=== PATIENT | male | born 1940 | race Caucasian/White ===

== ENCOUNTER 2017-07-25 14:25 | Outpatient (RCR) | payer MEDICARE, SELFPAY ==
[2017-07-25 16:39] VITALS: BP 130/71; PULSE 54; RESP 18; TEMP 37.1
--- NOTE | 2017-07-25 21:54 | PCM.WC.HP ---
(1) Anemia Status: Chronic Current Visit: Yes Qualifiers: Anemia type: unspecified type Qualified Code(s): D64.9 - Anemia, unspecified Code(s): D64.9 - Anemia, unspecified (2) COPD (chronic obstructive pulmonary disease) Status: Chronic Current Visit: No Qualifiers: COPD type: unspecified COPD Qualified Code(s): J44.9 - Chronic obstructive pulmonary disease, unspecified Code(s): J44.9 - Chronic obstructive pulmonary disease, unspecified (3) Sleep apnea Status: Chronic Current Visit: No Qualifiers: Sleep apnea type: unspecified type Qualified Code(s): G47.30 - Sleep apnea, unspecified Code(s): G47.30 - Sleep apnea, unspecified (4) A-fib Status: Chronic Current Visit: Yes Qualifiers: Atrial fibrillation type: chronic Qualified Code(s): I48.2 - Chronic atrial fibrillation Code(s): I48.91 - Unspecified atrial fibrillation Comment: on warfarin for anticoagulation (5) CHF (congestive heart failure) Status: Chronic Current Visit: No Qualifiers: Heart failure type: unspecified Heart failure chronicity: unspecified Qualified Code(s): I50.9 - Heart failure, unspecified Code(s): I50.9 - Heart failure, unspecified (6) CAD (coronary artery disease) Status: Chronic Current Visit: Yes Qualifiers: Coronary Disease-Associated Artery/Lesion type: unspecified vessel or lesion type [place] vs. transplanted heart: [place] heart Associated angina: without angina Qualified Code(s): I25.10 - Atherosclerotic heart disease of [place] coronary artery without angina pectoris Code(s): I25.10 - Atherosclerotic heart disease of [place] coronary artery without angina pectoris (7) S/P CABG x 4 Status: Chronic Current Visit: No Code(s): Z95.1 - Presence of aortocoronary bypass graft (8) PAD (peripheral artery disease) Status: Chronic Current Visit: Yes Code(s): I73.9 - Peripheral vascular disease, unspecified (9) Type 2 diabetes mellitus treated with insulin Status: Chronic Current Visit: Yes Code(s): E11.9 - Type 2 diabetes mellitus without complications; Z79.4 - cytology manager (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 of insulin (10) Neuropathy Status: Chronic Current Visit: Yes Code(s): G62.9 - Polyneuropathy, unspecified (11) 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 He has seen his PCP and has seen another physician in their practice for the wound/ulcer and has been treated once with an UNNA boot and otherwise has been given antibiotics off and on without improvement, most recent antibiotic was Augmentin. No cultures have ever been taken of the wound. No imaging has been done. He has been using Aquaphor to the wound as instructed by his PCP. He has significant pain and edema in this leg and has been started on Lyrica which has helped with the pain. He has been unable to sleep in bed due to the pain and has been sleeping in a recliner. He denies any significant drainage but does note some on his socks from time to time. He denies any odor. Occasionally there is some bleeding. he was referred to the wound center for further evaluation and treatment. 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) Chronic anticoagulation (Chronic) Surgical History: cataract, coronary bypass surgery Allergies/Adverse Reactions: Allergies morphine Allergy (Verified 07/25/17 22:02) Hives Home Medications: Ambulatory Orders Medication Instructions Recorded Aspirin 81 mg PO DAILY 07/25/17 Atorvastatin Calcium 80 mg PO QHS 07/25/17 Exenatide [Byetta (BKC)] 5 mcg SC BIDAC 07/25/17 Furosemide [Lasix] 40 mg PO BID 07/25/17 Insulin Glargine,Hum.rec.anlog 15 units SQ QHS 07/25/17 [Lantus Solostar] Lisinopril 20 mg PO DAILY 07/25/17 Metformin HCl 500 mg PO BID 07/25/17 Metoprolol Tartrate 25 mg PO BID 07/25/17 Potassium Chloride [Klor-Con 10] 1 tab PO DAILY 07/25/17 Pregabalin [Lyrica] 150 mg PO 07/25/17 Tamsulosin HCl [Flomax] 0.4 mg PO DAILY 07/25/17 Warfarin Sodium 5 mg PO 07/25/17 - Family History Maternal Diabetes, Heart Disease, Stroke Paternal Heart Disease Sibling Diabetes, Stroke Lives: Spouse/ Significant Other Smoking Status: Never smoker Tobacco Use: Non-smoker Alcohol: Rare Drugs: None Review of Systems Constitutional: Denies: Chills, Fever, Weight Change Eyes: Denies: Pain, Vision Change HEENT: Reports: Sinus Congestion. Denies: Difficulty Hearing, Difficulty Swallowing Cardiovascular: Denies: Chest Pain, Palpitations Respiratory: Denies: Cough, Shortness of Breath Gastrointestinal: Denies: Diarrhea, Nausea, Vomiting Genitourinary: Denies: Dysuria, Hematuria Musculoskeletal: Reports: Leg Pain Skin: Reports: Wounds Neurological: Reports: Numbness Endocrine: Denies: Heat/ Cold Intolerance, Polydipsia, Polyuria Hematologic/ Lymphatic: Reports: Easy Bruising, Easy Bleeding - Physical Exam Vital Signs Temp Pulse Resp BP 98.8 F 54 L 18 130/71 H 07/25/17 16:39 07/25/17 16:39 07/25/17 16:39 07/25/17 16:39 General: Alert, Oriented x3, Cooperative, No apparent distress HEENT: Atraumatic, Normocephalic Oral: Moist Mucosa Lungs: Clear to auscultation Cardiovascular: Regular rate, Regular Rhythm Abdomen: Soft, Non Tender Extremities: Edema Skin: Ulcer/ Wound Wound Measurements and Assessment WC - Nurse 1 - General Ulcer Measurement Start: 07/25/17 16:38 Freq: Status: Active Protocol: Activity Type Activity Date Activity User E-Sign Co-Sign Detail Recorded Client Recorded Date Recorded By Document 07/25/17 16:39 DV [id number] 07/25/17 17:05 DV 07/25/17 16:39 Wound Center Nurse 1 [Ulcer Assessment] #1 RIGHT LATERAL LOWER LEG -Combined with other wound No -Current Size (cm) - Length 12.5 -Current Size (cm) - Width 3.0 -Current Size (cm) - Depth 0.1 -Total Square Cm 37.50 -Date of Last Picture (Recall this 07/25/17 field) -Photo Taken Yes -Epithelialization None Present -Tunneling No -Undermining/Tunneling No -Circular Undermining No -Classification - Thickness Full Thickness without Exposed Support Structure -Exudate Amt Small (1-33%) -Exudate Type Yellow/Green -Wound Margin Indistinct, Non -Visible -Granulation Amt None Present (0 %) -Granulation Quality N/A -Slough/Fibrin Yes -Necrosis Amt Large (67-100%) -Necrotic Tissue Type Eschar -Structure Exposed None/Limited to Skin Breakdown -Texture (Kinza-wound Skin Appearance) Assessed Localized Edema Scarring -Moisture ([place]-wound Skin Appearance Assessed ) Weeping Dry/Scaly -Color ([place]-wound Skin Appearance) Assessed Erythema Hemosiderin Staining -Temperature ([place]-wound Skin No Abnormality Appearance) (Pt Warm) -Tenderness on Palpation ([place]-wound Yes Skin Appearance) -Ulcer Cleansing Rinsed/ Irrigated with Saline -Foul Odor after Cleansing No -Anesthetic Used 4% Lidocaine Solution 5% Lidocaine Gel [Edema Assessment] -Lower Limb Edema Present Yes -Right Calf (cm) 40.2 -Right Ankle (cm) 24.0 -Left Calf (cm) 38.5 -Left Ankle (cm) 24.5 WC - Nurse 2 - General Ulcer CM Notes Start: 07/25/17 16:38 Freq: Status: Active Protocol: Activity Type Activity Date Activity User E-Sign Co-Sign Detail Recorded Client Recorded Date Recorded By Document 07/25/17 17:21 [id number] 07/25/17 18:25 TM 07/25/17 17:21 Wound Center Nurse 2 [Procedure/Treatment] #1 RIGHT LATERAL LOWER LEG -Time 17:34 -Correct Patient Yes -Correct Side, Site, Position Yes -Correct Procedure Yes -Procedure Performed Yes -Type of Procedure Debridement -Clinical Debridement Subcutaneous -Post Debridement Size (cm) - Length 12.7 -Post Debridement Size (cm) - Width 3.0 -Post Debridement Size (cm) - Depth 0.2 -Total Square Cm 38.10 -Wound/Ulcer Outcome Not Healed -Ulcer Cleansing Rinsed/ Irrigated with Saline -Foul Odor after Cleansing No -Bioengineered Tissue No -Topical Lidocaine (%) 5 -Bleeding Controlled with Pressure -Treatment Response Procedure Tolerated Well [See Physician Procedure note for Specifics] Pain Scale: 0-10 Numeric [Pain] -Is Patient Pain Free? Yes Psych/Mental Status: Normal Affect, Appropriate Debridement Note Post-Debridement Measurements/Treatment WC - Nurse 2 - General Ulcer CM Notes Start: 07/25/17 16:38 Freq: Status: Active Protocol: Activity Type Activity Date Activity User E-Sign Co-Sign Detail Recorded Client Recorded Date Recorded By Document 07/25/17 17:21 [id number] 07/25/17 18:25 07/25/17 17:21 Wound Center Nurse 2 #1 RIGHT LATERAL LOWER LEG -Time 17:34 -Correct Patient Yes -Correct Side, Site, Position Yes -Correct Procedure Yes -Procedure Performed Yes -Type of Procedure Debridement -Clinical Debridement Subcutaneous -Post Debridement Size (cm) - Length 12.7 -Post Debridement Size (cm) - Width 3.0 -Post Debridement Size (cm) - Depth 0.2 -Total Square Cm 38.10 -Wound/Ulcer Outcome Not Healed -Ulcer Cleansing Rinsed/ Irrigated with Saline -Foul Odor after Cleansing No -Bioengineered Tissue No -Topical Lidocaine (%) 5 -Bleeding Controlled with Pressure -Treatment Response Procedure Tolerated Well Pain Scale: 0-10 Numeric Is Patient Pain Free? Yes Wound debrided: right lateral lower leg Laterality: Right Type of Debridement: Excisional debridement Anesthesia Used: 4% Lidocaine Solution, 5% Lidocaine Gel Depth: Down to and including healthy tissue, in the subcutaneous layer Percentage of wound debrided: 100 Instrument Used: #15 blade, Forceps Tissue Removed: yellow slough, devitalized tissue, necrotic tissue Severity: Fat Layer Exposed Amount of bleeding with debridement: Mild Bleeding Controlled with: Compression and gauze Patient tolerated procedure well Assessment/Plan Active Problems Anemia (Chronic) A-fib (Chronic) on warfarin for anticoagulation CAD (coronary artery disease) (Chronic) PAD (peripheral artery disease) (Chronic) Type 2 diabetes mellitus treated with insulin (Chronic) Neuropathy (Chronic) 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 Wound culture was taken to evaluate for any current infection. Vascular studies have been scheduled to evaluate his venous and arterial circulation as they are both likely contributing to his poor healing. Will treat his wound with Santyl and if unable to afford or unable to obtain Santyl until his next appointment would use wet to dry dressings. Will treat his edema with single layer tubigrip. Discussed importance of elevating legs to help with decreasing edema. Encouraged tight glucose control. Records of recent labs requested from PCP office. Call with any increased bleeding, pain, odor or drainage. F/U in 1 week.
--- NOTE | 2017-07-25 22:05 | HP.PCM_ITS ---
(1) Anemia Status: Chronic Current Visit: Yes Qualifiers: Anemia type: unspecified type Qualified Code(s): D64.9 - Anemia, unspecified Code(s): D64.9 - Anemia, unspecified (2) COPD (chronic obstructive pulmonary disease) Status: Chronic Current Visit: No Qualifiers: COPD type: unspecified COPD Qualified Code(s): J44.9 - Chronic obstructive pulmonary disease, unspecified Code(s): J44.9 - Chronic obstructive pulmonary disease, unspecified (3) Sleep apnea Status: Chronic Current Visit: No Qualifiers: Sleep apnea type: unspecified type Qualified Code(s): G47.30 - Sleep apnea , unspecified Code(s): G47.30 - Sleep apnea, unspecified (4) A-fib Status: Chronic Current Visit: Yes Qualifiers: Atrial fibrillation type: chronic Qualified Code(s): I48.2 - Chronic atrial fibrillation Code(s): I48.91 - Unspecified atrial fibrillation Comment: on warfarin for anticoagulation (5) CHF (congestive heart failure) Status: Chronic Current Visit: No Qualifiers: Heart failure type: unspecified Heart failure chronicity: unspecified Qualified Code(s): I50.9 - Heart failure, unspecified Code(s): I50.9 - Heart failure, unspecified (6) CAD (coronary artery disease) Status: Chronic Current Visit: Yes Qualifiers: Coronary Disease-Associated Artery/Lesion type: unspecified vessel or lesion type [place] vs. transplanted heart: [place] heart Associated angina: without angina Qualified Code(s): I25.10 - Atherosclerotic heart disease of [place] coronary artery without angina pectoris Code(s): I25.10 - Atherosclerotic heart disease of [place] coronary artery without angina pectoris (7) S/P CABG x 4 Status: Chronic Current Visit: No Code(s): Z95.1 - Presence of aortocoronary bypass graft (8) PAD (peripheral artery disease) Status: Chronic Current Visit: Yes Code(s): I73.9 - Peripheral vascular disease, unspecified (9) Type 2 diabetes mellitus treated with insulin Status: Chronic Current Visit: Yes Code(s): E11.9 - Type 2 diabetes mellitus without complications; Z79.4 - half-way (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 of insulin (10) Neuropathy Status: Chronic Current Visit: Yes Code(s): G62.9 - Polyneuropathy, unspecified (11) 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 He has seen his PCP and has seen another physician in their practice for the wound/ulcer and has been treated once with an UNNA boot and otherwise has been given antibiotics off and on without improvement, most recent antibiotic was Augmentin. No cultures have ever been taken of the wound. No imaging has been done. He has been using Aquaphor to the wound as instructed by his PCP. He has significant pain and edema in this leg and has been started on Lyrica which has helped with the pain. He has been unable to sleep in bed due to the pain and has been sleeping in a recliner. He denies any significant drainage but does note some on his socks from time to time. He denies any odor. Occasionally there is some bleeding. he was referred to the wound center for further evaluation and treatment. 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 (Chronic ) Chronic anticoagulation (Chronic) Surgical History: cataract, coronary bypass surgery Allergies/Adverse Reactions: Allergies morphine Allergy (Verified 07/25/17 22:02) Hives Home Medications: Ambulatory Orders Medication Instructions Recorded Aspirin 81 mg PO DAILY 07/25/17 Atorvastatin Calcium 80 mg PO QHS 07/25/17 Exenatide [Byetta (BKC)] 5 mcg SC BIDAC 07/25/17 Furosemide [Lasix] 40 mg PO BID 07/25/17 Insulin Glargine,Hum.rec.anlog 15 units SQ QHS 07/25/17 [Lantus Solostar] Lisinopril 20 mg PO DAILY 07/25/17 Metformin HCl 500 mg PO BID 07/25/17 Metoprolol Tartrate 25 mg PO BID 07/25/17 Potassium Chloride [Klor-Con 10] 1 tab PO DAILY 07/25/17 Pregabalin [Lyrica] 150 mg PO 07/25/17 Tamsulosin HCl [Flomax] 0.4 mg PO DAILY 07/25/17 Warfarin Sodium 5 mg PO 07/25/17 - Family History Maternal Diabetes, Heart Disease, Stroke Paternal Heart Disease Sibling Diabetes, Stroke Lives: Spouse/ Significant Other Smoking Status: Never smoker Tobacco Use: Non-smoker Alcohol: Rare Drugs: None Review of Systems Constitutional: Denies: Chills, Fever, Weight Change Eyes: Denies: Pain, Vision Change HEENT: Reports: Sinus Congestion. Denies: Difficulty Hearing, Difficulty Swallowing Cardiovascular: Denies: Chest Pain, Palpitations Respiratory: Denies: Cough, Shortness of Breath Gastrointestinal: Denies: Diarrhea, Nausea, Vomiting Genitourinary: Denies: Dysuria, Hematuria Musculoskeletal: Reports: Leg Pain Skin: Reports: Wounds Neurological: Reports: Numbness Endocrine: Denies: Heat/ Cold Intolerance, Polydipsia, Polyuria Hematologic/ Lymphatic: Reports: Easy Bruising, Easy Bleeding - Physical Exam Vital Signs Temp Pulse Resp BP 98.8 F 54 L 18 130/71 H 07/25/17 16:39 07/25/17 16:39 07/25/17 16:39 07/25/17 16:39 General: Alert, Oriented x3, Cooperative, No apparent distress HEENT: Atraumatic, Normocephalic Oral: Moist Mucosa Lungs: Clear to auscultation Cardiovascular: Regular rate, Regular Rhythm Abdomen: Soft, Non Tender Extremities: Edema Skin: Ulcer/ Wound Wound Measurements and Assessment WC - Nurse 1 - General Ulcer Measurement Start: 07/25/17 16:38 Freq: Status: Active Protocol: Activity Type Activity Date Activity User E-Sign Co-Sign Detail Recorded Client Recorded Date Recorded By Document 07/25/17 16:39 DV [id number] 07/25/17 17:05 DV 07/25/17 16:39 Wound Center Nurse 1 [Ulcer Assessment] #1 RIGHT LATERAL LOWER LEG -Combined with other wound No -Current Size (cm) - Length 12.5 -Current Size (cm) - Width 3.0 -Current Size (cm) - Depth 0.1 -Total Square Cm 37.50 -Date of Last Picture (Recall this 07/25/17 field) -Photo Taken Yes -Epithelialization None Present -Tunneling No -Undermining/Tunneling No -Circular Undermining No -Classification - Thickness Full Thickness without Exposed Support Structure -Exudate Amt Small (1-33%) -Exudate Type Yellow/Green -Wound Margin Indistinct, Non -Visible -Granulation Amt None Present (0 %) -Granulation Quality N/A -Slough/Fibrin Yes -Necrosis Amt Large (67-100%) -Necrotic Tissue Type Eschar -Structure Exposed None/Limited to Skin Breakdown -Texture (Kinza-wound Skin Appearance) Assessed Localized Edema Scarring -Moisture ([place]-wound Skin Appearance Assessed ) Weeping Dry/Scaly -Color ([place]-wound Skin Appearance) Assessed Erythema Hemosiderin Staining -Temperature ([place]-wound Skin No Abnormality Appearance) (Pt Warm) -Tenderness on Palpation ([place]-wound Yes Skin Appearance) -Ulcer Cleansing Rinsed/ Irrigated with Saline -Foul Odor after Cleansing No -Anesthetic Used 4% Lidocaine Solution 5% Lidocaine Gel [Edema Assessment] -Lower Limb Edema Present Yes -Right Calf (cm) 40.2 -Right Ankle (cm) 24.0 -Left Calf (cm) 38.5 -Left Ankle (cm) 24.5 WC - Nurse 2 - General Ulcer CM Notes Start: 07/25/17 16:38 Freq: Status: Active Protocol: Activity Type Activity Date Activity User E-Sign Co-Sign Detail Recorded Client Recorded Date Recorded By Document 07/25/17 17:21 [id number] 07/25/17 18:25 TM 07/25/17 17:21 Wound Center Nurse 2 [Procedure/Treatment] #1 RIGHT LATERAL LOWER LEG -Time 17:34 -Correct Patient Yes -Correct Side, Site, Position Yes -Correct Procedure Yes -Procedure Performed Yes -Type of Procedure Debridement -Clinical Debridement Subcutaneous -Post Debridement Size (cm) - Length 12.7 -Post Debridement Size (cm) - Width 3.0 -Post Debridement Size (cm) - Depth 0.2 -Total Square Cm 38.10 -Wound/Ulcer Outcome Not Healed -Ulcer Cleansing Rinsed/ Irrigated with Saline -Foul Odor after Cleansing No -Bioengineered Tissue No -Topical Lidocaine (%) 5 -Bleeding Controlled with Pressure -Treatment Response Procedure Tolerated Well [See Physician Procedure note for Specifics] Pain Scale: 0-10 Numeric [Pain] -Is Patient Pain Free? Yes Psych/Mental Status: Normal Affect, Appropriate Debridement Note Post-Debridement Measurements/Treatment WC - Nurse 2 - General Ulcer CM Notes Start: 07/25/17 16:38 Freq: Status: Active Protocol: Activity Type Activity Date Activity User E-Sign Co-Sign Detail Recorded Client Recorded Date Recorded By Document 07/25/17 17:21 [id number] 07/25/17 18:25 07/25/17 17:21 Wound Center Nurse 2 #1 RIGHT LATERAL LOWER LEG -Time 17:34 -Correct Patient Yes -Correct Side, Site, Position Yes -Correct Procedure Yes -Procedure Performed Yes -Type of Procedure Debridement -Clinical Debridement Subcutaneous -Post Debridement Size (cm) - Length 12.7 -Post Debridement Size (cm) - Width 3.0 -Post Debridement Size (cm) - Depth 0.2 -Total Square Cm 38.10 -Wound/Ulcer Outcome Not Healed -Ulcer Cleansing Rinsed/ Irrigated with Saline -Foul Odor after Cleansing No -Bioengineered Tissue No -Topical Lidocaine (%) 5 -Bleeding Controlled with Pressure -Treatment Response Procedure Tolerated Well Pain Scale: 0-10 Numeric Is Patient Pain Free? Yes Wound debrided: right lateral lower leg Laterality: Right Type of Debridement: Excisional debridement Anesthesia Used: 4% Lidocaine Solution, 5% Lidocaine Gel Depth: Down to and including healthy tissue, in the subcutaneous layer Percentage of wound debrided: 100 Instrument Used: #15 blade, Forceps Tissue Removed: yellow slough, devitalized tissue, necrotic tissue Severity: Fat Layer Exposed Amount of bleeding with debridement: Mild Bleeding Controlled with: Compression and gauze Patient tolerated procedure well Assessment/Plan Active Problems Anemia (Chronic) A-fib (Chronic) on warfarin for anticoagulation CAD (coronary artery disease) (Chronic) PAD (peripheral artery disease) (Chronic) Type 2 diabetes mellitus treated with insulin (Chronic) Neuropathy (Chronic) 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 Wound culture was taken to evaluate for any current infection. Vascular studies have been scheduled to evaluate his venous and arterial circulation as they are both likely contributing to his poor healing. Will treat his wound with Santyl and if unable to afford or unable to obtain Santyl until his next appointment would use wet to dry dressings. Will treat his edema with single layer tubigrip. Discussed importance of elevating legs to help with decreasing edema. Encouraged tight glucose control. Records of recent labs requested from PCP office. Call with any increased bleeding, pain, odor or drainage. F/U in 1 week.
== END 2017-07-26 23:59 | disposition home or self-care (01) ==
LOC: WC 14:25
PROVIDERS: Family Provider Family Medicine; PCP Family Medicine; Visit Provider Family Medicine
DX: E11.622 Type 2 diabetes mellitus with other skin ulcer (principal); E11.40 Type 2 diabetes mellitus with diabetic neuropathy, unspecified; I70.232 Atherosclerosis of native arteries of right leg with ulceration of calf; L97.212 Non-pressure chronic ulcer of right calf with fat layer exposed; I48.2 Chronic atrial fibrillation; I25.10 Atherosclerotic heart disease of native coronary artery without angina pectoris; D64.9 Anemia, unspecified; Z79.01 Long term (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 of anticoagulants; G47.30 Sleep apnea, unspecified; I50.9 Heart failure, unspecified; Z95.1 Presence of aortocoronary bypass graft; E11.51 Type 2 diabetes mellitus with diabetic peripheral angiopathy without gangrene
CPT/HCPCS: 11042; 11045; 87070; 87075; 87077; 87186; 87205; 97602; 99203; G0463

== ENCOUNTER 2017-08-21 13:00 | Outpatient (RCR) | payer MEDICARE, SELFPAY ==
[2017-07-27 01:24] VITALS: PULSE 54; RESP 18; TEMP 37.1
[2017-07-29 13:07] VITALS: BP 147/66; PULSE 69; RESP 18; TEMP 36.6
--- NOTE | 2017-07-29 14:06 | PCM.WC.HP ---
(1) Non-pressure chronic ulcer of right calf with fat layer exposed Status: Acute Current Visit: Yes Code(s): L97.212 - Non-pressure chronic ulcer of right calf with fat layer exposed (2) Type 2 diabetes mellitus with other skin ulcer Status: Acute Current Visit: Yes Qualifiers: Diabetes mellitus long term care administrator insulin use: unspecified long term care administrator insulin use status Qualified Code(s): E11.622 - Type 2 diabetes mellitus with other skin ulcer; L98.499 - Non-pressure chronic ulcer of skin of other sites with unspecified severity Code(s): E11.622 - Type 2 diabetes mellitus with other skin ulcer; L98.499 - Non-pressure chronic ulcer of skin of other sites with unspecified severity (3) PAD (peripheral artery disease) Status: Chronic Current Visit: Yes Code(s): I73.9 - Peripheral vascular disease, unspecified (4) Type 2 diabetes mellitus with diabetic polyneuropathy Status: Acute Current Visit: Yes Qualifiers: Diabetes mellitus long term care administrator insulin use: unspecified long term care administrator insulin use status Qualified Code(s): E11.42 - Type 2 diabetes mellitus with diabetic polyneuropathy Code(s): E11.42 - Type 2 diabetes mellitus with diabetic polyneuropathy History of Present Illness Date of Service: 07/29/17 Chief Complaint: nonhealing wound/ulcer of right lateral calf History of Wound: Eddie is a pleasant 76 yo man who presents for evaluation of a wound/ulcer of his right lateral calf that has been present since mid-April and has continued to get larger. Former patient of Dr. Kearney's, but will now be seeing me. He has seen his PCP and has seen another physician in their practice for the wound/ulcer and has been treated once with an UNNA boot and otherwise has been given antibiotics off and on without improvement, most recent antibiotic was Augmentin. No cultures have ever been taken of the wound. No imaging has been done. He has been using Aquaphor to the wound as instructed by his PCP. He has significant pain and edema in this leg and has been started on Lyrica which has helped with the pain. He has been unable to sleep in bed due to the pain and has been sleeping in a recliner. He denies any significant drainage but does note some on his socks from time to time. He denies any odor. Occasionally there is some bleeding. he was referred to the wound center for further evaluation and treatment. 07/29--Has been applying santyl and dry dressing since visit last friday. No drainage for the last few days. Vascular testing scheduled for 08/08. Awaiting lab work from PCP. Admits to sleeping in a recliner since March. Denies N/V/F/C. Some redness to R leg, but no pus, no malodor, no warmth, minimal pain. There is edema. Culture positive for e.coli from Friday. Will Rx Keflex today. 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) Chronic anticoagulation (Chronic) Surgical History: cataract, coronary bypass surgery Allergies/Adverse Reactions: Allergies morphine Allergy (Verified 07/25/17 22:02) Hives Home Medications: Ambulatory Orders Medication Instructions Recorded Aspirin 81 mg PO DAILY 07/25/17 Atorvastatin Calcium 80 mg PO QHS 07/25/17 Exenatide [Byetta (BKC)] 5 mcg SC BIDAC 07/25/17 Furosemide [Lasix] 40 mg PO BID 07/25/17 Insulin Glargine,Hum.rec.anlog 15 units SQ QHS 07/25/17 [Lantus Solostar] Lisinopril 20 mg PO DAILY 07/25/17 Metformin HCl 500 mg PO BID 07/25/17 Metoprolol Tartrate 25 mg PO BID 07/25/17 Potassium Chloride [Klor-Con 10] 1 tab PO DAILY 07/25/17 Pregabalin [Lyrica] 150 mg PO 07/25/17 Tamsulosin HCl [Flomax] 0.4 mg PO DAILY 07/25/17 Warfarin Sodium 5 mg PO 07/25/17 - Family History Maternal Diabetes, Heart Disease, Stroke Paternal Heart Disease Sibling Diabetes, Stroke Smoking Status: Never smoker Tobacco Use: Non-smoker Review of Systems Constitutional: Denies: Chills, Fever, Weight Change Eyes: Denies: Pain, Vision Change HEENT: Denies: Difficulty Hearing, Difficulty Swallowing, Sinus Congestion Cardiovascular: Reports: Edema. Denies: Chest Pain, Palpitations Respiratory: Denies: Cough, Shortness of Breath Gastrointestinal: Denies: Diarrhea, Nausea, Vomiting Genitourinary: Denies: Dysuria, Hematuria Skin: Reports: Wounds Neurological: Reports: Numbness, Tingling - legs/feet Endocrine: Denies: Heat/ Cold Intolerance, Polydipsia, Polyuria Hematologic/ Lymphatic: Reports: Hx of blood clot. Denies: Easy Bruising, Easy Bleeding - Physical Exam Vital Signs Temp Pulse Resp BP 97.8 F 69 18 147/66 H 07/29/17 13:07 07/29/17 13:07 07/29/17 13:07 07/29/17 13:07 General: Alert, Oriented x3, Cooperative, No apparent distress Extremities: Capillary Refill Less than 3 Seconds, No Calf Tenderness, Diminished Peripheral Pulses, Edema Skin: Ulcer/ Wound - R lateral calf with no erythema, no pus, no malodor, no warmth, no pain. No clinical signs of acute bacterial infection noted. See wound/edema assessment below. Wound Measurements and Assessment WC - Nurse 1 - General Ulcer Measurement Start: 07/29/17 13:07 Freq: Status: Active Protocol: Activity Type Activity Date Activity User E-Sign Co-Sign Detail Recorded Client Recorded Date Recorded By Document 07/29/17 13:07 DV [id number] 07/29/17 13:11 DV 07/29/17 13:07 Wound Center Nurse 1 [Ulcer Assessment] #1 RIGHT LATERAL LOWER LEG -Combined with other wound No -Current Size (cm) - Length 12.8 -Current Size (cm) - Width 4.3 -Current Size (cm) - Depth 0.2 -Total Square Cm 55.04 -Photo Taken No -Epithelialization None Present -Tunneling No -Undermining/Tunneling No -Circular Undermining No -Classification - Thickness Full Thickness without Exposed Support Structure -Exudate Amt Small (1-33%) -Exudate Type Serosanguineous -Wound Margin Distinct, Outline Attached -Granulation Amt None Present (0 %) -Granulation Quality N/A -Slough/Fibrin Yes -Necrosis Amt Large (67-100%) -Necrotic Tissue Type Adherent Slough -Structure Exposed None/Limited to Skin Breakdown -Texture (Kinza-wound Skin Appearance) Assessed Scarring -Moisture (Kinza-wound Skin Appearance Assessed ) Weeping -Color (Kinza-wound Skin Appearance) Assessed Hemosiderin Staining -Temperature (Kinza-wound Skin No Abnormality Appearance) (Pt Warm) -Tenderness on Palpation (Kinza-wound Yes Skin Appearance) -Ulcer Cleansing Wound Cleanser -Foul Odor after Cleansing No -Anesthetic Used 4% Lidocaine Solution 5% Lidocaine Gel [Edema Assessment] -Lower Limb Edema Present No WC - Nurse 2 - General Ulcer CM Notes Start: 07/29/17 13:07 Freq: Status: Active Protocol: Activity Type Activity Date Activity User E-Sign Co-Sign Detail Recorded Client Recorded Date Recorded By Document 07/29/17 13:25 MW [id number] 07/29/17 13:27 MW 07/29/17 13:25 Wound Center Nurse 2 [Procedure/Treatment] #1 RIGHT LATERAL LOWER LEG -Time 13:25 -Correct Patient Yes -Correct Side, Site, Position Yes -Correct Procedure Yes -Procedure Performed Yes -Type of Procedure Debridement -Clinical Debridement Subcutaneous -Post Debridement Size (cm) - Length 12.9 -Post Debridement Size (cm) - Width 4.3 -Post Debridement Size (cm) - Depth 0.2 -Total Square Cm 55.47 -Wound/Ulcer Outcome Not Healed -Ulcer Cleansing Rinsed/ Irrigated with Saline -Foul Odor after Cleansing No -Bioengineered Tissue No -Bleeding Controlled with Pressure -Treatment Response Procedure Tolerated Well [See Physician Procedure note for Specifics] Pain Scale: 0-10 Numeric [Pain] -Is Patient Pain Free? Yes Debridement Note Post-Debridement Measurements/Treatment WC - Nurse 2 - General Ulcer CM Notes Start: 07/29/17 13:07 Freq: Status: Active Protocol: Activity Type Activity Date Activity User E-Sign Co-Sign Detail Recorded Client Recorded Date Recorded By Document 07/29/17 13:25 MW [id number] 07/29/17 13:27 MW 07/29/17 13:25 Wound Center Nurse 2 #1 RIGHT LATERAL LOWER LEG -Time 13:25 -Correct Patient Yes -Correct Side, Site, Position Yes -Correct Procedure Yes -Procedure Performed Yes -Type of Procedure Debridement -Clinical Debridement Subcutaneous -Post Debridement Size (cm) - Length 12.9 -Post Debridement Size (cm) - Width 4.3 -Post Debridement Size (cm) - Depth 0.2 -Total Square Cm 55.47 -Wound/Ulcer Outcome Not Healed -Ulcer Cleansing Rinsed/ Irrigated with Saline -Foul Odor after Cleansing No -Bioengineered Tissue No -Bleeding Controlled with Pressure -Treatment Response Procedure Tolerated Well Pain Scale: 0-10 Numeric Is Patient Pain Free? Yes Wound debrided: R lateral calf Laterality: Right Wound Grade/Stage: full thickness VLU Type of Debridement: Excisional debridement Anesthesia Used: 4% Lidocaine Solution Depth: Down to and including healthy tissue, in the subcutaneous layer Percentage of wound debrided: 100 Instrument Used: 7mm curette Tissue Removed: fibrous slough Severity: Fat Layer Exposed Amount of bleeding with debridement: Mild Bleeding Controlled with: Pressure, Compression and gauze Patient tolerated procedure well Assessment/Plan Active Problems PAD (peripheral artery disease) (Chronic) Type 2 diabetes mellitus with diabetic polyneuropathy (Acute) Type 2 diabetes mellitus with other skin ulcer (Acute) Non-pressure chronic ulcer of right calf with fat layer exposed (Acute) Assessment: nonhealing ulcer/wound of right lateral calf - likely secondary to arterial insufficiency Plan: PLANNING DIVISION SUPERINTENDENT 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 SQ/excisional debridement of R calf ulcer as above. Vascular studies have been scheduled to evaluate his venous and arterial circulation as they are both likely contributing to his poor healing. Continue Santyl nickel thickness, cover with lightly moistened gauze dressing. Will treat his edema with single layer spandagrip. Discussed importance of elevating legs to help with decreasing edema, avoiding idle sitting or standing, increased activity, weight management. Pt unable to take NSAIDs due to current use of coumadin. Pt encouraged to sleep flat at night or to sleep with legs elevated if he is going to sleep in a recliner. Encouraged tight glucose control. Discussed importance of adequate nutrition, especially increased protein intake, to promote healing. Ulcer does not require offloading due to location, but do not cross legs. Records of recent labs requested from PCP office. Monitor for incraesed pain, odor, warmth, increased redness, pus and go to the ED with these. F/U in 1 week. Rx Keflex 500 mg caps, #30, take one cap PO q8h for positive cultures. Encouraged probiotic supplement as well.
--- NOTE | 2017-07-29 14:17 | HP.PCM_ITS ---
(1) Non-pressure chronic ulcer of right calf with fat layer exposed Status: Acute Current Visit: Yes Code(s): L97.212 - Non-pressure chronic ulcer of right calf with fat layer exposed (2) Type 2 diabetes mellitus with other skin ulcer Status: Acute Current Visit: Yes Qualifiers: Diabetes mellitus intermediate teacher insulin use: unspecified intermediate teacher insulin use status Qualified Code(s): E11.622 - Type 2 diabetes mellitus with other skin ulcer; L98.499 - Non-pressure chronic ulcer of skin of other sites with unspecified severity Code(s): E11.622 - Type 2 diabetes mellitus with other skin ulcer; L98.499 - Non -pressure chronic ulcer of skin of other sites with unspecified severity (3) PAD (peripheral artery disease) Status: Chronic Current Visit: Yes Code(s): I73.9 - Peripheral vascular disease, unspecified (4) Type 2 diabetes mellitus with diabetic polyneuropathy Status: Acute Current Visit: Yes Qualifiers: Diabetes mellitus intermediate teacher insulin use: unspecified fpc insulin use status Qualified Code(s): E11.42 - Type 2 diabetes mellitus with diabetic polyneuropathy Code(s): E11.42 - Type 2 diabetes mellitus with diabetic polyneuropathy History of Present Illness Date of Service: 07/29/17 Chief Complaint: nonhealing wound/ulcer of right lateral calf History of Wound: Eddie is a pleasant 76 yo man who presents for evaluation of a wound/ulcer of his right lateral calf that has been present since mid-April and has continued to get larger. Former patient of Dr. Kearney's, but will now be seeing me. He has seen his PCP and has seen another physician in their practice for the wound/ulcer and has been treated once with an UNNA boot and otherwise has been given antibiotics off and on without improvement, most recent antibiotic was Augmentin. No cultures have ever been taken of the wound. No imaging has been done. He has been using Aquaphor to the wound as instructed by his PCP. He has significant pain and edema in this leg and has been started on Lyrica which has helped with the pain. He has been unable to sleep in bed due to the pain and has been sleeping in a recliner. He denies any significant drainage but does note some on his socks from time to time. He denies any odor. Occasionally there is some bleeding. he was referred to the wound center for further evaluation and treatment. 07/29--Has been applying santyl and dry dressing since visit last friday. No drainage for the last few days. Vascular testing scheduled for 08/08. Awaiting lab work from PCP. Admits to sleeping in a recliner since March. Denies N/V/F/C. Some redness to R leg, but no pus, no malodor, no warmth, minimal pain. There is edema. Culture positive for e.coli from Friday. Will Rx Keflex today. 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 ) Chronic anticoagulation (Chronic) Surgical History: cataract, coronary bypass surgery Allergies/Adverse Reactions: Allergies morphine Allergy (Verified 07/25/17 22:02) Hives Home Medications: Ambulatory Orders Medication Instructions Recorded Aspirin 81 mg PO DAILY 07/25/17 Atorvastatin Calcium 80 mg PO QHS 07/25/17 Exenatide [Byetta (BKC)] 5 mcg SC BIDAC 07/25/17 Furosemide [Lasix] 40 mg PO BID 07/25/17 Insulin Glargine,Hum.rec.anlog 15 units SQ QHS 07/25/17 [Lantus Solostar] Lisinopril 20 mg PO DAILY 07/25/17 Metformin HCl 500 mg PO BID 07/25/17 Metoprolol Tartrate 25 mg PO BID 07/25/17 Potassium Chloride [Klor-Con 10] 1 tab PO DAILY 07/25/17 Pregabalin [Lyrica] 150 mg PO 07/25/17 Tamsulosin HCl [Flomax] 0.4 mg PO DAILY 07/25/17 Warfarin Sodium 5 mg PO 07/25/17 - Family History Maternal Diabetes, Heart Disease, Stroke Paternal Heart Disease Sibling Diabetes, Stroke Smoking Status: Never smoker Tobacco Use: Non-smoker Review of Systems Constitutional: Denies: Chills, Fever, Weight Change Eyes: Denies: Pain, Vision Change HEENT: Denies: Difficulty Hearing, Difficulty Swallowing, Sinus Congestion Cardiovascular: Reports: Edema. Denies: Chest Pain, Palpitations Respiratory: Denies: Cough, Shortness of Breath Gastrointestinal: Denies: Diarrhea, Nausea, Vomiting Genitourinary: Denies: Dysuria, Hematuria Skin: Reports: Wounds Neurological: Reports: Numbness, Tingling - legs/feet Endocrine: Denies: Heat/ Cold Intolerance, Polydipsia, Polyuria Hematologic/ Lymphatic: Reports: Hx of blood clot. Denies: Easy Bruising, Easy Bleeding - Physical Exam Vital Signs Temp Pulse Resp BP 97.8 F 69 18 147/66 H 07/29/17 13:07 07/29/17 13:07 07/29/17 13:07 07/29/17 13:07 General: Alert, Oriented x3, Cooperative, No apparent distress Extremities: Capillary Refill Less than 3 Seconds, No Calf Tenderness, Diminished Peripheral Pulses, Edema Skin: Ulcer/ Wound - R lateral calf with no erythema, no pus, no malodor, no warmth, no pain. No clinical signs of acute bacterial infection noted. See wound/edema assessment below. Wound Measurements and Assessment WC - Nurse 1 - General Ulcer Measurement Start: 07/29/17 13:07 Freq: Status: Active Protocol: Activity Type Activity Date Activity User E-Sign Co-Sign Detail Recorded Client Recorded Date Recorded By Document 07/29/17 13:07 DV [id number] 07/29/17 13:11 DV 07/29/17 13:07 Wound Center Nurse 1 [Ulcer Assessment] #1 RIGHT LATERAL LOWER LEG -Combined with other wound No -Current Size (cm) - Length 12.8 -Current Size (cm) - Width 4.3 -Current Size (cm) - Depth 0.2 -Total Square Cm 55.04 -Photo Taken No -Epithelialization None Present -Tunneling No -Undermining/Tunneling No -Circular Undermining No -Classification - Thickness Full Thickness without Exposed Support Structure -Exudate Amt Small (1-33%) -Exudate Type Serosanguineous -Wound Margin Distinct, Outline Attached -Granulation Amt None Present (0 %) -Granulation Quality N/A -Slough/Fibrin Yes -Necrosis Amt Large (67-100%) -Necrotic Tissue Type Adherent Slough -Structure Exposed None/Limited to Skin Breakdown -Texture (Kinza-wound Skin Appearance) Assessed Scarring -Moisture (Kinza-wound Skin Appearance Assessed ) Weeping -Color (Kinza-wound Skin Appearance) Assessed Hemosiderin Staining -Temperature (Kinza-wound Skin No Abnormality Appearance) (Pt Warm) -Tenderness on Palpation (Kinza-wound Yes Skin Appearance) -Ulcer Cleansing Wound Cleanser -Foul Odor after Cleansing No -Anesthetic Used 4% Lidocaine Solution 5% Lidocaine Gel [Edema Assessment] -Lower Limb Edema Present No WC - Nurse 2 - General Ulcer CM Notes Start: 07/29/17 13:07 Freq: Status: Active Protocol: Activity Type Activity Date Activity User E-Sign Co-Sign Detail Recorded Client Recorded Date Recorded By Document 07/29/17 13:25 MW [id number] 07/29/17 13:27 MW 07/29/17 13:25 Wound Center Nurse 2 [Procedure/Treatment] #1 RIGHT LATERAL LOWER LEG -Time 13:25 -Correct Patient Yes -Correct Side, Site, Position Yes -Correct Procedure Yes -Procedure Performed Yes -Type of Procedure Debridement -Clinical Debridement Subcutaneous -Post Debridement Size (cm) - Length 12.9 -Post Debridement Size (cm) - Width 4.3 -Post Debridement Size (cm) - Depth 0.2 -Total Square Cm 55.47 -Wound/Ulcer Outcome Not Healed -Ulcer Cleansing Rinsed/ Irrigated with Saline -Foul Odor after Cleansing No -Bioengineered Tissue No -Bleeding Controlled with Pressure -Treatment Response Procedure Tolerated Well [See Physician Procedure note for Specifics] Pain Scale: 0-10 Numeric [Pain] -Is Patient Pain Free? Yes Debridement Note Post-Debridement Measurements/Treatment WC - Nurse 2 - General Ulcer CM Notes Start: 07/29/17 13:07 Freq: Status: Active Protocol: Activity Type Activity Date Activity User E-Sign Co-Sign Detail Recorded Client Recorded Date Recorded By Document 07/29/17 13:25 MW [id number] 07/29/17 13:27 MW 07/29/17 13:25 Wound Center Nurse 2 #1 RIGHT LATERAL LOWER LEG -Time 13:25 -Correct Patient Yes -Correct Side, Site, Position Yes -Correct Procedure Yes -Procedure Performed Yes -Type of Procedure Debridement -Clinical Debridement Subcutaneous -Post Debridement Size (cm) - Length 12.9 -Post Debridement Size (cm) - Width 4.3 -Post Debridement Size (cm) - Depth 0.2 -Total Square Cm 55.47 -Wound/Ulcer Outcome Not Healed -Ulcer Cleansing Rinsed/ Irrigated with Saline -Foul Odor after Cleansing No -Bioengineered Tissue No -Bleeding Controlled with Pressure -Treatment Response Procedure Tolerated Well Pain Scale: 0-10 Numeric Is Patient Pain Free? Yes Wound debrided: R lateral calf Laterality: Right Wound Grade/Stage: full thickness VLU Type of Debridement: Excisional debridement Anesthesia Used: 4% Lidocaine Solution Depth: Down to and including healthy tissue, in the subcutaneous layer Percentage of wound debrided: 100 Instrument Used: 7mm curette Tissue Removed: fibrous slough Severity: Fat Layer Exposed Amount of bleeding with debridement: Mild Bleeding Controlled with: Pressure, Compression and gauze Patient tolerated procedure well Assessment/Plan Active Problems PAD (peripheral artery disease) (Chronic) Type 2 diabetes mellitus with diabetic polyneuropathy (Acute) Type 2 diabetes mellitus with other skin ulcer (Acute) Non-pressure chronic ulcer of right calf with fat layer exposed (Acute) Assessment: nonhealing ulcer/wound of right lateral calf - likely secondary to arterial insufficiency Plan: HIGH SCHOOL 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 SQ/excisional debridement of R calf ulcer as above. Vascular studies have been scheduled to evaluate his venous and arterial circulation as they are both likely contributing to his poor healing. Continue Santyl nickel thickness, cover with lightly moistened gauze dressing. Will treat his edema with single layer spandagrip. Discussed importance of elevating legs to help with decreasing edema, avoiding idle sitting or standing, increased activity, weight management. Pt unable to take NSAIDs due to current use of coumadin. Pt encouraged to sleep flat at night or to sleep with legs elevated if he is going to sleep in a recliner. Encouraged tight glucose control. Discussed importance of adequate nutrition, especially increased protein intake, to promote healing. Ulcer does not require offloading due to location, but do not cross legs. Records of recent labs requested from PCP office. Monitor for incraesed pain, odor, warmth, increased redness, pus and go to the ED with these. F/U in 1 week. Rx Keflex 500 mg caps, #30, take one cap PO q8h for positive cultures. Encouraged probiotic supplement as well.
[2017-08-05 13:43] VITALS: BP 133/57; PULSE 62; RESP 18; TEMP 36.4
--- NOTE | 2017-08-05 14:11 | PCM.WC.PN ---
(1) Non-pressure chronic ulcer of right calf with fat layer exposed Status: Acute Current Visit: Yes Code(s): L97.212 - Non-pressure chronic ulcer of right calf with fat layer exposed (2) Type 2 diabetes mellitus with other skin ulcer Status: Acute Current Visit: Yes Qualifiers: Diabetes mellitus termite technician insulin use: unspecified termite technician insulin use status Qualified Code(s): E11.622 - Type 2 diabetes mellitus with other skin ulcer; L98.499 - Non-pressure chronic ulcer of skin of other sites with unspecified severity Code(s): E11.622 - Type 2 diabetes mellitus with other skin ulcer; L98.499 - Non-pressure chronic ulcer of skin of other sites with unspecified severity (3) PAD (peripheral artery disease) Status: Chronic Current Visit: Yes Code(s): I73.9 - Peripheral vascular disease, unspecified (4) Type 2 diabetes mellitus with diabetic polyneuropathy Status: Acute Current Visit: Yes Qualifiers: Diabetes mellitus termite technician insulin use: unspecified termite technician insulin use status Qualified Code(s): E11.42 - Type 2 diabetes mellitus with diabetic polyneuropathy Code(s): E11.42 - Type 2 diabetes mellitus with diabetic polyneuropathy Type of Wound Date of Service: 08/05/17 Chief Complaint: nonhealing wound/ulcer of right lateral calf History of Wound: Eddie is a pleasant 76 yo man who presents for evaluation of a wound/ulcer of his right lateral calf that has been present since mid-April and has continued to get larger. Former patient of Dr. Kearney's, but will now be seeing me. He has seen his PCP and has seen another physician in their practice for the wound/ulcer and has been treated once with an UNNA boot and otherwise has been given antibiotics off and on without improvement, most recent antibiotic was Augmentin. No cultures have ever been taken of the wound. No imaging has been done. He has been using Aquaphor to the wound as instructed by his PCP. He has significant pain and edema in this leg and has been started on Lyrica which has helped with the pain. He has been unable to sleep in bed due to the pain and has been sleeping in a recliner. He denies any significant drainage but does note some on his socks from time to time. He denies any odor. Occasionally there is some bleeding. he was referred to the wound center for further evaluation and treatment. 07/29--Has been applying santyl and dry dressing since visit last friday. No drainage for the last few days. Vascular testing scheduled for 08/08. Awaiting lab work from PCP. Admits to sleeping in a recliner since March. Denies N/V/F/C. Some redness to R leg, but no pus, no malodor, no warmth, minimal pain. There is edema. Culture positive for e.coli from Friday. Will Rx Keflex today. 08/05--Pt taking Keflex, tolerating well. Vascular testing scheduled for friday. Size improved with the use of nickel-thickness Santyl and lightly moistened gauze with light spandagrip. Plan to increase compression once vascular testing done. Progress of Wound: improved - Physical Exam Vital Signs Temp Pulse Resp BP 97.5 F L 62 18 133/57 H 08/05/17 13:43 08/05/17 13:43 08/05/17 13:43 08/05/17 13:43 General: Alert, Oriented x3, Cooperative, No apparent distress Skin: Ulcer/ Wound - R lateral calf with no erythema, no pus, no malodor, no increased warmth. No clinical signs of acute bacterial infection noted. See wound/edema assessment below. Wound Measurements and Assessment WC - Nurse 1 - General Ulcer Measurement Start: 07/29/17 13:07 Freq: Status: Active Protocol: Activity Type Activity Date Activity User E-Sign Co-Sign Detail Recorded Client Recorded Date Recorded By Document 08/05/17 13:43 DL [id number] 08/05/17 13:48 DL 08/05/17 13:43 Wound Center Nurse 1 [Ulcer Assessment] #1 RIGHT LATERAL LOWER LEG -Current Size (cm) - Length 12.8 -Current Size (cm) - Width 4 -Current Size (cm) - Depth 0.1 -Total Square Cm 51.2 -Photo Taken No -Exudate Amt Medium (34-66%) -Exudate Type Serosanguineous -Wound Margin Distinct, Outline Attached -Granulation Amt None Present (0 %) -Necrosis Amt Large (67-100%) -Necrotic Tissue Type Adherent Slough -Structure Exposed N/A -Texture (Kinza-wound Skin Appearance) Scarring -Moisture (Kinza-wound Skin Appearance No Abnormality ) -Color (Kinza-wound Skin Appearance) Erythema Hemosiderin Staining Rubor -Temperature (Kinza-wound Skin No Abnormality Appearance) (Pt Warm) -Tenderness on Palpation (Kinza-wound Yes Skin Appearance) -Ulcer Cleansing Wound Cleanser -Foul Odor after Cleansing No -Anesthetic Used 4% Lidocaine Solution [Edema Assessment] -Right Calf (cm) 38.7 -Right Ankle (cm) 22 WC - Nurse 2 - General Ulcer CM Notes Start: 07/29/17 13:07 Freq: Status: Active Protocol: Activity Type Activity Date Activity User E-Sign Co-Sign Detail Recorded Client Recorded Date Recorded By Document 08/05/17 14:07 MW [id number] 08/05/17 14:10 MW 08/05/17 14:07 Wound Center Nurse 2 [Procedure/Treatment] #1 RIGHT LATERAL LOWER LEG -Time 14:08 -Correct Patient Yes -Correct Side, Site, Position Yes -Correct Procedure Yes -Procedure Performed Yes -Type of Procedure Debridement -Clinical Debridement Subcutaneous -Post Debridement Size (cm) - Length 12.8 -Post Debridement Size (cm) - Width 4.1 -Post Debridement Size (cm) - Depth 0.1 -Total Square Cm 52.48 -Wound/Ulcer Outcome Not Healed -Ulcer Cleansing Rinsed/ Irrigated with Saline -Foul Odor after Cleansing No -Bioengineered Tissue No -Bleeding Controlled with Pressure -Treatment Response Procedure Tolerated Well [See Physician Procedure note for Specifics] Pain Scale: 0-10 Numeric [Pain] -Is Patient Pain Free? Yes Debridement Note Post-Debridement Measurements/Treatment WC - Nurse 2 - General Ulcer CM Notes Start: 07/29/17 13:07 Freq: Status: Active Protocol: Activity Type Activity Date Activity User E-Sign Co-Sign Detail Recorded Client Recorded Date Recorded By Document 07/29/17 13:25 MW [id number] 07/29/17 13:27 MW Document 08/05/17 14:07 MW [id number] 08/05/17 14:10 MW 07/29/17 08/05/17 13:25 14:07 Wound Center Nurse 2 #1 RIGHT LATERAL LOWER LEG -Time 13:25 14:08 -Correct Patient Yes Yes -Correct Side, Site, Position Yes Yes -Correct Procedure Yes Yes -Procedure Performed Yes Yes -Type of Procedure Debridement Debridement -Clinical Debridement Subcutaneous Subcutaneous -Post Debridement Size (cm) - Length 12.9 12.8 -Post Debridement Size (cm) - Width 4.3 4.1 -Post Debridement Size (cm) - Depth 0.2 0.1 -Total Square Cm 55.47 52.48 -Wound/Ulcer Outcome Not Healed Not Healed -Ulcer Cleansing Rinsed/ Rinsed/ Irrigated with Irrigated with Saline Saline -Foul Odor after Cleansing No No -Bioengineered Tissue No No -Bleeding Controlled with Pressure Pressure -Treatment Response Procedure Procedure Tolerated Well Tolerated Well Pain Scale: 0-10 Numeric Is Patient Pain Free? Yes Yes Wound debrided: R lateral calf > 50 sq cm Laterality: Right Wound Grade/Stage: full thickness VLU Type of Debridement: Excisional debridement Anesthesia Used: 4% Lidocaine Solution Depth: Down to and including healthy tissue, in the subcutaneous layer Percentage of wound debrided: 100 Instrument Used: 7mm curette Tissue Removed: fibrous slough Severity: Fat Layer Exposed Amount of bleeding with debridement: Mild Bleeding Controlled with: Pressure, Compression and gauze Patient tolerated procedure well Assessment/Plan Active Problems PAD (peripheral artery disease) (Chronic) Type 2 diabetes mellitus with diabetic polyneuropathy (Acute) Type 2 diabetes mellitus with other skin ulcer (Acute) Non-pressure chronic ulcer of right calf with fat layer exposed (Acute) Assessment: nonhealing ulcer/wound of right lateral calf - likely secondary to arterial insufficiency Plan: SQ/excisional debridement of R calf ulcer as above >50 sq cm. Vascular studies have been scheduled to evaluate his venous and arterial circulation as they are both likely contributing to his poor healing for Friday. Continue Santyl nickel thickness, cover with lightly moistened gauze dressing. Will treat his edema with single layer light spandagrip until after vascular testing done. Discussed importance of elevating legs to help with decreasing edema, avoiding idle sitting or standing, increased activity, weight management. Pt unable to take NSAIDs due to current use of coumadin. Pt encouraged to sleep flat at night or to sleep with legs elevated if he is going to sleep in a recliner. Encouraged tight glucose control. Discussed importance of adequate nutrition, especially increased protein intake, to promote healing. Ulcer does not require offloading due to location, but do not cross legs. Records of recent labs requested from PCP office, have not yet received. Monitor for incraesed pain, odor, warmth, increased redness, pus and go to the ED with these. F/U in 1 week. Continue Keflex until completed as Rx.
--- NOTE | 2017-08-05 14:17 | PN.PCM_ITS ---
(1) Non-pressure chronic ulcer of right calf with fat layer exposed Status: Acute Current Visit: Yes Code(s): L97.212 - Non-pressure chronic ulcer of right calf with fat layer exposed (2) Type 2 diabetes mellitus with other skin ulcer Status: Acute Current Visit: Yes Qualifiers: Diabetes mellitus terminal gauger insulin use: unspecified terminal gauger insulin use status Qualified Code(s): E11.622 - Type 2 diabetes mellitus with other skin ulcer; L98.499 - Non-pressure chronic ulcer of skin of other sites with unspecified severity Code(s): E11.622 - Type 2 diabetes mellitus with other skin ulcer; L98.499 - Non -pressure chronic ulcer of skin of other sites with unspecified severity (3) PAD (peripheral artery disease) Status: Chronic Current Visit: Yes Code(s): I73.9 - Peripheral vascular disease, unspecified (4) Type 2 diabetes mellitus with diabetic polyneuropathy Status: Acute Current Visit: Yes Qualifiers: Diabetes mellitus terminal gauger insulin use: unspecified senior care insulin use status Qualified Code(s): E11.42 - Type 2 diabetes mellitus with diabetic polyneuropathy Code(s): E11.42 - Type 2 diabetes mellitus with diabetic polyneuropathy Type of Wound Date of Service: 08/05/17 Chief Complaint: nonhealing wound/ulcer of right lateral calf History of Wound: Eddie is a pleasant 76 yo man who presents for evaluation of a wound/ulcer of his right lateral calf that has been present since mid-April and has continued to get larger. Former patient of Dr. Kearney's, but will now be seeing me. He has seen his PCP and has seen another physician in their practice for the wound/ulcer and has been treated once with an UNNA boot and otherwise has been given antibiotics off and on without improvement, most recent antibiotic was Augmentin. No cultures have ever been taken of the wound. No imaging has been done. He has been using Aquaphor to the wound as instructed by his PCP. He has significant pain and edema in this leg and has been started on Lyrica which has helped with the pain. He has been unable to sleep in bed due to the pain and has been sleeping in a recliner. He denies any significant drainage but does note some on his socks from time to time. He denies any odor. Occasionally there is some bleeding. he was referred to the wound center for further evaluation and treatment. 07/29--Has been applying santyl and dry dressing since visit last friday. No drainage for the last few days. Vascular testing scheduled for 08/08. Awaiting lab work from PCP. Admits to sleeping in a recliner since March. Denies N/V/F/C. Some redness to R leg, but no pus, no malodor, no warmth, minimal pain. There is edema. Culture positive for e.coli from Friday. Will Rx Keflex today. 08/05--Pt taking Keflex, tolerating well. Vascular testing scheduled for friday. Size improved with the use of nickel-thickness Santyl and lightly moistened gauze with light spandagrip. Plan to increase compression once vascular testing done. Progress of Wound: improved - Physical Exam Vital Signs Temp Pulse Resp BP 97.5 F L 62 18 133/57 H 08/05/17 13:43 08/05/17 13:43 08/05/17 13:43 08/05/17 13:43 General: Alert, Oriented x3, Cooperative, No apparent distress Skin: Ulcer/ Wound - R lateral calf with no erythema, no pus, no malodor, no increased warmth. No clinical signs of acute bacterial infection noted. See wound/edema assessment below. Wound Measurements and Assessment WC - Nurse 1 - General Ulcer Measurement Start: 07/29/17 13:07 Freq: Status: Active Protocol: Activity Type Activity Date Activity User E-Sign Co-Sign Detail Recorded Client Recorded Date Recorded By Document 08/05/17 13:43 DL [id number] 08/05/17 13:48 DL 08/05/17 13:43 Wound Center Nurse 1 [Ulcer Assessment] #1 RIGHT LATERAL LOWER LEG -Current Size (cm) - Length 12.8 -Current Size (cm) - Width 4 -Current Size (cm) - Depth 0.1 -Total Square Cm 51.2 -Photo Taken No -Exudate Amt Medium (34-66%) -Exudate Type Serosanguineous -Wound Margin Distinct, Outline Attached -Granulation Amt None Present (0 %) -Necrosis Amt Large (67-100%) -Necrotic Tissue Type Adherent Slough -Structure Exposed N/A -Texture (Kinza-wound Skin Appearance) Scarring -Moisture (Kinza-wound Skin Appearance No Abnormality ) -Color (Kinza-wound Skin Appearance) Erythema Hemosiderin Staining Rubor -Temperature (Kinza-wound Skin No Abnormality Appearance) (Pt Warm) -Tenderness on Palpation (Kinza-wound Yes Skin Appearance) -Ulcer Cleansing Wound Cleanser -Foul Odor after Cleansing No -Anesthetic Used 4% Lidocaine Solution [Edema Assessment] -Right Calf (cm) 38.7 -Right Ankle (cm) 22 WC - Nurse 2 - General Ulcer CM Notes Start: 07/29/17 13:07 Freq: Status: Active Protocol: Activity Type Activity Date Activity User E-Sign Co-Sign Detail Recorded Client Recorded Date Recorded By Document 08/05/17 14:07 MW [id number] 08/05/17 14:10 MW 08/05/17 14:07 Wound Center Nurse 2 [Procedure/Treatment] #1 RIGHT LATERAL LOWER LEG -Time 14:08 -Correct Patient Yes -Correct Side, Site, Position Yes -Correct Procedure Yes -Procedure Performed Yes -Type of Procedure Debridement -Clinical Debridement Subcutaneous -Post Debridement Size (cm) - Length 12.8 -Post Debridement Size (cm) - Width 4.1 -Post Debridement Size (cm) - Depth 0.1 -Total Square Cm 52.48 -Wound/Ulcer Outcome Not Healed -Ulcer Cleansing Rinsed/ Irrigated with Saline -Foul Odor after Cleansing No -Bioengineered Tissue No -Bleeding Controlled with Pressure -Treatment Response Procedure Tolerated Well [See Physician Procedure note for Specifics] Pain Scale: 0-10 Numeric [Pain] -Is Patient Pain Free? Yes Debridement Note Post-Debridement Measurements/Treatment WC - Nurse 2 - General Ulcer CM Notes Start: 07/29/17 13:07 Freq: Status: Active Protocol: Activity Type Activity Date Activity User E-Sign Co-Sign Detail Recorded Client Recorded Date Recorded By Document 07/29/17 13:25 MW [id number] 07/29/17 13:27 MW Document 08/05/17 14:07 MW [id number] 08/05/17 14:10 MW 07/29/17 08/05/17 13:25 14:07 Wound Center Nurse 2 #1 RIGHT LATERAL LOWER LEG -Time 13:25 14:08 -Correct Patient Yes Yes -Correct Side, Site, Position Yes Yes -Correct Procedure Yes Yes -Procedure Performed Yes Yes -Type of Procedure Debridement Debridement -Clinical Debridement Subcutaneous Subcutaneous -Post Debridement Size (cm) - Length 12.9 12.8 -Post Debridement Size (cm) - Width 4.3 4.1 -Post Debridement Size (cm) - Depth 0.2 0.1 -Total Square Cm 55.47 52.48 -Wound/Ulcer Outcome Not Healed Not Healed -Ulcer Cleansing Rinsed/ Rinsed/ Irrigated with Irrigated with Saline Saline -Foul Odor after Cleansing No No -Bioengineered Tissue No No -Bleeding Controlled with Pressure Pressure -Treatment Response Procedure Procedure Tolerated Well Tolerated Well Pain Scale: 0-10 Numeric Is Patient Pain Free? Yes Yes Wound debrided: R lateral calf > 50 sq cm Laterality: Right Wound Grade/Stage: full thickness VLU Type of Debridement: Excisional debridement Anesthesia Used: 4% Lidocaine Solution Depth: Down to and including healthy tissue, in the subcutaneous layer Percentage of wound debrided: 100 Instrument Used: 7mm curette Tissue Removed: fibrous slough Severity: Fat Layer Exposed Amount of bleeding with debridement: Mild Bleeding Controlled with: Pressure, Compression and gauze Patient tolerated procedure well Assessment/Plan Active Problems PAD (peripheral artery disease) (Chronic) Type 2 diabetes mellitus with diabetic polyneuropathy (Acute) Type 2 diabetes mellitus with other skin ulcer (Acute) Non-pressure chronic ulcer of right calf with fat layer exposed (Acute) Assessment: nonhealing ulcer/wound of right lateral calf - likely secondary to arterial insufficiency Plan: SQ/excisional debridement of R calf ulcer as above >50 sq cm. Vascular studies have been scheduled to evaluate his venous and arterial circulation as they are both likely contributing to his poor healing for Friday. Continue Santyl nickel thickness, cover with lightly moistened gauze dressing. Will treat his edema with single layer light spandagrip until after vascular testing done. Discussed importance of elevating legs to help with decreasing edema, avoiding idle sitting or standing, increased activity, weight management. Pt unable to take NSAIDs due to current use of coumadin. Pt encouraged to sleep flat at night or to sleep with legs elevated if he is going to sleep in a recliner. Encouraged tight glucose control. Discussed importance of adequate nutrition, especially increased protein intake, to promote healing. Ulcer does not require offloading due to location, but do not cross legs. Records of recent labs requested from PCP office, have not yet received. Monitor for incraesed pain, odor, warmth, increased redness, pus and go to the ED with these. F/U in 1 week. Continue Keflex until completed as Rx.
--- NOTE | 2017-08-08 12:41 | VDLE_ITS ---
Reason For Study: Non-healing wound RIGHT LEFT CFV is compressible, spontaneous, phasic, CFV is compressible, spontaneous, phasic, competent and demonstrates normal competent, and demonstrates normal augmentation. augmentation. FV is compressible, spontaneous, phasic, FV is compressible, spontaneous, phasic, competent and demonstrates normal competent and demonstrates normal augmentation. augmentation. POP V is compressible, spontaneous, phasic, POP V is compressible, spontaneous, phasic, competent and demonstrates normal competent and demonstrates normal augmentation. augmentation. T/P Trunk is compressible. T/P Trunk is compressible. PTV is compressible. PTV is compressible. RT PerV is compressible. LT PerV is compressible. SFJ is competent GSV is absent due to harvesting GSV is competent above knee SSV is competent. GSV is INCOMPETENT below knee with reflux greater than .5 sec and diameter of .31 x .33 cm ASV at SFJ is INCOMPETENT with reflux greater than .5 sec and diameter of .36 x .41 cm SSV is competent. Procedure Exam performed in department. A preliminary report was called and/or faxed to [facility]. Interpretation Summary Deep veins of the lower extremities are bilaterally patent and compressible segmentally. There is no evidence of deep vein thrombosis on either side. Valvular competence appears intact within the proximal deep venous systems bilaterally. The right greater saphenous vein appears patent and compressible segmentally. The left greater saphenous vein is absent, having been previously harvested. The right sapheno-femoral junction is competent . The right greater saphenous vein appears competent above the knee. The right greater saphenous vein appears incompetent below the knee. Small saphenous veins are patent and competent bilaterally. The right accessory saphenous vein at the sapheno-femoral junction is incompetent. Ordering Physician: Liza Kearney Referring Physician: MD Doroteo Moody Performed By: Emmanuel, Patt, RVT
--- NOTE | 2017-08-10 10:51 | LEAS ---
Arterial Study - Arterial Study Arterial Study: This is a 76-year-old male with a history of diabetes mellitus, chronic obstructive pulmonary disease, coronary artery disease, and peripheral arterial occlusive disease. The patient presents with a chronic nonhealing wound to the right lower extremity. He is brought to the noninvasive vascular laboratory at this time for the purpose of bilateral noninvasive lower extremity arterial assessment. Doppler signal assessment was used to evaluate the pulses at ankle level bilaterally. The posterior tibial and dorsalis pedis pulses were triphasic bilaterally. Segmental limb pressures were obtained bilaterally. The right ankle pressure, as determined by posterior tibial pulse, could not be determined due to the noncompressibility of the vasculature. The right ankle pressure, as determined by dorsalis pedis pulse, was measured at 203 mmHg. The right digital pressure was measured at 85 mmHg. The left ankle pressure, as determined by posterior tibial pulse, was measured at 231 mmHg. The left ankle pressure, as determined by dorsalis pedis pulse, was measured at 199 mmHg. The left digital pressure was measured at 73 mmHg. Pulse-volume recordings were obtained bilaterally and segmentally. Waveform amplitudes appeared to be satisfactory at all levels bilaterally, but for the left digital level which was slightly diminished. Resting ankle-brachial indices were calculated bilaterally. The resting right ankle-brachial index was calculated to be 1.22. The resting left ankle-brachial index was calculated to be 1.38. Digital-brachial indices were calculated bilaterally. The right digital-brachial index was calculated to be 0.51. The left digital-brachial index was calculated to be 0.44. Impression: Based upon the findings of this resting noninvasive lower extremity arterial study, arterial perfusion to ankle level appears to be normal bilaterally. Triphasic waveforms were noted at ankle level bilaterally. Resting ankle-brachial indices are bilaterally normal. 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 The left digital-brachial index is moderately diminished, consistent with moderate distal, small-vessel arterial occlusive disease in the left lower extremity. Clinical correlation is advised.
--- NOTE | 2017-08-10 10:54 | LEAS_ITS ---
Arterial Study - Arterial Study Arterial Study: This is a 76-year-old male with a history of diabetes mellitus, chronic obstructive pulmonary disease, coronary artery disease, and peripheral arterial occlusive disease. The patient presents with a chronic nonhealing wound to the right lower extremity. He is brought to the noninvasive vascular laboratory at this time for the purpose of bilateral noninvasive lower extremity arterial assessment. Doppler signal assessment was used to evaluate the pulses at ankle level bilaterally. The posterior tibial and dorsalis pedis pulses were triphasic bilaterally. Segmental limb pressures were obtained bilaterally. The right ankle pressure, as determined by posterior tibial pulse, could not be determined due to the noncompressibility of the vasculature. The right ankle pressure, as determined by dorsalis pedis pulse, was measured at 203 mmHg. The right digital pressure was measured at 85 mmHg. The left ankle pressure, as determined by posterior tibial pulse, was measured at 231 mmHg. The left ankle pressure, as determined by dorsalis pedis pulse, was measured at 199 mmHg. The left digital pressure was measured at 73 mmHg. Pulse-volume recordings were obtained bilaterally and segmentally. Waveform amplitudes appeared to be satisfactory at all levels bilaterally, but for the left digital level which was slightly diminished. Resting ankle-brachial indices were calculated bilaterally. The resting right ankle-brachial index was calculated to be 1.22. The resting left ankle- brachial index was calculated to be 1.38. Digital-brachial indices were calculated bilaterally. The right digital- brachial index was calculated to be 0.51. The left digital-brachial index was calculated to be 0.44. Impression: Based upon the findings of this resting noninvasive lower extremity arterial study, arterial perfusion to ankle level appears to be normal bilaterally. Triphasic waveforms were noted at ankle level bilaterally. Resting ankle-brachial indices are bilaterally normal. 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 The left digital- brachial index is moderately diminished, consistent with moderate distal, small- vessel arterial occlusive disease in the left lower extremity. Clinical correlation is advised.
[2017-08-12 14:17] VITALS: BP 115/51; PULSE 52; RESP 16; TEMP 37.1
--- NOTE | 2017-08-12 15:23 | PCM.WC.PN ---
(1) Non-pressure chronic ulcer of right calf with fat layer exposed Status: Acute Current Visit: Yes Code(s): L97.212 - Non-pressure chronic ulcer of right calf with fat layer exposed (2) Type 2 diabetes mellitus with other skin ulcer Status: Acute Current Visit: Yes Qualifiers: Diabetes mellitus medical terminologist insulin use: unspecified medical terminologist insulin use status Qualified Code(s): E11.622 - Type 2 diabetes mellitus with other skin ulcer; L98.499 - Non-pressure chronic ulcer of skin of other sites with unspecified severity Code(s): E11.622 - Type 2 diabetes mellitus with other skin ulcer; L98.499 - Non-pressure chronic ulcer of skin of other sites with unspecified severity (3) PAD (peripheral artery disease) Status: Chronic Current Visit: Yes Code(s): I73.9 - Peripheral vascular disease, unspecified (4) Type 2 diabetes mellitus with diabetic polyneuropathy Status: Acute Current Visit: Yes Qualifiers: Diabetes mellitus medical terminologist insulin use: unspecified medical terminologist insulin use status Qualified Code(s): E11.42 - Type 2 diabetes mellitus with diabetic polyneuropathy Code(s): E11.42 - Type 2 diabetes mellitus with diabetic polyneuropathy Type of Wound Date of Service: 08/12/17 Chief Complaint: nonhealing wound/ulcer of right lateral calf History of Wound: Eddie is a pleasant 76 yo man who presents for evaluation of a wound/ulcer of his right lateral calf that has been present since mid-April and has continued to get larger. Former patient of Dr. Kearney's, but will now be seeing me. He has seen his PCP and has seen another physician in their practice for the wound/ulcer and has been treated once with an UNNA boot and otherwise has been given antibiotics off and on without improvement, most recent antibiotic was Augmentin. No cultures have ever been taken of the wound. No imaging has been done. He has been using Aquaphor to the wound as instructed by his PCP. He has significant pain and edema in this leg and has been started on Lyrica which has helped with the pain. He has been unable to sleep in bed due to the pain and has been sleeping in a recliner. He denies any significant drainage but does note some on his socks from time to time. He denies any odor. Occasionally there is some bleeding. he was referred to the wound center for further evaluation and treatment. 07/29--Has been applying santyl and dry dressing since visit last friday. No drainage for the last few days. Vascular testing scheduled for 08/08. Awaiting lab work from PCP. Admits to sleeping in a recliner since March. Denies N/V/F/C. Some redness to R leg, but no pus, no malodor, no warmth, minimal pain. There is edema. Culture positive for e.coli from Friday. Will Rx Keflex today. 08/05--Pt taking Keflex, tolerating well. Vascular testing scheduled for friday. Size improved with the use of nickel-thickness Santyl and lightly moistened gauze with light spandagrip. Plan to increase compression once vascular testing done. 08/12--Arterial testing done, normal. Venous test reveals multiple incompetent veins in the RLE. Pt states he cannot tolerate any tighter compression than the current spandagrip stocking. He will be referred to Dr. Patton today for evaluation. There is still fibrous tissue, but there are also skin islands forming within the ulceration. Progress of Wound: Stable, however skin islands are forming within the ulcer, so measurements do not accurately reflect the healing of the ulcer. - Physical Exam Vital Signs Temp Pulse Resp BP 98.7 F 52 L 16 115/51 L 08/12/17 14:17 08/12/17 14:17 08/12/17 14:17 08/12/17 14:17 General: Alert, Oriented x3, Cooperative, No apparent distress Extremities: Edema Skin: Ulcer/ Wound - R lateral calf with no erythema, no calor, no purulent drainage, no malodor, minimal pain. No clinical signs of acute bacterial infection noted. See wound/edema assessment below. Wound Measurements and Assessment WC - Nurse 1 - General Ulcer Measurement Start: 07/29/17 13:07 Freq: Status: Active Protocol: Activity Type Activity Date Activity User E-Sign Co-Sign Detail Recorded Client Recorded Date Recorded By Document 08/12/17 14:17 DV [id number] 08/12/17 14:26 DV 08/12/17 14:17 Wound Center Nurse 1 [Ulcer Assessment] #1 RIGHT LATERAL LOWER LEG -Combined with other wound No -Current Size (cm) - Length 13.2 -Current Size (cm) - Width 4.0 -Current Size (cm) - Depth 0.1 -Total Square Cm 52.80 -Date of Last Picture (Recall this 08/12/17 field) -Photo Taken Yes -Tunneling No -Undermining/Tunneling No -Circular Undermining No -Classification - Thickness Full Thickness without Exposed Support Structure -Exudate Amt Large (67-100%) -Exudate Type Serosanguineous -Wound Margin Distinct, Outline Attached -Granulation Amt None Present (0 %) -Granulation Quality N/A -Slough/Fibrin Yes -Necrosis Amt Large (67-100%) -Necrotic Tissue Type Adherent Slough -Structure Exposed None/Limited to Skin Breakdown -Texture (Kinza-wound Skin Appearance) Assessed Localized Edema Scarring -Moisture (Kinza-wound Skin Appearance Assessed ) Weeping -Color (Kinza-wound Skin Appearance) Assessed Erythema -Temperature (Kinza-wound Skin No Abnormality Appearance) (Pt Warm) -Tenderness on Palpation (Kinza-wound Yes Skin Appearance) -Ulcer Cleansing Rinsed/ Irrigated with Saline -Foul Odor after Cleansing No -Anesthetic Used 5% Lidocaine Gel WC - Nurse 2 - General Ulcer CM Notes Start: 07/29/17 13:07 Freq: Status: Active Protocol: Activity Type Activity Date Activity User E-Sign Co-Sign Detail Recorded Client Recorded Date Recorded By Document 08/12/17 14:47 MW [id number] 08/12/17 14:54 MW 08/12/17 14:47 Wound Center Nurse 2 [Procedure/Treatment] -Time 14:47 -Correct Patient Yes -Correct Side, Site, Position Yes -Correct Procedure Yes -Procedure Performed Yes -Type of Procedure Debridement -Clinical Debridement Subcutaneous -Post Debridement Size (cm) - Length 13.1 -Post Debridement Size (cm) - Width 4.4 -Post Debridement Size (cm) - Depth 0.2 -Total Square Cm 57.64 -Wound/Ulcer Outcome Not Healed -Ulcer Cleansing Rinsed/ Irrigated with Saline -Foul Odor after Cleansing No -Bioengineered Tissue No -Bleeding Controlled with Pressure -Treatment Response Procedure Tolerated Well [See Physician Procedure note for Specifics] Pain Scale: 0-10 Numeric [Pain] -Is Patient Pain Free? Yes Debridement Note Post-Debridement Measurements/Treatment WC - Nurse 2 - General Ulcer CM Notes Start: 07/29/17 13:07 Freq: Status: Active Protocol: Activity Type Activity Date Activity User E-Sign Co-Sign Detail Recorded Client Recorded Date Recorded By Document 07/29/17 13:25 MW [id number] 07/29/17 13:27 MW Document 08/05/17 14:07 MW [id number] 08/05/17 14:10 MW Document 08/12/17 14:47 MW [id number] 08/12/17 14:54 MW 07/29/17 08/05/17 08/12/17 13:25 14:07 14:47 Wound Center Nurse 2 #1 RIGHT LATERAL LOWER LEG -Time 13:25 14:08 14:47 -Correct Patient Yes Yes Yes -Correct Side, Site, Position Yes Yes Yes -Correct Procedure Yes Yes Yes -Procedure Performed Yes Yes Yes -Type of Procedure Debridement Debridement Debridement -Clinical Debridement Subcutaneous Subcutaneous Subcutaneous -Post Debridement Size (cm) - Length 12.9 12.8 13.1 -Post Debridement Size (cm) - Width 4.3 4.1 4.4 -Post Debridement Size (cm) - Depth 0.2 0.1 0.2 -Total Square Cm 55.47 52.48 57.64 -Wound/Ulcer Outcome Not Healed Not Healed Not Healed -Ulcer Cleansing Rinsed/ Rinsed/ Rinsed/ Irrigated with Irrigated with Irrigated with Saline Saline Saline -Foul Odor after Cleansing No No No -Bioengineered Tissue No No No -Bleeding Controlled with Pressure Pressure Pressure -Treatment Response Procedure Procedure Procedure Tolerated Well Tolerated Well Tolerated Well Pain Scale: 0-10 Numeric Is Patient Pain Free? Yes Yes Yes Wound debrided: R lateral calf >50 sq cm Laterality: Right Wound Grade/Stage: Full thickness VLU Type of Debridement: Excisional debridement Anesthesia Used: 4% Lidocaine Solution Depth: Down to and including healthy tissue, in the subcutaneous layer Percentage of wound debrided: 100 Instrument Used: 7mm curette Tissue Removed: fibrous slough Severity: Fat Layer Exposed Amount of bleeding with debridement: Mild Bleeding Controlled with: Pressure, Compression and gauze Patient tolerated procedure well Assessment/Plan Active Problems PAD (peripheral artery disease) (Chronic) Type 2 diabetes mellitus with diabetic polyneuropathy (Acute) Type 2 diabetes mellitus with other skin ulcer (Acute) Non-pressure chronic ulcer of right calf with fat layer exposed (Acute) Assessment: nonhealing ulcer/wound of right lateral calf - likely secondary to arterial insufficiency Plan: SQ/excisional debridement of R calf ulcer as above >50 sq cm. Vascular studies have been reviewed. Referral to Dr. Patton for evaluation and treatment. Continue Santyl nickel thickness, cover with lightly moistened gauze dressing. Will treat his edema with single layer spandagrip. Pt states he will not wear anything tighter. Discussed importance of elevating legs to help with decreasing edema, avoiding idle sitting or standing, increased activity, weight management. Pt unable to take NSAIDs due to current use of coumadin. Pt encouraged to sleep flat at night or to sleep with legs elevated if he is going to sleep in a recliner. Encouraged tight glucose control. Discussed importance of adequate nutrition, especially increased protein intake, to promote healing. Ulcer does not require offloading due to location, but do not cross legs. Records of recent labs requested from PCP office, have not yet received. Monitor for incraesed pain, odor, warmth, increased redness, pus and go to the ED with these. F/U in 1 week.
[2017-08-19 13:21] VITALS: BP 142/68; PULSE 57; RESP 16; TEMP 35.3
--- NOTE | 2017-08-19 14:24 | PCM.WC.PN ---
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: unspecified alf insulin use status Qualified Code(s): E11.622 - Type 2 diabetes mellitus with other skin ulcer; L98.499 - Non-pressure chronic ulcer of skin of other sites with unspecified severity Code(s): E11.622 - Type 2 diabetes mellitus with other skin ulcer; L98.499 - Non-pressure chronic ulcer of skin of other sites with unspecified severity (3) PAD (peripheral artery disease) Status: Chronic Current Visit: Yes Code(s): I73.9 - Peripheral vascular disease, unspecified (4) Type 2 diabetes mellitus with diabetic polyneuropathy Status: Acute Current Visit: Yes Qualifiers: 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 Former patient of Dr. Kearney's, but will now be seeing me. He has seen his PCP and has seen another physician in their practice for the wound/ulcer and has been treated once with an UNNA boot and otherwise has been given antibiotics off and on without improvement, most recent antibiotic was Augmentin. No cultures have ever been taken of the wound. No imaging has been done. He has been using Aquaphor to the wound as instructed by his PCP. He has significant pain and edema in this leg and has been started on Lyrica which has helped with the pain. He has been unable to sleep in bed due to the pain and has been sleeping in a recliner. He denies any significant drainage but does note some on his socks from time to time. He denies any odor. Occasionally there is some bleeding. he was referred to the wound center for further evaluation and treatment. 07/29--Has been applying santyl and dry dressing since visit last friday. No drainage for the last few days. Vascular testing scheduled for 08/08. Awaiting lab work from PCP. Admits to sleeping in a recliner since March. Denies N/V/F/C. Some redness to R leg, but no pus, no malodor, no warmth, minimal pain. There is edema. Culture positive for e.coli from Friday. Will Rx Keflex today. 08/05--Pt taking Keflex, tolerating well. Vascular testing scheduled for friday. Size improved with the use of nickel-thickness Santyl and lightly moistened gauze with light spandagrip. Plan to increase compression once vascular testing done. 08/12--Arterial testing done, normal. Venous test reveals multiple incompetent veins in the RLE. Pt states he cannot tolerate any tighter compression than the current spandagrip stocking. He will be referred to Dr. Patton today for evaluation. There is still fibrous tissue, but there are also skin islands forming within the ulceration. 08/19--Pt applying santyl nickel-thick and lightly moistened gauze dressing daily. There is still fibrous tissue, but there are also skin islands forming within the ulceration. Measurements improved today. Pt's is with him today, and she states that he often falls asleep in his recliner, and his legs end up falling off the foot rest and his feet end up on the ground. Pt has an appointment with Dr. Patton at [facility] at the beginning of August. Progress of Wound: Improved today. - Physical Exam Vital Signs Temp Pulse Resp BP 95.5 F L 57 L 16 142/68 H 08/19/17 13:21 08/19/17 13:21 08/19/17 13:21 08/19/17 13:21 General: Alert, Oriented x3, Cooperative, No apparent distress Skin: Ulcer/ Wound - Ulceration R lateral calf with no erythema, no calor, no purulent drainage, no malodor, minimal pain. No clinical signs of acute bacterial infection noted. See wound/edema assessment below. Wound Measurements and Assessment WC - Nurse 1 - General Ulcer Measurement Start: 07/29/17 13:07 Freq: Status: Active Protocol: Activity Type Activity Date Activity User E-Sign Co-Sign Detail Recorded Client Recorded Date Recorded By Document 08/19/17 13:21 [facility] [id number] 08/19/17 13:32 [facility] 08/19/17 13:21 Wound Center Nurse 1 [Ulcer Assessment] #1 RIGHT LATERAL LOWER LEG -Combined with other wound No -Current Size (cm) - Length 12.9 -Current Size (cm) - Width 4.2 -Current Size (cm) - Depth 0.1 -Total Square Cm 54.18 -Photo Taken No -Epithelialization Small 1-33% -Tunneling No -Undermining/Tunneling No -Circular Undermining No -Exudate Amt Large (67-100%) -Exudate Type Serosanguineous -Wound Margin Distinct, Outline Attached -Granulation Amt Small (1-33%) -Granulation Quality Red -Slough/Fibrin Yes -Necrosis Amt Large (67-100%) -Necrotic Tissue Type Adherent Slough -Structure Exposed N/A -Texture (Kinza-wound Skin Appearance) Scarring -Moisture (Kinza-wound Skin Appearance Dry/Scaly ) -Color (Kinza-wound Skin Appearance) Erythema -Temperature (Kinza-wound Skin No Abnormality Appearance) (Pt Warm) -Tenderness on Palpation (Kinza-wound No Skin Appearance) -Ulcer Cleansing Wound Cleanser -Foul Odor after Cleansing No -Anesthetic Used 4% Lidocaine Solution [Edema Assessment] -Lower Limb Edema Present Yes -Right Calf (cm) 40.1 -Right Ankle (cm) 22.9 WC - Nurse 2 - General Ulcer CM Notes Start: 07/29/17 13:07 Freq: Status: Active Protocol: Activity Type Activity Date Activity User E-Sign Co-Sign Detail Recorded Client Recorded Date Recorded By Document 08/19/17 14:10 DV [id number] 08/19/17 14:15 DV 08/19/17 14:10 Wound Center Nurse 2 [Procedure/Treatment] #1 RIGHT LATERAL LOWER LEG -Time 14:11 -Correct Patient Yes -Correct Side, Site, Position Yes -Correct Procedure Yes -Procedure Performed Yes -Type of Procedure Debridement -Clinical Debridement Subcutaneous -Post Debridement Size (cm) - Length 13.0 -Post Debridement Size (cm) - Width 4.3 -Post Debridement Size (cm) - Depth 0.1 -Total Square Cm 55.90 -Wound/Ulcer Outcome Not Healed -Ulcer Cleansing Rinsed/ Irrigated with Saline -Foul Odor after Cleansing No -Bleeding Controlled with Pressure -Treatment Response Procedure Not Tolerated Well [See Physician Procedure note for Specifics] Pain Scale: 0-10 Numeric [Pain] -Is Patient Pain Free? Yes Debridement Note Post-Debridement Measurements/Treatment WC - Nurse 2 - General Ulcer CM Notes Start: 07/29/17 13:07 Freq: Status: Active Protocol: Activity Type Activity Date Activity User E-Sign Co-Sign Detail Recorded Client Recorded Date Recorded By Document 07/29/17 13:25 MW [id number] 07/29/17 13:27 MW Document 08/05/17 14:07 MW [id number] 08/05/17 14:10 MW Document 08/12/17 14:47 MW [id number] 08/12/17 14:54 MW Document 08/19/17 14:10 DV [id number] 08/19/17 14:15 DV 07/29/17 08/05/17 08/12/17 13:25 14:07 14:47 Wound Center Nurse 2 #1 RIGHT LATERAL LOWER LEG -Time 13:25 14:08 14:47 -Correct Patient Yes Yes Yes -Correct Side, Site, Position Yes Yes Yes -Correct Procedure Yes Yes Yes -Procedure Performed Yes Yes Yes -Type of Procedure Debridement Debridement Debridement -Clinical Debridement Subcutaneous Subcutaneous Subcutaneous -Post Debridement Size (cm) - Length 12.9 12.8 13.1 -Post Debridement Size (cm) - Width 4.3 4.1 4.4 -Post Debridement Size (cm) - Depth 0.2 0.1 0.2 -Total Square Cm 55.47 52.48 57.64 -Wound/Ulcer Outcome Not Healed Not Healed Not Healed -Ulcer Cleansing Rinsed/ Rinsed/ Rinsed/ Irrigated with Irrigated with Irrigated with Saline Saline Saline -Foul Odor after Cleansing No No No -Bioengineered Tissue No No No -Bleeding Controlled with Pressure Pressure Pressure -Treatment Response Procedure Procedure Procedure Tolerated Well Tolerated Well Tolerated Well Pain Scale: 0-10 Numeric Is Patient Pain Free? Yes Yes Yes 08/19/17 14:10 Wound Center Nurse 2 #1 RIGHT LATERAL LOWER LEG -Time 14:11 -Correct Patient Yes -Correct Side, Site, Position Yes -Correct Procedure Yes -Procedure Performed Yes -Type of Procedure Debridement -Clinical Debridement Subcutaneous -Post Debridement Size (cm) - Length 13.0 -Post Debridement Size (cm) - Width 4.3 -Post Debridement Size (cm) - Depth 0.1 -Total Square Cm 55.90 -Wound/Ulcer Outcome Not Healed -Ulcer Cleansing Rinsed/ Irrigated with Saline -Foul Odor after Cleansing No -Bioengineered Tissue -Bleeding Controlled with Pressure -Treatment Response Procedure Not Tolerated Well Pain Scale: 0-10 Numeric Is Patient Pain Free? Yes Wound debrided: R lateral calf >50 sq cm Laterality: Right Wound Grade/Stage: Full thickness VLU Type of Debridement: Excisional debridement Anesthesia Used: 4% Lidocaine Solution Depth: Down to and including healthy tissue, in the subcutaneous layer Percentage of wound debrided: 100 Instrument Used: 7mm curette Tissue Removed: fibrous slough Severity: Fat Layer Exposed Amount of bleeding with debridement: Mild Bleeding Controlled with: Pressure, Compression and gauze Patient tolerated procedure well Assessment/Plan Active Problems PAD (peripheral artery disease) (Chronic) Type 2 diabetes mellitus with diabetic polyneuropathy (Acute) Type 2 diabetes mellitus with other skin ulcer (Acute) Non-pressure chronic ulcer of right calf with fat layer exposed (Acute) Assessment: nonhealing ulcer/wound of right lateral calf - likely secondary to arterial insufficiency Plan: SQ/excisional debridement of R calf ulcer as above >50 sq cm. Vascular studies have been reviewed. Referral to Dr. Patton for evaluation and treatment. Continue Santyl nickel thickness, cover with lightly moistened gauze dressing. Given slow improvement, we will treat his edema with 3M 2-layer coban wrap today. Return on Friday for a nurse visit for dressing and compression wrap change. Discussed again importance of elevating legs to help with decreasing edema, avoiding idle sitting or standing, increased activity, weight management. Pt unable to take NSAIDs due to current use of coumadin. Pt encouraged to sleep flat at night or to sleep with legs elevated if he is going to sleep in a recliner. Encouraged tight glucose control. Discussed importance of adequate nutrition, especially increased protein intake, to promote healing. Ulcer does not require offloading due to location, but do not cross legs. Records of recent labs requested from PCP office, have not yet received. Monitor for incraesed pain, odor, warmth, increased redness, pus and go to the ED with these. Pt aware today is my last day in the wound center. F/U in 1 week, call with questions or problems prior to f/u appt.
--- NOTE | 2017-08-19 14:29 | PN.PCM_ITS ---
(1) Non-pressure chronic ulcer of right calf with fat layer exposed Status: Acute Current Visit: Yes Code(s): L97.212 - Non-pressure chronic ulcer of right calf with fat layer exposed (2) Type 2 diabetes mellitus with other skin ulcer Status: Acute Current Visit: Yes Qualifiers: Diabetes mellitus ferry terminal agent insulin use: unspecified long-term insulin use status Qualified Code(s): E11.622 - Type 2 diabetes mellitus with other skin ulcer; L98.499 - Non-pressure chronic ulcer of skin of other sites with unspecified severity Code(s): E11.622 - Type 2 diabetes mellitus with other skin ulcer; L98.499 - Non -pressure chronic ulcer of skin of other sites with unspecified severity (3) PAD (peripheral artery disease) Status: Chronic Current Visit: Yes Code(s): I73.9 - Peripheral vascular disease, unspecified (4) Type 2 diabetes mellitus with diabetic polyneuropathy Status: Acute Current Visit: Yes Qualifiers: Diabetes mellitus ferry terminal agent insulin use: unspecified ferry terminal agent insulin use status Qualified Code(s): E11.42 - Type 2 diabetes mellitus with diabetic polyneuropathy Code(s): E11.42 - Type 2 diabetes mellitus with diabetic polyneuropathy Type of Wound Date of Service: 08/19/17 Chief Complaint: nonhealing wound/ulcer of right lateral calf History of Wound: Eddie is a pleasant 76 yo man who presents for evaluation of a wound/ulcer of his right lateral calf that has been present since mid-April and has continued to get larger. Former patient of Dr. Kearney's, but will now be seeing me. He has seen his PCP and has seen another physician in their practice for the wound/ulcer and has been treated once with an UNNA boot and otherwise has been given antibiotics off and on without improvement, most recent antibiotic was Augmentin. No cultures have ever been taken of the wound. No imaging has been done. He has been using Aquaphor to the wound as instructed by his PCP. He has significant pain and edema in this leg and has been started on Lyrica which has helped with the pain. He has been unable to sleep in bed due to the pain and has been sleeping in a recliner. He denies any significant drainage but does note some on his socks from time to time. He denies any odor. Occasionally there is some bleeding. he was referred to the wound center for further evaluation and treatment. 07/29--Has been applying santyl and dry dressing since visit last friday. No drainage for the last few days. Vascular testing scheduled for 08/08. Awaiting lab work from PCP. Admits to sleeping in a recliner since March. Denies N/V/F/C. Some redness to R leg, but no pus, no malodor, no warmth, minimal pain. There is edema. Culture positive for e.coli from Friday. Will Rx Keflex today. 08/05--Pt taking Keflex, tolerating well. Vascular testing scheduled for friday. Size improved with the use of nickel-thickness Santyl and lightly moistened gauze with light spandagrip. Plan to increase compression once vascular testing done. 08/12--Arterial testing done, normal. Venous test reveals multiple incompetent veins in the RLE. Pt states he cannot tolerate any tighter compression than the current spandagrip stocking. He will be referred to Dr. Patton today for evaluation. There is still fibrous tissue, but there are also skin islands forming within the ulceration. 08/19--Pt applying santyl nickel-thick and lightly moistened gauze dressing daily. There is still fibrous tissue, but there are also skin islands forming within the ulceration. Measurements improved today. Pt's is with him today, and she states that he often falls asleep in his recliner, and his legs end up falling off the foot rest and his feet end up on the ground. Pt has an appointment with Dr. Patton at [facility] at the beginning of August. Progress of Wound: Improved today. - Physical Exam Vital Signs Temp Pulse Resp BP 95.5 F L 57 L 16 142/68 H 08/19/17 13:21 08/19/17 13:21 08/19/17 13:21 08/19/17 13:21 General: Alert, Oriented x3, Cooperative, No apparent distress Skin: Ulcer/ Wound - Ulceration R lateral calf with no erythema, no calor, no purulent drainage, no malodor, minimal pain. No clinical signs of acute bacterial infection noted. See wound/edema assessment below. Wound Measurements and Assessment WC - Nurse 1 - General Ulcer Measurement Start: 07/29/17 13:07 Freq: Status: Active Protocol: Activity Type Activity Date Activity User E-Sign Co-Sign Detail Recorded Client Recorded Date Recorded By Document 08/19/17 13:21 [facility] [id number] 08/19/17 13:32 [facility] 08/19/17 13:21 Wound Center Nurse 1 [Ulcer Assessment] #1 RIGHT LATERAL LOWER LEG -Combined with other wound No -Current Size (cm) - Length 12.9 -Current Size (cm) - Width 4.2 -Current Size (cm) - Depth 0.1 -Total Square Cm 54.18 -Photo Taken No -Epithelialization Small 1-33% -Tunneling No -Undermining/Tunneling No -Circular Undermining No -Exudate Amt Large (67-100%) -Exudate Type Serosanguineous -Wound Margin Distinct, Outline Attached -Granulation Amt Small (1-33%) -Granulation Quality Red -Slough/Fibrin Yes -Necrosis Amt Large (67-100%) -Necrotic Tissue Type Adherent Slough -Structure Exposed N/A -Texture (Kinza-wound Skin Appearance) Scarring -Moisture (Kinza-wound Skin Appearance Dry/Scaly ) -Color (Kinza-wound Skin Appearance) Erythema -Temperature (Kinza-wound Skin No Abnormality Appearance) (Pt Warm) -Tenderness on Palpation (Kinza-wound No Skin Appearance) -Ulcer Cleansing Wound Cleanser -Foul Odor after Cleansing No -Anesthetic Used 4% Lidocaine Solution [Edema Assessment] -Lower Limb Edema Present Yes -Right Calf (cm) 40.1 -Right Ankle (cm) 22.9 WC - Nurse 2 - General Ulcer CM Notes Start: 07/29/17 13:07 Freq: Status: Active Protocol: Activity Type Activity Date Activity User E-Sign Co-Sign Detail Recorded Client Recorded Date Recorded By Document 08/19/17 14:10 DV [id number] 08/19/17 14:15 DV 08/19/17 14:10 Wound Center Nurse 2 [Procedure/Treatment] #1 RIGHT LATERAL LOWER LEG -Time 14:11 -Correct Patient Yes -Correct Side, Site, Position Yes -Correct Procedure Yes -Procedure Performed Yes -Type of Procedure Debridement -Clinical Debridement Subcutaneous -Post Debridement Size (cm) - Length 13.0 -Post Debridement Size (cm) - Width 4.3 -Post Debridement Size (cm) - Depth 0.1 -Total Square Cm 55.90 -Wound/Ulcer Outcome Not Healed -Ulcer Cleansing Rinsed/ Irrigated with Saline -Foul Odor after Cleansing No -Bleeding Controlled with Pressure -Treatment Response Procedure Not Tolerated Well [See Physician Procedure note for Specifics] Pain Scale: 0-10 Numeric [Pain] -Is Patient Pain Free? Yes Debridement Note Post-Debridement Measurements/Treatment WC - Nurse 2 - General Ulcer CM Notes Start: 07/29/17 13:07 Freq: Status: Active Protocol: Activity Type Activity Date Activity User E-Sign Co-Sign Detail Recorded Client Recorded Date Recorded By Document 07/29/17 13:25 MW [id number] 07/29/17 13:27 MW Document 08/05/17 14:07 MW [id number] 08/05/17 14:10 MW Document 08/12/17 14:47 MW [id number] 08/12/17 14:54 MW Document 08/19/17 14:10 DV [id number] 08/19/17 14:15 DV 07/29/17 08/05/17 08/12/17 13:25 14:07 14:47 Wound Center Nurse 2 #1 RIGHT LATERAL LOWER LEG -Time 13:25 14:08 14:47 -Correct Patient Yes Yes Yes -Correct Side, Site, Position Yes Yes Yes -Correct Procedure Yes Yes Yes -Procedure Performed Yes Yes Yes -Type of Procedure Debridement Debridement Debridement -Clinical Debridement Subcutaneous Subcutaneous Subcutaneous -Post Debridement Size (cm) - Length 12.9 12.8 13.1 -Post Debridement Size (cm) - Width 4.3 4.1 4.4 -Post Debridement Size (cm) - Depth 0.2 0.1 0.2 -Total Square Cm 55.47 52.48 57.64 -Wound/Ulcer Outcome Not Healed Not Healed Not Healed -Ulcer Cleansing Rinsed/ Rinsed/ Rinsed/ Irrigated with Irrigated with Irrigated with Saline Saline Saline -Foul Odor after Cleansing No No No -Bioengineered Tissue No No No -Bleeding Controlled with Pressure Pressure Pressure -Treatment Response Procedure Procedure Procedure Tolerated Well Tolerated Well Tolerated Well Pain Scale: 0-10 Numeric Is Patient Pain Free? Yes Yes Yes 08/19/17 14:10 Wound Center Nurse 2 #1 RIGHT LATERAL LOWER LEG -Time 14:11 -Correct Patient Yes -Correct Side, Site, Position Yes -Correct Procedure Yes -Procedure Performed Yes -Type of Procedure Debridement -Clinical Debridement Subcutaneous -Post Debridement Size (cm) - Length 13.0 -Post Debridement Size (cm) - Width 4.3 -Post Debridement Size (cm) - Depth 0.1 -Total Square Cm 55.90 -Wound/Ulcer Outcome Not Healed -Ulcer Cleansing Rinsed/ Irrigated with Saline -Foul Odor after Cleansing No -Bioengineered Tissue -Bleeding Controlled with Pressure -Treatment Response Procedure Not Tolerated Well Pain Scale: 0-10 Numeric Is Patient Pain Free? Yes Wound debrided: R lateral calf >50 sq cm Laterality: Right Wound Grade/Stage: Full thickness VLU Type of Debridement: Excisional debridement Anesthesia Used: 4% Lidocaine Solution Depth: Down to and including healthy tissue, in the subcutaneous layer Percentage of wound debrided: 100 Instrument Used: 7mm curette Tissue Removed: fibrous slough Severity: Fat Layer Exposed Amount of bleeding with debridement: Mild Bleeding Controlled with: Pressure, Compression and gauze Patient tolerated procedure well Assessment/Plan Active Problems PAD (peripheral artery disease) (Chronic) Type 2 diabetes mellitus with diabetic polyneuropathy (Acute) Type 2 diabetes mellitus with other skin ulcer (Acute) Non-pressure chronic ulcer of right calf with fat layer exposed (Acute) Assessment: nonhealing ulcer/wound of right lateral calf - likely secondary to arterial insufficiency Plan: SQ/excisional debridement of R calf ulcer as above >50 sq cm. Vascular studies have been reviewed. Referral to Dr. Patton for evaluation and treatment. Continue Santyl nickel thickness, cover with lightly moistened gauze dressing. Given slow improvement, we will treat his edema with 3M 2-layer coban wrap today. Return on Friday for a nurse visit for dressing and compression wrap change. Discussed again importance of elevating legs to help with decreasing edema, avoiding idle sitting or standing, increased activity, weight management. Pt unable to take NSAIDs due to current use of coumadin. Pt encouraged to sleep flat at night or to sleep with legs elevated if he is going to sleep in a recliner. Encouraged tight glucose control. Discussed importance of adequate nutrition, especially increased protein intake, to promote healing. Ulcer does not require offloading due to location, but do not cross legs. Records of recent labs requested from PCP office, have not yet received. Monitor for incraesed pain, odor, warmth, increased redness, pus and go to the ED with these. Pt aware today is my last day in the wound center. F/U in 1 week , call with questions or problems prior to f/u appt.
[2017-08-21 13:28] VITALS: BP 123/55; PULSE 62; RESP 16; TEMP 36.3
--- NOTE | 2017-08-21 19:37 | PCM.WC.PN ---
(1) Non-pressure chronic ulcer of right calf with fat layer exposed Status: Acute Code(s): L97.212 - Non-pressure chronic ulcer of right calf with fat layer exposed (2) Type 2 diabetes mellitus with diabetic polyneuropathy Status: Acute Qualifiers: Diabetes mellitus intermodal dispatcher insulin use: unspecified intermodal dispatcher insulin use status Qualified Code(s): E11.42 - Type 2 diabetes mellitus with diabetic polyneuropathy Code(s): E11.42 - Type 2 diabetes mellitus with diabetic polyneuropathy (3) COPD (chronic obstructive pulmonary disease) Status: Chronic Qualifiers: COPD type: unspecified COPD Qualified Code(s): J44.9 - Chronic obstructive pulmonary disease, unspecified Code(s): J44.9 - Chronic obstructive pulmonary disease, unspecified (4) Chronic anticoagulation Status: Chronic Code(s): Z79.01 - terminal operations manager (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 of anticoagulants (5) Neuropathy Status: Chronic Code(s): G62.9 - Polyneuropathy, unspecified (6) PAD (peripheral artery disease) Status: Chronic Code(s): I73.9 - Peripheral vascular disease, unspecified (7) Sleep apnea Status: Chronic Qualifiers: Sleep apnea type: unspecified type Qualified Code(s): G47.30 - Sleep apnea, unspecified Code(s): G47.30 - Sleep apnea, unspecified (8) Type 2 diabetes mellitus treated with insulin Status: Chronic Code(s): E11.9 - Type 2 diabetes mellitus without complications; Z79.4 - [facility] (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 of insulin Type of Wound Date of Service: 08/21/17 Chief Complaint: nonhealing wound/ulcer of right lateral calf History of Wound: Eddie is a pleasant 76 yo man who presents for evaluation of a wound/ulcer of his right lateral calf that has been present since mid-April and has continued to get larger. Former patient of Dr. Kearney's and Dr. Joseph, but will now be seeing me. He has seen his PCP and has seen another physician in their practice for the wound/ulcer and has been treated once with an UNNA boot and otherwise has been given antibiotics off and on without improvement, most recent antibiotic was Augmentin. No cultures have ever been taken of the wound. No imaging has been done. He has been using Aquaphor to the wound as instructed by his PCP. He has significant pain and edema in this leg and has been started on Lyrica which has helped with the pain. He has been unable to sleep in bed due to the pain and has been sleeping in a recliner. He denies any significant drainage but does note some on his socks from time to time. He denies any odor. Occasionally there is some bleeding. he was referred to the wound center for further evaluation and treatment. 07/29--Has been applying santyl and dry dressing since visit last friday. No drainage for the last few days. Vascular testing scheduled for 08/08. Awaiting lab work from PCP. Admits to sleeping in a recliner since March. Denies N/V/F/C. Some redness to R leg, but no pus, no malodor, no warmth, minimal pain. There is edema. Culture positive for e.coli from Friday. Will Rx Keflex today. 08/05--Pt taking Keflex, tolerating well. Vascular testing scheduled for friday. Size improved with the use of nickel-thickness Santyl and lightly moistened gauze with light spandagrip. Plan to increase compression once vascular testing done. 08/12--Arterial testing done, normal. Venous test reveals multiple incompetent veins in the RLE. Pt states he cannot tolerate any tighter compression than the current spandagrip stocking. He will be referred to Dr. Patton today for evaluation. There is still fibrous tissue, but there are also skin islands forming within the ulceration. 08/19--Pt applying santyl nickel-thick and lightly moistened gauze dressing daily. There is still fibrous tissue, but there are also skin islands forming within the ulceration. Measurements improved today. Pt's is with him today, and she states that he often falls asleep in his recliner, and his legs end up falling off the foot rest and his feet end up on the ground. Pt has an appointment with Dr. Ptaton at [facility] at the beginning of August. 08/21- initial visit with Doroteo Nash NP who patient will be transferring care to. Has been applying nickel thick santyl daily, however, site is still painful and there is now a foul smell.Cultures will be redone today.Moderate amount of slough and fibrous tissue present. Pt denies any systemic signs of infection including no fever, chills, n/v/d/c. Progress of Wound: Measurements demonstrate deterioration of wound, however per patient looks to be slightly improving. I am the provider taking over care and this is the first measurement from myself done today (which is subjective), will assess for improvement next visit. - Physical Exam Vital Signs Temp Pulse Resp BP 97.3 F L 62 16 123/55 H 08/21/17 13:28 08/21/17 13:28 08/21/17 13:28 08/21/17 13:28 General: Alert, Oriented x3, Cooperative, No apparent distress HEENT: Atraumatic Oral: Moist Mucosa Neck: Supple Lungs: Clear to auscultation, Normal air movement Cardiovascular: Regular rate, Normal S1, Normal S2 Abdomen: Soft, Non Tender Extremities: No clubbing, No cyanosis, Edema - generalized BLLE edema Skin: Ulcer/ Wound - ulceration present RLE lateral aspect with fibrous tissue and slough present, foul smell on exam, no purulent drainage or discharge. Neurological: Cranial nerves II-XII grossly intact, Neuro grossly intact Psych/Mental Status: Normal Affect, Alert and oriented to time, place, person, mood and affect Debridement Note Post-Debridement Measurements/Treatment WC - Nurse 2 - General Ulcer CM Notes Start: 07/29/17 13:07 Freq: Status: Active Protocol: Activity Type Activity Date Activity User E-Sign Co-Sign Detail Recorded Client Recorded Date Recorded By Document 07/29/17 13:25 MW [id number] 07/29/17 13:27 MW Document 08/05/17 14:07 MW [id number] 08/05/17 14:10 MW Document 08/12/17 14:47 MW [id number] 08/12/17 14:54 MW Document 08/19/17 14:10 DV [id number] 08/19/17 14:15 DV Document 08/21/17 14:06 DV [id number] 08/21/17 14:08 DV 07/29/17 08/05/17 08/12/17 13:25 14:07 14:47 Wound Center Nurse 2 #1 RIGHT LATERAL LOWER LEG -Time 13:25 14:08 14:47 -Correct Patient Yes Yes Yes -Correct Side, Site, Position Yes Yes Yes -Correct Procedure Yes Yes Yes -Procedure Performed Yes Yes Yes -Type of Procedure Debridement Debridement Debridement -Clinical Debridement Subcutaneous Subcutaneous Subcutaneous -Post Debridement Size (cm) - Length 12.9 12.8 13.1 -Post Debridement Size (cm) - Width 4.3 4.1 4.4 -Post Debridement Size (cm) - Depth 0.2 0.1 0.2 -Total Square Cm 55.47 52.48 57.64 -Wound/Ulcer Outcome Not Healed Not Healed Not Healed -Ulcer Cleansing Rinsed/ Rinsed/ Rinsed/ Irrigated with Irrigated with Irrigated with Saline Saline Saline -Foul Odor after Cleansing No No No -Bioengineered Tissue No No No -Bleeding Controlled with Pressure Pressure Pressure -Treatment Response Procedure Procedure Procedure Tolerated Well Tolerated Well Tolerated Well Pain Scale: 0-10 Numeric Is Patient Pain Free? Yes Yes Yes 08/19/17 08/21/17 14:10 14:06 Wound Center Nurse 2 #1 RIGHT LATERAL LOWER LEG -Time 14:11 14:06 -Correct Patient Yes Yes -Correct Side, Site, Position Yes Yes -Correct Procedure Yes Yes -Procedure Performed Yes Yes -Type of Procedure Debridement Debridement -Clinical Debridement Subcutaneous Subcutaneous -Post Debridement Size (cm) - Length 13.0 13.7 -Post Debridement Size (cm) - Width 4.3 4.9 -Post Debridement Size (cm) - Depth 0.1 0.3 -Total Square Cm 55.90 67.13 -Wound/Ulcer Outcome Not Healed Not Healed -Ulcer Cleansing Rinsed/ Rinsed/ Irrigated with Irrigated with Saline Saline -Foul Odor after Cleansing No No -Bioengineered Tissue No -Bleeding Controlled with Pressure Pressure -Treatment Response Procedure Not Procedure Tolerated Well Tolerated Well Pain Scale: 0-10 Numeric Is Patient Pain Free? Yes Yes Wound debrided: RLE ulcer Laterality: Right Type of Debridement: Excisional debridement Anesthesia Used: 5% Lidocaine Gel Depth: Down to and including healthy tissue, in the subcutaneous layer Percentage of wound debrided: 100 Instrument Used: 5mm curette Tissue Removed: slough and devitalized tissue Severity: Fat Layer Exposed Amount of bleeding with debridement: Mild Bleeding Controlled with: Pressure Patient tolerated procedure well Assessment/Plan Assessment: nonhealing ulcer/wound of right lateral calf - likely secondary to arterial/venous insufficiency Plan: Patient was seen at [facility] and updated on plan of care. SQ/excisional debridement of R calf ulcer as described above. Vascular studies have been reviewed. Referral to Dr. Patton for evaluation and treatment is pending. Continue Santyl nickel thickness, cover with lightly moistened gauze dressing. Given foul smell, repeat cultures ordered and will hold off doing 3 M wraps at this time due to potential for infection. WIll use double tubigrip for compression and if cultures demonstrate no infection, will resume 3M wraps at next visit in one week. Discussed again importance of elevating legs to help with decreasing edema, avoiding idle sitting or standing, increased activity, weight management. Pt encouraged to sleep flat at night or to sleep with legs elevated if he is going to sleep in a recliner. Encouraged tight glucose control. Discussed importance of adequate nutrition, especially increased protein intake, to promote healing. Ulcer does not require offloading due to location, but do not cross legs. Records of recent labs requested from PCP office, have not yet received. Monitor for increased pain, odor, warmth, increased redness, pus and go to the ED with these.F/u in 1 week or sooner if needed. Apply for Epifix at next visit once infection is ruled out. Code Visit Office Visits / Consults: 60660 OV L3 Est [id number]: [id number] Sonal subq tissue 20 sq cm/< Add On Codes: 36236 Sonal subq tissue add-on - x 3
--- NOTE | 2017-08-27 10:47 | PN.PCM_ITS ---
(1) Non-pressure chronic ulcer of right calf with fat layer exposed Status: Acute Code(s): L97.212 - Non-pressure chronic ulcer of right calf with fat layer exposed (2) Type 2 diabetes mellitus with diabetic polyneuropathy Status: Acute Qualifiers: Diabetes mellitus termite technician insulin use: unspecified termite technician insulin use status Qualified Code(s): E11.42 - Type 2 diabetes mellitus with diabetic polyneuropathy Code(s): E11.42 - Type 2 diabetes mellitus with diabetic polyneuropathy (3) COPD (chronic obstructive pulmonary disease) Status: Chronic Qualifiers: COPD type: unspecified COPD Qualified Code(s): J44.9 - Chronic obstructive pulmonary disease, unspecified Code(s): J44.9 - Chronic obstructive pulmonary disease, unspecified (4) Chronic anticoagulation Status: Chronic Code(s): Z79.01 - termite inspector (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 of anticoagulants (5) Neuropathy Status: Chronic Code(s): G62.9 - Polyneuropathy, unspecified (6) PAD (peripheral artery disease) Status: Chronic Code(s): I73.9 - Peripheral vascular disease, unspecified (7) Sleep apnea Status: Chronic Qualifiers: Sleep apnea type: unspecified type Qualified Code(s): G47.30 - Sleep apnea , unspecified Code(s): G47.30 - Sleep apnea, unspecified (8) Type 2 diabetes mellitus treated with insulin Status: Chronic Code(s): E11.9 - Type 2 diabetes mellitus without complications; Z79.4 - termite inspector (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 of insulin Type of Wound Date of Service: 08/21/17 Chief Complaint: nonhealing wound/ulcer of right lateral calf History of Wound: Eddie is a pleasant 76 yo man who presents for evaluation of a wound/ulcer of his right lateral calf that has been present since mid-April and has continued to get larger. Former patient of Dr. Kearney's and Dr. Joseph , but will now be seeing me. He has seen his PCP and has seen another physician in their practice for the wound/ulcer and has been treated once with an UNNA boot and otherwise has been given antibiotics off and on without improvement, most recent antibiotic was Augmentin. No cultures have ever been taken of the wound. No imaging has been done. He has been using Aquaphor to the wound as instructed by his PCP. He has significant pain and edema in this leg and has been started on Lyrica which has helped with the pain. He has been unable to sleep in bed due to the pain and has been sleeping in a recliner. He denies any significant drainage but does note some on his socks from time to time. He denies any odor. Occasionally there is some bleeding. he was referred to the wound center for further evaluation and treatment. 07/29--Has been applying santyl and dry dressing since visit last friday. No drainage for the last few days. Vascular testing scheduled for 08/08. Awaiting lab work from PCP. Admits to sleeping in a recliner since March. Denies N/V/F/C. Some redness to R leg, but no pus, no malodor, no warmth, minimal pain. There is edema. Culture positive for e.coli from Friday. Will Rx Keflex today. 08/05-- Pt taking Keflex, tolerating well. Vascular testing scheduled for friday. Size improved with the use of nickel-thickness Santyl and lightly moistened gauze with light spandagrip. Plan to increase compression once vascular testing done. 08/12--Arterial testing done, normal. Venous test reveals multiple incompetent veins in the RLE. Pt states he cannot tolerate any tighter compression than the current spandagrip stocking. He will be referred to Dr. Patton today for evaluation. There is still fibrous tissue, but there are also skin islands forming within the ulceration. 08/19--Pt applying santyl nickel-thick and lightly moistened gauze dressing daily. There is still fibrous tissue, but there are also skin islands forming within the ulceration. Measurements improved today. Pt's is with him today, and she states that he often falls asleep in his recliner, and his legs end up falling off the foot rest and his feet end up on the ground. Pt has an appointment with Dr. Patton at [facility] at the beginning of August. 08/21- initial visit with Doroteo Nash NP who patient will be transferring care to. Has been applying nickel thick santyl daily, however, site is still painful and there is now a foul smell.Cultures will be redone today.Moderate amount of slough and fibrous tissue present. Pt denies any systemic signs of infection including no fever, chills, n/v/d/c. Progress of Wound: Measurements demonstrate deterioration of wound, however per patient looks to be slightly improving. I am the provider taking over care and this is the first measurement from myself done today (which is subjective), will assess for improvement next visit. - Physical Exam Vital Signs Temp Pulse Resp BP 97.3 F L 62 16 123/55 H 08/21/17 13:28 08/21/17 13:28 08/21/17 13:28 08/21/17 13:28 General: Alert, Oriented x3, Cooperative, No apparent distress HEENT: Atraumatic Oral: Moist Mucosa Neck: Supple Lungs: Clear to auscultation, Normal air movement Cardiovascular: Regular rate, Normal S1, Normal S2 Abdomen: Soft, Non Tender Extremities: No clubbing, No cyanosis, Edema - generalized BLLE edema Skin: Ulcer/ Wound - ulceration present RLE lateral aspect with fibrous tissue and slough present, foul smell on exam, no purulent drainage or discharge. Neurological: Cranial nerves II-XII grossly intact, Neuro grossly intact Psych/Mental Status: Normal Affect, Alert and oriented to time, place, person, mood and affect Debridement Note Post-Debridement Measurements/Treatment WC - Nurse 2 - General Ulcer CM Notes Start: 07/29/17 13:07 Freq: Status: Active Protocol: Activity Type Activity Date Activity User E-Sign Co-Sign Detail Recorded Client Recorded Date Recorded By Document 07/29/17 13:25 MW [id number] 07/29/17 13:27 MW Document 08/05/17 14:07 MW [id number] 08/05/17 14:10 MW Document 08/12/17 14:47 MW [id number] 08/12/17 14:54 MW Document 08/19/17 14:10 DV [id number] 08/19/17 14:15 DV Document 08/21/17 14:06 DV [id number] 08/21/17 14:08 DV 07/29/17 08/05/17 08/12/17 13:25 14:07 14:47 Wound Center Nurse 2 #1 RIGHT LATERAL LOWER LEG -Time 13:25 14:08 14:47 -Correct Patient Yes Yes Yes -Correct Side, Site, Position Yes Yes Yes -Correct Procedure Yes Yes Yes -Procedure Performed Yes Yes Yes -Type of Procedure Debridement Debridement Debridement -Clinical Debridement Subcutaneous Subcutaneous Subcutaneous -Post Debridement Size (cm) - Length 12.9 12.8 13.1 -Post Debridement Size (cm) - Width 4.3 4.1 4.4 -Post Debridement Size (cm) - Depth 0.2 0.1 0.2 -Total Square Cm 55.47 52.48 57.64 -Wound/Ulcer Outcome Not Healed Not Healed Not Healed -Ulcer Cleansing Rinsed/ Rinsed/ Rinsed/ Irrigated with Irrigated with Irrigated with Saline Saline Saline -Foul Odor after Cleansing No No No -Bioengineered Tissue No No No -Bleeding Controlled with Pressure Pressure Pressure -Treatment Response Procedure Procedure Procedure Tolerated Well Tolerated Well Tolerated Well Pain Scale: 0-10 Numeric Is Patient Pain Free? Yes Yes Yes 08/19/17 08/21/17 14:10 14:06 Wound Center Nurse 2 #1 RIGHT LATERAL LOWER LEG -Time 14:11 14:06 -Correct Patient Yes Yes -Correct Side, Site, Position Yes Yes -Correct Procedure Yes Yes -Procedure Performed Yes Yes -Type of Procedure Debridement Debridement -Clinical Debridement Subcutaneous Subcutaneous -Post Debridement Size (cm) - Length 13.0 13.7 -Post Debridement Size (cm) - Width 4.3 4.9 -Post Debridement Size (cm) - Depth 0.1 0.3 -Total Square Cm 55.90 67.13 -Wound/Ulcer Outcome Not Healed Not Healed -Ulcer Cleansing Rinsed/ Rinsed/ Irrigated with Irrigated with Saline Saline -Foul Odor after Cleansing No No -Bioengineered Tissue No -Bleeding Controlled with Pressure Pressure -Treatment Response Procedure Not Procedure Tolerated Well Tolerated Well Pain Scale: 0-10 Numeric Is Patient Pain Free? Yes Yes Wound debrided: RLE ulcer Laterality: Right Type of Debridement: Excisional debridement Anesthesia Used: 5% Lidocaine Gel Depth: Down to and including healthy tissue, in the subcutaneous layer Percentage of wound debrided: 100 Instrument Used: 5mm curette Tissue Removed: slough and devitalized tissue Severity: Fat Layer Exposed Amount of bleeding with debridement: Mild Bleeding Controlled with: Pressure Patient tolerated procedure well Assessment/Plan Assessment: nonhealing ulcer/wound of right lateral calf - likely secondary to arterial/venous insufficiency Plan: Patient was seen at [facility] and updated on plan of care. SQ/excisional debridement of R calf ulcer as described above. Vascular studies have been reviewed. Referral to Dr. Patton for evaluation and treatment is pending. Continue Santyl nickel thickness, cover with lightly moistened gauze dressing. Given foul smell, repeat cultures ordered and will hold off doing 3 M wraps at this time due to potential for infection. WIll use double tubigrip for compression and if cultures demonstrate no infection, will resume 3M wraps at next visit in one week. Discussed again importance of elevating legs to help with decreasing edema, avoiding idle sitting or standing, increased activity, weight management. Pt encouraged to sleep flat at night or to sleep with legs elevated if he is going to sleep in a recliner. Encouraged tight glucose control. Discussed importance of adequate nutrition, especially increased protein intake, to promote healing. Ulcer does not require offloading due to location, but do not cross legs. Records of recent labs requested from PCP office, have not yet received. Monitor for increased pain, odor, warmth, increased redness, pus and go to the ED with these.F/u in 1 week or sooner if needed. Apply for Epifix at next visit once infection is ruled out. Code Visit Office Visits / Consults: [id number] OV L3 Est 111xxx-113xx: [id number] Sonal subq tissue 20 sq cm/< Add On Codes: [id number] Sonal subq tissue add-on - x 3
== END 2017-08-25 23:59 ==
LOC: WC 13:00
PROVIDERS: Family Provider Family Medicine; PCP Family Medicine; Visit Provider Nurse Practitioner Family
DX: E11.622 Type 2 diabetes mellitus with other skin ulcer (principal); L97.212 Non-pressure chronic ulcer of right calf with fat layer exposed; E11.51 Type 2 diabetes mellitus with diabetic peripheral angiopathy without gangrene; E11.42 Type 2 diabetes mellitus with diabetic polyneuropathy; R60.0 Localized edema; Z79.01 Long term (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 of anticoagulants; J44.9 Chronic obstructive pulmonary disease, unspecified; G47.30 Sleep apnea, unspecified; I70.232 Atherosclerosis of native arteries of right leg with ulceration of calf
CPT/HCPCS: 11042; 11045; 29581; 87070; 87075; 87077; 87186; 87205; 93923; 93970; 97602

== ENCOUNTER 2017-09-23 15:00 | Outpatient (RCR) | payer MEDICARE, SELFPAY ==
[2017-08-26 01:02] VITALS: PULSE 62; RESP 16; TEMP 36.3
[2017-08-28 13:44] VITALS: BP 131/58; PULSE 52; RESP 18; TEMP 36
--- NOTE | 2017-08-28 17:04 | PCM.WC.PN ---
(1) Non-pressure chronic ulcer of right calf with fat layer exposed Status: Acute Code(s): L97.212 - Non-pressure chronic ulcer of right calf with fat layer exposed (2) 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 Status: Acute Code(s): L97.912 - Non-pressure chronic ulcer of unspecified part of right lower leg with fat layer exposed Comment: x 2 wounds one located above medial malleolus and one just below right knee (3) Bilateral lower extremity edema Status: Acute Code(s): R60.0 - Localized edema (4) Type 2 diabetes mellitus with diabetic polyneuropathy Status: Acute Qualifiers: Code(s): E11.42 - Type 2 diabetes mellitus with diabetic polyneuropathy (5) Neuropathy Status: Chronic Code(s): G62.9 - Polyneuropathy, unspecified (6) PAD (peripheral artery disease) Status: Chronic Code(s): I73.9 - Peripheral vascular disease, unspecified (7) Type 2 diabetes mellitus treated with insulin Status: Chronic Code(s): E11.9 - Type 2 diabetes mellitus without complications; Z79.4 - intermediate frame tender (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 Former patient of Dr. Kearney's and Dr. Joseph, but will now be seeing me. He has seen his PCP and has seen another physician in their practice for the wound/ulcer and has been treated once with an UNNA boot and otherwise has been given antibiotics off and on without improvement, most recent antibiotic was Augmentin. No cultures have ever been taken of the wound. No imaging has been done. He has been using Aquaphor to the wound as instructed by his PCP. He has significant pain and edema in this leg and has been started on Lyrica which has helped with the pain. He has been unable to sleep in bed due to the pain and has been sleeping in a recliner. He denies any significant drainage but does note some on his socks from time to time. He denies any odor. Occasionally there is some bleeding. he was referred to the wound center for further evaluation and treatment. 07/29--Has been applying santyl and dry dressing since visit last friday. No drainage for the last few days. Vascular testing scheduled for 08/08. Awaiting lab work from PCP. Admits to sleeping in a recliner since March. Denies N/V/F/C. Some redness to R leg, but no pus, no malodor, no warmth, minimal pain. There is edema. Culture positive for e.coli from Friday. Will Rx Keflex today. 08/05--Pt taking Keflex, tolerating well. Vascular testing scheduled for friday. Size improved with the use of nickel-thickness Santyl and lightly moistened gauze with light spandagrip. Plan to increase compression once vascular testing done. 08/12--Arterial testing done, normal. Venous test reveals multiple incompetent veins in the RLE. Pt states he cannot tolerate any tighter compression than the current spandagrip stocking. He will be referred to Dr. Patton today for evaluation. There is still fibrous tissue, but there are also skin islands forming within the ulceration. 08/19--Pt applying santyl nickel-thick and lightly moistened gauze dressing daily. There is still fibrous tissue, but there are also skin islands forming within the ulceration. Measurements improved today. Pt's is with him today, and she states that he often falls asleep in his recliner, and his legs end up falling off the foot rest and his feet end up on the ground. Pt has an appointment with Dr. Patton at [facility] at the beginning of August. 08/21- initial visit with Doroteo Nash NP who patient will be transferring care to. Has been applying nickel thick santyl daily, however, site is still painful and there is now a foul smell.Cultures will be redone today.Moderate amount of slough and fibrous tissue present. Pt denies any systemic signs of infection including no fever, chills, n/v/d/c. 08/28-patient has 2 new wounds and states that there is an increase in foul smell coming from his chronic wound. He has unaware how the 2 new wounds occurred and denies any obvious trauma, though does state that they looked like they are going to be opening prior to this visit. He does state that the wound below the right knee may be from a tape burn from his dressing changes. Progress of Wound: Wound has deteriorated, patient continues to use Santyl. Also 2 new wounds present right lower extremity. 1 from a tape burn, one from unknown cause. There is a foul smell coming from the right lower calf wound and necrotic tissue still in the center. A deep tissue culture was collected today and based on previous culture, patient will be started on Flagyl for anaerobic coverage and additional antibiotic based on what new culture shows. Will refer to infectious disease. - Physical Exam Vital Signs Temp Pulse Resp BP 96.8 F L 52 L 18 131/58 H 08/28/17 13:44 08/28/17 13:44 08/28/17 13:44 08/28/17 13:44 General: Alert, Oriented x3, Cooperative, No apparent distress HEENT: Atraumatic Cardiovascular: Regular rate Extremities: Edema - 2-3+ pitting edema bilaterally Skin: Ulcer/ Wound - Chronic ulcer present right calf with moderate amount of slough and necrotic tissue in the center, foul smell present, no exudate or no surrounding erythema. New ulcer with adherent slough present above right medial malleolus. Superficial ulceration of the skin present due to tape burn right knee with no slough present or signs of infection Neurological: Neuro grossly intact Psych/Mental Status: Normal Affect, Appropriate Debridement Note Post-Debridement Measurements/Treatment WC - Nurse 2 - General Ulcer CM Notes Start: 08/28/17 13:44 Freq: Status: Active Protocol: Activity Type Activity Date Activity User E-Sign Co-Sign Detail Recorded Client Recorded Date Recorded By Document 08/28/17 14:00 DV [id number] 08/29/17 19:46 DV 08/28/17 14:00 Wound Center Nurse 2 #3 R-MEDIAL LE -Time 14:00 -Correct Patient Yes -Correct Side, Site, Position Yes -Correct Procedure Yes -Procedure Performed Yes -Type of Procedure Debridement -Clinical Debridement Subcutaneous -Post Debridement Size (cm) - Length 2.6 -Post Debridement Size (cm) - Width 3.1 -Post Debridement Size (cm) - Depth 0.2 -Total Square Cm 8.06 -Wound/Ulcer Outcome Failed Graft -Ulcer Cleansing Rinsed/ Irrigated with Saline -Foul Odor after Cleansing No -Bioengineered Tissue No -Bleeding Controlled with Pressure -Treatment Response Procedure Tolerated Well #2 R CHRISTIAN -Time 14:00 -Correct Patient Yes -Correct Side, Site, Position Yes -Correct Procedure Yes -Procedure Performed Yes -Type of Procedure Debridement -Clinical Debridement Subcutaneous -Post Debridement Size (cm) - Length 1.6 -Post Debridement Size (cm) - Width 2.5 -Post Debridement Size (cm) - Depth 0.1 -Total Square Cm 4.00 -Wound/Ulcer Outcome Not Healed -Ulcer Cleansing Rinsed/ Irrigated with Saline -Foul Odor after Cleansing No -Bioengineered Tissue No -Bleeding Controlled with Pressure -Treatment Response Procedure Tolerated Well #1 RIGHT LATERAL LOWER LEG -Time 14:00 -Correct Patient Yes -Correct Side, Site, Position Yes -Correct Procedure Yes -Procedure Performed Yes -Type of Procedure Debridement -Clinical Debridement Subcutaneous -Post Debridement Size (cm) - Length 13.5 -Post Debridement Size (cm) - Width 5.2 -Post Debridement Size (cm) - Depth 0.3 -Total Square Cm 70.20 -Wound/Ulcer Outcome Not Healed -Ulcer Cleansing Rinsed/ Irrigated with Saline -Foul Odor after Cleansing No -Bioengineered Tissue No -Bleeding Controlled with Pressure -Treatment Response Procedure Tolerated Well Pain Scale: 0-10 Numeric Is Patient Pain Free? Yes Wound debrided: Chronic right lower extremity calf wound Laterality: Right Type of Debridement: Excisional debridement Anesthesia Used: 5% Lidocaine Gel Depth: in the subcutaneous layer Percentage of wound debrided: 100 Instrument Used: 7mm curette Tissue Removed: Slough and fibrous tissue Severity: Fat Layer Exposed Amount of bleeding with debridement: Mild Bleeding Controlled with: Pressure Patient tolerated procedure well - Additional Wound Wound debrided: Ulcer right medial malleolus Type of Debridement: Excisional debridement Anesthesia Used: 5% Lidocaine Gel Depth: in the subcutaneous layer Percentage of wound debrided: 100 Instrument Used: 5mm curette Tissue Removed: Slough adherent to wound bed Severity: Fat Layer Exposed Amount of bleeding with debridement: Mild Bleeding Controlled with: Pressure Patient tolerated procedure: Patient tolerated procedure well Assessment/Plan Assessment: nonhealing ulcer/wound of right lateral calf - likely secondary to arterial insufficiency Plan: Patient was seen at [facility] and updated on plan of care. SQ/excisional debridement of R calf ulcers as described above. Vascular studies have been reviewed. Referral to Dr. Patton for evaluation and treatment is pending. Continue Santyl nickel thickness, cover with lightly moistened gauze dressing. Given foul smell, tissue cultures ordered and will hold off doing 3 M wraps at this time due to infection. Previous culture showed anerobic bacteria, therefore will treat with Flagyl 3 times daily and will add appropriate antibiotic if tissue culture reveals further infection. Given patient's multiple antibiotic treatments, will refer patient to infectious disease. WIll use double tubigrip for compression as of now due to infection, will resume 3M wraps at next visit in one week if clinically improved. Discussed again importance of elevating legs to help with decreasing edema, avoiding idle sitting or standing, increased activity, weight management. Pt encouraged to sleep flat at night or to sleep with legs elevated if he is going to sleep in a recliner. Encouraged tight glucose control. Discussed importance of adequate nutrition, especially increased protein intake, to promote healing. Ulcer does not require offloading due to location, but do not cross legs. Records of recent labs requested from PCP office, have not yet received. Monitor for increased pain, odor, warmth, increased redness, pus and go to the ED with these.F/u in 1 week or sooner if needed. Apply for purapply given the infectious nature of the ulcer. Code Visit Office Visits / Consults: [id number] OV L3 Est 111xxx-113xx: [id number] Sonal subq tissue 20 sq cm/<
--- NOTE | 2017-09-03 14:08 | PN.PCM_ITS ---
(1) Non-pressure chronic ulcer of right calf with fat layer exposed Status: Acute Code(s): L97.212 - Non-pressure chronic ulcer of right calf with fat layer exposed (2) 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 Status: Acute Code(s): L97.912 - Non-pressure chronic ulcer of unspecified part of right lower leg with fat layer exposed Comment: x 2 wounds one located above medial malleolus and one just below right knee (3) Bilateral lower extremity edema Status: Acute Code(s): R60.0 - Localized edema (4) Type 2 diabetes mellitus with diabetic polyneuropathy Status: Acute Qualifiers: Code(s): E11.42 - Type 2 diabetes mellitus with diabetic polyneuropathy (5) Neuropathy Status: Chronic Code(s): G62.9 - Polyneuropathy, unspecified (6) PAD (peripheral artery disease) Status: Chronic Code(s): I73.9 - Peripheral vascular disease, unspecified (7) Type 2 diabetes mellitus treated with insulin Status: Chronic Code(s): E11.9 - Type 2 diabetes mellitus without complications; 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 Former patient of Dr. Kearney's and Dr. Joseph , but will now be seeing me. He has seen his PCP and has seen another physician in their practice for the wound/ulcer and has been treated once with an UNNA boot and otherwise has been given antibiotics off and on without improvement, most recent antibiotic was Augmentin. No cultures have ever been taken of the wound. No imaging has been done. He has been using Aquaphor to the wound as instructed by his PCP. He has significant pain and edema in this leg and has been started on Lyrica which has helped with the pain. He has been unable to sleep in bed due to the pain and has been sleeping in a recliner. He denies any significant drainage but does note some on his socks from time to time. He denies any odor. Occasionally there is some bleeding. he was referred to the wound center for further evaluation and treatment. 07/29--Has been applying santyl and dry dressing since visit last friday. No drainage for the last few days. Vascular testing scheduled for 08/08. Awaiting lab work from PCP. Admits to sleeping in a recliner since March. Denies N/V/F/C. Some redness to R leg, but no pus, no malodor, no warmth, minimal pain. There is edema. Culture positive for e.coli from Friday. Will Rx Keflex today. 08/05-- Pt taking Keflex, tolerating well. Vascular testing scheduled for friday. Size improved with the use of nickel-thickness Santyl and lightly moistened gauze with light spandagrip. Plan to increase compression once vascular testing done. 08/12--Arterial testing done, normal. Venous test reveals multiple incompetent veins in the RLE. Pt states he cannot tolerate any tighter compression than the current spandagrip stocking. He will be referred to Dr. Patton today for evaluation. There is still fibrous tissue, but there are also skin islands forming within the ulceration. 08/19--Pt applying santyl nickel-thick and lightly moistened gauze dressing daily. There is still fibrous tissue, but there are also skin islands forming within the ulceration. Measurements improved today. Pt's is with him today, and she states that he often falls asleep in his recliner, and his legs end up falling off the foot rest and his feet end up on the ground. Pt has an appointment with Dr. Patton at [facility] at the beginning of August. 08/21- initial visit with Doroteo Nash NP who patient will be transferring care to. Has been applying nickel thick santyl daily, however, site is still painful and there is now a foul smell.Cultures will be redone today.Moderate amount of slough and fibrous tissue present. Pt denies any systemic signs of infection including no fever, chills, n/v/d/c. 08/28 -patient has 2 new wounds and states that there is an increase in foul smell coming from his chronic wound. He has unaware how the 2 new wounds occurred and denies any obvious trauma, though does state that they looked like they are going to be opening prior to this visit. He does state that the wound below the right knee may be from a tape burn from his dressing changes. Progress of Wound: Wound has deteriorated, patient continues to use Santyl. Also 2 new wounds present right lower extremity. 1 from a tape burn, one from unknown cause. There is a foul smell coming from the right lower calf wound and necrotic tissue still in the center. A deep tissue culture was collected today and based on previous culture, patient will be started on Flagyl for anaerobic coverage and additional antibiotic based on what new culture shows. Will refer to infectious disease. - Physical Exam Vital Signs Temp Pulse Resp BP 96.8 F L 52 L 18 131/58 H 08/28/17 13:44 08/28/17 13:44 08/28/17 13:44 08/28/17 13:44 General: Alert, Oriented x3, Cooperative, No apparent distress HEENT: Atraumatic Cardiovascular: Regular rate Extremities: Edema - 2-3+ pitting edema bilaterally Skin: Ulcer/ Wound - Chronic ulcer present right calf with moderate amount of slough and necrotic tissue in the center, foul smell present, no exudate or no surrounding erythema. New ulcer with adherent slough present above right medial malleolus. Superficial ulceration of the skin present due to tape burn right knee with no slough present or signs of infection Neurological: Neuro grossly intact Psych/Mental Status: Normal Affect, Appropriate Debridement Note Post-Debridement Measurements/Treatment WC - Nurse 2 - General Ulcer CM Notes Start: 08/28/17 13:44 Freq: Status: Active Protocol: Activity Type Activity Date Activity User E-Sign Co-Sign Detail Recorded Client Recorded Date Recorded By Document 08/28/17 14:00 DV [id number] 08/29/17 19:46 DV 08/28/17 14:00 Wound Center Nurse 2 #3 R-MEDIAL LE -Time 14:00 -Correct Patient Yes -Correct Side, Site, Position Yes -Correct Procedure Yes -Procedure Performed Yes -Type of Procedure Debridement -Clinical Debridement Subcutaneous -Post Debridement Size (cm) - Length 2.6 -Post Debridement Size (cm) - Width 3.1 -Post Debridement Size (cm) - Depth 0.2 -Total Square Cm 8.06 -Wound/Ulcer Outcome Failed Graft -Ulcer Cleansing Rinsed/ Irrigated with Saline -Foul Odor after Cleansing No -Bioengineered Tissue No -Bleeding Controlled with Pressure -Treatment Response Procedure Tolerated Well #2 R CHRISTIAN -Time 14:00 -Correct Patient Yes -Correct Side, Site, Position Yes -Correct Procedure Yes -Procedure Performed Yes -Type of Procedure Debridement -Clinical Debridement Subcutaneous -Post Debridement Size (cm) - Length 1.6 -Post Debridement Size (cm) - Width 2.5 -Post Debridement Size (cm) - Depth 0.1 -Total Square Cm 4.00 -Wound/Ulcer Outcome Not Healed -Ulcer Cleansing Rinsed/ Irrigated with Saline -Foul Odor after Cleansing No -Bioengineered Tissue No -Bleeding Controlled with Pressure -Treatment Response Procedure Tolerated Well #1 RIGHT LATERAL LOWER LEG -Time 14:00 -Correct Patient Yes -Correct Side, Site, Position Yes -Correct Procedure Yes -Procedure Performed Yes -Type of Procedure Debridement -Clinical Debridement Subcutaneous -Post Debridement Size (cm) - Length 13.5 -Post Debridement Size (cm) - Width 5.2 -Post Debridement Size (cm) - Depth 0.3 -Total Square Cm 70.20 -Wound/Ulcer Outcome Not Healed -Ulcer Cleansing Rinsed/ Irrigated with Saline -Foul Odor after Cleansing No -Bioengineered Tissue No -Bleeding Controlled with Pressure -Treatment Response Procedure Tolerated Well Pain Scale: 0-10 Numeric Is Patient Pain Free? Yes Wound debrided: Chronic right lower extremity calf wound Laterality: Right Type of Debridement: Excisional debridement Anesthesia Used: 5% Lidocaine Gel Depth: in the subcutaneous layer Percentage of wound debrided: 100 Instrument Used: 7mm curette Tissue Removed: Slough and fibrous tissue Severity: Fat Layer Exposed Amount of bleeding with debridement: Mild Bleeding Controlled with: Pressure Patient tolerated procedure well - Additional Wound Wound debrided: Ulcer right medial malleolus Type of Debridement: Excisional debridement Anesthesia Used: 5% Lidocaine Gel Depth: in the subcutaneous layer Percentage of wound debrided: 100 Instrument Used: 5mm curette Tissue Removed: Slough adherent to wound bed Severity: Fat Layer Exposed Amount of bleeding with debridement: Mild Bleeding Controlled with: Pressure Patient tolerated procedure: Patient tolerated procedure well Assessment/Plan Assessment: nonhealing ulcer/wound of right lateral calf - likely secondary to arterial insufficiency Plan: Patient was seen at [facility] and updated on plan of care. SQ/excisional debridement of R calf ulcers as described above. Vascular studies have been reviewed. Referral to Dr. Patton for evaluation and treatment is pending. Continue Santyl nickel thickness, cover with lightly moistened gauze dressing. Given foul smell, tissue cultures ordered and will hold off doing 3 M wraps at this time due to infection. Previous culture showed anerobic bacteria, therefore will treat with Flagyl 3 times daily and will add appropriate antibiotic if tissue culture reveals further infection. Given patient's multiple antibiotic treatments, will refer patient to infectious disease. WIll use double tubigrip for compression as of now due to infection, will resume 3M wraps at next visit in one week if clinically improved. Discussed again importance of elevating legs to help with decreasing edema, avoiding idle sitting or standing, increased activity, weight management. Pt encouraged to sleep flat at night or to sleep with legs elevated if he is going to sleep in a recliner. Encouraged tight glucose control. Discussed importance of adequate nutrition, especially increased protein intake, to promote healing. Ulcer does not require offloading due to location, but do not cross legs. Records of recent labs requested from PCP office, have not yet received. Monitor for increased pain, odor, warmth, increased redness, pus and go to the ED with these.F/u in 1 week or sooner if needed. Apply for purapply given the infectious nature of the ulcer. Code Visit Office Visits / Consults: [id number] OV L3 Est [id number]: [id number] Sonal subq tissue 20 sq cm/<
--- NOTE | 2017-09-04 16:22 | PCM.WC.PN ---
(1) Non-pressure chronic ulcer of right calf with fat layer exposed Status: Acute Current Visit: No Code(s): L97.212 - Non-pressure chronic ulcer of right calf with fat layer exposed (2) 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 Status: Acute Current Visit: No Code(s): L97.912 - Non-pressure chronic ulcer of unspecified part of right lower leg with fat layer exposed Comment: x 2 wounds one located above medial malleolus and one just below right knee (3) Bilateral lower extremity edema Status: Acute Current Visit: No Code(s): R60.0 - Localized edema (4) Type 2 diabetes mellitus with diabetic polyneuropathy Status: Acute Current Visit: No Qualifiers: Code(s): E11.42 - Type 2 diabetes mellitus with diabetic polyneuropathy (5) Neuropathy Status: Chronic Current Visit: No Code(s): G62.9 - Polyneuropathy, unspecified (6) PAD (peripheral artery disease) Status: Chronic Current Visit: No Code(s): I73.9 - Peripheral vascular disease, unspecified (7) Type 2 diabetes mellitus treated with insulin Status: Chronic Current Visit: No Code(s): E11.9 - Type 2 diabetes mellitus without complications; Z79.4 - [employer] (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 of insulin Type of Wound Date of Service: 09/04/17 Chief Complaint: nonhealing wound/ulcer of right lateral calf History of Wound: Eddie is a pleasant 76 yo man who presents for evaluation of a wound/ulcer of his right lateral calf that has been present since mid-April and has continued to get larger. Former patient of Dr. Kearney's and Dr. Joseph, but will now be seeing me. He has seen his PCP and has seen another physician in their practice for the wound/ulcer and has been treated once with an UNNA boot and otherwise has been given antibiotics off and on without improvement, most recent antibiotic was Augmentin. No cultures have ever been taken of the wound. No imaging has been done. He has been using Aquaphor to the wound as instructed by his PCP. He has significant pain and edema in this leg and has been started on Lyrica which has helped with the pain. He has been unable to sleep in bed due to the pain and has been sleeping in a recliner. He denies any significant drainage but does note some on his socks from time to time. He denies any odor. Occasionally there is some bleeding. he was referred to the wound center for further evaluation and treatment. 07/29--Has been applying santyl and dry dressing since visit last friday. No drainage for the last few days. Vascular testing scheduled for 08/08. Awaiting lab work from PCP. Admits to sleeping in a recliner since March. Denies N/V/F/C. Some redness to R leg, but no pus, no malodor, no warmth, minimal pain. There is edema. Culture positive for e.coli from Friday. Will Rx Keflex today. 08/05--Pt taking Keflex, tolerating well. Vascular testing scheduled for friday. Size improved with the use of nickel-thickness Santyl and lightly moistened gauze with light spandagrip. Plan to increase compression once vascular testing done. 08/12--Arterial testing done, normal. Venous test reveals multiple incompetent veins in the RLE. Pt states he cannot tolerate any tighter compression than the current spandagrip stocking. He will be referred to Dr. Patton today for evaluation. There is still fibrous tissue, but there are also skin islands forming within the ulceration. 08/19--Pt applying santyl nickel-thick and lightly moistened gauze dressing daily. There is still fibrous tissue, but there are also skin islands forming within the ulceration. Measurements improved today. Pt's is with him today, and she states that he often falls asleep in his recliner, and his legs end up falling off the foot rest and his feet end up on the ground. Pt has an appointment with Dr. Patton at [facility] at the beginning of August. 08/21- initial visit with Doroteo Nash NP who patient will be transferring care to. Has been applying nickel thick santyl daily, however, site is still painful and there is now a foul smell.Cultures will be redone today.Moderate amount of slough and fibrous tissue present. Pt denies any systemic signs of infection including no fever, chills, n/v/d/c. 08/28-patient has 2 new wounds and states that there is an increase in foul smell coming from his chronic wound. He has unaware how the 2 new wounds occurred and denies any obvious trauma, though does state that they looked like they are going to be opening prior to this visit. He does state that the wound below the right knee may be from a tape burn from his dressing changes. Progress of Wound: Wound right lower calf has improved in appearance and has less necrotic tissue present today and foul smell has lessened since starting the antibiotic, patient continues to use Santyl. Also now 3 additional wounds on right lower extremity. A deep tissue culture was collected previously and still shows E. coli and Klebsiella, patient will be started on Cipro as they were sensitive to this in addition to continuing his course of Flagyl. Will refer to infectious disease. Patient also has pending appointment with vascular as well. - Physical Exam Vital Signs Temp Pulse Resp BP 96.8 F L 65 16 149/78 H 08/28/17 13:44 09/04/17 16:37 09/04/17 16:37 09/04/17 16:37 General: Alert, Oriented x3, Cooperative, No apparent distress HEENT: Atraumatic Cardiovascular: Regular rate Extremities: Diminished Peripheral Pulses, Edema - Bilateral lower extremity edema Skin: Ulcer/ Wound - Chronic ulcer present right calf with moderate amount of slough and smaller amount of necrotic tissue in the center, foul smell present not as bad this week, no exudate or no surrounding erythema. ulcer with adherent slough present above right medial malleolus. Superficial ulceration of the skin present due to tape burn right knee with no slough present or signs of infection, ulcer present right posterior lower extremity with adherent slough to wound bed Wound Measurements and Assessment WC - Nurse 1 - General Ulcer Measurement Start: 08/28/17 13:44 Freq: Status: Active Protocol: Activity Type Activity Date Activity User E-Sign Co-Sign Detail Recorded Client Recorded Date Recorded By Document 09/04/17 16:37 TN [id number] 09/04/17 16:55 TN 09/04/17 16:37 Wound Center Nurse 1 [Ulcer Assessment] #4 R POSTERIOR CALF -Combined with other wound No -Current Size (cm) - Length 0.5 -Current Size (cm) - Width 1 -Current Size (cm) - Depth 0.1 -Total Square Cm 0.5 -Date of Last Picture (Recall this 09/04/17 field) -Photo Taken Yes -Epithelialization None Present -Tunneling No -Undermining/Tunneling No -Circular Undermining No -Classification - Thickness Full Thickness without Exposed Support Structure -Exudate Amt Small (1-33%) -Exudate Type Serosanguineous -Wound Margin Distinct, Outline Attached -Granulation Amt None Present (0 %) -Slough/Fibrin Yes -Necrosis Amt Large (67-100%) -Necrotic Tissue Type Adherent Slough -Structure Exposed None/Limited to Skin Breakdown -Texture (Kinza-wound Skin Appearance) Assessed Localized Edema -Moisture (Kinza-wound Skin Appearance Assessed ) Maceration Weeping -Color (Kinza-wound Skin Appearance) Assessed Erythema -Temperature (Kinza-wound Skin No Abnormality Appearance) (Pt Warm) -Tenderness on Palpation (Kinza-wound No Skin Appearance) -Ulcer Cleansing Rinsed/ Irrigated with Saline -Foul Odor after Cleansing No -Anesthetic Used 4% Lidocaine Solution #3 R-MEDIAL LE -Combined with other wound No -Current Size (cm) - Length 2 -Current Size (cm) - Width 4.4 -Current Size (cm) - Depth 0.2 -Total Square Cm 8.8 -Photo Taken No -Epithelialization None Present -Tunneling No -Undermining/Tunneling No -Circular Undermining No -Classification - Thickness Full Thickness without Exposed Support Structure -Change in Wound Grade/Stage No Query Text:If change please identify the Stage/Grade in the comment (ie. S2 G3) -Exudate Amt Large (67-100%) -Exudate Type Serous -Wound Margin Distinct, Outline Attached -Necrosis Amt Medium (34-66%) -Necrotic Tissue Type Adherent Slough -Structure Exposed None/Limited to Skin Breakdown -Texture (Kinza-wound Skin Appearance) Assessed Localized Edema -Moisture (Kinza-wound Skin Appearance Assessed ) Maceration -Color (Kinza-wound Skin Appearance) Assessed Erythema -Temperature (Kinza-wound Skin No Abnormality Appearance) (Pt Warm) -Tenderness on Palpation (Kinza-wound No Skin Appearance) -Ulcer Cleansing Rinsed/ Irrigated with Saline -Foul Odor after Cleansing No -Anesthetic Used 4% Lidocaine Solution #2 R CHRISTIAN -Combined with other wound No -Current Size (cm) - Length 1.2 -Current Size (cm) - Width 2.2 -Current Size (cm) - Depth 0.1 -Total Square Cm 2.64 -Photo Taken No -Epithelialization Small 1-33% -Tunneling No -Undermining/Tunneling No -Circular Undermining No -Classification - Thickness Full Thickness without Exposed Support Structure -Change in Wound Grade/Stage No Query Text:If change please identify the Stage/Grade in the comment (ie. S2 G3) -Exudate Amt Small (1-33%) -Exudate Type Serous -Wound Margin Distinct, Outline Attached -Granulation Amt Large (67-100%) -Granulation Quality Kemp -Slough/Fibrin No -Necrosis Amt Small (1-33%) -Necrotic Tissue Type Adherent Slough -Structure Exposed None/Limited to Skin Breakdown -Texture (Kinza-wound Skin Appearance) Assessed Scarring -Moisture (Kinza-wound Skin Appearance No Abnormality ) Assessed -Color (Kinza-wound Skin Appearance) Assessed Erythema -Temperature (Kinza-wound Skin No Abnormality Appearance) (Pt Warm) -Tenderness on Palpation (Kinza-wound No Skin Appearance) -Ulcer Cleansing Rinsed/ Irrigated with Saline -Foul Odor after Cleansing No -Anesthetic Used 4% Lidocaine Solution #1 RIGHT LATERAL LOWER LEG -Combined with other wound No -Current Size (cm) - Length 12.8 -Current Size (cm) - Width 4.9 -Current Size (cm) - Depth 0.2 -Total Square Cm 62.72 -Photo Taken No -Epithelialization None Present -Tunneling No -Undermining/Tunneling No -Circular Undermining No -Classification - Thickness Full Thickness without Exposed Support Structure -Change in Wound Grade/Stage No Query Text:If change please identify the Stage/Grade in the comment (ie. S2 G3) -Exudate Amt Large (67-100%) -Exudate Type Serous -Wound Margin Distinct, Outline Attached -Granulation Amt None Present (0 %) -Necrosis Amt Large (67-100%) -Necrotic Tissue Type Adherent Slough -Structure Exposed None/Limited to Skin Breakdown -Texture (Kinza-wound Skin Appearance) Assessed Localized Edema Scarring -Moisture (Kinza-wound Skin Appearance Assessed ) Maceration -Color (Kinza-wound Skin Appearance) Assessed Erythema -Temperature (Kinza-wound Skin No Abnormality Appearance) (Pt Warm) -Tenderness on Palpation (Kinza-wound No Skin Appearance) -Ulcer Cleansing Rinsed/ Irrigated with Saline -Foul Odor after Cleansing No -Anesthetic Used 4% Lidocaine Solution [Edema Assessment] -Lower Limb Edema Present Yes -Right Calf (cm) 39.5 -Right Ankle (cm) 24.5 WC - Nurse 2 - General Ulcer CM Notes Start: 08/28/17 13:44 Freq: Status: Active Protocol: Activity Type Activity Date Activity User E-Sign Co-Sign Detail Recorded Client Recorded Date Recorded By Document 09/04/17 17:36 DV [id number] 09/04/17 17:46 DV 09/04/17 17:36 Wound Center Nurse 2 [Procedure/Treatment] #4 R POSTERIOR CALF -Time 17:45 -Correct Patient Yes -Correct Side, Site, Position Yes -Correct Procedure Yes -Procedure Performed Yes -Type of Procedure Debridement -Clinical Debridement Subcutaneous -Post Debridement Size (cm) - Length 0.6 -Post Debridement Size (cm) - Width 1.2 -Post Debridement Size (cm) - Depth 0.1 -Total Square Cm 0.72 -Wound/Ulcer Outcome Not Healed -Ulcer Cleansing Rinsed/ Irrigated with Saline -Foul Odor after Cleansing No -Bioengineered Tissue No -Bleeding Controlled with Pressure -Treatment Response Procedure Tolerated Well #3 R-MEDIAL LE -Time 17:40 -Correct Patient Yes -Correct Side, Site, Position Yes -Correct Procedure Yes -Procedure Performed Yes -Type of Procedure Debridement -Clinical Debridement Subcutaneous -Post Debridement Size (cm) - Length 2.3 -Post Debridement Size (cm) - Width 4.0 -Post Debridement Size (cm) - Depth 0.2 -Total Square Cm 9.20 -Wound/Ulcer Outcome Not Healed -Ulcer Cleansing Rinsed/ Irrigated with Saline -Foul Odor after Cleansing No -Bioengineered Tissue No -Bleeding Controlled with Pressure -Treatment Response Procedure Tolerated Well #2 R CHRISTIAN -Time 17:39 -Correct Patient Yes -Procedure Performed No -Post Debridement Size (cm) - Length 1.3 -Post Debridement Size (cm) - Width 2.0 -Post Debridement Size (cm) - Depth 0.1 -Total Square Cm 2.60 -Wound/Ulcer Outcome Not Healed -Ulcer Cleansing Rinsed/ Irrigated with Saline -Foul Odor after Cleansing No -Bioengineered Tissue No -Bleeding Controlled with Pressure -Treatment Response Procedure Tolerated Well #1 RIGHT LATERAL LOWER LEG -Time 17:38 -Correct Patient Yes -Correct Side, Site, Position Yes -Correct Procedure Yes -Procedure Performed Yes -Type of Procedure Debridement -Clinical Debridement Subcutaneous -Post Debridement Size (cm) - Length 13.0 -Post Debridement Size (cm) - Width 4.7 -Post Debridement Size (cm) - Depth 4.0 -Total Square Cm 61.10 -Wound/Ulcer Outcome Not Healed -Ulcer Cleansing Rinsed/ Irrigated with Saline -Foul Odor after Cleansing No -Bioengineered Tissue No -Bleeding Controlled with Pressure -Treatment Response Procedure Tolerated Well [See Physician Procedure note for Specifics] Pain Scale: 0-10 Numeric [Pain] -Is Patient Pain Free? Yes Neurological: Neuro grossly intact Psych/Mental Status: Normal Affect, Alert and oriented to time, place, person, mood and affect Debridement Note Post-Debridement Measurements/Treatment WC - Nurse 2 - General Ulcer CM Notes Start: 08/28/17 13:44 Freq: Status: Active Protocol: Activity Type Activity Date Activity User E-Sign Co-Sign Detail Recorded Client Recorded Date Recorded By Document 08/28/17 14:00 DV [id number] 08/29/17 19:46 DV Document 09/04/17 17:36 DV [id number] 09/04/17 17:46 DV 08/28/17 09/04/17 14:00 17:36 Wound Center Nurse 2 #4 R POSTERIOR CALF -Time 17:45 -Correct Patient Yes -Correct Side, Site, Position Yes -Correct Procedure Yes -Procedure Performed Yes -Type of Procedure Debridement -Clinical Debridement Subcutaneous -Post Debridement Size (cm) - Length 0.6 -Post Debridement Size (cm) - Width 1.2 -Post Debridement Size (cm) - Depth 0.1 -Total Square Cm 0.72 -Wound/Ulcer Outcome Not Healed -Ulcer Cleansing Rinsed/ Irrigated with Saline -Foul Odor after Cleansing No -Bioengineered Tissue No -Bleeding Controlled with Pressure -Treatment Response Procedure Tolerated Well #3 R-MEDIAL LE -Time 14:00 17:40 -Correct Patient Yes Yes -Correct Side, Site, Position Yes Yes -Correct Procedure Yes Yes -Procedure Performed Yes Yes -Type of Procedure Debridement Debridement -Clinical Debridement Subcutaneous Subcutaneous -Post Debridement Size (cm) - Length 2.6 2.3 -Post Debridement Size (cm) - Width 3.1 4.0 -Post Debridement Size (cm) - Depth 0.2 0.2 -Total Square Cm 8.06 9.20 -Wound/Ulcer Outcome Failed Graft Not Healed -Ulcer Cleansing Rinsed/ Rinsed/ Irrigated with Irrigated with Saline Saline -Foul Odor after Cleansing No No -Bioengineered Tissue No No -Bleeding Controlled with Pressure Pressure -Treatment Response Procedure Procedure Tolerated Well Tolerated Well #2 R CHRISTIAN -Time 14:00 17:39 -Correct Patient Yes Yes -Correct Side, Site, Position Yes -Correct Procedure Yes -Procedure Performed Yes No -Type of Procedure Debridement -Clinical Debridement Subcutaneous -Post Debridement Size (cm) - Length 1.6 1.3 -Post Debridement Size (cm) - Width 2.5 2.0 -Post Debridement Size (cm) - Depth 0.1 0.1 -Total Square Cm 4.00 2.60 -Wound/Ulcer Outcome Not Healed Not Healed -Ulcer Cleansing Rinsed/ Rinsed/ Irrigated with Irrigated with Saline Saline -Foul Odor after Cleansing No No -Bioengineered Tissue No No -Bleeding Controlled with Pressure Pressure -Treatment Response Procedure Procedure Tolerated Well Tolerated Well #1 RIGHT LATERAL LOWER LEG -Time 14:00 17:38 -Correct Patient Yes Yes -Correct Side, Site, Position Yes Yes -Correct Procedure Yes Yes -Procedure Performed Yes Yes -Type of Procedure Debridement Debridement -Clinical Debridement Subcutaneous Subcutaneous -Post Debridement Size (cm) - Length 13.5 13.0 -Post Debridement Size (cm) - Width 5.2 4.7 -Post Debridement Size (cm) - Depth 0.3 4.0 -Total Square Cm 70.20 61.10 -Wound/Ulcer Outcome Not Healed Not Healed -Ulcer Cleansing Rinsed/ Rinsed/ Irrigated with Irrigated with Saline Saline -Foul Odor after Cleansing No No -Bioengineered Tissue No No -Bleeding Controlled with Pressure Pressure -Treatment Response Procedure Procedure Tolerated Well Tolerated Well Pain Scale: 0-10 Numeric Is Patient Pain Free? Yes Yes Wound debrided: Right medial calf ulceration Laterality: Right Type of Debridement: Excisional debridement Anesthesia Used: 5% Lidocaine Gel Depth: in the subcutaneous layer Percentage of wound debrided: 100 Instrument Used: 7mm curette, #11 blade, Forceps Tissue Removed: Large amount of adherent slough and necrotic tissue debrided today Severity: Fat Layer Exposed Amount of bleeding with debridement: Mild Bleeding Controlled with: Pressure Patient tolerated procedure well - Additional Wound Wound debrided: Right posterior lower extremity ulcer Type of Debridement: Excisional debridement Anesthesia Used: 5% Lidocaine Gel Depth: in the subcutaneous layer Percentage of wound debrided: 100 Instrument Used: 7mm curette Tissue Removed: Slough and devitalized tissue Severity: Fat Layer Exposed Amount of bleeding with debridement: Mild Bleeding Controlled with: Pressure Patient tolerated procedure: Patient tolerated procedure well - Additional Wound Wound debrided: Right inferior lower extremity ulcer Laterality: Right Type of Debridement: Excisional debridement Anesthesia Used: 5% Lidocaine Gel Depth: in the subcutaneous layer Percentage of wound debrided: 100 Instrument Used: 7mm curette Tissue Removed: Slough and devitalized tissue Severity: Fat Layer Exposed Amount of bleeding with debridement: Mild Bleeding Controlled with: Pressure Patient tolerated procedure: Patient tolerated procedure well - Additional Wound Wound debrided: Right terrier ulcer below knee no debridement Assessment/Plan Assessment: Multiple nonhealing ulcer/wound of right lower extremity likely secondary to venous insufficiency Plan: Patient was seen at [facility] and updated on plan of care. SQ/excisional debridement of R lower extremity ulcers as described above. Vascular studies have been reviewed previous right GARRETT 1.22. Referral to Dr. Patton for evaluation and treatment is pending. Continue Santyl nickel thickness and light 3M wrap done today in the office. Patient to follow-up on Friday for recheck and if tolerated 3M wrap, application of Santyl and another 3M wrap at that time. Previous wound cultures reviewed which demonstrated E. coli and Klebsiella, given the patient's recurrent infections referred to infectious disease. Will treat patient with Cipro as this was sensitive and patient to continue his Flagyl for his anaerobic coverage. Discussed again importance of elevating legs to help with decreasing edema, avoiding idle sitting or standing, increased activity, weight management. Pt encouraged to sleep flat at night or to sleep with legs elevated if he is going to sleep in a recliner. Encouraged tight glucose control. Discussed importance of adequate nutrition, especially increased protein intake, to promote healing. Ulcer does not require offloading due to location, but do not cross legs. Records of recent labs requested from PCP office, have not yet received. Monitor for increased pain, odor, warmth, increased redness, pus and go to the ED with these.F/u in 1 week or sooner if needed. This note was generated with [employer] dictation software. It may contain incorrect words, spelling, and punctuation that were not noted in checking the note before signing. Code Visit 111xxx-113xx: 76184 Sonal subq tissue 20 sq cm/<
[2017-09-04 16:37] VITALS: BP 149/78; PULSE 65; RESP 16
--- NOTE | 2017-09-07 12:35 | PN.PCM_ITS ---
(1) Non-pressure chronic ulcer of right calf with fat layer exposed Status: Acute Current Visit: No Code(s): L97.212 - Non-pressure chronic ulcer of right calf with fat layer exposed (2) 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 Status: Acute Current Visit: No Code(s): L97.912 - Non-pressure chronic ulcer of unspecified part of right lower leg with fat layer exposed Comment: x 2 wounds one located above medial malleolus and one just below right knee (3) Bilateral lower extremity edema Status: Acute Current Visit: No Code(s): R60.0 - Localized edema (4) Type 2 diabetes mellitus with diabetic polyneuropathy Status: Acute Current Visit: No Qualifiers: Code(s): E11.42 - Type 2 diabetes mellitus with diabetic polyneuropathy (5) Neuropathy Status: Chronic Current Visit: No Code(s): G62.9 - Polyneuropathy, unspecified (6) PAD (peripheral artery disease) Status: Chronic Current Visit: No Code(s): I73.9 - Peripheral vascular disease, unspecified (7) Type 2 diabetes mellitus treated with insulin Status: Chronic Current Visit: No Code(s): E11.9 - Type 2 diabetes mellitus without complications; 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 Former patient of Dr. Kearney's and Dr. Joseph , but will now be seeing me. He has seen his PCP and has seen another physician in their practice for the wound/ulcer and has been treated once with an UNNA boot and otherwise has been given antibiotics off and on without improvement, most recent antibiotic was Augmentin. No cultures have ever been taken of the wound. No imaging has been done. He has been using Aquaphor to the wound as instructed by his PCP. He has significant pain and edema in this leg and has been started on Lyrica which has helped with the pain. He has been unable to sleep in bed due to the pain and has been sleeping in a recliner. He denies any significant drainage but does note some on his socks from time to time. He denies any odor. Occasionally there is some bleeding. he was referred to the wound center for further evaluation and treatment. 07/29--Has been applying santyl and dry dressing since visit last friday. No drainage for the last few days. Vascular testing scheduled for 08/08. Awaiting lab work from PCP. Admits to sleeping in a recliner since March. Denies N/V/F/C. Some redness to R leg, but no pus, no malodor, no warmth, minimal pain. There is edema. Culture positive for e.coli from Friday. Will Rx Keflex today. 08/05-- Pt taking Keflex, tolerating well. Vascular testing scheduled for friday. Size improved with the use of nickel-thickness Santyl and lightly moistened gauze with light spandagrip. Plan to increase compression once vascular testing done. 08/12--Arterial testing done, normal. Venous test reveals multiple incompetent veins in the RLE. Pt states he cannot tolerate any tighter compression than the current spandagrip stocking. He will be referred to Dr. Patton today for evaluation. There is still fibrous tissue, but there are also skin islands forming within the ulceration. 08/19--Pt applying santyl nickel-thick and lightly moistened gauze dressing daily. There is still fibrous tissue, but there are also skin islands forming within the ulceration. Measurements improved today. Pt's is with him today, and she states that he often falls asleep in his recliner, and his legs end up falling off the foot rest and his feet end up on the ground. Pt has an appointment with Dr. Patton at [facility] at the beginning of August. 08/21- initial visit with Doroteo Nash NP who patient will be transferring care to. Has been applying nickel thick santyl daily, however, site is still painful and there is now a foul smell.Cultures will be redone today.Moderate amount of slough and fibrous tissue present. Pt denies any systemic signs of infection including no fever, chills, n/v/d/c. 08/28 -patient has 2 new wounds and states that there is an increase in foul smell coming from his chronic wound. He has unaware how the 2 new wounds occurred and denies any obvious trauma, though does state that they looked like they are going to be opening prior to this visit. He does state that the wound below the right knee may be from a tape burn from his dressing changes. Progress of Wound: Wound right lower calf has improved in appearance and has less necrotic tissue present today and foul smell has lessened since starting the antibiotic, patient continues to use Santyl. Also now 3 additional wounds on right lower extremity. A deep tissue culture was collected previously and still shows E. coli and Klebsiella, patient will be started on Cipro as they were sensitive to this in addition to continuing his course of Flagyl. Will refer to infectious disease. Patient also has pending appointment with vascular as well. - Physical Exam Vital Signs Temp Pulse Resp BP 96.8 F L 65 16 149/78 H 08/28/17 13:44 09/04/17 16:37 09/04/17 16:37 09/04/17 16:37 General: Alert, Oriented x3, Cooperative, No apparent distress HEENT: Atraumatic Cardiovascular: Regular rate Extremities: Diminished Peripheral Pulses, Edema - Bilateral lower extremity edema Skin: Ulcer/ Wound - Chronic ulcer present right calf with moderate amount of slough and smaller amount of necrotic tissue in the center, foul smell present not as bad this week, no exudate or no surrounding erythema. ulcer with adherent slough present above right medial malleolus. Superficial ulceration of the skin present due to tape burn right knee with no slough present or signs of infection, ulcer present right posterior lower extremity with adherent slough to wound bed Wound Measurements and Assessment WC - Nurse 1 - General Ulcer Measurement Start: 08/28/17 13:44 Freq: Status: Active Protocol: Activity Type Activity Date Activity User E-Sign Co-Sign Detail Recorded Client Recorded Date Recorded By Document 09/04/17 16:37 TN [id number] 09/04/17 16:55 TN 09/04/17 16:37 Wound Center Nurse 1 [Ulcer Assessment] #4 R POSTERIOR CALF -Combined with other wound No -Current Size (cm) - Length 0.5 -Current Size (cm) - Width 1 -Current Size (cm) - Depth 0.1 -Total Square Cm 0.5 -Date of Last Picture (Recall this 09/04/17 field) -Photo Taken Yes -Epithelialization None Present -Tunneling No -Undermining/Tunneling No -Circular Undermining No -Classification - Thickness Full Thickness without Exposed Support Structure -Exudate Amt Small (1-33%) -Exudate Type Serosanguineous -Wound Margin Distinct, Outline Attached -Granulation Amt None Present (0 %) -Slough/Fibrin Yes -Necrosis Amt Large (67-100%) -Necrotic Tissue Type Adherent Slough -Structure Exposed None/Limited to Skin Breakdown -Texture (Kinza-wound Skin Appearance) Assessed Localized Edema -Moisture (Kinza-wound Skin Appearance Assessed ) Maceration Weeping -Color (Kinza-wound Skin Appearance) Assessed Erythema -Temperature (Kinza-wound Skin No Abnormality Appearance) (Pt Warm) -Tenderness on Palpation (Kinza-wound No Skin Appearance) -Ulcer Cleansing Rinsed/ Irrigated with Saline -Foul Odor after Cleansing No -Anesthetic Used 4% Lidocaine Solution #3 R-MEDIAL LE -Combined with other wound No -Current Size (cm) - Length 2 -Current Size (cm) - Width 4.4 -Current Size (cm) - Depth 0.2 -Total Square Cm 8.8 -Photo Taken No -Epithelialization None Present -Tunneling No -Undermining/Tunneling No -Circular Undermining No -Classification - Thickness Full Thickness without Exposed Support Structure -Change in Wound Grade/Stage No Query Text:If change please identify the Stage/Grade in the comment (ie. S2 G3) -Exudate Amt Large (67-100%) -Exudate Type Serous -Wound Margin Distinct, Outline Attached -Necrosis Amt Medium (34-66%) -Necrotic Tissue Type Adherent Slough -Structure Exposed None/Limited to Skin Breakdown -Texture (Kinza-wound Skin Appearance) Assessed Localized Edema -Moisture (Kinza-wound Skin Appearance Assessed ) Maceration -Color (Kinza-wound Skin Appearance) Assessed Erythema -Temperature (Kinza-wound Skin No Abnormality Appearance) (Pt Warm) -Tenderness on Palpation (Kinza-wound No Skin Appearance) -Ulcer Cleansing Rinsed/ Irrigated with Saline -Foul Odor after Cleansing No -Anesthetic Used 4% Lidocaine Solution #2 R CHRISTIAN -Combined with other wound No -Current Size (cm) - Length 1.2 -Current Size (cm) - Width 2.2 -Current Size (cm) - Depth 0.1 -Total Square Cm 2.64 -Photo Taken No -Epithelialization Small 1-33% -Tunneling No -Undermining/Tunneling No -Circular Undermining No -Classification - Thickness Full Thickness without Exposed Support Structure -Change in Wound Grade/Stage No Query Text:If change please identify the Stage/Grade in the comment (ie. S2 G3) -Exudate Amt Small (1-33%) -Exudate Type Serous -Wound Margin Distinct, Outline Attached -Granulation Amt Large (67-100%) -Granulation Quality [place] -Slough/Fibrin No -Necrosis Amt Small (1-33%) -Necrotic Tissue Type Adherent Slough -Structure Exposed None/Limited to Skin Breakdown -Texture (Kinza-wound Skin Appearance) Assessed Scarring -Moisture (Kinza-wound Skin Appearance No Abnormality ) Assessed -Color (Kinza-wound Skin Appearance) Assessed Erythema -Temperature (Kinza-wound Skin No Abnormality Appearance) (Pt Warm) -Tenderness on Palpation (Kinza-wound No Skin Appearance) -Ulcer Cleansing Rinsed/ Irrigated with Saline -Foul Odor after Cleansing No -Anesthetic Used 4% Lidocaine Solution #1 RIGHT LATERAL LOWER LEG -Combined with other wound No -Current Size (cm) - Length 12.8 -Current Size (cm) - Width 4.9 -Current Size (cm) - Depth 0.2 -Total Square Cm 62.72 -Photo Taken No -Epithelialization None Present -Tunneling No -Undermining/Tunneling No -Circular Undermining No -Classification - Thickness Full Thickness without Exposed Support Structure -Change in Wound Grade/Stage No Query Text:If change please identify the Stage/Grade in the comment (ie. S2 G3) -Exudate Amt Large (67-100%) -Exudate Type Serous -Wound Margin Distinct, Outline Attached -Granulation Amt None Present (0 %) -Necrosis Amt Large (67-100%) -Necrotic Tissue Type Adherent Slough -Structure Exposed None/Limited to Skin Breakdown -Texture (Kinza-wound Skin Appearance) Assessed Localized Edema Scarring -Moisture (Kinza-wound Skin Appearance Assessed ) Maceration -Color (Kinza-wound Skin Appearance) Assessed Erythema -Temperature (Kinza-wound Skin No Abnormality Appearance) (Pt Warm) -Tenderness on Palpation (Kinza-wound No Skin Appearance) -Ulcer Cleansing Rinsed/ Irrigated with Saline -Foul Odor after Cleansing No -Anesthetic Used 4% Lidocaine Solution [Edema Assessment] -Lower Limb Edema Present Yes -Right Calf (cm) 39.5 -Right Ankle (cm) 24.5 WC - Nurse 2 - General Ulcer CM Notes Start: 08/28/17 13:44 Freq: Status: Active Protocol: Activity Type Activity Date Activity User E-Sign Co-Sign Detail Recorded Client Recorded Date Recorded By Document 09/04/17 17:36 DV [id number] 09/04/17 17:46 DV 09/04/17 17:36 Wound Center Nurse 2 [Procedure/Treatment] #4 R POSTERIOR CALF -Time 17:45 -Correct Patient Yes -Correct Side, Site, Position Yes -Correct Procedure Yes -Procedure Performed Yes -Type of Procedure Debridement -Clinical Debridement Subcutaneous -Post Debridement Size (cm) - Length 0.6 -Post Debridement Size (cm) - Width 1.2 -Post Debridement Size (cm) - Depth 0.1 -Total Square Cm 0.72 -Wound/Ulcer Outcome Not Healed -Ulcer Cleansing Rinsed/ Irrigated with Saline -Foul Odor after Cleansing No -Bioengineered Tissue No -Bleeding Controlled with Pressure -Treatment Response Procedure Tolerated Well #3 R-MEDIAL LE -Time 17:40 -Correct Patient Yes -Correct Side, Site, Position Yes -Correct Procedure Yes -Procedure Performed Yes -Type of Procedure Debridement -Clinical Debridement Subcutaneous -Post Debridement Size (cm) - Length 2.3 -Post Debridement Size (cm) - Width 4.0 -Post Debridement Size (cm) - Depth 0.2 -Total Square Cm 9.20 -Wound/Ulcer Outcome Not Healed -Ulcer Cleansing Rinsed/ Irrigated with Saline -Foul Odor after Cleansing No -Bioengineered Tissue No -Bleeding Controlled with Pressure -Treatment Response Procedure Tolerated Well #2 R CHRISTIAN -Time 17:39 -Correct Patient Yes -Procedure Performed No -Post Debridement Size (cm) - Length 1.3 -Post Debridement Size (cm) - Width 2.0 -Post Debridement Size (cm) - Depth 0.1 -Total Square Cm 2.60 -Wound/Ulcer Outcome Not Healed -Ulcer Cleansing Rinsed/ Irrigated with Saline -Foul Odor after Cleansing No -Bioengineered Tissue No -Bleeding Controlled with Pressure -Treatment Response Procedure Tolerated Well #1 RIGHT LATERAL LOWER LEG -Time 17:38 -Correct Patient Yes -Correct Side, Site, Position Yes -Correct Procedure Yes -Procedure Performed Yes -Type of Procedure Debridement -Clinical Debridement Subcutaneous -Post Debridement Size (cm) - Length 13.0 -Post Debridement Size (cm) - Width 4.7 -Post Debridement Size (cm) - Depth 4.0 -Total Square Cm 61.10 -Wound/Ulcer Outcome Not Healed -Ulcer Cleansing Rinsed/ Irrigated with Saline -Foul Odor after Cleansing No -Bioengineered Tissue No -Bleeding Controlled with Pressure -Treatment Response Procedure Tolerated Well [See Physician Procedure note for Specifics] Pain Scale: 0-10 Numeric [Pain] -Is Patient Pain Free? Yes Neurological: Neuro grossly intact Psych/Mental Status: Normal Affect, Alert and oriented to time, place, person, mood and affect Debridement Note Post-Debridement Measurements/Treatment WC - Nurse 2 - General Ulcer CM Notes Start: 08/28/17 13:44 Freq: Status: Active Protocol: Activity Type Activity Date Activity User E-Sign Co-Sign Detail Recorded Client Recorded Date Recorded By Document 08/28/17 14:00 DV [id number] 08/29/17 19:46 DV Document 09/04/17 17:36 DV [id number] 09/04/17 17:46 DV 08/28/17 09/04/17 14:00 17:36 Wound Center Nurse 2 #4 R POSTERIOR CALF -Time 17:45 -Correct Patient Yes -Correct Side, Site, Position Yes -Correct Procedure Yes -Procedure Performed Yes -Type of Procedure Debridement -Clinical Debridement Subcutaneous -Post Debridement Size (cm) - Length 0.6 -Post Debridement Size (cm) - Width 1.2 -Post Debridement Size (cm) - Depth 0.1 -Total Square Cm 0.72 -Wound/Ulcer Outcome Not Healed -Ulcer Cleansing Rinsed/ Irrigated with Saline -Foul Odor after Cleansing No -Bioengineered Tissue No -Bleeding Controlled with Pressure -Treatment Response Procedure Tolerated Well #3 R-MEDIAL LE -Time 14:00 17:40 -Correct Patient Yes Yes -Correct Side, Site, Position Yes Yes -Correct Procedure Yes Yes -Procedure Performed Yes Yes -Type of Procedure Debridement Debridement -Clinical Debridement Subcutaneous Subcutaneous -Post Debridement Size (cm) - Length 2.6 2.3 -Post Debridement Size (cm) - Width 3.1 4.0 -Post Debridement Size (cm) - Depth 0.2 0.2 -Total Square Cm 8.06 9.20 -Wound/Ulcer Outcome Failed Graft Not Healed -Ulcer Cleansing Rinsed/ Rinsed/ Irrigated with Irrigated with Saline Saline -Foul Odor after Cleansing No No -Bioengineered Tissue No No -Bleeding Controlled with Pressure Pressure -Treatment Response Procedure Procedure Tolerated Well Tolerated Well #2 R CHRISTIAN -Time 14:00 17:39 -Correct Patient Yes Yes -Correct Side, Site, Position Yes -Correct Procedure Yes -Procedure Performed Yes No -Type of Procedure Debridement -Clinical Debridement Subcutaneous -Post Debridement Size (cm) - Length 1.6 1.3 -Post Debridement Size (cm) - Width 2.5 2.0 -Post Debridement Size (cm) - Depth 0.1 0.1 -Total Square Cm 4.00 2.60 -Wound/Ulcer Outcome Not Healed Not Healed -Ulcer Cleansing Rinsed/ Rinsed/ Irrigated with Irrigated with Saline Saline -Foul Odor after Cleansing No No -Bioengineered Tissue No No -Bleeding Controlled with Pressure Pressure -Treatment Response Procedure Procedure Tolerated Well Tolerated Well #1 RIGHT LATERAL LOWER LEG -Time 14:00 17:38 -Correct Patient Yes Yes -Correct Side, Site, Position Yes Yes -Correct Procedure Yes Yes -Procedure Performed Yes Yes -Type of Procedure Debridement Debridement -Clinical Debridement Subcutaneous Subcutaneous -Post Debridement Size (cm) - Length 13.5 13.0 -Post Debridement Size (cm) - Width 5.2 4.7 -Post Debridement Size (cm) - Depth 0.3 4.0 -Total Square Cm 70.20 61.10 -Wound/Ulcer Outcome Not Healed Not Healed -Ulcer Cleansing Rinsed/ Rinsed/ Irrigated with Irrigated with Saline Saline -Foul Odor after Cleansing No No -Bioengineered Tissue No No -Bleeding Controlled with Pressure Pressure -Treatment Response Procedure Procedure Tolerated Well Tolerated Well Pain Scale: 0-10 Numeric Is Patient Pain Free? Yes Yes Wound debrided: Right medial calf ulceration Laterality: Right Type of Debridement: Excisional debridement Anesthesia Used: 5% Lidocaine Gel Depth: in the subcutaneous layer Percentage of wound debrided: 100 Instrument Used: 7mm curette, #11 blade, Forceps Tissue Removed: Large amount of adherent slough and necrotic tissue debrided today Severity: Fat Layer Exposed Amount of bleeding with debridement: Mild Bleeding Controlled with: Pressure Patient tolerated procedure well - Additional Wound Wound debrided: Right posterior lower extremity ulcer Type of Debridement: Excisional debridement Anesthesia Used: 5% Lidocaine Gel Depth: in the subcutaneous layer Percentage of wound debrided: 100 Instrument Used: 7mm curette Tissue Removed: Slough and devitalized tissue Severity: Fat Layer Exposed Amount of bleeding with debridement: Mild Bleeding Controlled with: Pressure Patient tolerated procedure: Patient tolerated procedure well - Additional Wound Wound debrided: Right inferior lower extremity ulcer Laterality: Right Type of Debridement: Excisional debridement Anesthesia Used: 5% Lidocaine Gel Depth: in the subcutaneous layer Percentage of wound debrided: 100 Instrument Used: 7mm curette Tissue Removed: Slough and devitalized tissue Severity: Fat Layer Exposed Amount of bleeding with debridement: Mild Bleeding Controlled with: Pressure Patient tolerated procedure: Patient tolerated procedure well - Additional Wound Wound debrided: Right terrier ulcer below knee no debridement Assessment/Plan Assessment: Multiple nonhealing ulcer/wound of right lower extremity? likely secondary to venous insufficiency Plan: Patient was seen at [facility] and updated on plan of care. SQ/excisional debridement of R lower extremity ulcers as described above. Vascular studies have been reviewed previous right GARRETT 1.22. Referral to Dr. Patton for evaluation and treatment is pending. Continue Santyl nickel thickness and light 3M wrap done today in the office. Patient to follow-up on Friday for recheck and if tolerated 3M wrap, application of Santyl and another 3M wrap at that time. Previous wound cultures reviewed which demonstrated E. coli and Klebsiella, given the patient's recurrent infections referred to infectious disease. Will treat patient with Cipro as this was sensitive and patient to continue his Flagyl for his anaerobic coverage. Discussed again importance of elevating legs to help with decreasing edema, avoiding idle sitting or standing , increased activity, weight management. Pt encouraged to sleep flat at night or to sleep with legs elevated if he is going to sleep in a recliner. Encouraged tight glucose control. Discussed importance of adequate nutrition, especially increased protein intake, to promote healing. Ulcer does not require offloading due to location, but do not cross legs. Records of recent labs requested from PCP office, have not yet received. Monitor for increased pain, odor, warmth, increased redness, pus and go to the ED with these.F/u in 1 week or sooner if needed. This note was generated with [employer] dictation software. It may contain incorrect words, spelling, and punctuation that were not noted in checking the note before signing. Code Visit 111xxx-113xx: [id number] Sonal subq tissue 20 sq cm/<
[2017-09-11 09:53] VITALS: BP 112/45; PULSE 43; RESP 18; TEMP 36.1
--- NOTE | 2017-09-11 12:46 | PCM.HP.ID ---
Problem List (1) 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 Status: Acute Comment: x 2 wounds one located above medial malleolus and one just below right knee Reason for Consult: leg infection Consulted by: Dr. Rubio History of Present Illness: The patient is a 76 year old M with PAD who has been going to wound care for several weeks due to months of non-healing RLE ulcer with secondary infection, c/o redness, foul odor, drainage, and swelling. Has been on 3-4 courses of po abx, including augmentin and then cipro/flagyl most recently. Cxs with klebs, ecoli, staph epi, corynebacteria, prevotella, anaerobe, and enterobacter. Leg a little better this past week on cipro/flagyl. No fever, no n/v/d, no abd pain. Full ROS performed and neg except as noted above. 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) Chronic anticoagulation (Chronic) Allergies/Adverse Reactions: Allergies morphine Allergy (Verified 07/25/17 22:02) Hives Home Medications: Ambulatory Orders Medication Instructions Recorded Aspirin 81 mg PO DAILY 07/25/17 Atorvastatin Calcium 80 mg PO QHS 07/25/17 Exenatide [Byetta (BKC)] 5 mcg SC BIDAC 07/25/17 Furosemide [Lasix] 40 mg PO BID 07/25/17 Insulin Glargine,Hum.rec.anlog 15 units SQ QHS 07/25/17 [Lantus Solostar] Lisinopril 20 mg PO DAILY 07/25/17 Metformin HCl 500 mg PO BID 07/25/17 Metoprolol Tartrate 25 mg PO BID 07/25/17 Potassium Chloride [Klor-Con 10] 1 tab PO DAILY 07/25/17 Pregabalin [Lyrica] 150 mg PO 07/25/17 Tamsulosin HCl [Flomax] 0.4 mg PO DAILY 07/25/17 Warfarin Sodium 5 mg PO 07/25/17 Vital Signs Temp Pulse Resp BP 97 F L 43 L 18 112/45 L 09/11/17 09:53 09/11/17 09:53 09/11/17 09:53 09/11/17 09:53 Oxygen Delivery Method Room Air - Other Studies Radiology: [] reviewed Other Studies: [] Route of nutrition/ use of supplements: [] Nutritional Intake: [] IV Site: [] Nassar Catheter: [] - Physical Exam General: Alert, Oriented x3, Cooperative HEENT: Atraumatic, PERRLA, EOMI Neck: Supple, No Nodes Lungs: Clear to auscultation, Normal air movement Cardiovascular: Regular rate, Regular Rhythm Abdomen: Soft, Non Tender, Non-Distended Extremities: Edema Skin: Ulcer/ Wound - R orozco with multiple ulcers, largest on lateral orozco. IV Site: Peripheral Musculoskeletal: No Tenderness to Palpation of Joints or Extremities Neurological: Cranial nerves II-XII grossly intact - Assessment/Plan Antibiotics: [] Assessment/Plan: [] PAD with infected RLE ulcers - some improvement with cipro/flagyl, but likely not covering the staph epi and corynebacterium with this regimen. Will add doxy and treat for another 2 weeks. Thank you, will follow, d/w primary team.
--- NOTE | 2017-09-11 12:50 | CON.PCM_ITS ---
Problem List (1) 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 Status: Acute Comment: x 2 wounds one located above medial malleolus and one just below right knee Reason for Consult: leg infection Consulted by: Dr. Rubio History of Present Illness: The patient is a 76 year old M with PAD who has been going to wound care for several weeks due to months of non-healing RLE ulcer with secondary infection, c /o redness, foul odor, drainage, and swelling. Has been on 3-4 courses of po abx, including augmentin and then cipro/flagyl most recently. Cxs with klebs, ecoli, staph epi, corynebacteria, prevotella, anaerobe, and enterobacter. Leg a little better this past week on cipro/flagyl. No fever, no n/v/d, no abd pain. Full ROS performed and neg except as noted above. 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 ) Chronic anticoagulation (Chronic) Allergies/Adverse Reactions: Allergies morphine Allergy (Verified 07/25/17 22:02) Hives Home Medications: Ambulatory Orders Medication Instructions Recorded Aspirin 81 mg PO DAILY 07/25/17 Atorvastatin Calcium 80 mg PO QHS 07/25/17 Exenatide [Byetta (BKC)] 5 mcg SC BIDAC 07/25/17 Furosemide [Lasix] 40 mg PO BID 07/25/17 Insulin Glargine,Hum.rec.anlog 15 units SQ QHS 07/25/17 [Lantus Solostar] Lisinopril 20 mg PO DAILY 07/25/17 Metformin HCl 500 mg PO BID 07/25/17 Metoprolol Tartrate 25 mg PO BID 07/25/17 Potassium Chloride [Klor-Con 10] 1 tab PO DAILY 07/25/17 Pregabalin [Lyrica] 150 mg PO 07/25/17 Tamsulosin HCl [Flomax] 0.4 mg PO DAILY 07/25/17 Warfarin Sodium 5 mg PO 07/25/17 Vital Signs Temp Pulse Resp BP 97 F L 43 L 18 112/45 L 09/11/17 09:53 09/11/17 09:53 09/11/17 09:53 09/11/17 09:53 Oxygen Delivery Method Room Air - Other Studies Radiology: [] reviewed Other Studies: [] Route of nutrition/ use of supplements: [] Nutritional Intake: [] IV Site: [] Nassar Catheter: [] - Physical Exam General: Alert, Oriented x3, Cooperative HEENT: Atraumatic, PERRLA, EOMI Neck: Supple, No Nodes Lungs: Clear to auscultation, Normal air movement Cardiovascular: Regular rate, Regular Rhythm Abdomen: Soft, Non Tender, Non-Distended Extremities: Edema Skin: Ulcer/ Wound - R orozco with multiple ulcers, largest on lateral orozco. IV Site: Peripheral Musculoskeletal: No Tenderness to Palpation of Joints or Extremities Neurological: Cranial nerves II-XII grossly intact - Assessment/Plan Antibiotics: [] Assessment/Plan: [] PAD with infected RLE ulcers - some improvement with cipro/flagyl, but likely not covering the staph epi and corynebacterium with this regimen. Will add doxy and treat for another 2 weeks. Thank you, will follow, d/w primary team.
--- NOTE | 2017-09-11 15:40 | PCM.WC.PN ---
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 Status: Acute Current Visit: Yes Code(s): L97.912 - Non-pressure chronic ulcer of unspecified part of right lower leg with fat layer exposed Comment: x 2 wounds one located above medial malleolus and one just below right knee (3) Type 2 diabetes mellitus with diabetic polyneuropathy Status: Acute Current Visit: Yes Qualifiers: Code(s): E11.42 - Type 2 diabetes mellitus with diabetic polyneuropathy (4) Type 2 diabetes mellitus with other skin ulcer Status: Acute Current Visit: Yes Qualifiers: Diabetes mellitus longterm insulin use: 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 Qualified Code(s): E11.622 - Type 2 diabetes mellitus with other skin ulcer; L98.499 - Non-pressure chronic ulcer of skin of other sites with unspecified severity Code(s): E11.622 - Type 2 diabetes mellitus with other skin ulcer; L98.499 - Non-pressure chronic ulcer of skin of other sites with unspecified severity Type of Wound Date of Service: 09/11/17 Chief Complaint: nonhealing wound/ulcer of right lateral calf History of Wound: Eddie is a pleasant 76 yo man who presents for evaluation of a wound/ulcer of his right lateral calf that has been present since mid-April and has continued to get larger. Former patient of Dr. Kearney's and Dr. Joseph, but will now be seeing me. He has seen his PCP and has seen another physician in their practice for the wound/ulcer and has been treated once with an UNNA boot and otherwise has been given antibiotics off and on without improvement, most recent antibiotic was Augmentin. No cultures have ever been taken of the wound. No imaging has been done. He has been using Aquaphor to the wound as instructed by his PCP. He has significant pain and edema in this leg and has been started on Lyrica which has helped with the pain. He has been unable to sleep in bed due to the pain and has been sleeping in a recliner. He denies any significant drainage but does note some on his socks from time to time. He denies any odor. Occasionally there is some bleeding. he was referred to the wound center for further evaluation and treatment. 07/29--Has been applying santyl and dry dressing since visit last friday. No drainage for the last few days. Vascular testing scheduled for 08/08. Awaiting lab work from PCP. Admits to sleeping in a recliner since March. Denies N/V/F/C. Some redness to R leg, but no pus, no malodor, no warmth, minimal pain. There is edema. Culture positive for e.coli from Friday. Will Rx Keflex today. 08/05--Pt taking Keflex, tolerating well. Vascular testing scheduled for friday. Size improved with the use of nickel-thickness Santyl and lightly moistened gauze with light spandagrip. Plan to increase compression once vascular testing done. 08/12--Arterial testing done, normal. Venous test reveals multiple incompetent veins in the RLE. Pt states he cannot tolerate any tighter compression than the current spandagrip stocking. He will be referred to Dr. Patton today for evaluation. There is still fibrous tissue, but there are also skin islands forming within the ulceration. 08/19--Pt applying santyl nickel-thick and lightly moistened gauze dressing daily. There is still fibrous tissue, but there are also skin islands forming within the ulceration. Measurements improved today. Pt's is with him today, and she states that he often falls asleep in his recliner, and his legs end up falling off the foot rest and his feet end up on the ground. Pt has an appointment with Dr. Patton at [facility] at the beginning of August. 08/21- initial visit with Doroteo Nash NP who patient will be transferring care to. Has been applying nickel thick santyl daily, however, site is still painful and there is now a foul smell.Cultures will be redone today.Moderate amount of slough and fibrous tissue present. Pt denies any systemic signs of infection including no fever, chills, n/v/d/c. 08/28-patient has 2 new wounds and states that there is an increase in foul smell coming from his chronic wound. He has unaware how the 2 new wounds occurred and denies any obvious trauma, though does state that they looked like they are going to be opening prior to this visit. He does state that the wound below the right knee may be from a tape burn from his dressing changes. Progress of Wound: Stable. No new complaints at this time. - Physical Exam Vital Signs Temp Pulse Resp BP 97 F L 43 L 18 112/45 L 09/11/17 09:53 09/11/17 09:53 09/11/17 09:53 09/11/17 09:53 General: Alert, Oriented x3, Cooperative, No apparent distress HEENT: Atraumatic, Normocephalic Oral: Moist Mucosa Neck: Supple Lungs: Normal air movement Extremities: No cyanosis, Edema Skin: Ulcer/ Wound Wound Measurements and Assessment WC - Nurse 1 - General Ulcer Measurement Start: 08/28/17 13:44 Freq: Status: Active Protocol: Activity Type Activity Date Activity User E-Sign Co-Sign Detail Recorded Client Recorded Date Recorded By Document 09/11/17 09:53 DL [id number] 09/11/17 10:03 DL 09/11/17 09:53 Wound Center Nurse 1 [Ulcer Assessment] #4 R POSTERIOR CALF -Current Size (cm) - Length 0.8 -Current Size (cm) - Width 1.4 -Current Size (cm) - Depth 0.1 -Total Square Cm 1.12 -Photo Taken No -Exudate Amt Small (1-33%) -Exudate Type Serosanguineous -Wound Margin Distinct, Outline Attached -Granulation Amt None Present (0 %) -Necrosis Amt Large (67-100%) -Necrotic Tissue Type Adherent Slough -Structure Exposed N/A -Texture (Kinza-wound Skin Appearance) Scarring -Moisture (Kinza-wound Skin Appearance No Abnormality ) -Color (Kinza-wound Skin Appearance) Erythema Hemosiderin Staining -Temperature (Kinza-wound Skin No Abnormality Appearance) (Pt Warm) -Ulcer Cleansing Rinsed/ Irrigated with Saline -Foul Odor after Cleansing No -Anesthetic Used 4% Lidocaine Solution #3 R-MEDIAL LE -Current Size (cm) - Length 3.5 -Current Size (cm) - Width 3.4 -Current Size (cm) - Depth 0.1 -Total Square Cm 11.90 -Photo Taken No -Exudate Amt Small (1-33%) -Exudate Type Serosanguineous -Wound Margin Distinct, Outline Attached -Granulation Amt Small (1-33%) -Granulation Quality [place] -Necrosis Amt Large (67-100%) -Necrotic Tissue Type Adherent Slough -Structure Exposed N/A -Texture (Kinza-wound Skin Appearance) Scarring -Moisture (Kinza-wound Skin Appearance Maceration ) -Color (Kinza-wound Skin Appearance) Erythema Hemosiderin Staining -Temperature (Kinza-wound Skin No Abnormality Appearance) (Pt Warm) -Ulcer Cleansing Rinsed/ Irrigated with Saline -Foul Odor after Cleansing No -Anesthetic Used 4% Lidocaine Solution #2 R ROGEL -Current Size (cm) - Length 1.6 -Current Size (cm) - Width 1.9 -Current Size (cm) - Depth 0.1 -Total Square Cm 3.04 -Photo Taken No -Exudate Amt Small (1-33%) -Exudate Type Serosanguineous -Wound Margin Distinct, Outline Attached -Granulation Amt Small (1-33%) -Granulation Quality [place] -Necrosis Amt Large (67-100%) -Necrotic Tissue Type Adherent Slough -Structure Exposed N/A -Texture (Kinza-wound Skin Appearance) Scarring -Moisture (Kinza-wound Skin Appearance No Abnormality ) -Color (Kinza-wound Skin Appearance) Erythema Hemosiderin Staining -Temperature (Kinza-wound Skin No Abnormality Appearance) (Pt Warm) -Ulcer Cleansing Rinsed/ Irrigated with Saline -Foul Odor after Cleansing No -Anesthetic Used 4% Lidocaine Solution #1 RIGHT LATERAL LOWER LEG -Current Size (cm) - Length 13 -Current Size (cm) - Width 4.8 -Current Size (cm) - Depth 0.2 -Total Square Cm 62.4 -Photo Taken No -Exudate Amt Medium (34-66%) -Exudate Type Serosanguineous -Wound Margin Distinct, Outline Attached -Granulation Amt Small (1-33%) -Granulation Quality Red -Necrosis Amt Large (67-100%) -Necrotic Tissue Type Adherent Slough -Structure Exposed N/A -Texture (Kinza-wound Skin Appearance) Scarring -Moisture (Kinza-wound Skin Appearance No Abnormality ) -Color (Kinza-wound Skin Appearance) Erythema Hemosiderin Staining -Temperature (Kinza-wound Skin No Abnormality Appearance) (Pt Warm) -Tenderness on Palpation (Kinza-wound Yes Skin Appearance) -Foul Odor after Cleansing No -Anesthetic Used 4% Lidocaine Solution [Edema Assessment] -Right Calf (cm) 36.3 -Right Ankle (cm) 22 WC - Nurse 2 - General Ulcer CM Notes Start: 08/28/17 13:44 Freq: Status: Active Protocol: Activity Type Activity Date Activity User E-Sign Co-Sign Detail Recorded Client Recorded Date Recorded By Document 09/11/17 11:09 DV [id number] 09/11/17 11:22 DV 09/11/17 11:09 Wound Center Nurse 2 [Procedure/Treatment] #4 R POSTERIOR CALF -Time 11:14 -Correct Patient Yes -Correct Side, Site, Position Yes -Correct Procedure Yes -Procedure Performed Yes -Type of Procedure Debridement -Clinical Debridement Subcutaneous -Post Debridement Size (cm) - Length 0.7 -Post Debridement Size (cm) - Width 2.0 -Post Debridement Size (cm) - Depth 0.1 -Total Square Cm 1.40 -Wound/Ulcer Outcome Not Healed -Ulcer Cleansing Rinsed/ Irrigated with Saline -Foul Odor after Cleansing No -Bioengineered Tissue No -Bleeding Controlled with Pressure -Treatment Response Procedure Tolerated Well #3 R-MEDIAL LE -Time 11:14 -Correct Patient Yes -Correct Side, Site, Position Yes -Correct Procedure Yes -Procedure Performed Yes -Type of Procedure Debridement -Clinical Debridement Subcutaneous -Post Debridement Size (cm) - Length 2.6 -Post Debridement Size (cm) - Width 4.9 -Post Debridement Size (cm) - Depth 0.2 -Total Square Cm 12.74 -Wound/Ulcer Outcome Not Healed -Ulcer Cleansing Rinsed/ Irrigated with Saline -Foul Odor after Cleansing No -Bioengineered Tissue No -Bleeding Controlled with Pressure -Treatment Response Procedure Tolerated Well #2 R ROGEL -Time 11:13 -Correct Patient Yes -Correct Side, Site, Position Yes -Correct Procedure Yes -Procedure Performed Yes -Type of Procedure Debridement -Clinical Debridement Subcutaneous -Post Debridement Size (cm) - Length 1.8 -Post Debridement Size (cm) - Width 2.1 -Post Debridement Size (cm) - Depth 0.1 -Total Square Cm 3.78 -Wound/Ulcer Outcome Not Healed -Ulcer Cleansing Rinsed/ Irrigated with Saline -Foul Odor after Cleansing No -Bioengineered Tissue No -Bleeding Controlled with Pressure -Treatment Response Procedure Tolerated Well #1 RIGHT LATERAL LOWER LEG -Time 11:13 -Correct Patient Yes -Correct Side, Site, Position Yes -Correct Procedure Yes -Procedure Performed Yes -Type of Procedure Debridement -Clinical Debridement Subcutaneous -Post Debridement Size (cm) - Length 12.8 -Post Debridement Size (cm) - Width 5.1 -Post Debridement Size (cm) - Depth 0.3 -Total Square Cm 65.28 -Wound/Ulcer Outcome Not Healed -Ulcer Cleansing Rinsed/ Irrigated with Saline -Foul Odor after Cleansing No -Bioengineered Tissue No -Bleeding Controlled with Pressure -Treatment Response Procedure Tolerated Well [See Physician Procedure note for Specifics] Pain Scale: 0-10 Numeric [Pain] -Is Patient Pain Free? Yes Musculoskeletal: No Muscle Wasting Neurological: Cranial nerves II-XII grossly intact Psych/Mental Status: Normal Affect Debridement Note Post-Debridement Measurements/Treatment WC - Nurse 2 - General Ulcer CM Notes Start: 08/28/17 13:44 Freq: Status: Active Protocol: Activity Type Activity Date Activity User E-Sign Co-Sign Detail Recorded Client Recorded Date Recorded By Document 08/28/17 14:00 DV [id number] 08/29/17 19:46 DV Document 09/04/17 17:36 DV [id number] 09/04/17 17:46 DV Document 09/11/17 11:09 DV [id number] 09/11/17 11:22 DV 08/28/17 09/04/17 09/11/17 14:00 17:36 11:09 Wound Center Nurse 2 #4 R POSTERIOR CALF -Time 17:45 11:14 -Correct Patient Yes Yes -Correct Side, Site, Position Yes Yes -Correct Procedure Yes Yes -Procedure Performed Yes Yes -Type of Procedure Debridement Debridement -Clinical Debridement Subcutaneous Subcutaneous -Post Debridement Size (cm) - Length 0.6 0.7 -Post Debridement Size (cm) - Width 1.2 2.0 -Post Debridement Size (cm) - Depth 0.1 0.1 -Total Square Cm 0.72 1.40 -Wound/Ulcer Outcome Not Healed Not Healed -Ulcer Cleansing Rinsed/ Rinsed/ Irrigated with Irrigated with Saline Saline -Foul Odor after Cleansing No No -Bioengineered Tissue No No -Bleeding Controlled with Pressure Pressure -Treatment Response Procedure Procedure Tolerated Well Tolerated Well #3 R-MEDIAL LE -Time 14:00 17:40 11:14 -Correct Patient Yes Yes Yes -Correct Side, Site, Position Yes Yes Yes -Correct Procedure Yes Yes Yes -Procedure Performed Yes Yes Yes -Type of Procedure Debridement Debridement Debridement -Clinical Debridement Subcutaneous Subcutaneous Subcutaneous -Post Debridement Size (cm) - Length 2.6 2.3 2.6 -Post Debridement Size (cm) - Width 3.1 4.0 4.9 -Post Debridement Size (cm) - Depth 0.2 0.2 0.2 -Total Square Cm 8.06 9.20 12.74 -Wound/Ulcer Outcome Failed Graft Not Healed Not Healed -Ulcer Cleansing Rinsed/ Rinsed/ Rinsed/ Irrigated with Irrigated with Irrigated with Saline Saline Saline -Foul Odor after Cleansing No No No -Bioengineered Tissue No No No -Bleeding Controlled with Pressure Pressure Pressure -Treatment Response Procedure Procedure Procedure Tolerated Well Tolerated Well Tolerated Well #2 R ROGEL -Time 14:00 17:39 11:13 -Correct Patient Yes Yes Yes -Correct Side, Site, Position Yes Yes -Correct Procedure Yes Yes -Procedure Performed Yes No Yes -Type of Procedure Debridement Debridement -Clinical Debridement Subcutaneous Subcutaneous -Post Debridement Size (cm) - Length 1.6 1.3 1.8 -Post Debridement Size (cm) - Width 2.5 2.0 2.1 -Post Debridement Size (cm) - Depth 0.1 0.1 0.1 -Total Square Cm 4.00 2.60 3.78 -Wound/Ulcer Outcome Not Healed Not Healed Not Healed -Ulcer Cleansing Rinsed/ Rinsed/ Rinsed/ Irrigated with Irrigated with Irrigated with Saline Saline Saline -Foul Odor after Cleansing No No No -Bioengineered Tissue No No No -Bleeding Controlled with Pressure Pressure Pressure -Treatment Response Procedure Procedure Procedure Tolerated Well Tolerated Well Tolerated Well #1 RIGHT LATERAL LOWER LEG -Time 14:00 17:38 11:13 -Correct Patient Yes Yes Yes -Correct Side, Site, Position Yes Yes Yes -Correct Procedure Yes Yes Yes -Procedure Performed Yes Yes Yes -Type of Procedure Debridement Debridement Debridement -Clinical Debridement Subcutaneous Subcutaneous Subcutaneous -Post Debridement Size (cm) - Length 13.5 13.0 12.8 -Post Debridement Size (cm) - Width 5.2 4.7 5.1 -Post Debridement Size (cm) - Depth 0.3 4.0 0.3 -Total Square Cm 70.20 61.10 65.28 -Wound/Ulcer Outcome Not Healed Not Healed Not Healed -Ulcer Cleansing Rinsed/ Rinsed/ Rinsed/ Irrigated with Irrigated with Irrigated with Saline Saline Saline -Foul Odor after Cleansing No No No -Bioengineered Tissue No No No -Bleeding Controlled with Pressure Pressure Pressure -Treatment Response Procedure Procedure Procedure Tolerated Well Tolerated Well Tolerated Well Pain Scale: 0-10 Numeric Is Patient Pain Free? Yes Yes Yes Wound debrided: Right Lower extremity medial Wound Grade/Stage: Stage II Type of Debridement: Excisional debridement Anesthesia Used: 4% Lidocaine Solution Depth: Down to and including healthy tissue Percentage of wound debrided: 100 Instrument Used: 5mm curette Tissue Removed: Slough and devitalized tissue Severity: Fat Layer Exposed Amount of bleeding with debridement: Mild Bleeding Controlled with: Pressure Patient tolerated procedure well - Additional Wound Wound debrided: Right lower extremity lateral Wound Grade/Stage: Stage II Type of Debridement: Excisional debridement Anesthesia Used: 4% Lidocaine Solution Depth: Down to and including healthy tissue, in the subcutaneous layer Percentage of wound debrided: 100 Instrument Used: 5mm curette Tissue Removed: Slough and devitalized tissue Severity: Fat Layer Exposed Amount of bleeding with debridement: Mild Bleeding Controlled with: Pressure Patient tolerated procedure: Patient tolerated procedure well - Additional Wound Wound debrided: Right lower extremity posterior Wound Grade/Stage: Stage II Type of Debridement: Excisional debridement Anesthesia Used: 4% Lidocaine Solution Depth: Down to and including healthy tissue, in the subcutaneous layer Percentage of wound debrided: 100 Instrument Used: 5mm curette Tissue Removed: Stage II Severity: Fat Layer Exposed Amount of bleeding with debridement: Mild Bleeding Controlled with: Pressure Patient tolerated procedure: Patient tolerated procedure well - Additional Wound Wound debrided: Right Rogel Wound Grade/Stage: Stage II Type of Debridement: Excisional debridement Anesthesia Used: 4% Lidocaine Solution Depth: Down to and including healthy tissue, in the subcutaneous layer Percentage of wound debrided: 100 Instrument Used: 5mm curette Tissue Removed: Slough and devitalized Severity: Limited To Skin Breakdown Amount of bleeding with debridement: Mild Bleeding Controlled with: Pressure Patient tolerated procedure: Patient tolerated procedure well Assessment/Plan Active Problems Type 2 diabetes mellitus with diabetic polyneuropathy (Acute) Type 2 diabetes mellitus with other skin ulcer (Acute) Non-pressure chronic ulcer of right calf with fat layer exposed (Acute) 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 (Acute) x 2 wounds one located above medial malleolus and one just below right knee Assessment: Multiple nonhealing ulcer/wound of right lower extremity likely secondary to venous insufficiency Plan: Mr. Martin is here for follow up and has no new complaints at this time. He was also seen by ID and doxycycline was added to his regimen. Debridement done as documented above, procedure was well tolerated. Continue santyl to right posterior, medial and lateral ulcers. Aquacel with adaptic to right rogel ulcer. Change daily. I believe patient would benefit from an agent like Purapply. Double layer Tubi fitness assistant for edema control. Elevate lower extremity when sitting and when in bed. Optimal blood sugar control. Increase protein intake/supplements. Follow-up with Doroteo Nash NP in 1 week. This note was generated with [employer] dictation software. It may contain incorrect words, spelling, and punctuation that were not noted in checking the note before signing.
--- NOTE | 2017-09-11 15:50 | PN.PCM_ITS ---
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 Status: Acute Current Visit: Yes Code(s): L97.912 - Non-pressure chronic ulcer of unspecified part of right lower leg with fat layer exposed Comment: x 2 wounds one located above medial malleolus and one just below right knee (3) Type 2 diabetes mellitus with diabetic polyneuropathy Status: Acute Current Visit: Yes Qualifiers: Code(s): E11.42 - Type 2 diabetes mellitus with diabetic polyneuropathy (4) Type 2 diabetes mellitus with other skin ulcer Status: Acute Current Visit: Yes Qualifiers: Diabetes mellitus skilled 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 insulin 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 Qualified Code(s): E11.622 - Type 2 diabetes mellitus with other skin ulcer; L98.499 - Non-pressure chronic ulcer of skin of other sites with unspecified severity Code(s): E11.622 - Type 2 diabetes mellitus with other skin ulcer; L98.499 - Non -pressure chronic ulcer of skin of other sites with unspecified severity Type of Wound Date of Service: 09/11/17 Chief Complaint: nonhealing wound/ulcer of right lateral calf History of Wound: Eddie is a pleasant 76 yo man who presents for evaluation of a wound/ulcer of his right lateral calf that has been present since mid-April and has continued to get larger. Former patient of Dr. Kearney's and Dr. Joseph , but will now be seeing me. He has seen his PCP and has seen another physician in their practice for the wound/ulcer and has been treated once with an UNNA boot and otherwise has been given antibiotics off and on without improvement, most recent antibiotic was Augmentin. No cultures have ever been taken of the wound. No imaging has been done. He has been using Aquaphor to the wound as instructed by his PCP. He has significant pain and edema in this leg and has been started on Lyrica which has helped with the pain. He has been unable to sleep in bed due to the pain and has been sleeping in a recliner. He denies any significant drainage but does note some on his socks from time to time. He denies any odor. Occasionally there is some bleeding. he was referred to the wound center for further evaluation and treatment. 07/29--Has been applying santyl and dry dressing since visit last friday. No drainage for the last few days. Vascular testing scheduled for 08/08. Awaiting lab work from PCP. Admits to sleeping in a recliner since March. Denies N/V/F/C. Some redness to R leg, but no pus, no malodor, no warmth, minimal pain. There is edema. Culture positive for e.coli from Friday. Will Rx Keflex today. 08/05-- Pt taking Keflex, tolerating well. Vascular testing scheduled for friday. Size improved with the use of nickel-thickness Santyl and lightly moistened gauze with light spandagrip. Plan to increase compression once vascular testing done. 08/12--Arterial testing done, normal. Venous test reveals multiple incompetent veins in the RLE. Pt states he cannot tolerate any tighter compression than the current spandagrip stocking. He will be referred to Dr. Patton today for evaluation. There is still fibrous tissue, but there are also skin islands forming within the ulceration. 08/19--Pt applying santyl nickel-thick and lightly moistened gauze dressing daily. There is still fibrous tissue, but there are also skin islands forming within the ulceration. Measurements improved today. Pt's is with him today, and she states that he often falls asleep in his recliner, and his legs end up falling off the foot rest and his feet end up on the ground. Pt has an appointment with Dr. Patton at [facility] at the beginning of August. 08/21- initial visit with Doroteo Nash NP who patient will be transferring care to. Has been applying nickel thick santyl daily, however, site is still painful and there is now a foul smell.Cultures will be redone today.Moderate amount of slough and fibrous tissue present. Pt denies any systemic signs of infection including no fever, chills, n/v/d/c. 08/28 -patient has 2 new wounds and states that there is an increase in foul smell coming from his chronic wound. He has unaware how the 2 new wounds occurred and denies any obvious trauma, though does state that they looked like they are going to be opening prior to this visit. He does state that the wound below the right knee may be from a tape burn from his dressing changes. Progress of Wound: Stable. No new complaints at this time. - Physical Exam Vital Signs Temp Pulse Resp BP 97 F L 43 L 18 112/45 L 09/11/17 09:53 09/11/17 09:53 09/11/17 09:53 09/11/17 09:53 General: Alert, Oriented x3, Cooperative, No apparent distress HEENT: Atraumatic, Normocephalic Oral: Moist Mucosa Neck: Supple Lungs: Normal air movement Extremities: No cyanosis, Edema Skin: Ulcer/ Wound Wound Measurements and Assessment WC - Nurse 1 - General Ulcer Measurement Start: 08/28/17 13:44 Freq: Status: Active Protocol: Activity Type Activity Date Activity User E-Sign Co-Sign Detail Recorded Client Recorded Date Recorded By Document 09/11/17 09:53 DL [id number] 09/11/17 10:03 DL 09/11/17 09:53 Wound Center Nurse 1 [Ulcer Assessment] #4 R POSTERIOR CALF -Current Size (cm) - Length 0.8 -Current Size (cm) - Width 1.4 -Current Size (cm) - Depth 0.1 -Total Square Cm 1.12 -Photo Taken No -Exudate Amt Small (1-33%) -Exudate Type Serosanguineous -Wound Margin Distinct, Outline Attached -Granulation Amt None Present (0 %) -Necrosis Amt Large (67-100%) -Necrotic Tissue Type Adherent Slough -Structure Exposed N/A -Texture (Kinza-wound Skin Appearance) Scarring -Moisture (Kinza-wound Skin Appearance No Abnormality ) -Color (Kinza-wound Skin Appearance) Erythema Hemosiderin Staining -Temperature (Kinza-wound Skin No Abnormality Appearance) (Pt Warm) -Ulcer Cleansing Rinsed/ Irrigated with Saline -Foul Odor after Cleansing No -Anesthetic Used 4% Lidocaine Solution #3 R-MEDIAL LE -Current Size (cm) - Length 3.5 -Current Size (cm) - Width 3.4 -Current Size (cm) - Depth 0.1 -Total Square Cm 11.90 -Photo Taken No -Exudate Amt Small (1-33%) -Exudate Type Serosanguineous -Wound Margin Distinct, Outline Attached -Granulation Amt Small (1-33%) -Granulation Quality [place] -Necrosis Amt Large (67-100%) -Necrotic Tissue Type Adherent Slough -Structure Exposed N/A -Texture (Kinza-wound Skin Appearance) Scarring -Moisture (Kinza-wound Skin Appearance Maceration ) -Color (Kinza-wound Skin Appearance) Erythema Hemosiderin Staining -Temperature (Kinza-wound Skin No Abnormality Appearance) (Pt Warm) -Ulcer Cleansing Rinsed/ Irrigated with Saline -Foul Odor after Cleansing No -Anesthetic Used 4% Lidocaine Solution #2 R ROGEL -Current Size (cm) - Length 1.6 -Current Size (cm) - Width 1.9 -Current Size (cm) - Depth 0.1 -Total Square Cm 3.04 -Photo Taken No -Exudate Amt Small (1-33%) -Exudate Type Serosanguineous -Wound Margin Distinct, Outline Attached -Granulation Amt Small (1-33%) -Granulation Quality [place] -Necrosis Amt Large (67-100%) -Necrotic Tissue Type Adherent Slough -Structure Exposed N/A -Texture (Kinza-wound Skin Appearance) Scarring -Moisture (Kinza-wound Skin Appearance No Abnormality ) -Color (Kinza-wound Skin Appearance) Erythema Hemosiderin Staining -Temperature (Kinza-wound Skin No Abnormality Appearance) (Pt Warm) -Ulcer Cleansing Rinsed/ Irrigated with Saline -Foul Odor after Cleansing No -Anesthetic Used 4% Lidocaine Solution #1 RIGHT LATERAL LOWER LEG -Current Size (cm) - Length 13 -Current Size (cm) - Width 4.8 -Current Size (cm) - Depth 0.2 -Total Square Cm 62.4 -Photo Taken No -Exudate Amt Medium (34-66%) -Exudate Type Serosanguineous -Wound Margin Distinct, Outline Attached -Granulation Amt Small (1-33%) -Granulation Quality Red -Necrosis Amt Large (67-100%) -Necrotic Tissue Type Adherent Slough -Structure Exposed N/A -Texture (Kinza-wound Skin Appearance) Scarring -Moisture (Kinza-wound Skin Appearance No Abnormality ) -Color (Kinza-wound Skin Appearance) Erythema Hemosiderin Staining -Temperature (Kinza-wound Skin No Abnormality Appearance) (Pt Warm) -Tenderness on Palpation (Kinza-wound Yes Skin Appearance) -Foul Odor after Cleansing No -Anesthetic Used 4% Lidocaine Solution [Edema Assessment] -Right Calf (cm) 36.3 -Right Ankle (cm) 22 WC - Nurse 2 - General Ulcer CM Notes Start: 08/28/17 13:44 Freq: Status: Active Protocol: Activity Type Activity Date Activity User E-Sign Co-Sign Detail Recorded Client Recorded Date Recorded By Document 09/11/17 11:09 DV [id number] 09/11/17 11:22 DV 09/11/17 11:09 Wound Center Nurse 2 [Procedure/Treatment] #4 R POSTERIOR CALF -Time 11:14 -Correct Patient Yes -Correct Side, Site, Position Yes -Correct Procedure Yes -Procedure Performed Yes -Type of Procedure Debridement -Clinical Debridement Subcutaneous -Post Debridement Size (cm) - Length 0.7 -Post Debridement Size (cm) - Width 2.0 -Post Debridement Size (cm) - Depth 0.1 -Total Square Cm 1.40 -Wound/Ulcer Outcome Not Healed -Ulcer Cleansing Rinsed/ Irrigated with Saline -Foul Odor after Cleansing No -Bioengineered Tissue No -Bleeding Controlled with Pressure -Treatment Response Procedure Tolerated Well #3 R-MEDIAL LE -Time 11:14 -Correct Patient Yes -Correct Side, Site, Position Yes -Correct Procedure Yes -Procedure Performed Yes -Type of Procedure Debridement -Clinical Debridement Subcutaneous -Post Debridement Size (cm) - Length 2.6 -Post Debridement Size (cm) - Width 4.9 -Post Debridement Size (cm) - Depth 0.2 -Total Square Cm 12.74 -Wound/Ulcer Outcome Not Healed -Ulcer Cleansing Rinsed/ Irrigated with Saline -Foul Odor after Cleansing No -Bioengineered Tissue No -Bleeding Controlled with Pressure -Treatment Response Procedure Tolerated Well #2 R ROGEL -Time 11:13 -Correct Patient Yes -Correct Side, Site, Position Yes -Correct Procedure Yes -Procedure Performed Yes -Type of Procedure Debridement -Clinical Debridement Subcutaneous -Post Debridement Size (cm) - Length 1.8 -Post Debridement Size (cm) - Width 2.1 -Post Debridement Size (cm) - Depth 0.1 -Total Square Cm 3.78 -Wound/Ulcer Outcome Not Healed -Ulcer Cleansing Rinsed/ Irrigated with Saline -Foul Odor after Cleansing No -Bioengineered Tissue No -Bleeding Controlled with Pressure -Treatment Response Procedure Tolerated Well #1 RIGHT LATERAL LOWER LEG -Time 11:13 -Correct Patient Yes -Correct Side, Site, Position Yes -Correct Procedure Yes -Procedure Performed Yes -Type of Procedure Debridement -Clinical Debridement Subcutaneous -Post Debridement Size (cm) - Length 12.8 -Post Debridement Size (cm) - Width 5.1 -Post Debridement Size (cm) - Depth 0.3 -Total Square Cm 65.28 -Wound/Ulcer Outcome Not Healed -Ulcer Cleansing Rinsed/ Irrigated with Saline -Foul Odor after Cleansing No -Bioengineered Tissue No -Bleeding Controlled with Pressure -Treatment Response Procedure Tolerated Well [See Physician Procedure note for Specifics] Pain Scale: 0-10 Numeric [Pain] -Is Patient Pain Free? Yes Musculoskeletal: No Muscle Wasting Neurological: Cranial nerves II-XII grossly intact Psych/Mental Status: Normal Affect Debridement Note Post-Debridement Measurements/Treatment WC - Nurse 2 - General Ulcer CM Notes Start: 08/28/17 13:44 Freq: Status: Active Protocol: Activity Type Activity Date Activity User E-Sign Co-Sign Detail Recorded Client Recorded Date Recorded By Document 08/28/17 14:00 DV [id number] 08/29/17 19:46 DV Document 09/04/17 17:36 DV [id number] 09/04/17 17:46 DV Document 09/11/17 11:09 DV [id number] 09/11/17 11:22 DV 08/28/17 09/04/17 09/11/17 14:00 17:36 11:09 Wound Center Nurse 2 #4 R POSTERIOR CALF -Time 17:45 11:14 -Correct Patient Yes Yes -Correct Side, Site, Position Yes Yes -Correct Procedure Yes Yes -Procedure Performed Yes Yes -Type of Procedure Debridement Debridement -Clinical Debridement Subcutaneous Subcutaneous -Post Debridement Size (cm) - Length 0.6 0.7 -Post Debridement Size (cm) - Width 1.2 2.0 -Post Debridement Size (cm) - Depth 0.1 0.1 -Total Square Cm 0.72 1.40 -Wound/Ulcer Outcome Not Healed Not Healed -Ulcer Cleansing Rinsed/ Rinsed/ Irrigated with Irrigated with Saline Saline -Foul Odor after Cleansing No No -Bioengineered Tissue No No -Bleeding Controlled with Pressure Pressure -Treatment Response Procedure Procedure Tolerated Well Tolerated Well #3 R-MEDIAL LE -Time 14:00 17:40 11:14 -Correct Patient Yes Yes Yes -Correct Side, Site, Position Yes Yes Yes -Correct Procedure Yes Yes Yes -Procedure Performed Yes Yes Yes -Type of Procedure Debridement Debridement Debridement -Clinical Debridement Subcutaneous Subcutaneous Subcutaneous -Post Debridement Size (cm) - Length 2.6 2.3 2.6 -Post Debridement Size (cm) - Width 3.1 4.0 4.9 -Post Debridement Size (cm) - Depth 0.2 0.2 0.2 -Total Square Cm 8.06 9.20 12.74 -Wound/Ulcer Outcome Failed Graft Not Healed Not Healed -Ulcer Cleansing Rinsed/ Rinsed/ Rinsed/ Irrigated with Irrigated with Irrigated with Saline Saline Saline -Foul Odor after Cleansing No No No -Bioengineered Tissue No No No -Bleeding Controlled with Pressure Pressure Pressure -Treatment Response Procedure Procedure Procedure Tolerated Well Tolerated Well Tolerated Well #2 R ROGEL -Time 14:00 17:39 11:13 -Correct Patient Yes Yes Yes -Correct Side, Site, Position Yes Yes -Correct Procedure Yes Yes -Procedure Performed Yes No Yes -Type of Procedure Debridement Debridement -Clinical Debridement Subcutaneous Subcutaneous -Post Debridement Size (cm) - Length 1.6 1.3 1.8 -Post Debridement Size (cm) - Width 2.5 2.0 2.1 -Post Debridement Size (cm) - Depth 0.1 0.1 0.1 -Total Square Cm 4.00 2.60 3.78 -Wound/Ulcer Outcome Not Healed Not Healed Not Healed -Ulcer Cleansing Rinsed/ Rinsed/ Rinsed/ Irrigated with Irrigated with Irrigated with Saline Saline Saline -Foul Odor after Cleansing No No No -Bioengineered Tissue No No No -Bleeding Controlled with Pressure Pressure Pressure -Treatment Response Procedure Procedure Procedure Tolerated Well Tolerated Well Tolerated Well #1 RIGHT LATERAL LOWER LEG -Time 14:00 17:38 11:13 -Correct Patient Yes Yes Yes -Correct Side, Site, Position Yes Yes Yes -Correct Procedure Yes Yes Yes -Procedure Performed Yes Yes Yes -Type of Procedure Debridement Debridement Debridement -Clinical Debridement Subcutaneous Subcutaneous Subcutaneous -Post Debridement Size (cm) - Length 13.5 13.0 12.8 -Post Debridement Size (cm) - Width 5.2 4.7 5.1 -Post Debridement Size (cm) - Depth 0.3 4.0 0.3 -Total Square Cm 70.20 61.10 65.28 -Wound/Ulcer Outcome Not Healed Not Healed Not Healed -Ulcer Cleansing Rinsed/ Rinsed/ Rinsed/ Irrigated with Irrigated with Irrigated with Saline Saline Saline -Foul Odor after Cleansing No No No -Bioengineered Tissue No No No -Bleeding Controlled with Pressure Pressure Pressure -Treatment Response Procedure Procedure Procedure Tolerated Well Tolerated Well Tolerated Well Pain Scale: 0-10 Numeric Is Patient Pain Free? Yes Yes Yes Wound debrided: Right Lower extremity medial Wound Grade/Stage: Stage II Type of Debridement: Excisional debridement Anesthesia Used: 4% Lidocaine Solution Depth: Down to and including healthy tissue Percentage of wound debrided: 100 Instrument Used: 5mm curette Tissue Removed: Slough and devitalized tissue Severity: Fat Layer Exposed Amount of bleeding with debridement: Mild Bleeding Controlled with: Pressure Patient tolerated procedure well - Additional Wound Wound debrided: Right lower extremity lateral Wound Grade/Stage: Stage II Type of Debridement: Excisional debridement Anesthesia Used: 4% Lidocaine Solution Depth: Down to and including healthy tissue, in the subcutaneous layer Percentage of wound debrided: 100 Instrument Used: 5mm curette Tissue Removed: Slough and devitalized tissue Severity: Fat Layer Exposed Amount of bleeding with debridement: Mild Bleeding Controlled with: Pressure Patient tolerated procedure: Patient tolerated procedure well - Additional Wound Wound debrided: Right lower extremity posterior Wound Grade/Stage: Stage II Type of Debridement: Excisional debridement Anesthesia Used: 4% Lidocaine Solution Depth: Down to and including healthy tissue, in the subcutaneous layer Percentage of wound debrided: 100 Instrument Used: 5mm curette Tissue Removed: Stage II Severity: Fat Layer Exposed Amount of bleeding with debridement: Mild Bleeding Controlled with: Pressure Patient tolerated procedure: Patient tolerated procedure well - Additional Wound Wound debrided: Right Rogel Wound Grade/Stage: Stage II Type of Debridement: Excisional debridement Anesthesia Used: 4% Lidocaine Solution Depth: Down to and including healthy tissue, in the subcutaneous layer Percentage of wound debrided: 100 Instrument Used: 5mm curette Tissue Removed: Slough and devitalized Severity: Limited To Skin Breakdown Amount of bleeding with debridement: Mild Bleeding Controlled with: Pressure Patient tolerated procedure: Patient tolerated procedure well Assessment/Plan Active Problems Type 2 diabetes mellitus with diabetic polyneuropathy (Acute) Type 2 diabetes mellitus with other skin ulcer (Acute) Non-pressure chronic ulcer of right calf with fat layer exposed (Acute) 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 (Acute) x 2 wounds one located above medial malleolus and one just below right knee Assessment: Multiple nonhealing ulcer/wound of right lower extremity? likely secondary to venous insufficiency Plan: Mr. Martin is here for follow up and has no new complaints at this time. He was also seen by ID and doxycycline was added to his regimen. Debridement done as documented above, procedure was well tolerated. Continue santyl to right posterior, medial and lateral ulcers. Aquacel with adaptic to right rogel ulcer. Change daily. I believe patient would benefit from an agent like Purapply. 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 Elevate lower extremity when sitting and when in bed. Optimal blood sugar control. Increase protein intake/ supplements. Follow-up with Doroteo Nash NP in 1 week. This note was generated with [employer] dictation software. It may contain incorrect words, spelling, and punctuation that were not noted in checking the note before signing.
[2017-09-18 14:40] VITALS: BP 146/71; PULSE 61; RESP 18; TEMP 36.6
--- NOTE | 2017-09-24 08:57 | PCM.WC.PN ---
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 Status: Acute Current Visit: Yes Code(s): L97.912 - Non-pressure chronic ulcer of unspecified part of right lower leg with fat layer exposed Comment: x 2 wounds one located above medial malleolus and one just below right knee (3) Bilateral lower extremity edema Status: Acute Current Visit: No Code(s): R60.0 - Localized edema (4) Type 2 diabetes mellitus with diabetic polyneuropathy Status: Acute Current Visit: Yes Qualifiers: Code(s): E11.42 - Type 2 diabetes mellitus with diabetic polyneuropathy (5) Neuropathy Status: Chronic Current Visit: No Code(s): G62.9 - Polyneuropathy, unspecified (6) PAD (peripheral artery disease) Status: Chronic Current Visit: Yes Code(s): I73.9 - Peripheral vascular disease, unspecified (7) Type 2 diabetes mellitus treated with insulin Status: Chronic Current Visit: No Code(s): E11.9 - Type 2 diabetes mellitus without complications; Z79.4 - care home (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 of insulin Type of Wound Date of Service: 09/18/17 Chief Complaint: nonhealing wound/ulcer of right lateral calf History of Wound: Eddie is a pleasant 76 yo man who presents for evaluation of a wound/ulcer of his right lateral calf that has been present since mid-April and has continued to get larger. Former patient of Dr. Kearney's and Dr. Joseph, but will now be seeing me. He has seen his PCP and has seen another physician in their practice for the wound/ulcer and has been treated once with an UNNA boot and otherwise has been given antibiotics off and on without improvement, most recent antibiotic was Augmentin. No cultures have ever been taken of the wound. No imaging has been done. He has been using Aquaphor to the wound as instructed by his PCP. He has significant pain and edema in this leg and has been started on Lyrica which has helped with the pain. He has been unable to sleep in bed due to the pain and has been sleeping in a recliner. He denies any significant drainage but does note some on his socks from time to time. He denies any odor. Occasionally there is some bleeding. he was referred to the wound center for further evaluation and treatment. 07/29--Has been applying santyl and dry dressing since visit last friday. No drainage for the last few days. Vascular testing scheduled for 08/08. Awaiting lab work from PCP. Admits to sleeping in a recliner since March. Denies N/V/F/C. Some redness to R leg, but no pus, no malodor, no warmth, minimal pain. There is edema. Culture positive for e.coli from Friday. Will Rx Keflex today. 08/05--Pt taking Keflex, tolerating well. Vascular testing scheduled for friday. Size improved with the use of nickel-thickness Santyl and lightly moistened gauze with light spandagrip. Plan to increase compression once vascular testing done. 08/12--Arterial testing done, normal. Venous test reveals multiple incompetent veins in the RLE. Pt states he cannot tolerate any tighter compression than the current spandagrip stocking. He will be referred to Dr. Patton today for evaluation. There is still fibrous tissue, but there are also skin islands forming within the ulceration. 08/19--Pt applying santyl nickel-thick and lightly moistened gauze dressing daily. There is still fibrous tissue, but there are also skin islands forming within the ulceration. Measurements improved today. Pt's is with him today, and she states that he often falls asleep in his recliner, and his legs end up falling off the foot rest and his feet end up on the ground. Pt has an appointment with Dr. Patton at [facility] at the beginning of August. 08/21- initial visit with Doroteo Nash NP who patient will be transferring care to. Has been applying nickel thick santyl daily, however, site is still painful and there is now a foul smell.Cultures will be redone today.Moderate amount of slough and fibrous tissue present. Pt denies any systemic signs of infection including no fever, chills, n/v/d/c. 08/28-patient has 2 new wounds and states that there is an increase in foul smell coming from his chronic wound. He has unaware how the 2 new wounds occurred and denies any obvious trauma, though does state that they looked like they are going to be opening prior to this visit. He does state that the wound below the right knee may be from a tape burn from his dressing changes. Progress of Wound: Stable. No new complaints at this time.Pt does think that there has been some improvement after starting the antibiotics, which he is tolerated well after being seen by infectious disease. - Physical Exam Vital Signs Temp Pulse Resp BP 97.8 F 61 18 146/71 H 09/18/17 14:40 09/18/17 14:40 09/18/17 14:40 09/18/17 14:40 General: Alert, Oriented x3, Cooperative, No apparent distress HEENT: Atraumatic Cardiovascular: Regular rate Extremities: Diminished Peripheral Pulses, Edema - BLLE Skin: Ulcer/ Wound - Ulcer right orozco, right lateral lower extremity, right medial lower extremity and right posterior lower extremity with moderate amounts of slough present, redness and edema has improved, no signs of systemic infection at this time, no increase in pain or purulent drainage. Wound Measurements and Assessment WC - Nurse 1 - General Ulcer Measurement Start: 08/28/17 13:44 Freq: Status: Active Protocol: Activity Type Activity Date Activity User E-Sign Co-Sign Detail Recorded Client Recorded Date Recorded By Document 09/23/17 16:26 TN [id number] 09/23/17 16:28 TN 09/23/17 16:26 Wound Center Nurse 1 [Edema Assessment] -Lower Limb Edema Present No -Right Calf (cm) 39.5 -Right Ankle (cm) 22.9 -Left Calf (cm) 36.5 -Left Ankle (cm) 24 Neurological: Neuro grossly intact Psych/Mental Status: Normal Affect, Appropriate, Alert and oriented to time, place, person, mood and affect Debridement Note Post-Debridement Measurements/Treatment WC - Nurse 2 - General Ulcer CM Notes Start: 08/28/17 13:44 Freq: Status: Active Protocol: Activity Type Activity Date Activity User E-Sign Co-Sign Detail Recorded Client Recorded Date Recorded By Document 08/28/17 14:00 DV [id number] 08/29/17 19:46 DV Document 09/04/17 17:36 DV [id number] 09/04/17 17:46 DV Document 09/11/17 11:09 DV [id number] 09/11/17 11:22 DV Document 09/18/17 16:21 [id number] 09/18/17 16:30 08/28/17 09/04/17 09/11/17 14:00 17:36 11:09 Wound Center Nurse 2 #4 R POSTERIOR CALF -Time 17:45 11:14 -Correct Patient Yes Yes -Correct Side, Site, Position Yes Yes -Correct Procedure Yes Yes -Procedure Performed Yes Yes -Type of Procedure Debridement Debridement -Clinical Debridement Subcutaneous Subcutaneous -Post Debridement Size (cm) - Length 0.6 0.7 -Post Debridement Size (cm) - Width 1.2 2.0 -Post Debridement Size (cm) - Depth 0.1 0.1 -Total Square Cm 0.72 1.40 -Wound/Ulcer Outcome Not Healed Not Healed -Ulcer Cleansing Rinsed/ Rinsed/ Irrigated with Irrigated with Saline Saline -Foul Odor after Cleansing No No -Bioengineered Tissue No No -Topical Lidocaine (%) -Bleeding Controlled with Pressure Pressure -Treatment Response Procedure Procedure Tolerated Well Tolerated Well #3 R-MEDIAL LE -Time 14:00 17:40 11:14 -Correct Patient Yes Yes Yes -Correct Side, Site, Position Yes Yes Yes -Correct Procedure Yes Yes Yes -Procedure Performed Yes Yes Yes -Type of Procedure Debridement Debridement Debridement -Clinical Debridement Subcutaneous Subcutaneous Subcutaneous -Post Debridement Size (cm) - Length 2.6 2.3 2.6 -Post Debridement Size (cm) - Width 3.1 4.0 4.9 -Post Debridement Size (cm) - Depth 0.2 0.2 0.2 -Total Square Cm 8.06 9.20 12.74 -Wound/Ulcer Outcome Failed Graft Not Healed Not Healed -Ulcer Cleansing Rinsed/ Rinsed/ Rinsed/ Irrigated with Irrigated with Irrigated with Saline Saline Saline -Foul Odor after Cleansing No No No -Bioengineered Tissue No No No -Topical Lidocaine (%) -Bleeding Controlled with Pressure Pressure Pressure -Treatment Response Procedure Procedure Procedure Tolerated Well Tolerated Well Tolerated Well #2 R OROZCO -Time 14:00 17:39 11:13 -Correct Patient Yes Yes Yes -Correct Side, Site, Position Yes Yes -Correct Procedure Yes Yes -Procedure Performed Yes No Yes -Type of Procedure Debridement Debridement -Clinical Debridement Subcutaneous Subcutaneous -Post Debridement Size (cm) - Length 1.6 1.3 1.8 -Post Debridement Size (cm) - Width 2.5 2.0 2.1 -Post Debridement Size (cm) - Depth 0.1 0.1 0.1 -Total Square Cm 4.00 2.60 3.78 -Wound/Ulcer Outcome Not Healed Not Healed Not Healed -Ulcer Cleansing Rinsed/ Rinsed/ Rinsed/ Irrigated with Irrigated with Irrigated with Saline Saline Saline -Foul Odor after Cleansing No No No -Bioengineered Tissue No No No -Topical Lidocaine (%) -Bleeding Controlled with Pressure Pressure Pressure -Treatment Response Procedure Procedure Procedure Tolerated Well Tolerated Well Tolerated Well #1 RIGHT LATERAL LOWER LEG -Time 14:00 17:38 11:13 -Correct Patient Yes Yes Yes -Correct Side, Site, Position Yes Yes Yes -Correct Procedure Yes Yes Yes -Procedure Performed Yes Yes Yes -Type of Procedure Debridement Debridement Debridement -Clinical Debridement Subcutaneous Subcutaneous Subcutaneous -Post Debridement Size (cm) - Length 13.5 13.0 12.8 -Post Debridement Size (cm) - Width 5.2 4.7 5.1 -Post Debridement Size (cm) - Depth 0.3 4.0 0.3 -Total Square Cm 70.20 61.10 65.28 -Wound/Ulcer Outcome Not Healed Not Healed Not Healed -Ulcer Cleansing Rinsed/ Rinsed/ Rinsed/ Irrigated with Irrigated with Irrigated with Saline Saline Saline -Foul Odor after Cleansing No No No -Bioengineered Tissue No No No -Topical Lidocaine (%) -Bleeding Controlled with Pressure Pressure Pressure -Treatment Response Procedure Procedure Procedure Tolerated Well Tolerated Well Tolerated Well Pain Scale: 0-10 Numeric Is Patient Pain Free? Yes Yes Yes right leg -Description -Intensity -Duration (hours) -Pain Behavior -Pain Aggravating Factors -Alleviating Factors/Interventions -Effectiveness of Alleviating Factor/ Intervention 09/18/17 16:21 Wound Center Nurse 2 #4 R POSTERIOR CALF -Time 16:22 -Correct Patient Yes -Correct Side, Site, Position Yes -Correct Procedure Yes -Procedure Performed Yes -Type of Procedure Debridement -Clinical Debridement Subcutaneous -Post Debridement Size (cm) - Length 1.0 -Post Debridement Size (cm) - Width 2.1 -Post Debridement Size (cm) - Depth 0.1 -Total Square Cm 2.10 -Wound/Ulcer Outcome Not Healed -Ulcer Cleansing Rinsed/ Irrigated with Saline -Foul Odor after Cleansing No -Bioengineered Tissue No -Topical Lidocaine (%) 5 -Bleeding Controlled with Pressure -Treatment Response Procedure Tolerated Well #3 R-MEDIAL LE -Time 16:24 -Correct Patient Yes -Correct Side, Site, Position Yes -Correct Procedure Yes -Procedure Performed Yes -Type of Procedure Debridement -Clinical Debridement Subcutaneous -Post Debridement Size (cm) - Length 3.9 -Post Debridement Size (cm) - Width 3.7 -Post Debridement Size (cm) - Depth 0.1 -Total Square Cm 14.43 -Wound/Ulcer Outcome Not Healed -Ulcer Cleansing Rinsed/ Irrigated with Saline -Foul Odor after Cleansing No -Bioengineered Tissue No -Topical Lidocaine (%) 5 -Bleeding Controlled with NA -Treatment Response Procedure Tolerated Well #2 R OROZCO -Time 16:24 -Correct Patient Yes -Correct Side, Site, Position Yes -Correct Procedure Yes -Procedure Performed Yes -Type of Procedure Debridement -Clinical Debridement Subcutaneous -Post Debridement Size (cm) - Length 1.8 -Post Debridement Size (cm) - Width 2.1 -Post Debridement Size (cm) - Depth 0.1 -Total Square Cm 3.78 -Wound/Ulcer Outcome Not Healed -Ulcer Cleansing Rinsed/ Irrigated with Saline -Foul Odor after Cleansing No -Bioengineered Tissue No -Topical Lidocaine (%) 5 -Bleeding Controlled with Pressure -Treatment Response Procedure Tolerated Well #1 RIGHT LATERAL LOWER LEG -Time 16:25 -Correct Patient Yes -Correct Side, Site, Position Yes -Correct Procedure Yes -Procedure Performed Yes -Type of Procedure Debridement -Clinical Debridement Subcutaneous -Post Debridement Size (cm) - Length 12.7 -Post Debridement Size (cm) - Width 4.9 -Post Debridement Size (cm) - Depth 0.3 -Total Square Cm 62.23 -Wound/Ulcer Outcome Not Healed -Ulcer Cleansing Rinsed/ Irrigated with Saline -Foul Odor after Cleansing No -Bioengineered Tissue No -Topical Lidocaine (%) 5 -Bleeding Controlled with Silver Nitrate -Treatment Response Procedure Not Tolerated Well Pain Scale: 0-10 Numeric Is Patient Pain Free? No right leg -Description Burning -Intensity 9 -Duration (hours) Acute -Pain Behavior Moaning Withdrawal from Touch Facial Grimacing -Pain Aggravating Factors Debridement -Alleviating Factors/Interventions Medication -Effectiveness of Alleviating Factor/ Minimally Intervention effective Wound debrided: Right lateral lower extremity ulcer Laterality: Right Type of Debridement: Excisional debridement Anesthesia Used: 5% Lidocaine Gel Depth: in the subcutaneous layer Percentage of wound debrided: 100 Instrument Used: 7mm curette Tissue Removed: Slough and necrotic tissue Amount of bleeding with debridement: Mild Bleeding Controlled with: Pressure Patient tolerated procedure well - Additional Wound Wound debrided: Right orozco ulcer Laterality: Right Type of Debridement: Excisional debridement Anesthesia Used: 5% Lidocaine Gel Depth: in the subcutaneous layer Percentage of wound debrided: 100 Instrument Used: 7mm curette Tissue Removed: Slough and fibrous tissue Severity: Fat Layer Exposed Amount of bleeding with debridement: Mild Bleeding Controlled with: Pressure Patient tolerated procedure: Patient tolerated procedure well - Additional Wound Wound debrided: Right medial lower extremity ulcer Laterality: Right Type of Debridement: Excisional debridement Anesthesia Used: 5% Lidocaine Gel Depth: in the subcutaneous layer Percentage of wound debrided: 100 Instrument Used: 7mm curette Tissue Removed: Slough and fibrous tissue Severity: Fat Layer Exposed Amount of bleeding with debridement: Mild Bleeding Controlled with: Pressure - Additional Wound Wound debrided: Right posterior lower extremity ulcer Laterality: Right Type of Debridement: Excisional debridement Anesthesia Used: 5% Lidocaine Gel Depth: in the subcutaneous layer Percentage of wound debrided: 100 Instrument Used: 7mm curette Tissue Removed: Slough and fibrous tissue Severity: Fat Layer Exposed Amount of bleeding with debridement: Mild Bleeding Controlled with: Pressure Patient tolerated procedure: Patient tolerated procedure well Assessment/Plan Active Problems PAD (peripheral artery disease) (Chronic) Type 2 diabetes mellitus with diabetic polyneuropathy (Acute) Type 2 diabetes mellitus with other skin ulcer (Acute) Non-pressure chronic ulcer of right calf with fat layer exposed (Acute) 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 (Acute) x 2 wounds one located above medial malleolus and one just below right knee Assessment: Multiple nonhealing ulcer/wound of right lower extremity likely secondary to venous insufficiency Plan: Mr. Martin is here for follow up and has no new complaints at this time. He was also seen by ID and doxycycline was added to his regimen, which he is tolerating well. Patient notes feeling better with the antibiotics. Debridement done as documented above, procedure was well tolerated. Will give a break from santyl and change to aquacell silver wrapped with 3 m wrap for right posterior, medial and lateral ulcers. Previous vascular studies reviewed. Elevate lower extremity when sitting and when in bed. Optimal blood sugar control. Increase protein intake/supplements. Resume follow up with Dr. Kearney in 1 week. This note was generated with [employer] dictation software. It may contain incorrect words, spelling, and punctuation that were not noted in checking the note before signing. Code Visit [id number]: [id number] Sonal subq tissue 20 sq cm/<
--- NOTE | 2017-09-24 09:09 | PN.PCM_ITS ---
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 Status: Acute Current Visit: Yes Code(s): L97.912 - Non-pressure chronic ulcer of unspecified part of right lower leg with fat layer exposed Comment: x 2 wounds one located above medial malleolus and one just below right knee (3) Bilateral lower extremity edema Status: Acute Current Visit: No Code(s): R60.0 - Localized edema (4) Type 2 diabetes mellitus with diabetic polyneuropathy Status: Acute Current Visit: Yes Qualifiers: Code(s): E11.42 - Type 2 diabetes mellitus with diabetic polyneuropathy (5) Neuropathy Status: Chronic Current Visit: No Code(s): G62.9 - Polyneuropathy, unspecified (6) PAD (peripheral artery disease) Status: Chronic Current Visit: Yes Code(s): I73.9 - Peripheral vascular disease, unspecified (7) Type 2 diabetes mellitus treated with insulin Status: Chronic Current Visit: No Code(s): E11.9 - Type 2 diabetes mellitus without complications; Z79.4 - halfway (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 of insulin Type of Wound Date of Service: 09/18/17 Chief Complaint: nonhealing wound/ulcer of right lateral calf History of Wound: Eddie is a pleasant 76 yo man who presents for evaluation of a wound/ulcer of his right lateral calf that has been present since mid-April and has continued to get larger. Former patient of Dr. Kearney's and Dr. Joseph , but will now be seeing me. He has seen his PCP and has seen another physician in their practice for the wound/ulcer and has been treated once with an UNNA boot and otherwise has been given antibiotics off and on without improvement, most recent antibiotic was Augmentin. No cultures have ever been taken of the wound. No imaging has been done. He has been using Aquaphor to the wound as instructed by his PCP. He has significant pain and edema in this leg and has been started on Lyrica which has helped with the pain. He has been unable to sleep in bed due to the pain and has been sleeping in a recliner. He denies any significant drainage but does note some on his socks from time to time. He denies any odor. Occasionally there is some bleeding. he was referred to the wound center for further evaluation and treatment. 07/29--Has been applying santyl and dry dressing since visit last friday. No drainage for the last few days. Vascular testing scheduled for 08/08. Awaiting lab work from PCP. Admits to sleeping in a recliner since March. Denies N/V/F/C. Some redness to R leg, but no pus, no malodor, no warmth, minimal pain. There is edema. Culture positive for e.coli from Friday. Will Rx Keflex today. 08/05-- Pt taking Keflex, tolerating well. Vascular testing scheduled for friday. Size improved with the use of nickel-thickness Santyl and lightly moistened gauze with light spandagrip. Plan to increase compression once vascular testing done. 08/12--Arterial testing done, normal. Venous test reveals multiple incompetent veins in the RLE. Pt states he cannot tolerate any tighter compression than the current spandagrip stocking. He will be referred to Dr. Patton today for evaluation. There is still fibrous tissue, but there are also skin islands forming within the ulceration. 08/19--Pt applying santyl nickel-thick and lightly moistened gauze dressing daily. There is still fibrous tissue, but there are also skin islands forming within the ulceration. Measurements improved today. Pt's is with him today, and she states that he often falls asleep in his recliner, and his legs end up falling off the foot rest and his feet end up on the ground. Pt has an appointment with Dr. Patton at [facility] at the beginning of August. 08/21- initial visit with Doroteo Nash NP who patient will be transferring care to. Has been applying nickel thick santyl daily, however, site is still painful and there is now a foul smell.Cultures will be redone today.Moderate amount of slough and fibrous tissue present. Pt denies any systemic signs of infection including no fever, chills, n/v/d/c. 08/28 -patient has 2 new wounds and states that there is an increase in foul smell coming from his chronic wound. He has unaware how the 2 new wounds occurred and denies any obvious trauma, though does state that they looked like they are going to be opening prior to this visit. He does state that the wound below the right knee may be from a tape burn from his dressing changes. Progress of Wound: Stable. No new complaints at this time.Pt does think that there has been some improvement after starting the antibiotics, which he is tolerated well after being seen by infectious disease. - Physical Exam Vital Signs Temp Pulse Resp BP 97.8 F 61 18 146/71 H 09/18/17 14:40 09/18/17 14:40 09/18/17 14:40 09/18/17 14:40 General: Alert, Oriented x3, Cooperative, No apparent distress HEENT: Atraumatic Cardiovascular: Regular rate Extremities: Diminished Peripheral Pulses, Edema - BLLE Skin: Ulcer/ Wound - Ulcer right orozco, right lateral lower extremity, right medial lower extremity and right posterior lower extremity with moderate amounts of slough present, redness and edema has improved, no signs of systemic infection at this time, no increase in pain or purulent drainage. Wound Measurements and Assessment WC - Nurse 1 - General Ulcer Measurement Start: 08/28/17 13:44 Freq: Status: Active Protocol: Activity Type Activity Date Activity User E-Sign Co-Sign Detail Recorded Client Recorded Date Recorded By Document 09/23/17 16:26 [place] [id number] 09/23/17 16:28 [place] 09/23/17 16:26 Wound Center Nurse 1 [Edema Assessment] -Lower Limb Edema Present No -Right Calf (cm) 39.5 -Right Ankle (cm) 22.9 -Left Calf (cm) 36.5 -Left Ankle (cm) 24 Neurological: Neuro grossly intact Psych/Mental Status: Normal Affect, Appropriate, Alert and oriented to time, place, person, mood and affect Debridement Note Post-Debridement Measurements/Treatment WC - Nurse 2 - General Ulcer CM Notes Start: 08/28/17 13:44 Freq: Status: Active Protocol: Activity Type Activity Date Activity User E-Sign Co-Sign Detail Recorded Client Recorded Date Recorded By Document 08/28/17 14:00 DV [id number] 08/29/17 19:46 DV Document 09/04/17 17:36 DV [id number] 09/04/17 17:46 DV Document 09/11/17 11:09 DV [id number] 09/11/17 11:22 DV Document 09/18/17 16:21 [id number] 09/18/17 16:30 08/28/17 09/04/17 09/11/17 14:00 17:36 11:09 Wound Center Nurse 2 #4 R POSTERIOR CALF -Time 17:45 11:14 -Correct Patient Yes Yes -Correct Side, Site, Position Yes Yes -Correct Procedure Yes Yes -Procedure Performed Yes Yes -Type of Procedure Debridement Debridement -Clinical Debridement Subcutaneous Subcutaneous -Post Debridement Size (cm) - Length 0.6 0.7 -Post Debridement Size (cm) - Width 1.2 2.0 -Post Debridement Size (cm) - Depth 0.1 0.1 -Total Square Cm 0.72 1.40 -Wound/Ulcer Outcome Not Healed Not Healed -Ulcer Cleansing Rinsed/ Rinsed/ Irrigated with Irrigated with Saline Saline -Foul Odor after Cleansing No No -Bioengineered Tissue No No -Topical Lidocaine (%) -Bleeding Controlled with Pressure Pressure -Treatment Response Procedure Procedure Tolerated Well Tolerated Well #3 R-MEDIAL LE -Time 14:00 17:40 11:14 -Correct Patient Yes Yes Yes -Correct Side, Site, Position Yes Yes Yes -Correct Procedure Yes Yes Yes -Procedure Performed Yes Yes Yes -Type of Procedure Debridement Debridement Debridement -Clinical Debridement Subcutaneous Subcutaneous Subcutaneous -Post Debridement Size (cm) - Length 2.6 2.3 2.6 -Post Debridement Size (cm) - Width 3.1 4.0 4.9 -Post Debridement Size (cm) - Depth 0.2 0.2 0.2 -Total Square Cm 8.06 9.20 12.74 -Wound/Ulcer Outcome Failed Graft Not Healed Not Healed -Ulcer Cleansing Rinsed/ Rinsed/ Rinsed/ Irrigated with Irrigated with Irrigated with Saline Saline Saline -Foul Odor after Cleansing No No No -Bioengineered Tissue No No No -Topical Lidocaine (%) -Bleeding Controlled with Pressure Pressure Pressure -Treatment Response Procedure Procedure Procedure Tolerated Well Tolerated Well Tolerated Well #2 R OROZCO -Time 14:00 17:39 11:13 -Correct Patient Yes Yes Yes -Correct Side, Site, Position Yes Yes -Correct Procedure Yes Yes -Procedure Performed Yes No Yes -Type of Procedure Debridement Debridement -Clinical Debridement Subcutaneous Subcutaneous -Post Debridement Size (cm) - Length 1.6 1.3 1.8 -Post Debridement Size (cm) - Width 2.5 2.0 2.1 -Post Debridement Size (cm) - Depth 0.1 0.1 0.1 -Total Square Cm 4.00 2.60 3.78 -Wound/Ulcer Outcome Not Healed Not Healed Not Healed -Ulcer Cleansing Rinsed/ Rinsed/ Rinsed/ Irrigated with Irrigated with Irrigated with Saline Saline Saline -Foul Odor after Cleansing No No No -Bioengineered Tissue No No No -Topical Lidocaine (%) -Bleeding Controlled with Pressure Pressure Pressure -Treatment Response Procedure Procedure Procedure Tolerated Well Tolerated Well Tolerated Well #1 RIGHT LATERAL LOWER LEG -Time 14:00 17:38 11:13 -Correct Patient Yes Yes Yes -Correct Side, Site, Position Yes Yes Yes -Correct Procedure Yes Yes Yes -Procedure Performed Yes Yes Yes -Type of Procedure Debridement Debridement Debridement -Clinical Debridement Subcutaneous Subcutaneous Subcutaneous -Post Debridement Size (cm) - Length 13.5 13.0 12.8 -Post Debridement Size (cm) - Width 5.2 4.7 5.1 -Post Debridement Size (cm) - Depth 0.3 4.0 0.3 -Total Square Cm 70.20 61.10 65.28 -Wound/Ulcer Outcome Not Healed Not Healed Not Healed -Ulcer Cleansing Rinsed/ Rinsed/ Rinsed/ Irrigated with Irrigated with Irrigated with Saline Saline Saline -Foul Odor after Cleansing No No No -Bioengineered Tissue No No No -Topical Lidocaine (%) -Bleeding Controlled with Pressure Pressure Pressure -Treatment Response Procedure Procedure Procedure Tolerated Well Tolerated Well Tolerated Well Pain Scale: 0-10 Numeric Is Patient Pain Free? Yes Yes Yes right leg -Description -Intensity -Duration (hours) -Pain Behavior -Pain Aggravating Factors -Alleviating Factors/Interventions -Effectiveness of Alleviating Factor/ Intervention 09/18/17 16:21 Wound Center Nurse 2 #4 R POSTERIOR CALF -Time 16:22 -Correct Patient Yes -Correct Side, Site, Position Yes -Correct Procedure Yes -Procedure Performed Yes -Type of Procedure Debridement -Clinical Debridement Subcutaneous -Post Debridement Size (cm) - Length 1.0 -Post Debridement Size (cm) - Width 2.1 -Post Debridement Size (cm) - Depth 0.1 -Total Square Cm 2.10 -Wound/Ulcer Outcome Not Healed -Ulcer Cleansing Rinsed/ Irrigated with Saline -Foul Odor after Cleansing No -Bioengineered Tissue No -Topical Lidocaine (%) 5 -Bleeding Controlled with Pressure -Treatment Response Procedure Tolerated Well #3 R-MEDIAL LE -Time 16:24 -Correct Patient Yes -Correct Side, Site, Position Yes -Correct Procedure Yes -Procedure Performed Yes -Type of Procedure Debridement -Clinical Debridement Subcutaneous -Post Debridement Size (cm) - Length 3.9 -Post Debridement Size (cm) - Width 3.7 -Post Debridement Size (cm) - Depth 0.1 -Total Square Cm 14.43 -Wound/Ulcer Outcome Not Healed -Ulcer Cleansing Rinsed/ Irrigated with Saline -Foul Odor after Cleansing No -Bioengineered Tissue No -Topical Lidocaine (%) 5 -Bleeding Controlled with NA -Treatment Response Procedure Tolerated Well #2 R OROZCO -Time 16:24 -Correct Patient Yes -Correct Side, Site, Position Yes -Correct Procedure Yes -Procedure Performed Yes -Type of Procedure Debridement -Clinical Debridement Subcutaneous -Post Debridement Size (cm) - Length 1.8 -Post Debridement Size (cm) - Width 2.1 -Post Debridement Size (cm) - Depth 0.1 -Total Square Cm 3.78 -Wound/Ulcer Outcome Not Healed -Ulcer Cleansing Rinsed/ Irrigated with Saline -Foul Odor after Cleansing No -Bioengineered Tissue No -Topical Lidocaine (%) 5 -Bleeding Controlled with Pressure -Treatment Response Procedure Tolerated Well #1 RIGHT LATERAL LOWER LEG -Time 16:25 -Correct Patient Yes -Correct Side, Site, Position Yes -Correct Procedure Yes -Procedure Performed Yes -Type of Procedure Debridement -Clinical Debridement Subcutaneous -Post Debridement Size (cm) - Length 12.7 -Post Debridement Size (cm) - Width 4.9 -Post Debridement Size (cm) - Depth 0.3 -Total Square Cm 62.23 -Wound/Ulcer Outcome Not Healed -Ulcer Cleansing Rinsed/ Irrigated with Saline -Foul Odor after Cleansing No -Bioengineered Tissue No -Topical Lidocaine (%) 5 -Bleeding Controlled with Silver Nitrate -Treatment Response Procedure Not Tolerated Well Pain Scale: 0-10 Numeric Is Patient Pain Free? No right leg -Description Burning -Intensity 9 -Duration (hours) Acute -Pain Behavior Moaning Withdrawal from Touch Facial Grimacing -Pain Aggravating Factors Debridement -Alleviating Factors/Interventions Medication -Effectiveness of Alleviating Factor/ Minimally Intervention effective Wound debrided: Right lateral lower extremity ulcer Laterality: Right Type of Debridement: Excisional debridement Anesthesia Used: 5% Lidocaine Gel Depth: in the subcutaneous layer Percentage of wound debrided: 100 Instrument Used: 7mm curette Tissue Removed: Slough and necrotic tissue Amount of bleeding with debridement: Mild Bleeding Controlled with: Pressure Patient tolerated procedure well - Additional Wound Wound debrided: Right orozco ulcer Laterality: Right Type of Debridement: Excisional debridement Anesthesia Used: 5% Lidocaine Gel Depth: in the subcutaneous layer Percentage of wound debrided: 100 Instrument Used: 7mm curette Tissue Removed: Slough and fibrous tissue Severity: Fat Layer Exposed Amount of bleeding with debridement: Mild Bleeding Controlled with: Pressure Patient tolerated procedure: Patient tolerated procedure well - Additional Wound Wound debrided: Right medial lower extremity ulcer Laterality: Right Type of Debridement: Excisional debridement Anesthesia Used: 5% Lidocaine Gel Depth: in the subcutaneous layer Percentage of wound debrided: 100 Instrument Used: 7mm curette Tissue Removed: Slough and fibrous tissue Severity: Fat Layer Exposed Amount of bleeding with debridement: Mild Bleeding Controlled with: Pressure - Additional Wound Wound debrided: Right posterior lower extremity ulcer Laterality: Right Type of Debridement: Excisional debridement Anesthesia Used: 5% Lidocaine Gel Depth: in the subcutaneous layer Percentage of wound debrided: 100 Instrument Used: 7mm curette Tissue Removed: Slough and fibrous tissue Severity: Fat Layer Exposed Amount of bleeding with debridement: Mild Bleeding Controlled with: Pressure Patient tolerated procedure: Patient tolerated procedure well Assessment/Plan Active Problems PAD (peripheral artery disease) (Chronic) Type 2 diabetes mellitus with diabetic polyneuropathy (Acute) Type 2 diabetes mellitus with other skin ulcer (Acute) Non-pressure chronic ulcer of right calf with fat layer exposed (Acute) 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 (Acute) x 2 wounds one located above medial malleolus and one just below right knee Assessment: Multiple nonhealing ulcer/wound of right lower extremity? likely secondary to venous insufficiency Plan: Mr. Martin is here for follow up and has no new complaints at this time. He was also seen by ID and doxycycline was added to his regimen, which he is tolerating well. Patient notes feeling better with the antibiotics. Debridement done as documented above, procedure was well tolerated. Will give a break from santyl and change to aquacell silver wrapped with 3 m wrap for right posterior, medial and lateral ulcers. Previous vascular studies reviewed. Elevate lower extremity when sitting and when in bed. Optimal blood sugar control. Increase protein intake/supplements. Resume follow up with Dr. Kearney in 1 week. This note was generated with [employer] dictation software. It may contain incorrect words, spelling, and punctuation that were not noted in checking the note before signing. Code Visit [id number]: 52124 Sonal subq tissue 20 sq cm/<
== END 2017-09-25 23:59 ==
LOC: WC 15:00
PROVIDERS: Family Provider Family Medicine; PCP Family Medicine; Visit Provider Family Medicine
DX: E11.622 Type 2 diabetes mellitus with other skin ulcer (principal); R60.0 Localized edema; E11.42 Type 2 diabetes mellitus with diabetic polyneuropathy; E11.51 Type 2 diabetes mellitus with diabetic peripheral angiopathy without gangrene; Z79.4 Long term (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 of insulin; L97.212 Non-pressure chronic ulcer of right calf with fat layer exposed; L97.312 Non-pressure chronic ulcer of right ankle with fat layer exposed; I25.10 Atherosclerotic heart disease of native coronary artery without angina pectoris; Z95.1 Presence of aortocoronary bypass graft; J44.9 Chronic obstructive pulmonary disease, unspecified; G47.30 Sleep apnea, unspecified; I48.2 Chronic atrial fibrillation; I50.9 Heart failure, unspecified; I70.232 Atherosclerosis of native arteries of right leg with ulceration of calf; Z79.899 Other long term (current) drug therapy; Z79.82 Long term (current) use of aspirin; Z79.01 Long term (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 of anticoagulants
CPT/HCPCS: 11042; 11045; 29581; 87070; 87075; 87076; 87077; 87186; 87205; 97605; 99213; 99214; G0463

== ENCOUNTER 2017-10-24 16:30 | Outpatient (RCR) | payer MEDICARE, SELFPAY ==
[2017-09-26 00:52] VITALS: BP 146/71; PULSE 61; RESP 18; TEMP 36.6
[2017-09-26 15:07] VITALS: BP 136/71; PULSE 53; RESP 16; TEMP 36.2
--- NOTE | 2017-09-26 19:15 | PCM.WC.PN ---
(1) Anemia Status: Chronic Current Visit: Yes Qualifiers: Anemia type: unspecified type Code(s): D64.9 - Anemia, unspecified (2) COPD (chronic obstructive pulmonary disease) Status: Chronic Current Visit: No Qualifiers: COPD type: unspecified COPD Code(s): J44.9 - Chronic obstructive pulmonary disease, unspecified (3) PAD (peripheral artery disease) Status: Chronic Current Visit: Yes Code(s): I73.9 - Peripheral vascular disease, unspecified (4) Type 2 diabetes mellitus treated with insulin Status: Chronic Current Visit: Yes Code(s): E11.9 - Type 2 diabetes mellitus without complications; Z79.4 - long term care administrator (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 of insulin (5) Neuropathy Status: Chronic Current Visit: Yes Code(s): G62.9 - Polyneuropathy, unspecified (6) 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 Status: Chronic Current Visit: Yes Code(s): I70.232 - 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 (7) Chronic anticoagulation Status: Chronic Current Visit: Yes Code(s): Z79.01 - long term care administrator (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 of anticoagulants (8) Type 2 diabetes mellitus with diabetic polyneuropathy Status: Chronic Current Visit: Yes Qualifiers: Diabetes mellitus terminal gauger insulin use: with chcf use Qualified Code(s): E11.42 - Type 2 diabetes mellitus with diabetic polyneuropathy; Z79.4 - long term care administrator (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 of insulin Code(s): E11.42 - Type 2 diabetes mellitus with diabetic polyneuropathy (9) Type 2 diabetes mellitus with other skin ulcer Status: Chronic Current Visit: Yes Qualifiers: Diabetes mellitus chcf insulin use: with terminal gauger use Qualified Code(s): E11.622 - Type 2 diabetes mellitus with other skin ulcer; Z79.4 - detention (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 of insulin Code(s): E11.622 - Type 2 diabetes mellitus with other skin ulcer; L98.499 - Non-pressure chronic ulcer of skin of other sites with unspecified severity (10) Non-pressure chronic ulcer of right calf with fat layer exposed Status: Acute Current Visit: Yes Code(s): L97.212 - Non-pressure chronic ulcer of right calf with fat layer exposed (11) Bilateral lower extremity edema Status: Acute Current Visit: Yes Code(s): R60.0 - Localized edema (12) 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 Status: Chronic Current Visit: Yes Code(s): L97.912 - Non-pressure chronic ulcer of unspecified part of right lower leg with fat layer exposed Comment: x 2 wounds one located above medial malleolus and one just below right knee Type of Wound Date of Service: 09/26/17 Chief Complaint: nonhealing wound/ulcer of right lateral calf History of Wound: Eddie is a pleasant 76 yo man who presents for evaluation of a wound/ulcer of his right lateral calf that has been present since mid-April and has continued to get larger. He has seen his PCP and has seen another physician in their practice for the wound/ulcer and has been treated once with an UNNA boot and otherwise has been given antibiotics off and on without improvement, most recent antibiotic was Augmentin. No cultures have ever been taken of the wound. No imaging has been done. He has been using Aquaphor to the wound as instructed by his PCP. He has significant pain and edema in this leg and has been started on Lyrica which has helped with the pain. He has been unable to sleep in bed due to the pain and has been sleeping in a recliner. He denies any significant drainage but does note some on his socks from time to time. He denies any odor. Occasionally there is some bleeding. he was referred to the wound center for further evaluation and treatment. 07/29--Has been applying santyl and dry dressing since visit last friday. No drainage for the last few days. Vascular testing scheduled for 08/08. Awaiting lab work from PCP. Admits to sleeping in a recliner since March. Denies N/V/F/C. Some redness to R leg, but no pus, no malodor, no warmth, minimal pain. There is edema. Culture positive for e.coli from Friday. Will Rx Keflex today. 08/05--Pt taking Keflex, tolerating well. Vascular testing scheduled for friday. Size improved with the use of nickel-thickness Santyl and lightly moistened gauze with light spandagrip. Plan to increase compression once vascular testing done. 08/12--Arterial testing done, normal. Venous test reveals multiple incompetent veins in the RLE. Pt states he cannot tolerate any tighter compression than the current spandagrip stocking. He will be referred to Dr. Patton today for evaluation. There is still fibrous tissue, but there are also skin islands forming within the ulceration. 08/19--Pt applying santyl nickel-thick and lightly moistened gauze dressing daily. There is still fibrous tissue, but there are also skin islands forming within the ulceration. Measurements improved today. Pt's is with him today, and she states that he often falls asleep in his recliner, and his legs end up falling off the foot rest and his feet end up on the ground. Pt has an appointment with Dr. Patton at [facility] at the beginning of August. 08/21- initial visit with Doroteo Nash NP who patient will be transferring care to. Has been applying nickel thick santyl daily, however, site is still painful and there is now a foul smell.Cultures will be redone today.Moderate amount of slough and fibrous tissue present. Pt denies any systemic signs of infection including no fever, chills, n/v/d/c. 08/28-patient has 2 new wounds and states that there is an increase in foul smell coming from his chronic wound. He has unaware how the 2 new wounds occurred and denies any obvious trauma, though does state that they looked like they are going to be opening prior to this visit. He does state that the wound below the right knee may be from a tape burn from his dressing changes. Progress of Wound: Eddie's wounds have not changed since his last visit. He tolerated 3 M compression but his legs were very moist and the drainage was copious from both legs that was present on the 3M dressings when removed. He is till on Flagyl and has a few days left of treatment. Denies odor, fever or chills. He is unable to tolerate having his legs elevated due to his neuropathy and frequently has them hanging down. Sleeps in his recliner. - Physical Exam Vital Signs Temp Pulse Resp BP 97.1 F L 53 L 16 136/71 H 09/26/17 15:07 09/26/17 15:07 09/26/17 15:07 09/26/17 15:07 General: Alert, Oriented x3, Cooperative, No apparent distress HEENT: Atraumatic, Normocephalic Oral: Moist Mucosa Extremities: Edema Skin: Ulcer/ Wound Wound Measurements and Assessment WC - Nurse 1 - General Ulcer Measurement Start: 09/26/17 14:39 Freq: Status: Active Protocol: Activity Type Activity Date Activity User E-Sign Co-Sign Detail Recorded Client Recorded Date Recorded By Document 09/26/17 15:07 [facility] [id number] 09/26/17 15:26 [facility] 09/26/17 15:07 Wound Center Nurse 1 [Ulcer Assessment] #4 R POSTERIOR CALF -Combined with other wound No -Current Size (cm) - Length 1 -Current Size (cm) - Width 1.9 -Current Size (cm) - Depth 0.2 -Total Square Cm 1.9 -Photo Taken No -Epithelialization None Present -Tunneling No -Undermining/Tunneling No -Circular Undermining No -Exudate Amt Large (67-100%) -Exudate Type Serosanguineous -Wound Margin Distinct, Outline Attached -Granulation Amt None Present (0 %) -Slough/Fibrin Yes -Necrosis Amt Large (67-100%) -Necrotic Tissue Type Adherent Slough -Structure Exposed N/A -Texture (Kinza-wound Skin Appearance) Scarring -Moisture (Kinza-wound Skin Appearance Assessed ) Maceration -Color (Kinza-wound Skin Appearance) Hemosiderin Staining -Temperature (Kniza-wound Skin No Abnormality Appearance) (Pt Warm) -Tenderness on Palpation (Kinza-wound No Skin Appearance) -Ulcer Cleansing Wound Cleanser -Foul Odor after Cleansing No -Anesthetic Used 4% Lidocaine Solution #3 R-MEDIAL LE -Combined with other wound No -Current Size (cm) - Length 3.8 -Current Size (cm) - Width 3.6 -Current Size (cm) - Depth 0.2 -Total Square Cm 13.68 -Photo Taken No -Epithelialization None Present -Tunneling No -Undermining/Tunneling No -Circular Undermining No -Exudate Amt Medium (34-66%) -Exudate Type Serosanguineous -Wound Margin Distinct, Outline Attached -Granulation Amt None Present (0 %) -Necrosis Amt Large (67-100%) -Necrotic Tissue Type Adherent Slough -Structure Exposed None/Limited to Skin Breakdown -Texture (Kinza-wound Skin Appearance) Scarring -Moisture (Kinza-wound Skin Appearance Assessed ) Maceration -Color (Kinza-wound Skin Appearance) Hemosiderin Staining -Temperature (Kinza-wound Skin No Abnormality Appearance) (Pt Warm) -Tenderness on Palpation (Kinza-wound No Skin Appearance) -Ulcer Cleansing Wound Cleanser -Foul Odor after Cleansing No -Anesthetic Used 4% Lidocaine Solution #2 R OROZCO -Combined with other wound No -Current Size (cm) - Length 0.7 -Current Size (cm) - Width 1.2 -Current Size (cm) - Depth 0.1 -Total Square Cm 0.84 -Photo Taken No -Epithelialization Small 1-33% -Tunneling No -Undermining/Tunneling No -Circular Undermining No -Exudate Amt Small (1-33%) -Exudate Type Serosanguineous -Wound Margin Distinct, Outline Attached -Granulation Amt Small (1-33%) -Granulation Quality Red -Slough/Fibrin Yes -Necrosis Amt Medium (34-66%) -Necrotic Tissue Type Adherent Slough -Structure Exposed None/Limited to Skin Breakdown -Texture (Kinza-wound Skin Appearance) Scarring -Moisture (Kinza-wound Skin Appearance Dry/Scaly ) -Color (Kinza-wound Skin Appearance) Assessed Ecchymosis -Tenderness on Palpation (Kinza-wound No Skin Appearance) -Ulcer Cleansing Wound Cleanser -Foul Odor after Cleansing No -Anesthetic Used 4% Lidocaine Solution #1 RIGHT LATERAL LOWER LEG -Combined with other wound No -Current Size (cm) - Length 12.5 -Current Size (cm) - Width 5 -Current Size (cm) - Depth 0.2 -Total Square Cm 62.5 -Photo Taken No -Epithelialization None Present -Tunneling No -Undermining/Tunneling No -Circular Undermining No -Exudate Amt Large (67-100%) -Exudate Type Serosanguineous -Wound Margin Distinct, Outline Attached -Granulation Amt Small (1-33%) -Granulation Quality Red -Slough/Fibrin Yes -Necrosis Amt Large (67-100%) -Necrotic Tissue Type Adherent Slough -Structure Exposed N/A -Texture (Kinza-wound Skin Appearance) Scarring -Moisture (Kinza-wound Skin Appearance Assessed ) Maceration -Color (Kinza-wound Skin Appearance) Erythema Hemosiderin Staining -Temperature (Kinza-wound Skin No Abnormality Appearance) (Pt Warm) -Tenderness on Palpation (Kinza-wound No Skin Appearance) -Ulcer Cleansing Wound Cleanser -Foul Odor after Cleansing No -Anesthetic Used 4% Lidocaine Solution [Edema Assessment] -Lower Limb Edema Present Yes -Right Calf (cm) 40 -Right Ankle (cm) 23.6 -Left Calf (cm) 35.7 -Left Ankle (cm) 23.1 WC - Nurse 2 - General Ulcer CM Notes Start: 09/26/17 14:39 Freq: Status: Active Protocol: Activity Type Activity Date Activity User E-Sign Co-Sign Detail Recorded Client Recorded Date Recorded By Document 09/26/17 16:07 TORRE[facility] [id number] 09/26/17 16:39 TORREY 09/26/17 16:07 Wound Center Nurse 2 [Procedure/Treatment] #4 R POSTERIOR CALF -Time 16:07 -Correct Patient Yes -Correct Side, Site, Position Yes -Correct Procedure Yes -Procedure Performed Yes -Type of Procedure Debridement -Clinical Debridement Subcutaneous -Post Debridement Size (cm) - Length 1.9 -Post Debridement Size (cm) - Width 2.2 -Post Debridement Size (cm) - Depth 0.2 -Total Square Cm 4.18 -Wound/Ulcer Outcome Amputation -Ulcer Cleansing Rinsed/ Irrigated with Saline -Foul Odor after Cleansing No -Bioengineered Tissue No -Topical Lidocaine (%) 4 -Lidocaine (ml) 5 -Bleeding Controlled with NA -Treatment Response Procedure Tolerated Well #3 R-MEDIAL LE -Time 16:08 -Correct Patient Yes -Correct Side, Site, Position Yes -Correct Procedure Yes -Procedure Performed Yes -Type of Procedure Debridement -Clinical Debridement Subcutaneous -Post Debridement Size (cm) - Length 3.8 -Post Debridement Size (cm) - Width 3.9 -Post Debridement Size (cm) - Depth 0.2 -Total Square Cm 14.82 -Wound/Ulcer Outcome Not Healed -Ulcer Cleansing Rinsed/ Irrigated with Saline -Foul Odor after Cleansing No -Bioengineered Tissue No -Topical Lidocaine (%) 4 -Lidocaine (ml) 5 -Bleeding Controlled with NA -Treatment Response Procedure Tolerated Well #2 R OROZCO -Time 16:08 -Correct Patient Yes -Correct Side, Site, Position Yes -Correct Procedure Yes -Procedure Performed Yes -Type of Procedure Debridement -Clinical Debridement Subcutaneous -Post Debridement Size (cm) - Length 0.7 -Post Debridement Size (cm) - Width 0.9 -Post Debridement Size (cm) - Depth 0.1 -Total Square Cm 0.63 -Wound/Ulcer Outcome Not Healed -Ulcer Cleansing Rinsed/ Irrigated with Saline -Foul Odor after Cleansing No -Bioengineered Tissue No -Topical Lidocaine (%) 4 -Lidocaine (ml) 5 -Bleeding Controlled with NA -Treatment Response Procedure Tolerated Well #1 RIGHT LATERAL LOWER LEG -Time 16:08 -Correct Patient Yes -Correct Side, Site, Position Yes -Correct Procedure Yes -Procedure Performed Yes -Type of Procedure Debridement -Clinical Debridement Subcutaneous -Post Debridement Size (cm) - Length 13.2 -Post Debridement Size (cm) - Width 4.9 -Post Debridement Size (cm) - Depth 0.2 -Total Square Cm 64.68 -Wound/Ulcer Outcome Not Healed -Ulcer Cleansing Rinsed/ Irrigated with Saline -Foul Odor after Cleansing No -Bioengineered Tissue No -Topical Lidocaine (%) 4 -Lidocaine (ml) 5 -Bleeding Controlled with NA -Treatment Response Procedure Tolerated Well [See Physician Procedure note for Specifics] Psych/Mental Status: Normal Affect, Appropriate Debridement Note Post-Debridement Measurements/Treatment WC - Nurse 2 - General Ulcer CM Notes Start: 09/26/17 14:39 Freq: Status: Active Protocol: Activity Type Activity Date Activity User E-Sign Co-Sign Detail Recorded Client Recorded Date Recorded By Document 09/26/17 16:07 TORREY [id number] 09/26/17 16:39 09/26/17 16:07 Wound Center Nurse 2 #4 R POSTERIOR CALF -Time 16:07 -Correct Patient Yes -Correct Side, Site, Position Yes -Correct Procedure Yes -Procedure Performed Yes -Type of Procedure Debridement -Clinical Debridement Subcutaneous -Post Debridement Size (cm) - Length 1.9 -Post Debridement Size (cm) - Width 2.2 -Post Debridement Size (cm) - Depth 0.2 -Total Square Cm 4.18 -Wound/Ulcer Outcome Amputation -Ulcer Cleansing Rinsed/ Irrigated with Saline -Foul Odor after Cleansing No -Bioengineered Tissue No -Topical Lidocaine (%) 4 -Lidocaine (ml) 5 -Bleeding Controlled with NA -Treatment Response Procedure Tolerated Well #3 R-MEDIAL LE -Time 16:08 -Correct Patient Yes -Correct Side, Site, Position Yes -Correct Procedure Yes -Procedure Performed Yes -Type of Procedure Debridement -Clinical Debridement Subcutaneous -Post Debridement Size (cm) - Length 3.8 -Post Debridement Size (cm) - Width 3.9 -Post Debridement Size (cm) - Depth 0.2 -Total Square Cm 14.82 -Wound/Ulcer Outcome Not Healed -Ulcer Cleansing Rinsed/ Irrigated with Saline -Foul Odor after Cleansing No -Bioengineered Tissue No -Topical Lidocaine (%) 4 -Lidocaine (ml) 5 -Bleeding Controlled with NA -Treatment Response Procedure Tolerated Well #2 R OROZCO -Time 16:08 -Correct Patient Yes -Correct Side, Site, Position Yes -Correct Procedure Yes -Procedure Performed Yes -Type of Procedure Debridement -Clinical Debridement Subcutaneous -Post Debridement Size (cm) - Length 0.7 -Post Debridement Size (cm) - Width 0.9 -Post Debridement Size (cm) - Depth 0.1 -Total Square Cm 0.63 -Wound/Ulcer Outcome Not Healed -Ulcer Cleansing Rinsed/ Irrigated with Saline -Foul Odor after Cleansing No -Bioengineered Tissue No -Topical Lidocaine (%) 4 -Lidocaine (ml) 5 -Bleeding Controlled with NA -Treatment Response Procedure Tolerated Well #1 RIGHT LATERAL LOWER LEG -Time 16:08 -Correct Patient Yes -Correct Side, Site, Position Yes -Correct Procedure Yes -Procedure Performed Yes -Type of Procedure Debridement -Clinical Debridement Subcutaneous -Post Debridement Size (cm) - Length 13.2 -Post Debridement Size (cm) - Width 4.9 -Post Debridement Size (cm) - Depth 0.2 -Total Square Cm 64.68 -Wound/Ulcer Outcome Not Healed -Ulcer Cleansing Rinsed/ Irrigated with Saline -Foul Odor after Cleansing No -Bioengineered Tissue No -Topical Lidocaine (%) 4 -Lidocaine (ml) 5 -Bleeding Controlled with NA -Treatment Response Procedure Tolerated Well Wound debrided: right posterior calf Laterality: Right Type of Debridement: Excisional debridement Anesthesia Used: 4% Lidocaine Solution Depth: Down to and including healthy tissue, in the subcutaneous layer Percentage of wound debrided: 100 Instrument Used: 7mm curette Tissue Removed: yellow slough and devitalized tissue Severity: Fat Layer Exposed Amount of bleeding with debridement: Mild Bleeding Controlled with: Compression and gauze Patient tolerated procedure well - Additional Wound Wound debrided: right medial LE Laterality: Right Type of Debridement: Excisional debridement Anesthesia Used: 4% Lidocaine Solution Depth: Down to and including healthy tissue, in the subcutaneous layer Percentage of wound debrided: 100 Instrument Used: 7mm curette Tissue Removed: yellow slough and devitalized tissue Severity: Fat Layer Exposed Amount of bleeding with debridement: Mild Bleeding Controlled with: Compression and gauze Patient tolerated procedure: Patient tolerated procedure well - Additional Wound Wound debrided: right orozco Laterality: Right Type of Debridement: Excisional debridement Anesthesia Used: 4% Lidocaine Solution Depth: Down to and including healthy tissue, in the subcutaneous layer Percentage of wound debrided: 100 Instrument Used: 7mm curette Tissue Removed: yellow slough and devitalized tissue Severity: Fat Layer Exposed Amount of bleeding with debridement: Mild Bleeding Controlled with: Compression and gauze Patient tolerated procedure: Patient tolerated procedure well Assessment/Plan Active Problems Anemia (Chronic) PAD (peripheral artery disease) (Chronic) Type 2 diabetes mellitus treated with insulin (Chronic) Neuropathy (Chronic) 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 Martin is here for follow up and has no new complaints at this time. Debridement done as documented above, procedure was well tolerated. He still has some fibrous exudate and devitalized tissue present but there is some areas of granulation. Will return to using Santyl and try Surepress for compression. Due to the lack of improvement with conservative treatment and the size of his wounds, I feel that he would benefit from use of Apligraf to assist in healing his wounds of the right posterior, medial and lateral ulcers. Previous vascular studies reviewed. Elevate lower extremity when sitting and when in bed. Optimize blood sugar control. Increase protein intake/supplements. F/U in 1 week.
--- NOTE | 2017-09-26 19:28 | PN.PCM_ITS ---
(1) Anemia Status: Chronic Current Visit: Yes Qualifiers: Anemia type: unspecified type Code(s): D64.9 - Anemia, unspecified (2) COPD (chronic obstructive pulmonary disease) Status: Chronic Current Visit: No Qualifiers: COPD type: unspecified COPD Code(s): J44.9 - Chronic obstructive pulmonary disease, unspecified (3) PAD (peripheral artery disease) Status: Chronic Current Visit: Yes Code(s): I73.9 - Peripheral vascular disease, unspecified (4) Type 2 diabetes mellitus treated with insulin Status: Chronic Current Visit: Yes Code(s): E11.9 - Type 2 diabetes mellitus without complications; Z79.4 - supervisor intermediates (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 of insulin (5) Neuropathy Status: Chronic Current Visit: Yes Code(s): G62.9 - Polyneuropathy, unspecified (6) 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 Status: Chronic Current Visit: Yes Code(s): I70.232 - 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 (7) Chronic anticoagulation Status: Chronic Current Visit: Yes Code(s): Z79.01 - supervisor intermediates (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 of anticoagulants (8) Type 2 diabetes mellitus with diabetic polyneuropathy Status: Chronic Current Visit: Yes Qualifiers: Diabetes mellitus termite exterminator helper insulin use: with skilled nursing use Qualified Code( s): E11.42 - Type 2 diabetes mellitus with diabetic polyneuropathy; Z79.4 - supervisor intermediates (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 of insulin Code(s): E11.42 - Type 2 diabetes mellitus with diabetic polyneuropathy (9) Type 2 diabetes mellitus with other skin ulcer Status: Chronic Current Visit: Yes Qualifiers: Diabetes mellitus termite exterminator helper insulin use: with termite exterminator helper use Qualified Code( s): E11.622 - Type 2 diabetes mellitus with other skin ulcer; Z79.4 - long-term (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 of insulin Code(s): E11.622 - Type 2 diabetes mellitus with other skin ulcer; L98.499 - Non -pressure chronic ulcer of skin of other sites with unspecified severity (10) Non-pressure chronic ulcer of right calf with fat layer exposed Status: Acute Current Visit: Yes Code(s): L97.212 - Non-pressure chronic ulcer of right calf with fat layer exposed (11) Bilateral lower extremity edema Status: Acute Current Visit: Yes Code(s): R60.0 - Localized edema (12) 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 Status: Chronic Current Visit: Yes Code(s): L97.912 - Non-pressure chronic ulcer of unspecified part of right lower leg with fat layer exposed Comment: x 2 wounds one located above medial malleolus and one just below right knee Type of Wound Date of Service: 09/26/17 Chief Complaint: nonhealing wound/ulcer of right lateral calf History of Wound: Eddie is a pleasant 76 yo man who presents for evaluation of a wound/ulcer of his right lateral calf that has been present since mid-April and has continued to get larger. He has seen his PCP and has seen another physician in their practice for the wound/ulcer and has been treated once with an UNNA boot and otherwise has been given antibiotics off and on without improvement, most recent antibiotic was Augmentin. No cultures have ever been taken of the wound. No imaging has been done. He has been using Aquaphor to the wound as instructed by his PCP. He has significant pain and edema in this leg and has been started on Lyrica which has helped with the pain. He has been unable to sleep in bed due to the pain and has been sleeping in a recliner. He denies any significant drainage but does note some on his socks from time to time. He denies any odor. Occasionally there is some bleeding. he was referred to the wound center for further evaluation and treatment. 07/29--Has been applying santyl and dry dressing since visit last friday. No drainage for the last few days. Vascular testing scheduled for 08/08. Awaiting lab work from PCP. Admits to sleeping in a recliner since March. Denies N/V/F/C. Some redness to R leg, but no pus, no malodor, no warmth, minimal pain. There is edema. Culture positive for e.coli from Friday. Will Rx Keflex today. 08/05-- Pt taking Keflex, tolerating well. Vascular testing scheduled for friday. Size improved with the use of nickel-thickness Santyl and lightly moistened gauze with light spandagrip. Plan to increase compression once vascular testing done. 08/12--Arterial testing done, normal. Venous test reveals multiple incompetent veins in the RLE. Pt states he cannot tolerate any tighter compression than the current spandagrip stocking. He will be referred to Dr. Patton today for evaluation. There is still fibrous tissue, but there are also skin islands forming within the ulceration. 08/19--Pt applying santyl nickel-thick and lightly moistened gauze dressing daily. There is still fibrous tissue, but there are also skin islands forming within the ulceration. Measurements improved today. Pt's is with him today, and she states that he often falls asleep in his recliner, and his legs end up falling off the foot rest and his feet end up on the ground. Pt has an appointment with Dr. Patton at [facility] at the beginning of August. 08/21- initial visit with Doroteo Nash NP who patient will be transferring care to. Has been applying nickel thick santyl daily, however, site is still painful and there is now a foul smell.Cultures will be redone today.Moderate amount of slough and fibrous tissue present. Pt denies any systemic signs of infection including no fever, chills, n/v/d/c. 08/28 -patient has 2 new wounds and states that there is an increase in foul smell coming from his chronic wound. He has unaware how the 2 new wounds occurred and denies any obvious trauma, though does state that they looked like they are going to be opening prior to this visit. He does state that the wound below the right knee may be from a tape burn from his dressing changes. Progress of Wound: Eddie's wounds have not changed since his last visit. He tolerated 3 M compression but his legs were very moist and the drainage was copious from both legs that was present on the 3M dressings when removed. He is till on Flagyl and has a few days left of treatment. Denies odor, fever or chills. He is unable to tolerate having his legs elevated due to his neuropathy and frequently has them hanging down. Sleeps in his recliner. - Physical Exam Vital Signs Temp Pulse Resp BP 97.1 F L 53 L 16 136/71 H 09/26/17 15:07 09/26/17 15:07 09/26/17 15:07 09/26/17 15:07 General: Alert, Oriented x3, Cooperative, No apparent distress HEENT: Atraumatic, Normocephalic Oral: Moist Mucosa Extremities: Edema Skin: Ulcer/ Wound Wound Measurements and Assessment WC - Nurse 1 - General Ulcer Measurement Start: 09/26/17 14:39 Freq: Status: Active Protocol: Activity Type Activity Date Activity User E-Sign Co-Sign Detail Recorded Client Recorded Date Recorded By Document 09/26/17 15:07 [facility] [id number] 09/26/17 15:26 [facility] 09/26/17 15:07 Wound Center Nurse 1 [Ulcer Assessment] #4 R POSTERIOR CALF -Combined with other wound No -Current Size (cm) - Length 1 -Current Size (cm) - Width 1.9 -Current Size (cm) - Depth 0.2 -Total Square Cm 1.9 -Photo Taken No -Epithelialization None Present -Tunneling No -Undermining/Tunneling No -Circular Undermining No -Exudate Amt Large (67-100%) -Exudate Type Serosanguineous -Wound Margin Distinct, Outline Attached -Granulation Amt None Present (0 %) -Slough/Fibrin Yes -Necrosis Amt Large (67-100%) -Necrotic Tissue Type Adherent Slough -Structure Exposed N/A -Texture (Kinza-wound Skin Appearance) Scarring -Moisture ([place]za-wound Skin Appearance Assessed ) Maceration -Color (Kinza-wound Skin Appearance) Hemosiderin Staining -Temperature (Kinza-wound Skin No Abnormality Appearance) (Pt Warm) -Tenderness on Palpation (Kinza-wound No Skin Appearance) -Ulcer Cleansing Wound Cleanser -Foul Odor after Cleansing No -Anesthetic Used 4% Lidocaine Solution #3 R-MEDIAL LE -Combined with other wound No -Current Size (cm) - Length 3.8 -Current Size (cm) - Width 3.6 -Current Size (cm) - Depth 0.2 -Total Square Cm 13.68 -Photo Taken No -Epithelialization None Present -Tunneling No -Undermining/Tunneling No -Circular Undermining No -Exudate Amt Medium (34-66%) -Exudate Type Serosanguineous -Wound Margin Distinct, Outline Attached -Granulation Amt None Present (0 %) -Necrosis Amt Large (67-100%) -Necrotic Tissue Type Adherent Slough -Structure Exposed None/Limited to Skin Breakdown -Texture (Kinza-wound Skin Appearance) Scarring -Moisture (Kinza-wound Skin Appearance Assessed ) Maceration -Color (Kinza-wound Skin Appearance) Hemosiderin Staining -Temperature (Kinza-wound Skin No Abnormality Appearance) (Pt Warm) -Tenderness on Palpation (Kinza-wound No Skin Appearance) -Ulcer Cleansing Wound Cleanser -Foul Odor after Cleansing No -Anesthetic Used 4% Lidocaine Solution #2 R OROZCO -Combined with other wound No -Current Size (cm) - Length 0.7 -Current Size (cm) - Width 1.2 -Current Size (cm) - Depth 0.1 -Total Square Cm 0.84 -Photo Taken No -Epithelialization Small 1-33% -Tunneling No -Undermining/Tunneling No -Circular Undermining No -Exudate Amt Small (1-33%) -Exudate Type Serosanguineous -Wound Margin Distinct, Outline Attached -Granulation Amt Small (1-33%) -Granulation Quality Red -Slough/Fibrin Yes -Necrosis Amt Medium (34-66%) -Necrotic Tissue Type Adherent Slough -Structure Exposed None/Limited to Skin Breakdown -Texture (Kinza-wound Skin Appearance) Scarring -Moisture (Kinza-wound Skin Appearance Dry/Scaly ) -Color (Kinza-wound Skin Appearance) Assessed Ecchymosis -Tenderness on Palpation (Kinza-wound No Skin Appearance) -Ulcer Cleansing Wound Cleanser -Foul Odor after Cleansing No -Anesthetic Used 4% Lidocaine Solution #1 RIGHT LATERAL LOWER LEG -Combined with other wound No -Current Size (cm) - Length 12.5 -Current Size (cm) - Width 5 -Current Size (cm) - Depth 0.2 -Total Square Cm 62.5 -Photo Taken No -Epithelialization None Present -Tunneling No -Undermining/Tunneling No -Circular Undermining No -Exudate Amt Large (67-100%) -Exudate Type Serosanguineous -Wound Margin Distinct, Outline Attached -Granulation Amt Small (1-33%) -Granulation Quality Red -Slough/Fibrin Yes -Necrosis Amt Large (67-100%) -Necrotic Tissue Type Adherent Slough -Structure Exposed N/A -Texture (Kinza-wound Skin Appearance) Scarring -Moisture (Kinza-wound Skin Appearance Assessed ) Maceration -Color (Kinza-wound Skin Appearance) Erythema Hemosiderin Staining -Temperature (Kinza-wound Skin No Abnormality Appearance) (Pt Warm) -Tenderness on Palpation (Kinza-wound No Skin Appearance) -Ulcer Cleansing Wound Cleanser -Foul Odor after Cleansing No -Anesthetic Used 4% Lidocaine Solution [Edema Assessment] -Lower Limb Edema Present Yes -Right Calf (cm) 40 -Right Ankle (cm) 23.6 -Left Calf (cm) 35.7 -Left Ankle (cm) 23.1 WC - Nurse 2 - General Ulcer CM Notes Start: 09/26/17 14:39 Freq: Status: Active Protocol: Activity Type Activity Date Activity User E-Sign Co-Sign Detail Recorded Client Recorded Date Recorded By Document 09/26/17 16:07 T[facility] [id number] 09/26/17 16:39 TORRE[facility] 09/26/17 16:07 Wound Center Nurse 2 [Procedure/Treatment] #4 R POSTERIOR CALF -Time 16:07 -Correct Patient Yes -Correct Side, Site, Position Yes -Correct Procedure Yes -Procedure Performed Yes -Type of Procedure Debridement -Clinical Debridement Subcutaneous -Post Debridement Size (cm) - Length 1.9 -Post Debridement Size (cm) - Width 2.2 -Post Debridement Size (cm) - Depth 0.2 -Total Square Cm 4.18 -Wound/Ulcer Outcome Amputation -Ulcer Cleansing Rinsed/ Irrigated with Saline -Foul Odor after Cleansing No -Bioengineered Tissue No -Topical Lidocaine (%) 4 -Lidocaine (ml) 5 -Bleeding Controlled with NA -Treatment Response Procedure Tolerated Well #3 R-MEDIAL LE -Time 16:08 -Correct Patient Yes -Correct Side, Site, Position Yes -Correct Procedure Yes -Procedure Performed Yes -Type of Procedure Debridement -Clinical Debridement Subcutaneous -Post Debridement Size (cm) - Length 3.8 -Post Debridement Size (cm) - Width 3.9 -Post Debridement Size (cm) - Depth 0.2 -Total Square Cm 14.82 -Wound/Ulcer Outcome Not Healed -Ulcer Cleansing Rinsed/ Irrigated with Saline -Foul Odor after Cleansing No -Bioengineered Tissue No -Topical Lidocaine (%) 4 -Lidocaine (ml) 5 -Bleeding Controlled with NA -Treatment Response Procedure Tolerated Well #2 R OROZCO -Time 16:08 -Correct Patient Yes -Correct Side, Site, Position Yes -Correct Procedure Yes -Procedure Performed Yes -Type of Procedure Debridement -Clinical Debridement Subcutaneous -Post Debridement Size (cm) - Length 0.7 -Post Debridement Size (cm) - Width 0.9 -Post Debridement Size (cm) - Depth 0.1 -Total Square Cm 0.63 -Wound/Ulcer Outcome Not Healed -Ulcer Cleansing Rinsed/ Irrigated with Saline -Foul Odor after Cleansing No -Bioengineered Tissue No -Topical Lidocaine (%) 4 -Lidocaine (ml) 5 -Bleeding Controlled with NA -Treatment Response Procedure Tolerated Well #1 RIGHT LATERAL LOWER LEG -Time 16:08 -Correct Patient Yes -Correct Side, Site, Position Yes -Correct Procedure Yes -Procedure Performed Yes -Type of Procedure Debridement -Clinical Debridement Subcutaneous -Post Debridement Size (cm) - Length 13.2 -Post Debridement Size (cm) - Width 4.9 -Post Debridement Size (cm) - Depth 0.2 -Total Square Cm 64.68 -Wound/Ulcer Outcome Not Healed -Ulcer Cleansing Rinsed/ Irrigated with Saline -Foul Odor after Cleansing No -Bioengineered Tissue No -Topical Lidocaine (%) 4 -Lidocaine (ml) 5 -Bleeding Controlled with NA -Treatment Response Procedure Tolerated Well [See Physician Procedure note for Specifics] Psych/Mental Status: Normal Affect, Appropriate Debridement Note Post-Debridement Measurements/Treatment WC - Nurse 2 - General Ulcer CM Notes Start: 09/26/17 14:39 Freq: Status: Active Protocol: Activity Type Activity Date Activity User E-Sign Co-Sign Detail Recorded Client Recorded Date Recorded By Document 09/26/17 16:07 TORRE[facility] [id number] 09/26/17 16:39 09/26/17 16:07 Wound Center Nurse 2 #4 R POSTERIOR CALF -Time 16:07 -Correct Patient Yes -Correct Side, Site, Position Yes -Correct Procedure Yes -Procedure Performed Yes -Type of Procedure Debridement -Clinical Debridement Subcutaneous -Post Debridement Size (cm) - Length 1.9 -Post Debridement Size (cm) - Width 2.2 -Post Debridement Size (cm) - Depth 0.2 -Total Square Cm 4.18 -Wound/Ulcer Outcome Amputation -Ulcer Cleansing Rinsed/ Irrigated with Saline -Foul Odor after Cleansing No -Bioengineered Tissue No -Topical Lidocaine (%) 4 -Lidocaine (ml) 5 -Bleeding Controlled with NA -Treatment Response Procedure Tolerated Well #3 R-MEDIAL LE -Time 16:08 -Correct Patient Yes -Correct Side, Site, Position Yes -Correct Procedure Yes -Procedure Performed Yes -Type of Procedure Debridement -Clinical Debridement Subcutaneous -Post Debridement Size (cm) - Length 3.8 -Post Debridement Size (cm) - Width 3.9 -Post Debridement Size (cm) - Depth 0.2 -Total Square Cm 14.82 -Wound/Ulcer Outcome Not Healed -Ulcer Cleansing Rinsed/ Irrigated with Saline -Foul Odor after Cleansing No -Bioengineered Tissue No -Topical Lidocaine (%) 4 -Lidocaine (ml) 5 -Bleeding Controlled with NA -Treatment Response Procedure Tolerated Well #2 R OROZCO -Time 16:08 -Correct Patient Yes -Correct Side, Site, Position Yes -Correct Procedure Yes -Procedure Performed Yes -Type of Procedure Debridement -Clinical Debridement Subcutaneous -Post Debridement Size (cm) - Length 0.7 -Post Debridement Size (cm) - Width 0.9 -Post Debridement Size (cm) - Depth 0.1 -Total Square Cm 0.63 -Wound/Ulcer Outcome Not Healed -Ulcer Cleansing Rinsed/ Irrigated with Saline -Foul Odor after Cleansing No -Bioengineered Tissue No -Topical Lidocaine (%) 4 -Lidocaine (ml) 5 -Bleeding Controlled with NA -Treatment Response Procedure Tolerated Well #1 RIGHT LATERAL LOWER LEG -Time 16:08 -Correct Patient Yes -Correct Side, Site, Position Yes -Correct Procedure Yes -Procedure Performed Yes -Type of Procedure Debridement -Clinical Debridement Subcutaneous -Post Debridement Size (cm) - Length 13.2 -Post Debridement Size (cm) - Width 4.9 -Post Debridement Size (cm) - Depth 0.2 -Total Square Cm 64.68 -Wound/Ulcer Outcome Not Healed -Ulcer Cleansing Rinsed/ Irrigated with Saline -Foul Odor after Cleansing No -Bioengineered Tissue No -Topical Lidocaine (%) 4 -Lidocaine (ml) 5 -Bleeding Controlled with NA -Treatment Response Procedure Tolerated Well Wound debrided: right posterior calf Laterality: Right Type of Debridement: Excisional debridement Anesthesia Used: 4% Lidocaine Solution Depth: Down to and including healthy tissue, in the subcutaneous layer Percentage of wound debrided: 100 Instrument Used: 7mm curette Tissue Removed: yellow slough and devitalized tissue Severity: Fat Layer Exposed Amount of bleeding with debridement: Mild Bleeding Controlled with: Compression and gauze Patient tolerated procedure well - Additional Wound Wound debrided: right medial LE Laterality: Right Type of Debridement: Excisional debridement Anesthesia Used: 4% Lidocaine Solution Depth: Down to and including healthy tissue, in the subcutaneous layer Percentage of wound debrided: 100 Instrument Used: 7mm curette Tissue Removed: yellow slough and devitalized tissue Severity: Fat Layer Exposed Amount of bleeding with debridement: Mild Bleeding Controlled with: Compression and gauze Patient tolerated procedure: Patient tolerated procedure well - Additional Wound Wound debrided: right orozco Laterality: Right Type of Debridement: Excisional debridement Anesthesia Used: 4% Lidocaine Solution Depth: Down to and including healthy tissue, in the subcutaneous layer Percentage of wound debrided: 100 Instrument Used: 7mm curette Tissue Removed: yellow slough and devitalized tissue Severity: Fat Layer Exposed Amount of bleeding with debridement: Mild Bleeding Controlled with: Compression and gauze Patient tolerated procedure: Patient tolerated procedure well Assessment/Plan Active Problems Anemia (Chronic) PAD (peripheral artery disease) (Chronic) Type 2 diabetes mellitus treated with insulin (Chronic) Neuropathy (Chronic) 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 likely secondary to venous insufficiency Plan: Mr. Martin is here for follow up and has no new complaints at this time. Debridement done as documented above, procedure was well tolerated. He still has some fibrous exudate and devitalized tissue present but there is some areas of granulation. Will return to using Santyl and try Surepress for compression. Due to the lack of improvement with conservative treatment and the size of his wounds, I feel that he would benefit from use of Apligraf to assist in healing his wounds of the right posterior, medial and lateral ulcers. Previous vascular studies reviewed. Elevate lower extremity when sitting and when in bed. Optimize blood sugar control. Increase protein intake/supplements. F/U in 1 week.
[2017-10-10 15:59] VITALS: BP 158/62; PULSE 63; RESP 18; TEMP 36.9
--- NOTE | 2017-10-10 22:16 | PCM.WC.PN ---
(1) Anemia Status: Chronic Current Visit: Yes Qualifiers: Anemia type: unspecified type Code(s): D64.9 - Anemia, unspecified (2) COPD (chronic obstructive pulmonary disease) Status: Chronic Current Visit: Yes Qualifiers: COPD type: unspecified COPD Code(s): J44.9 - Chronic obstructive pulmonary disease, unspecified (3) PAD (peripheral artery disease) Status: Chronic Current Visit: Yes Code(s): I73.9 - Peripheral vascular disease, unspecified (4) Type 2 diabetes mellitus treated with insulin Status: Chronic Current Visit: Yes Code(s): E11.9 - Type 2 diabetes mellitus without complications; Z79.4 - nursing home (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 of insulin (5) Neuropathy Status: Chronic Current Visit: Yes Code(s): G62.9 - Polyneuropathy, unspecified (6) 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 Status: Chronic Current Visit: Yes Code(s): I70.232 - 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 (7) Chronic anticoagulation Status: Chronic Current Visit: Yes Code(s): Z79.01 - [place] (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 of anticoagulants (8) Type 2 diabetes mellitus with diabetic polyneuropathy Status: Chronic Current Visit: Yes Qualifiers: Diabetes mellitus halfway insulin use: with terminal system operator use Qualified Code(s): E11.42 - Type 2 diabetes mellitus with diabetic polyneuropathy; Z79.4 - [place] (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 of insulin Code(s): E11.42 - Type 2 diabetes mellitus with diabetic polyneuropathy (9) Type 2 diabetes mellitus with other skin ulcer Status: Chronic Current Visit: Yes Qualifiers: Diabetes mellitus terminal system operator insulin use: with terminal system operator use Qualified Code(s): E11.622 - Type 2 diabetes mellitus with other skin ulcer; Z79.4 - [place] (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 of insulin Code(s): E11.622 - Type 2 diabetes mellitus with other skin ulcer; L98.499 - Non-pressure chronic ulcer of skin of other sites with unspecified severity (10) Non-pressure chronic ulcer of right calf with fat layer exposed Status: Acute Current Visit: Yes Code(s): L97.212 - Non-pressure chronic ulcer of right calf with fat layer exposed (11) Bilateral lower extremity edema Status: Acute Current Visit: Yes Code(s): R60.0 - Localized edema (12) 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 Status: Chronic Current Visit: Yes Code(s): L97.912 - Non-pressure chronic ulcer of unspecified part of right lower leg with fat layer exposed Comment: x 2 wounds one located above medial malleolus and one just below right knee Type of Wound Date of Service: 10/10/17 Chief Complaint: nonhealing wound/ulcer of right lateral calf History of Wound: Eddie is a pleasant 76 yo man who presents for evaluation of a wound/ulcer of his right lateral calf that has been present since mid-April and has continued to get larger. He has seen his PCP and has seen another physician in their practice for the wound/ulcer and has been treated once with an UNNA boot and otherwise has been given antibiotics off and on without improvement, most recent antibiotic was Augmentin. No cultures have ever been taken of the wound. No imaging has been done. He has been using Aquaphor to the wound as instructed by his PCP. He has significant pain and edema in this leg and has been started on Lyrica which has helped with the pain. He has been unable to sleep in bed due to the pain and has been sleeping in a recliner. He denies any significant drainage but does note some on his socks from time to time. He denies any odor. Occasionally there is some bleeding. he was referred to the wound center for further evaluation and treatment. 07/29--Has been applying santyl and dry dressing since visit last friday. No drainage for the last few days. Vascular testing scheduled for 08/08. Awaiting lab work from PCP. Admits to sleeping in a recliner since March. Denies N/V/F/C. Some redness to R leg, but no pus, no malodor, no warmth, minimal pain. There is edema. Culture positive for e.coli from Friday. Will Rx Keflex today. 08/05--Pt taking Keflex, tolerating well. Vascular testing scheduled for friday. Size improved with the use of nickel-thickness Santyl and lightly moistened gauze with light spandagrip. Plan to increase compression once vascular testing done. 08/12--Arterial testing done, normal. Venous test reveals multiple incompetent veins in the RLE. Pt states he cannot tolerate any tighter compression than the current spandagrip stocking. He will be referred to Dr. Patton today for evaluation. There is still fibrous tissue, but there are also skin islands forming within the ulceration. 08/19--Pt applying santyl nickel-thick and lightly moistened gauze dressing daily. There is still fibrous tissue, but there are also skin islands forming within the ulceration. Measurements improved today. Pt's is with him today, and she states that he often falls asleep in his recliner, and his legs end up falling off the foot rest and his feet end up on the ground. Pt has an appointment with Dr. Patton at [facility] at the beginning of August. 08/21- initial visit with Doroteo Nash NP who patient will be transferring care to. Has been applying nickel thick santyl daily, however, site is still painful and there is now a foul smell.Cultures will be redone today.Moderate amount of slough and fibrous tissue present. Pt denies any systemic signs of infection including no fever, chills, n/v/d/c. 08/28-patient has 2 new wounds and states that there is an increase in foul smell coming from his chronic wound. He has unaware how the 2 new wounds occurred and denies any obvious trauma, though does state that they looked like they are going to be opening prior to this visit. He does state that the wound below the right knee may be from a tape burn from his dressing changes. Progress of Wound: Eddie's wounds have not changed much since his last visit. He has been tolerating Santyl dressings. Apligraf has been applied for but we are awaiting approval. He tolerated 3 M compression but his legs were very moist and the drainage was copious from both legs that was present on the 3M dressings when removed. He has completed antibiotic tretament. Denies odor, fever or chills. He is unable to tolerate having his legs elevated due to his neuropathy and frequently has them hanging down. Sleeps in his recliner. - Physical Exam Vital Signs Temp Pulse Resp BP 98.4 F 63 18 158/62 H 10/10/17 15:59 10/10/17 15:59 10/10/17 15:59 10/10/17 15:59 General: Alert, Oriented x3, Cooperative, No apparent distress HEENT: Atraumatic, Normocephalic Oral: Moist Mucosa Abdomen: Obese Extremities: Edema Skin: Ulcer/ Wound Wound Measurements and Assessment WC - Nurse 1 - General Ulcer Measurement Start: 09/26/17 14:39 Freq: Status: Active Protocol: Activity Type Activity Date Activity User E-Sign Co-Sign Detail Recorded Client Recorded Date Recorded By Document 10/10/17 15:59 DL [id number] 10/10/17 16:13 DL 10/10/17 15:59 Wound Center Nurse 1 [Ulcer Assessment] #4 R POSTERIOR CALF -Combined with other wound No -Current Size (cm) - Length 1.0 -Current Size (cm) - Width 1.8 -Current Size (cm) - Depth 0.2 -Total Square Cm 1.80 -Epithelialization None Present -Tunneling No -Undermining/Tunneling No -Exudate Amt Large (67-100%) -Exudate Type Yellow/Green -Wound Margin Distinct, Outline Attached -Texture (Kinza-wound Skin Appearance) Assessed -Color (Kinza-wound Skin Appearance) No Abnormality Assessed -Temperature (Kinza-wound Skin No Abnormality Appearance) (Pt Warm) -Tenderness on Palpation (Kinza-wound Yes Skin Appearance) -Ulcer Cleansing Wound Cleanser -Foul Odor after Cleansing No -Anesthetic Used 4% Lidocaine Solution #3 R-MEDIAL LE -Combined with other wound No -Current Size (cm) - Length 3.7 -Current Size (cm) - Width 4.0 -Current Size (cm) - Depth 0.2 -Total Square Cm 14.80 -Epithelialization None Present -Tunneling No -Undermining/Tunneling No -Circular Undermining No -Exudate Amt Large (67-100%) -Exudate Type Yellow/Green -Wound Margin Distinct, Outline Attached -Granulation Amt None Present (0 %) -Granulation Quality N/A -Slough/Fibrin No -Structure Exposed None/Limited to Skin Breakdown -Texture (Kinza-wound Skin Appearance) No Abnormality Assessed -Moisture (Kinza-wound Skin Appearance No Abnormality ) Assessed -Color (Kinza-wound Skin Appearance) No Abnormality Assessed -Temperature (Kinza-wound Skin No Abnormality Appearance) (Pt Warm) -Tenderness on Palpation (Kinza-wound Yes Skin Appearance) -Ulcer Cleansing Wound Cleanser -Foul Odor after Cleansing No -Anesthetic Used 4% Lidocaine Solution #2 R OROZCO -Combined with other wound No -Current Size (cm) - Length 0.7 -Current Size (cm) - Width 0.4 -Current Size (cm) - Depth 0.1 -Total Square Cm 0.28 -Epithelialization None Present -Undermining/Tunneling No -Circular Undermining No -Exudate Amt None Present (0 %) -Wound Margin Distinct, Outline Attached -Granulation Amt None Present (0 %) -Granulation Quality N/A -Slough/Fibrin Yes -Necrosis Amt Large (67-100%) -Necrotic Tissue Type Adherent Slough -Structure Exposed None/Limited to Skin Breakdown -Texture (Kinza-wound Skin Appearance) No Abnormality Assessed -Moisture (Kinza-wound Skin Appearance No Abnormality ) Assessed -Color (Kinza-wound Skin Appearance) No Abnormality Assessed -Temperature (Kinza-wound Skin No Abnormality Appearance) (Pt Warm) -Tenderness on Palpation (Kinza-wound Yes Skin Appearance) -Ulcer Cleansing Wound Cleanser -Foul Odor after Cleansing No -Anesthetic Used 4% Lidocaine Solution #1 RIGHT LATERAL LOWER LEG -Combined with other wound No -Current Size (cm) - Length 12.2 -Current Size (cm) - Width 5 -Current Size (cm) - Depth 0.3 -Total Square Cm 61.0 -Tunneling No -Undermining/Tunneling No -Exudate Amt Large (67-100%) -Exudate Type Yellow/Green -Wound Margin Distinct, Outline Attached -Granulation Amt Medium (34-66%) -Granulation Quality Red -Slough/Fibrin Yes -Necrosis Amt Medium (34-66%) -Necrotic Tissue Type Adherent Slough -Structure Exposed None/Limited to Skin Breakdown -Texture (Kinza-wound Skin Appearance) No Abnormality Assessed -Moisture (Kinza-wound Skin Appearance No Abnormality ) Assessed -Color (Kinza-wound Skin Appearance) No Abnormality Assessed -Temperature (Kinza-wound Skin No Abnormality Appearance) (Pt Warm) -Tenderness on Palpation (Kinza-wound Yes Skin Appearance) -Ulcer Cleansing Wound Cleanser -Foul Odor after Cleansing No -Anesthetic Used 4% Lidocaine Solution [Edema Assessment] -Lower Limb Edema Present Yes -Right Calf (cm) 32 -Right Ankle (cm) 23 WC - Nurse 2 - General Ulcer CM Notes Start: 09/26/17 14:39 Freq: Status: Active Protocol: Activity Type Activity Date Activity User E-Sign Co-Sign Detail Recorded Client Recorded Date Recorded By Document 10/10/17 17:53 [id number] 10/10/17 18:10 10/10/17 17:53 Wound Center Nurse 2 [Procedure/Treatment] #4 R POSTERIOR CALF -Time 17:53 -Correct Patient Yes -Correct Side, Site, Position Yes -Correct Procedure Yes -Procedure Performed Yes -Type of Procedure Debridement -Clinical Debridement Subcutaneous -Post Debridement Size (cm) - Length 1.8 -Post Debridement Size (cm) - Width 2.3 -Post Debridement Size (cm) - Depth 0.3 -Total Square Cm 4.14 -Wound/Ulcer Outcome Not Healed -Ulcer Cleansing Rinsed/ Irrigated with Saline -Foul Odor after Cleansing No -Bioengineered Tissue No -Bleeding Controlled with Pressure -Treatment Response Procedure Tolerated Well #3 R-MEDIAL LE -Time 17:57 -Correct Patient Yes -Correct Side, Site, Position Yes -Correct Procedure Yes -Procedure Performed Yes -Type of Procedure Debridement -Clinical Debridement Subcutaneous -Post Debridement Size (cm) - Length 3.7 -Post Debridement Size (cm) - Width 4.2 -Post Debridement Size (cm) - Depth 0.2 -Total Square Cm 15.54 -Wound/Ulcer Outcome Not Healed -Ulcer Cleansing Rinsed/ Irrigated with Saline -Foul Odor after Cleansing No -Bioengineered Tissue No -Bleeding Controlled with Pressure -Treatment Response Procedure Tolerated Well #2 R OROZCO -Time 17:58 -Correct Patient Yes -Correct Side, Site, Position Yes -Correct Procedure Yes -Procedure Performed Yes -Type of Procedure Debridement -Clinical Debridement Subcutaneous -Post Debridement Size (cm) - Length 0.1 -Post Debridement Size (cm) - Width 0.1 -Post Debridement Size (cm) - Depth 0.1 -Total Square Cm 0.01 -Wound/Ulcer Outcome Not Healed -Ulcer Cleansing Rinsed/ Irrigated with Saline -Foul Odor after Cleansing No -Bioengineered Tissue No -Bleeding Controlled with Pressure -Treatment Response Procedure Tolerated Well #1 RIGHT LATERAL LOWER LEG -Time 17:59 -Correct Patient Yes -Correct Side, Site, Position Yes -Correct Procedure Yes -Procedure Performed Yes -Type of Procedure Debridement -Clinical Debridement Subcutaneous -Post Debridement Size (cm) - Length 12.6 -Post Debridement Size (cm) - Width 5.0 -Post Debridement Size (cm) - Depth 0.3 -Total Square Cm 63.00 -Wound/Ulcer Outcome Not Healed -Ulcer Cleansing Rinsed/ Irrigated with Saline -Foul Odor after Cleansing No -Bioengineered Tissue No -Bleeding Controlled with Pressure Silver Nitrate -Treatment Response Procedure Tolerated Well [See Physician Procedure note for Specifics] Pain Scale: 0-10 Numeric [Pain] -Is Patient Pain Free? Yes Psych/Mental Status: Normal Affect, Appropriate Debridement Note Post-Debridement Measurements/Treatment WC - Nurse 2 - General Ulcer CM Notes Start: 09/26/17 14:39 Freq: Status: Active Protocol: Activity Type Activity Date Activity User E-Sign Co-Sign Detail Recorded Client Recorded Date Recorded By Document 09/26/17 16:07 JS [id number] 09/26/17 16:39 JS Document 10/10/17 17:53 CS [id number] 10/10/17 18:10 CS 09/26/17 10/10/17 16:07 17:53 Wound Center Nurse 2 #4 R POSTERIOR CALF -Time 16:07 17:53 -Correct Patient Yes Yes -Correct Side, Site, Position Yes Yes -Correct Procedure Yes Yes -Procedure Performed Yes Yes -Type of Procedure Debridement Debridement -Clinical Debridement Subcutaneous Subcutaneous -Post Debridement Size (cm) - Length 1.9 1.8 -Post Debridement Size (cm) - Width 2.2 2.3 -Post Debridement Size (cm) - Depth 0.2 0.3 -Total Square Cm 4.18 4.14 -Wound/Ulcer Outcome Amputation Not Healed -Ulcer Cleansing Rinsed/ Rinsed/ Irrigated with Irrigated with Saline Saline -Foul Odor after Cleansing No No -Bioengineered Tissue No No -Topical Lidocaine (%) 4 -Lidocaine (ml) 5 -Bleeding Controlled with NA Pressure -Treatment Response Procedure Procedure Tolerated Well Tolerated Well #3 R-MEDIAL LE -Time 16:08 17:57 -Correct Patient Yes Yes -Correct Side, Site, Position Yes Yes -Correct Procedure Yes Yes -Procedure Performed Yes Yes -Type of Procedure Debridement Debridement -Clinical Debridement Subcutaneous Subcutaneous -Post Debridement Size (cm) - Length 3.8 3.7 -Post Debridement Size (cm) - Width 3.9 4.2 -Post Debridement Size (cm) - Depth 0.2 0.2 -Total Square Cm 14.82 15.54 -Wound/Ulcer Outcome Not Healed Not Healed -Ulcer Cleansing Rinsed/ Rinsed/ Irrigated with Irrigated with Saline Saline -Foul Odor after Cleansing No No -Bioengineered Tissue No No -Topical Lidocaine (%) 4 -Lidocaine (ml) 5 -Bleeding Controlled with NA Pressure -Treatment Response Procedure Procedure Tolerated Well Tolerated Well #2 R OROZCO -Time 16:08 17:58 -Correct Patient Yes Yes -Correct Side, Site, Position Yes Yes -Correct Procedure Yes Yes -Procedure Performed Yes Yes -Type of Procedure Debridement Debridement -Clinical Debridement Subcutaneous Subcutaneous -Post Debridement Size (cm) - Length 0.7 0.1 -Post Debridement Size (cm) - Width 0.9 0.1 -Post Debridement Size (cm) - Depth 0.1 0.1 -Total Square Cm 0.63 0.01 -Wound/Ulcer Outcome Not Healed Not Healed -Ulcer Cleansing Rinsed/ Rinsed/ Irrigated with Irrigated with Saline Saline -Foul Odor after Cleansing No No -Bioengineered Tissue No No -Topical Lidocaine (%) 4 -Lidocaine (ml) 5 -Bleeding Controlled with NA Pressure -Treatment Response Procedure Procedure Tolerated Well Tolerated Well #1 RIGHT LATERAL LOWER LEG -Time 16:08 17:59 -Correct Patient Yes Yes -Correct Side, Site, Position Yes Yes -Correct Procedure Yes Yes -Procedure Performed Yes Yes -Type of Procedure Debridement Debridement -Clinical Debridement Subcutaneous Subcutaneous -Post Debridement Size (cm) - Length 13.2 12.6 -Post Debridement Size (cm) - Width 4.9 5.0 -Post Debridement Size (cm) - Depth 0.2 0.3 -Total Square Cm 64.68 63.00 -Wound/Ulcer Outcome Not Healed Not Healed -Ulcer Cleansing Rinsed/ Rinsed/ Irrigated with Irrigated with Saline Saline -Foul Odor after Cleansing No No -Bioengineered Tissue No No -Topical Lidocaine (%) 4 -Lidocaine (ml) 5 -Bleeding Controlled with NA Pressure Silver Nitrate -Treatment Response Procedure Procedure Tolerated Well Tolerated Well Pain Scale: 0-10 Numeric Is Patient Pain Free? Yes Wound debrided: right posterior calf Laterality: Right Type of Debridement: Excisional debridement Anesthesia Used: 4% Lidocaine Solution, 5% Lidocaine Gel Depth: Down to and including healthy tissue, in the subcutaneous layer Percentage of wound debrided: 100 Instrument Used: 5mm curette Tissue Removed: yellow slough, devitalized tissue Severity: Fat Layer Exposed Amount of bleeding with debridement: Mild Bleeding Controlled with: Compression and gauze Patient tolerated procedure well - Additional Wound Wound debrided: right medial LE Laterality: Right Type of Debridement: Excisional debridement Anesthesia Used: 4% Lidocaine Solution, 5% Lidocaine Gel Depth: Down to and including healthy tissue, in the subcutaneous layer Percentage of wound debrided: 100 Instrument Used: 5mm curette Tissue Removed: yellow slough, devitalized tissue Severity: Fat Layer Exposed Amount of bleeding with debridement: Mild Bleeding Controlled with: Compression and gauze Patient tolerated procedure: Patient tolerated procedure well - Additional Wound Wound debrided: right orozco Laterality: Right Type of Debridement: Excisional debridement Anesthesia Used: 4% Lidocaine Solution Depth: Down to and including healthy tissue, in the subcutaneous layer Percentage of wound debrided: 100 Instrument Used: 5mm curette Tissue Removed: yellow slough, devitalized tissue Severity: Fat Layer Exposed Amount of bleeding with debridement: Mild Bleeding Controlled with: Compression and gauze Patient tolerated procedure: Patient tolerated procedure well - Additional Wound Wound debrided: right lateral lower leg Laterality: Right Type of Debridement: Excisional debridement Anesthesia Used: 4% Lidocaine Solution Depth: Down to and including healthy tissue, in the subcutaneous layer Percentage of wound debrided: 100 Instrument Used: 5mm curette Tissue Removed: yellow slough, devitalized tissue Severity: Fat Layer Exposed Amount of bleeding with debridement: Mild Bleeding Controlled with: Compression and gauze Patient tolerated procedure: Patient tolerated procedure well Assessment/Plan Active Problems Anemia (Chronic) COPD (chronic obstructive pulmonary disease) (Chronic) PAD (peripheral artery disease) (Chronic) Type 2 diabetes mellitus treated with insulin (Chronic) Neuropathy (Chronic) 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 Martin is here for follow up and has no new complaints at this time. Debridement done as documented above, procedure was well tolerated. He still has significant fibrous exudate and devitalized tissue present that is not able to be debrided well but there is some areas of granulation. Will continue using Santyl and Surepress for compression. Due to the lack of improvement with conservative treatment and the size of his wounds, I feel that he would benefit from use of Apligraf to assist in healing his wounds of the right posterior, medial and lateral ulcers. Previous vascular studies reviewed. Elevate lower extremity when sitting and when in bed. Optimize blood sugar control. Increase protein intake/supplements. F/U in 1 week.
--- NOTE | 2017-10-10 22:22 | PN.PCM_ITS ---
(1) Anemia Status: Chronic Current Visit: Yes Qualifiers: Anemia type: unspecified type Code(s): D64.9 - Anemia, unspecified (2) COPD (chronic obstructive pulmonary disease) Status: Chronic Current Visit: Yes Qualifiers: COPD type: unspecified COPD Code(s): J44.9 - Chronic obstructive pulmonary disease, unspecified (3) PAD (peripheral artery disease) Status: Chronic Current Visit: Yes Code(s): I73.9 - Peripheral vascular disease, unspecified (4) Type 2 diabetes mellitus treated with insulin Status: Chronic Current Visit: Yes Code(s): E11.9 - Type 2 diabetes mellitus without complications; Z79.4 - [facility] (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 of insulin (5) Neuropathy Status: Chronic Current Visit: Yes Code(s): G62.9 - Polyneuropathy, unspecified (6) 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 Status: Chronic Current Visit: Yes Code(s): I70.232 - 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 (7) Chronic anticoagulation Status: Chronic Current Visit: Yes Code(s): 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 (8) Type 2 diabetes mellitus with diabetic polyneuropathy Status: Chronic Current Visit: Yes Qualifiers: Diabetes mellitus fpc insulin use: with termite renewal inspector use Qualified Code( s): E11.42 - Type 2 diabetes mellitus with diabetic polyneuropathy; Z79.4 - [facility] (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 of insulin Code(s): E11.42 - Type 2 diabetes mellitus with diabetic polyneuropathy (9) Type 2 diabetes mellitus with other skin ulcer Status: Chronic Current Visit: Yes Qualifiers: Diabetes mellitus fpc insulin use: with termite renewal inspector use Qualified Code( s): E11.622 - Type 2 diabetes mellitus with other skin ulcer; Z79.4 - [facility] (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 of insulin Code(s): E11.622 - Type 2 diabetes mellitus with other skin ulcer; L98.499 - Non -pressure chronic ulcer of skin of other sites with unspecified severity (10) Non-pressure chronic ulcer of right calf with fat layer exposed Status: Acute Current Visit: Yes Code(s): L97.212 - Non-pressure chronic ulcer of right calf with fat layer exposed (11) Bilateral lower extremity edema Status: Acute Current Visit: Yes Code(s): R60.0 - Localized edema (12) 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 Status: Chronic Current Visit: Yes Code(s): L97.912 - Non-pressure chronic ulcer of unspecified part of right lower leg with fat layer exposed Comment: x 2 wounds one located above medial malleolus and one just below right knee Type of Wound Date of Service: 10/10/17 Chief Complaint: nonhealing wound/ulcer of right lateral calf History of Wound: Eddie is a pleasant 76 yo man who presents for evaluation of a wound/ulcer of his right lateral calf that has been present since mid-April and has continued to get larger. He has seen his PCP and has seen another physician in their practice for the wound/ulcer and has been treated once with an UNNA boot and otherwise has been given antibiotics off and on without improvement, most recent antibiotic was Augmentin. No cultures have ever been taken of the wound. No imaging has been done. He has been using Aquaphor to the wound as instructed by his PCP. He has significant pain and edema in this leg and has been started on Lyrica which has helped with the pain. He has been unable to sleep in bed due to the pain and has been sleeping in a recliner. He denies any significant drainage but does note some on his socks from time to time. He denies any odor. Occasionally there is some bleeding. he was referred to the wound center for further evaluation and treatment. 07/29--Has been applying santyl and dry dressing since visit last friday. No drainage for the last few days. Vascular testing scheduled for 08/08. Awaiting lab work from PCP. Admits to sleeping in a recliner since March. Denies N/V/F/C. Some redness to R leg, but no pus, no malodor, no warmth, minimal pain. There is edema. Culture positive for e.coli from Friday. Will Rx Keflex today. 08/05-- Pt taking Keflex, tolerating well. Vascular testing scheduled for friday. Size improved with the use of nickel-thickness Santyl and lightly moistened gauze with light spandagrip. Plan to increase compression once vascular testing done. 08/12--Arterial testing done, normal. Venous test reveals multiple incompetent veins in the RLE. Pt states he cannot tolerate any tighter compression than the current spandagrip stocking. He will be referred to Dr. Patton today for evaluation. There is still fibrous tissue, but there are also skin islands forming within the ulceration. 08/19--Pt applying santyl nickel-thick and lightly moistened gauze dressing daily. There is still fibrous tissue, but there are also skin islands forming within the ulceration. Measurements improved today. Pt's is with him today, and she states that he often falls asleep in his recliner, and his legs end up falling off the foot rest and his feet end up on the ground. Pt has an appointment with Dr. Patton at [facility] at the beginning of August. 08/21- initial visit with Doroteo Nash NP who patient will be transferring care to. Has been applying nickel thick santyl daily, however, site is still painful and there is now a foul smell.Cultures will be redone today.Moderate amount of slough and fibrous tissue present. Pt denies any systemic signs of infection including no fever, chills, n/v/d/c. 08/28 -patient has 2 new wounds and states that there is an increase in foul smell coming from his chronic wound. He has unaware how the 2 new wounds occurred and denies any obvious trauma, though does state that they looked like they are going to be opening prior to this visit. He does state that the wound below the right knee may be from a tape burn from his dressing changes. Progress of Wound: Eddie's wounds have not changed much since his last visit. He has been tolerating Santyl dressings. Apligraf has been applied for but we are awaiting approval. He tolerated 3 M compression but his legs were very moist and the drainage was copious from both legs that was present on the 3M dressings when removed. He has completed antibiotic tretament. Denies odor, fever or chills. He is unable to tolerate having his legs elevated due to his neuropathy and frequently has them hanging down. Sleeps in his recliner. - Physical Exam Vital Signs Temp Pulse Resp BP 98.4 F 63 18 158/62 H 10/10/17 15:59 10/10/17 15:59 10/10/17 15:59 10/10/17 15:59 General: Alert, Oriented x3, Cooperative, No apparent distress HEENT: Atraumatic, Normocephalic Oral: Moist Mucosa Abdomen: Obese Extremities: Edema Skin: Ulcer/ Wound Wound Measurements and Assessment WC - Nurse 1 - General Ulcer Measurement Start: 09/26/17 14:39 Freq: Status: Active Protocol: Activity Type Activity Date Activity User E-Sign Co-Sign Detail Recorded Client Recorded Date Recorded By Document 10/10/17 15:59 DL [id number] 10/10/17 16:13 DL 10/10/17 15:59 Wound Center Nurse 1 [Ulcer Assessment] #4 R POSTERIOR CALF -Combined with other wound No -Current Size (cm) - Length 1.0 -Current Size (cm) - Width 1.8 -Current Size (cm) - Depth 0.2 -Total Square Cm 1.80 -Epithelialization None Present -Tunneling No -Undermining/Tunneling No -Exudate Amt Large (67-100%) -Exudate Type Yellow/Green -Wound Margin Distinct, Outline Attached -Texture (Kinza-wound Skin Appearance) Assessed -Color (Kinza-wound Skin Appearance) No Abnormality Assessed -Temperature (Kinza-wound Skin No Abnormality Appearance) (Pt Warm) -Tenderness on Palpation (Kinza-wound Yes Skin Appearance) -Ulcer Cleansing Wound Cleanser -Foul Odor after Cleansing No -Anesthetic Used 4% Lidocaine Solution #3 R-MEDIAL LE -Combined with other wound No -Current Size (cm) - Length 3.7 -Current Size (cm) - Width 4.0 -Current Size (cm) - Depth 0.2 -Total Square Cm 14.80 -Epithelialization None Present -Tunneling No -Undermining/Tunneling No -Circular Undermining No -Exudate Amt Large (67-100%) -Exudate Type Yellow/Green -Wound Margin Distinct, Outline Attached -Granulation Amt None Present (0 %) -Granulation Quality N/A -Slough/Fibrin No -Structure Exposed None/Limited to Skin Breakdown -Texture (Kinza-wound Skin Appearance) No Abnormality Assessed -Moisture (Kinza-wound Skin Appearance No Abnormality ) Assessed -Color (Kinza-wound Skin Appearance) No Abnormality Assessed -Temperature (Kinza-wound Skin No Abnormality Appearance) (Pt Warm) -Tenderness on Palpation (Kinza-wound Yes Skin Appearance) -Ulcer Cleansing Wound Cleanser -Foul Odor after Cleansing No -Anesthetic Used 4% Lidocaine Solution #2 R OROCZO -Combined with other wound No -Current Size (cm) - Length 0.7 -Current Size (cm) - Width 0.4 -Current Size (cm) - Depth 0.1 -Total Square Cm 0.28 -Epithelialization None Present -Undermining/Tunneling No -Circular Undermining No -Exudate Amt None Present (0 %) -Wound Margin Distinct, Outline Attached -Granulation Amt None Present (0 %) -Granulation Quality N/A -Slough/Fibrin Yes -Necrosis Amt Large (67-100%) -Necrotic Tissue Type Adherent Slough -Structure Exposed None/Limited to Skin Breakdown -Texture (Kinza-wound Skin Appearance) No Abnormality Assessed -Moisture (Kinza-wound Skin Appearance No Abnormality ) Assessed -Color (Kinza-wound Skin Appearance) No Abnormality Assessed -Temperature (Kinza-wound Skin No Abnormality Appearance) (Pt Warm) -Tenderness on Palpation (Kinza-wound Yes Skin Appearance) -Ulcer Cleansing Wound Cleanser -Foul Odor after Cleansing No -Anesthetic Used 4% Lidocaine Solution #1 RIGHT LATERAL LOWER LEG -Combined with other wound No -Current Size (cm) - Length 12.2 -Current Size (cm) - Width 5 -Current Size (cm) - Depth 0.3 -Total Square Cm 61.0 -Tunneling No -Undermining/Tunneling No -Exudate Amt Large (67-100%) -Exudate Type Yellow/Green -Wound Margin Distinct, Outline Attached -Granulation Amt Medium (34-66%) -Granulation Quality Red -Slough/Fibrin Yes -Necrosis Amt Medium (34-66%) -Necrotic Tissue Type Adherent Slough -Structure Exposed None/Limited to Skin Breakdown -Texture (Kinza-wound Skin Appearance) No Abnormality Assessed -Moisture (Kinza-wound Skin Appearance No Abnormality ) Assessed -Color (Kinza-wound Skin Appearance) No Abnormality Assessed -Temperature (Kinza-wound Skin No Abnormality Appearance) (Pt Warm) -Tenderness on Palpation (Kinza-wound Yes Skin Appearance) -Ulcer Cleansing Wound Cleanser -Foul Odor after Cleansing No -Anesthetic Used 4% Lidocaine Solution [Edema Assessment] -Lower Limb Edema Present Yes -Right Calf (cm) 32 -Right Ankle (cm) 23 WC - Nurse 2 - General Ulcer CM Notes Start: 09/26/17 14:39 Freq: Status: Active Protocol: Activity Type Activity Date Activity User E-Sign Co-Sign Detail Recorded Client Recorded Date Recorded By Document 10/10/17 17:53 [id number] 10/10/17 18:10 10/10/17 17:53 Wound Center Nurse 2 [Procedure/Treatment] #4 R POSTERIOR CALF -Time 17:53 -Correct Patient Yes -Correct Side, Site, Position Yes -Correct Procedure Yes -Procedure Performed Yes -Type of Procedure Debridement -Clinical Debridement Subcutaneous -Post Debridement Size (cm) - Length 1.8 -Post Debridement Size (cm) - Width 2.3 -Post Debridement Size (cm) - Depth 0.3 -Total Square Cm 4.14 -Wound/Ulcer Outcome Not Healed -Ulcer Cleansing Rinsed/ Irrigated with Saline -Foul Odor after Cleansing No -Bioengineered Tissue No -Bleeding Controlled with Pressure -Treatment Response Procedure Tolerated Well #3 R-MEDIAL LE -Time 17:57 -Correct Patient Yes -Correct Side, Site, Position Yes -Correct Procedure Yes -Procedure Performed Yes -Type of Procedure Debridement -Clinical Debridement Subcutaneous -Post Debridement Size (cm) - Length 3.7 -Post Debridement Size (cm) - Width 4.2 -Post Debridement Size (cm) - Depth 0.2 -Total Square Cm 15.54 -Wound/Ulcer Outcome Not Healed -Ulcer Cleansing Rinsed/ Irrigated with Saline -Foul Odor after Cleansing No -Bioengineered Tissue No -Bleeding Controlled with Pressure -Treatment Response Procedure Tolerated Well #2 R OROZCO -Time 17:58 -Correct Patient Yes -Correct Side, Site, Position Yes -Correct Procedure Yes -Procedure Performed Yes -Type of Procedure Debridement -Clinical Debridement Subcutaneous -Post Debridement Size (cm) - Length 0.1 -Post Debridement Size (cm) - Width 0.1 -Post Debridement Size (cm) - Depth 0.1 -Total Square Cm 0.01 -Wound/Ulcer Outcome Not Healed -Ulcer Cleansing Rinsed/ Irrigated with Saline -Foul Odor after Cleansing No -Bioengineered Tissue No -Bleeding Controlled with Pressure -Treatment Response Procedure Tolerated Well #1 RIGHT LATERAL LOWER LEG -Time 17:59 -Correct Patient Yes -Correct Side, Site, Position Yes -Correct Procedure Yes -Procedure Performed Yes -Type of Procedure Debridement -Clinical Debridement Subcutaneous -Post Debridement Size (cm) - Length 12.6 -Post Debridement Size (cm) - Width 5.0 -Post Debridement Size (cm) - Depth 0.3 -Total Square Cm 63.00 -Wound/Ulcer Outcome Not Healed -Ulcer Cleansing Rinsed/ Irrigated with Saline -Foul Odor after Cleansing No -Bioengineered Tissue No -Bleeding Controlled with Pressure Silver Nitrate -Treatment Response Procedure Tolerated Well [See Physician Procedure note for Specifics] Pain Scale: 0-10 Numeric [Pain] -Is Patient Pain Free? Yes Psych/Mental Status: Normal Affect, Appropriate Debridement Note Post-Debridement Measurements/Treatment WC - Nurse 2 - General Ulcer CM Notes Start: 09/26/17 14:39 Freq: Status: Active Protocol: Activity Type Activity Date Activity User E-Sign Co-Sign Detail Recorded Client Recorded Date Recorded By Document 09/26/17 16:07 JS [id number] 09/26/17 16:39 JS Document 10/10/17 17:53 CS [id number] 10/10/17 18:10 CS 09/26/17 10/10/17 16:07 17:53 Wound Center Nurse 2 #4 R POSTERIOR CALF -Time 16:07 17:53 -Correct Patient Yes Yes -Correct Side, Site, Position Yes Yes -Correct Procedure Yes Yes -Procedure Performed Yes Yes -Type of Procedure Debridement Debridement -Clinical Debridement Subcutaneous Subcutaneous -Post Debridement Size (cm) - Length 1.9 1.8 -Post Debridement Size (cm) - Width 2.2 2.3 -Post Debridement Size (cm) - Depth 0.2 0.3 -Total Square Cm 4.18 4.14 -Wound/Ulcer Outcome Amputation Not Healed -Ulcer Cleansing Rinsed/ Rinsed/ Irrigated with Irrigated with Saline Saline -Foul Odor after Cleansing No No -Bioengineered Tissue No No -Topical Lidocaine (%) 4 -Lidocaine (ml) 5 -Bleeding Controlled with NA Pressure -Treatment Response Procedure Procedure Tolerated Well Tolerated Well #3 R-MEDIAL LE -Time 16:08 17:57 -Correct Patient Yes Yes -Correct Side, Site, Position Yes Yes -Correct Procedure Yes Yes -Procedure Performed Yes Yes -Type of Procedure Debridement Debridement -Clinical Debridement Subcutaneous Subcutaneous -Post Debridement Size (cm) - Length 3.8 3.7 -Post Debridement Size (cm) - Width 3.9 4.2 -Post Debridement Size (cm) - Depth 0.2 0.2 -Total Square Cm 14.82 15.54 -Wound/Ulcer Outcome Not Healed Not Healed -Ulcer Cleansing Rinsed/ Rinsed/ Irrigated with Irrigated with Saline Saline -Foul Odor after Cleansing No No -Bioengineered Tissue No No -Topical Lidocaine (%) 4 -Lidocaine (ml) 5 -Bleeding Controlled with NA Pressure -Treatment Response Procedure Procedure Tolerated Well Tolerated Well #2 R OROZCO -Time 16:08 17:58 -Correct Patient Yes Yes -Correct Side, Site, Position Yes Yes -Correct Procedure Yes Yes -Procedure Performed Yes Yes -Type of Procedure Debridement Debridement -Clinical Debridement Subcutaneous Subcutaneous -Post Debridement Size (cm) - Length 0.7 0.1 -Post Debridement Size (cm) - Width 0.9 0.1 -Post Debridement Size (cm) - Depth 0.1 0.1 -Total Square Cm 0.63 0.01 -Wound/Ulcer Outcome Not Healed Not Healed -Ulcer Cleansing Rinsed/ Rinsed/ Irrigated with Irrigated with Saline Saline -Foul Odor after Cleansing No No -Bioengineered Tissue No No -Topical Lidocaine (%) 4 -Lidocaine (ml) 5 -Bleeding Controlled with NA Pressure -Treatment Response Procedure Procedure Tolerated Well Tolerated Well #1 RIGHT LATERAL LOWER LEG -Time 16:08 17:59 -Correct Patient Yes Yes -Correct Side, Site, Position Yes Yes -Correct Procedure Yes Yes -Procedure Performed Yes Yes -Type of Procedure Debridement Debridement -Clinical Debridement Subcutaneous Subcutaneous -Post Debridement Size (cm) - Length 13.2 12.6 -Post Debridement Size (cm) - Width 4.9 5.0 -Post Debridement Size (cm) - Depth 0.2 0.3 -Total Square Cm 64.68 63.00 -Wound/Ulcer Outcome Not Healed Not Healed -Ulcer Cleansing Rinsed/ Rinsed/ Irrigated with Irrigated with Saline Saline -Foul Odor after Cleansing No No -Bioengineered Tissue No No -Topical Lidocaine (%) 4 -Lidocaine (ml) 5 -Bleeding Controlled with NA Pressure Silver Nitrate -Treatment Response Procedure Procedure Tolerated Well Tolerated Well Pain Scale: 0-10 Numeric Is Patient Pain Free? Yes Wound debrided: right posterior calf Laterality: Right Type of Debridement: Excisional debridement Anesthesia Used: 4% Lidocaine Solution, 5% Lidocaine Gel Depth: Down to and including healthy tissue, in the subcutaneous layer Percentage of wound debrided: 100 Instrument Used: 5mm curette Tissue Removed: yellow slough, devitalized tissue Severity: Fat Layer Exposed Amount of bleeding with debridement: Mild Bleeding Controlled with: Compression and gauze Patient tolerated procedure well - Additional Wound Wound debrided: right medial LE Laterality: Right Type of Debridement: Excisional debridement Anesthesia Used: 4% Lidocaine Solution, 5% Lidocaine Gel Depth: Down to and including healthy tissue, in the subcutaneous layer Percentage of wound debrided: 100 Instrument Used: 5mm curette Tissue Removed: yellow slough, devitalized tissue Severity: Fat Layer Exposed Amount of bleeding with debridement: Mild Bleeding Controlled with: Compression and gauze Patient tolerated procedure: Patient tolerated procedure well - Additional Wound Wound debrided: right orozco Laterality: Right Type of Debridement: Excisional debridement Anesthesia Used: 4% Lidocaine Solution Depth: Down to and including healthy tissue, in the subcutaneous layer Percentage of wound debrided: 100 Instrument Used: 5mm curette Tissue Removed: yellow slough, devitalized tissue Severity: Fat Layer Exposed Amount of bleeding with debridement: Mild Bleeding Controlled with: Compression and gauze Patient tolerated procedure: Patient tolerated procedure well - Additional Wound Wound debrided: right lateral lower leg Laterality: Right Type of Debridement: Excisional debridement Anesthesia Used: 4% Lidocaine Solution Depth: Down to and including healthy tissue, in the subcutaneous layer Percentage of wound debrided: 100 Instrument Used: 5mm curette Tissue Removed: yellow slough, devitalized tissue Severity: Fat Layer Exposed Amount of bleeding with debridement: Mild Bleeding Controlled with: Compression and gauze Patient tolerated procedure: Patient tolerated procedure well Assessment/Plan Active Problems Anemia (Chronic) COPD (chronic obstructive pulmonary disease) (Chronic) PAD (peripheral artery disease) (Chronic) Type 2 diabetes mellitus treated with insulin (Chronic) Neuropathy (Chronic) 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 likely secondary to venous insufficiency Plan: Mr. Martin is here for follow up and has no new complaints at this time. Debridement done as documented above, procedure was well tolerated. He still has significant fibrous exudate and devitalized tissue present that is not able to be debrided well but there is some areas of granulation. Will continue using Santyl and Surepress for compression. Due to the lack of improvement with conservative treatment and the size of his wounds, I feel that he would benefit from use of Apligraf to assist in healing his wounds of the right posterior, medial and lateral ulcers. Previous vascular studies reviewed. Elevate lower extremity when sitting and when in bed. Optimize blood sugar control. Increase protein intake/supplements. F/U in 1 week.
[2017-10-17 16:34] VITALS: BP 166/67; PULSE 65; RESP 18; TEMP 36.1
--- NOTE | 2017-10-17 19:26 | PCM.WC.PN ---
(1) Anemia Status: Chronic Current Visit: Yes Qualifiers: Anemia type: unspecified type Code(s): D64.9 - Anemia, unspecified (2) COPD (chronic obstructive pulmonary disease) Status: Chronic Current Visit: Yes Qualifiers: COPD type: unspecified COPD Code(s): J44.9 - Chronic obstructive pulmonary disease, unspecified (3) Type 2 diabetes mellitus treated with insulin Status: Chronic Current Visit: Yes Code(s): E11.9 - Type 2 diabetes mellitus without complications; Z79.4 - penitentiary (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 of insulin (4) Neuropathy Status: Chronic Current Visit: Yes Code(s): G62.9 - Polyneuropathy, unspecified (5) Chronic anticoagulation Status: Chronic Current Visit: Yes Code(s): Z79.01 - terminal operations manager (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 of anticoagulants (6) Type 2 diabetes mellitus with diabetic polyneuropathy Status: Chronic Current Visit: Yes Qualifiers: Diabetes mellitus technician terminal and repeater insulin use: with technician terminal and repeater use Qualified Code(s): E11.42 - Type 2 diabetes mellitus with diabetic polyneuropathy; Z79.4 - penitentiary (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 of insulin Code(s): E11.42 - Type 2 diabetes mellitus with diabetic polyneuropathy (7) Type 2 diabetes mellitus with other skin ulcer Status: Chronic Current Visit: Yes Qualifiers: Diabetes mellitus penitentiary insulin use: with technician terminal and repeater use Qualified Code(s): E11.622 - Type 2 diabetes mellitus with other skin ulcer; Z79.4 - penitentiary (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 of insulin Code(s): E11.622 - Type 2 diabetes mellitus with other skin ulcer; L98.499 - Non-pressure chronic ulcer of skin of other sites with unspecified severity (8) Non-pressure chronic ulcer of right calf with fat layer exposed Status: Acute Current Visit: Yes Code(s): L97.212 - Non-pressure chronic ulcer of right calf with fat layer exposed (9) Bilateral lower extremity edema Status: Chronic Current Visit: Yes Code(s): R60.0 - Localized edema (10) 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 Status: Chronic Current Visit: Yes Code(s): L97.912 - Non-pressure chronic ulcer of unspecified part of right lower leg with fat layer exposed Comment: x 2 wounds one located above medial malleolus and one just below right knee (11) Chronic venous hypertension w/ulcer and inflammation involv right side Status: Chronic Current Visit: Yes Code(s): I87.331 - Chronic venous hypertension (idiopathic) with ulcer and inflammation of right lower extremity; L97.919 - Non-pressure chronic ulcer of unspecified part of right lower leg with unspecified severity Type of Wound Date of Service: 10/17/17 Chief Complaint: nonhealing wound/ulcer of right lateral calf History of Wound: Eddie is a pleasant 76 yo man who presents for evaluation of a wound/ulcer of his right lateral calf that has been present since mid-April and has continued to get larger. He has seen his PCP and has seen another physician in their practice for the wound/ulcer and has been treated once with an UNNA boot and otherwise has been given antibiotics off and on without improvement, most recent antibiotic was Augmentin. No cultures have ever been taken of the wound. No imaging has been done. He has been using Aquaphor to the wound as instructed by his PCP. He has significant pain and edema in this leg and has been started on Lyrica which has helped with the pain. He has been unable to sleep in bed due to the pain and has been sleeping in a recliner. He denies any significant drainage but does note some on his socks from time to time. He denies any odor. Occasionally there is some bleeding. he was referred to the wound center for further evaluation and treatment. 07/29--Has been applying santyl and dry dressing since visit last friday. No drainage for the last few days. Vascular testing scheduled for 08/08. Awaiting lab work from PCP. Admits to sleeping in a recliner since March. Denies N/V/F/C. Some redness to R leg, but no pus, no malodor, no warmth, minimal pain. There is edema. Culture positive for e.coli from Friday. Will Rx Keflex today. 08/05--Pt taking Keflex, tolerating well. Vascular testing scheduled for friday. Size improved with the use of nickel-thickness Santyl and lightly moistened gauze with light spandagrip. Plan to increase compression once vascular testing done. 08/12--Arterial testing done, normal. Venous test reveals multiple incompetent veins in the RLE. Pt states he cannot tolerate any tighter compression than the current spandagrip stocking. He will be referred to Dr. Patton today for evaluation. There is still fibrous tissue, but there are also skin islands forming within the ulceration. 08/19--Pt applying santyl nickel-thick and lightly moistened gauze dressing daily. There is still fibrous tissue, but there are also skin islands forming within the ulceration. Measurements improved today. Pt's is with him today, and she states that he often falls asleep in his recliner, and his legs end up falling off the foot rest and his feet end up on the ground. Pt has an appointment with Dr. Patton at [facility] at the beginning of August. 08/21- initial visit with Doroteo Nash NP who patient will be transferring care to. Has been applying nickel thick santyl daily, however, site is still painful and there is now a foul smell.Cultures will be redone today.Moderate amount of slough and fibrous tissue present. Pt denies any systemic signs of infection including no fever, chills, n/v/d/c. 08/28-patient has 2 new wounds and states that there is an increase in foul smell coming from his chronic wound. He has unaware how the 2 new wounds occurred and denies any obvious trauma, though does state that they looked like they are going to be opening prior to this visit. He does state that the wound below the right knee may be from a tape burn from his dressing changes. Progress of Wound: Eddie's wounds have not changed much since his last visit. He has been tolerating Santyl dressings. He has had increased drainage and has erythema surrounding his right lateral LE ulcer. Apligraf has been applied for but we are awaiting approval. He tolerated 3 M compression but his legs were very moist and the drainage was copious from both legs that was present on the 3M dressings when removed so he has been using tubigrips. Denies odor, fever or chills. He is unable to tolerate having his legs elevated due to his neuropathy and frequently has them hanging down. Sleeps in his recliner. - Physical Exam Vital Signs Temp Pulse Resp BP 96.9 F L 65 18 166/67 H 10/17/17 16:34 10/17/17 16:34 10/17/17 16:34 10/17/17 16:34 General: Alert, Oriented x3, Cooperative, No apparent distress HEENT: Atraumatic, Normocephalic Extremities: Edema Skin: Ulcer/ Wound Wound Measurements and Assessment WC - Nurse 1 - General Ulcer Measurement Start: 09/26/17 14:39 Freq: Status: Active Protocol: Activity Type Activity Date Activity User E-Sign Co-Sign Detail Recorded Client Recorded Date Recorded By Document 10/17/17 16:34 [id number] 10/17/17 16:56 10/17/17 16:34 Wound Center Nurse 1 [Ulcer Assessment] #5 RIGHT POSTERO LATERAL -Combined with other wound No -Current Size (cm) - Length 0.7 -Current Size (cm) - Width 1.4 -Current Size (cm) - Depth 0 -Total Square Cm 0.98 -Date of Last Picture (Recall this 10/17/17 field) -Photo Taken Yes -Epithelialization None Present -Tunneling No -Undermining/Tunneling No -Circular Undermining No -Exudate Amt None Present (0 %) -Wound Margin Distinct, Outline Attached -Granulation Amt None Present (0 %) -Granulation Quality N/A -Slough/Fibrin Yes -Necrosis Amt None Present (0 %) -Necrotic Tissue Type Adherent Slough -Structure Exposed None/Limited to Skin Breakdown -Texture (Kinza-wound Skin Appearance) No Abnormality Assessed -Moisture (Kinza-wound Skin Appearance No Abnormality ) Assessed -Color (Kinza-wound Skin Appearance) Assessed Hemosiderin Staining -Temperature (Kinza-wound Skin No Abnormality Appearance) (Pt Warm) -Ulcer Cleansing Rinsed/ Irrigated with Saline -Foul Odor after Cleansing No -Anesthetic Used 4% Lidocaine Solution #4 R POSTERIOR CALF -Combined with other wound No -Current Size (cm) - Length 1.3 -Current Size (cm) - Width 2.5 -Current Size (cm) - Depth 0.2 -Total Square Cm 3.25 -Date of Last Picture (Recall this 10/17/17 field) -Photo Taken Yes -Epithelialization None Present -Tunneling No -Undermining/Tunneling No -Circular Undermining No -Exudate Amt Large (67-100%) -Exudate Type Yellow/Green -Wound Margin Distinct, Outline Attached -Granulation Amt None Present (0 %) -Granulation Quality N/A -Slough/Fibrin Yes -Necrosis Amt None Present (0 %) -Necrotic Tissue Type Adherent Slough -Structure Exposed None/Limited to Skin Breakdown -Texture (Kinza-wound Skin Appearance) No Abnormality Assessed -Moisture (Kinza-wound Skin Appearance No Abnormality ) Assessed -Color (Kinza-wound Skin Appearance) No Abnormality Assessed Erythema -Temperature (Kinza-wound Skin No Abnormality Appearance) (Pt Warm) -Tenderness on Palpation (Kinza-wound Yes Skin Appearance) -Ulcer Cleansing Rinsed/ Irrigated with Saline -Foul Odor after Cleansing No -Anesthetic Used 4% Lidocaine Solution #3 R-MEDIAL LE -Combined with other wound No -Current Size (cm) - Length 5.3 -Current Size (cm) - Width 5.0 -Current Size (cm) - Depth 0.2 -Total Square Cm 26.50 -Epithelialization None Present -Tunneling No -Undermining/Tunneling No -Circular Undermining No -Exudate Amt Large (67-100%) -Exudate Type Serous -Wound Margin Distinct, Outline Attached -Granulation Amt None Present (0 %) -Granulation Quality N/A -Slough/Fibrin Yes -Necrosis Amt Medium (34-66%) -Necrotic Tissue Type Adherent Slough -Structure Exposed None/Limited to Skin Breakdown -Moisture (Kinza-wound Skin Appearance No Abnormality ) Assessed -Color (Kinza-wound Skin Appearance) Hemosiderin Staining -Temperature (Kinza-wound Skin No Abnormality Appearance) (Pt Warm) -Tenderness on Palpation (Kinza-wound Yes Skin Appearance) -Ulcer Cleansing Rinsed/ Irrigated with Saline -Foul Odor after Cleansing No -Anesthetic Used 4% Lidocaine Solution #2 R ORZOCO -Combined with other wound No -Current Size (cm) - Length 0.6 -Current Size (cm) - Width 0.3 -Current Size (cm) - Depth 0 -Total Square Cm 0.18 -Date of Last Picture (Recall this 10/17/17 field) -Photo Taken Yes -Epithelialization None Present -Tunneling No -Undermining/Tunneling No -Circular Undermining No -Exudate Amt None Present (0 %) -Wound Margin Distinct, Outline Attached -Granulation Amt None Present (0 %) -Slough/Fibrin Yes -Necrosis Amt None Present (0 %) -Necrotic Tissue Type Adherent Slough -Structure Exposed None/Limited to Skin Breakdown -Texture (Kinza-wound Skin Appearance) Assessed Callus -Moisture (Kinza-wound Skin Appearance No Abnormality ) Assessed -Color (Kinza-wound Skin Appearance) Assessed Hemosiderin Staining -Temperature (Kinza-wound Skin No Abnormality Appearance) (Pt Warm) -Tenderness on Palpation (Kinza-wound Yes Skin Appearance) -Ulcer Cleansing Rinsed/ Irrigated with Saline -Foul Odor after Cleansing No -Anesthetic Used 4% Lidocaine Solution #1 RIGHT LATERAL LOWER LEG -Current Size (cm) - Length 12.5 -Current Size (cm) - Width 5.0 -Current Size (cm) - Depth 0.2 -Total Square Cm 62.50 -Exudate Amt Large (67-100%) -Exudate Type Serous -Wound Margin Distinct, Outline Attached -Granulation Amt None Present (0 %) -Necrosis Amt Medium (34-66%) -Necrotic Tissue Type Adherent Slough -Structure Exposed None/Limited to Skin Breakdown -Texture (Kinza-wound Skin Appearance) No Abnormality Assessed -Moisture (Kinza-wound Skin Appearance No Abnormality ) Assessed -Color (Kinza-wound Skin Appearance) Assessed Hemosiderin Staining -Temperature (Kinza-wound Skin No Abnormality Appearance) (Pt Warm) -Tenderness on Palpation (Kinza-wound Yes Skin Appearance) -Ulcer Cleansing Rinsed/ Irrigated with Saline -Foul Odor after Cleansing No -Anesthetic Used 4% Lidocaine Solution [Edema Assessment] -Lower Limb Edema Present Yes -Right Calf (cm) 46.5 -Right Ankle (cm) 24.5 -Left Calf (cm) 39.5 -Left Ankle (cm) 25.5 WC - Nurse 2 - General Ulcer CM Notes Start: 09/26/17 14:39 Freq: Status: Active Protocol: Activity Type Activity Date Activity User E-Sign Co-Sign Detail Recorded Client Recorded Date Recorded By Document 10/17/17 17:01 [id number] 10/17/17 17:24 [email or web address] 10/17/17 17:01 Wound Center Nurse 2 [Procedure/Treatment] #5 RIGHT POSTERO LATERAL -Time 17:13 -Correct Patient Yes -Correct Side, Site, Position Yes -Correct Procedure Yes -Procedure Performed No -Wound/Ulcer Outcome Not Healed -Topical Lidocaine (%) 4 -Lidocaine (ml) 5 -Bleeding Controlled with NA -Treatment Response Procedure Tolerated Well #4 R POSTERIOR CALF -Time 17:20 -Correct Patient Yes -Correct Side, Site, Position Yes -Correct Procedure Yes -Procedure Performed Yes -Type of Procedure Debridement -Clinical Debridement Subcutaneous -Post Debridement Size (cm) - Length 1.3 -Post Debridement Size (cm) - Width 2.5 -Post Debridement Size (cm) - Depth 0.2 -Total Square Cm 3.25 -Wound/Ulcer Outcome Not Healed -Ulcer Cleansing Rinsed/ Irrigated with Saline -Foul Odor after Cleansing No -Bioengineered Tissue No -Topical Lidocaine (%) 4 -Lidocaine (ml) 15 -Bleeding Controlled with NA -Treatment Response Procedure Tolerated Well #3 R-MEDIAL LE -Time 17:10 -Correct Patient Yes -Correct Side, Site, Position Yes -Correct Procedure Yes -Procedure Performed Yes -Type of Procedure Debridement -Clinical Debridement Subcutaneous -Post Debridement Size (cm) - Length 4.8 -Post Debridement Size (cm) - Width 5.0 -Post Debridement Size (cm) - Depth 0.2 -Total Square Cm 24.00 -Wound/Ulcer Outcome Not Healed -Ulcer Cleansing Rinsed/ Irrigated with Saline -Foul Odor after Cleansing No -Bioengineered Tissue No -Injectable Lidocaine (%) 4 -Injectable Lidocaine w/ Epi (%) 15 -Bleeding Controlled with NA -Treatment Response Procedure Tolerated Well #2 R OROZCO -Time 17:21 -Correct Patient Yes -Correct Side, Site, Position Yes -Correct Procedure Yes -Procedure Performed No -Wound/Ulcer Outcome Not Healed -Ulcer Cleansing Rinsed/ Irrigated with Saline -Foul Odor after Cleansing No -Bioengineered Tissue No -Bleeding Controlled with NA #1 RIGHT LATERAL LOWER LEG -Time 17:09 -Correct Patient Yes -Correct Side, Site, Position Yes -Correct Procedure Yes -Procedure Performed Yes -Type of Procedure Debridement -Clinical Debridement Subcutaneous -Post Debridement Size (cm) - Length 12.8 -Post Debridement Size (cm) - Width 5.3 -Post Debridement Size (cm) - Depth 0.3 -Total Square Cm 67.84 -Wound/Ulcer Outcome Not Healed -Ulcer Cleansing Rinsed/ Irrigated with Saline -Foul Odor after Cleansing No -Bioengineered Tissue No -Topical Lidocaine (%) 4 -Lidocaine (ml) 15 -Bleeding Controlled with NA -Treatment Response Procedure Tolerated Well [See Physician Procedure note for Specifics] Pain Scale: 0-10 Numeric [Pain] -Is Patient Pain Free? Yes Psych/Mental Status: Normal Affect, Appropriate Debridement Note Post-Debridement Measurements/Treatment WC - Nurse 2 - General Ulcer CM Notes Start: 09/26/17 14:39 Freq: Status: Active Protocol: Activity Type Activity Date Activity User E-Sign Co-Sign Detail Recorded Client Recorded Date Recorded By Document 09/26/17 16:07 [id number] 09/26/17 16:39 JS Document 10/10/17 17:53 [id number] 10/10/17 18:10 CS Document 10/17/17 17:01 JS [id number] 10/17/17 17:24 JS 09/26/17 10/10/17 10/17/17 16:07 17:53 17:01 Wound Center Nurse 2 #5 RIGHT POSTERO LATERAL -Time 17:13 -Correct Patient Yes -Correct Side, Site, Position Yes -Correct Procedure Yes -Procedure Performed No -Wound/Ulcer Outcome Not Healed -Topical Lidocaine (%) 4 -Lidocaine (ml) 5 -Bleeding Controlled with NA -Treatment Response Procedure Tolerated Well #4 R POSTERIOR CALF -Time 16:07 17:53 17:20 -Correct Patient Yes Yes Yes -Correct Side, Site, Position Yes Yes Yes -Correct Procedure Yes Yes Yes -Procedure Performed Yes Yes Yes -Type of Procedure Debridement Debridement Debridement -Clinical Debridement Subcutaneous Subcutaneous Subcutaneous -Post Debridement Size (cm) - Length 1.9 1.8 1.3 -Post Debridement Size (cm) - Width 2.2 2.3 2.5 -Post Debridement Size (cm) - Depth 0.2 0.3 0.2 -Total Square Cm 4.18 4.14 3.25 -Wound/Ulcer Outcome Amputation Not Healed Not Healed -Ulcer Cleansing Rinsed/ Rinsed/ Rinsed/ Irrigated with Irrigated with Irrigated with Saline Saline Saline -Foul Odor after Cleansing No No No -Bioengineered Tissue No No No -Topical Lidocaine (%) 4 4 -Lidocaine (ml) 5 15 -Bleeding Controlled with NA Pressure NA -Treatment Response Procedure Procedure Procedure Tolerated Well Tolerated Well Tolerated Well #3 R-MEDIAL LE -Time 16:08 17:57 17:10 -Correct Patient Yes Yes Yes -Correct Side, Site, Position Yes Yes Yes -Correct Procedure Yes Yes Yes -Procedure Performed Yes Yes Yes -Type of Procedure Debridement Debridement Debridement -Clinical Debridement Subcutaneous Subcutaneous Subcutaneous -Post Debridement Size (cm) - Length 3.8 3.7 4.8 -Post Debridement Size (cm) - Width 3.9 4.2 5.0 -Post Debridement Size (cm) - Depth 0.2 0.2 0.2 -Total Square Cm 14.82 15.54 24.00 -Wound/Ulcer Outcome Not Healed Not Healed Not Healed -Ulcer Cleansing Rinsed/ Rinsed/ Rinsed/ Irrigated with Irrigated with Irrigated with Saline Saline Saline -Foul Odor after Cleansing No No No -Bioengineered Tissue No No No -Topical Lidocaine (%) 4 -Injectable Lidocaine (%) 4 -Lidocaine (ml) 5 -Injectable Lidocaine w/ Epi (%) 15 -Bleeding Controlled with NA Pressure NA -Treatment Response Procedure Procedure Procedure Tolerated Well Tolerated Well Tolerated Well #2 R OROZCO -Time 16:08 17:58 17:21 -Correct Patient Yes Yes Yes -Correct Side, Site, Position Yes Yes Yes -Correct Procedure Yes Yes Yes -Procedure Performed Yes Yes No -Type of Procedure Debridement Debridement -Clinical Debridement Subcutaneous Subcutaneous -Post Debridement Size (cm) - Length 0.7 0.1 -Post Debridement Size (cm) - Width 0.9 0.1 -Post Debridement Size (cm) - Depth 0.1 0.1 -Total Square Cm 0.63 0.01 -Wound/Ulcer Outcome Not Healed Not Healed Not Healed -Ulcer Cleansing Rinsed/ Rinsed/ Rinsed/ Irrigated with Irrigated with Irrigated with Saline Saline Saline -Foul Odor after Cleansing No No No -Bioengineered Tissue No No No -Topical Lidocaine (%) 4 -Lidocaine (ml) 5 -Bleeding Controlled with NA Pressure NA -Treatment Response Procedure Procedure Tolerated Well Tolerated Well #1 RIGHT LATERAL LOWER LEG -Time 16:08 17:59 17:09 -Correct Patient Yes Yes Yes -Correct Side, Site, Position Yes Yes Yes -Correct Procedure Yes Yes Yes -Procedure Performed Yes Yes Yes -Type of Procedure Debridement Debridement Debridement -Clinical Debridement Subcutaneous Subcutaneous Subcutaneous -Post Debridement Size (cm) - Length 13.2 12.6 12.8 -Post Debridement Size (cm) - Width 4.9 5.0 5.3 -Post Debridement Size (cm) - Depth 0.2 0.3 0.3 -Total Square Cm 64.68 63.00 67.84 -Wound/Ulcer Outcome Not Healed Not Healed Not Healed -Ulcer Cleansing Rinsed/ Rinsed/ Rinsed/ Irrigated with Irrigated with Irrigated with Saline Saline Saline -Foul Odor after Cleansing No No No -Bioengineered Tissue No No No -Topical Lidocaine (%) 4 4 -Lidocaine (ml) 5 15 -Bleeding Controlled with NA Pressure NA Silver Nitrate -Treatment Response Procedure Procedure Procedure Tolerated Well Tolerated Well Tolerated Well Pain Scale: 0-10 Numeric Is Patient Pain Free? Yes Yes Wound debrided: right orozco Laterality: Right No debridement was completed today - The wound is healed - Additional Wound Wound debrided: right postero lateral Laterality: Right Wound Grade/Stage: stage I Operative Diagnosis: No debridement was done as this is a soft tissue injury at this point. - Additional Wound Wound debrided: right posterior calf Laterality: Right Type of Debridement: Excisional debridement Anesthesia Used: 4% Lidocaine Solution Depth: Down to and including healthy tissue, in the subcutaneous layer Percentage of wound debrided: 100 Instrument Used: 5mm curette Tissue Removed: yellow slough, devitalized tissue Severity: Fat Layer Exposed Amount of bleeding with debridement: Mild Bleeding Controlled with: Compression and gauze Patient tolerated procedure: Patient tolerated procedure well - Additional Wound Wound debrided: right medial LE Laterality: Right Type of Debridement: Excisional debridement Anesthesia Used: 4% Lidocaine Solution Depth: Down to and including healthy tissue, in the subcutaneous layer Percentage of wound debrided: 100 Instrument Used: 5mm curette Tissue Removed: yellow slough, devitalized tissue Severity: Fat Layer Exposed Amount of bleeding with debridement: Mild Bleeding Controlled with: Compression and gauze Patient tolerated procedure: Patient tolerated procedure well - Additional Wound Wound debrided: right lateral lower leg Laterality: Right Type of Debridement: Excisional debridement Anesthesia Used: 4% Lidocaine Solution Depth: Down to and including healthy tissue, in the subcutaneous layer Percentage of wound debrided: 100 Instrument Used: 5mm curette Tissue Removed: yellow slough, devitalized tissue Severity: Fat Layer Exposed Amount of bleeding with debridement: Mild Bleeding Controlled with: Compression and gauze Patient tolerated procedure: Patient tolerated procedure well Assessment/Plan Active Problems Anemia (Chronic) COPD (chronic obstructive pulmonary disease) (Chronic) PAD (peripheral artery disease) (Chronic) Type 2 diabetes mellitus treated with insulin (Chronic) Neuropathy (Chronic) 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) Chronic anticoagulation (Chronic) Type 2 diabetes mellitus with diabetic polyneuropathy (Chronic) Type 2 diabetes mellitus with other skin ulcer (Chronic) Non-pressure chronic ulcer of right calf with fat layer exposed (Acute) Bilateral lower extremity edema (Chronic) 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 (Chronic) x 2 wounds one located above medial malleolus and one just below right knee Chronic venous hypertension w/ulcer and inflammation involv right side (Chronic) Assessment: Multiple nonhealing ulcer/wound of right lower extremity likely secondary to venous insufficiency Plan: Mr. Martin is here for follow up. He has been tolerating dressings with Santyl. He has noted increase in drainage of wounds. Debridement done as documented above, procedure was well tolerated. Wound culture completed due to increase drainage. Will treat based on results. He still has significant fibrous exudate and devitalized tissue present that is not able to be debrided well but there is some areas of granulation. Will continue using Santyl and Surepress for compression. Due to the lack of improvement with conservative treatment and the size of his wounds, I feel that he would benefit from use of Apligraf to assist in healing his wounds of the right posterior, medial and lateral ulcers. Previous vascular studies reviewed. Elevate lower extremity when sitting and when in bed. Optimize blood sugar control. Increase protein intake/supplements. F/U in 1 week.
--- NOTE | 2017-10-17 19:36 | PN.PCM_ITS ---
(1) Anemia Status: Chronic Current Visit: Yes Qualifiers: Anemia type: unspecified type Code(s): D64.9 - Anemia, unspecified (2) COPD (chronic obstructive pulmonary disease) Status: Chronic Current Visit: Yes Qualifiers: COPD type: unspecified COPD Code(s): J44.9 - Chronic obstructive pulmonary disease, unspecified (3) Type 2 diabetes mellitus treated with insulin Status: Chronic Current Visit: Yes Code(s): E11.9 - Type 2 diabetes mellitus without complications; Z79.4 - retirement (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 of insulin (4) Neuropathy Status: Chronic Current Visit: Yes Code(s): G62.9 - Polyneuropathy, unspecified (5) Chronic anticoagulation Status: Chronic Current Visit: Yes Code(s): 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 (6) Type 2 diabetes mellitus with diabetic polyneuropathy Status: Chronic Current Visit: Yes Qualifiers: Diabetes mellitus termination clerk insulin use: with termination clerk use Qualified Code( s): E11.42 - Type 2 diabetes mellitus with diabetic polyneuropathy; Z79.4 - retirement (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 of insulin Code(s): E11.42 - Type 2 diabetes mellitus with diabetic polyneuropathy (7) Type 2 diabetes mellitus with other skin ulcer Status: Chronic Current Visit: Yes Qualifiers: Diabetes mellitus halfway insulin use: with halfway use Qualified Code( s): E11.622 - Type 2 diabetes mellitus with other skin ulcer; Z79.4 - retirement (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 of insulin Code(s): E11.622 - Type 2 diabetes mellitus with other skin ulcer; L98.499 - Non -pressure chronic ulcer of skin of other sites with unspecified severity (8) Non-pressure chronic ulcer of right calf with fat layer exposed Status: Acute Current Visit: Yes Code(s): L97.212 - Non-pressure chronic ulcer of right calf with fat layer exposed (9) Bilateral lower extremity edema Status: Chronic Current Visit: Yes Code(s): R60.0 - Localized edema (10) 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 Status: Chronic Current Visit: Yes Code(s): L97.912 - Non-pressure chronic ulcer of unspecified part of right lower leg with fat layer exposed Comment: x 2 wounds one located above medial malleolus and one just below right knee (11) Chronic venous hypertension w/ulcer and inflammation involv right side Status: Chronic Current Visit: Yes Code(s): I87.331 - Chronic venous hypertension (idiopathic) with ulcer and inflammation of right lower extremity; L97.919 - Non-pressure chronic ulcer of unspecified part of right lower leg with unspecified severity Type of Wound Date of Service: 10/17/17 Chief Complaint: nonhealing wound/ulcer of right lateral calf History of Wound: Eddie is a pleasant 76 yo man who presents for evaluation of a wound/ulcer of his right lateral calf that has been present since mid-April and has continued to get larger. He has seen his PCP and has seen another physician in their practice for the wound/ulcer and has been treated once with an UNNA boot and otherwise has been given antibiotics off and on without improvement, most recent antibiotic was Augmentin. No cultures have ever been taken of the wound. No imaging has been done. He has been using Aquaphor to the wound as instructed by his PCP. He has significant pain and edema in this leg and has been started on Lyrica which has helped with the pain. He has been unable to sleep in bed due to the pain and has been sleeping in a recliner. He denies any significant drainage but does note some on his socks from time to time. He denies any odor. Occasionally there is some bleeding. he was referred to the wound center for further evaluation and treatment. 07/29--Has been applying santyl and dry dressing since visit last friday. No drainage for the last few days. Vascular testing scheduled for 08/08. Awaiting lab work from PCP. Admits to sleeping in a recliner since March. Denies N/V/F/C. Some redness to R leg, but no pus, no malodor, no warmth, minimal pain. There is edema. Culture positive for e.coli from Friday. Will Rx Keflex today. 08/05-- Pt taking Keflex, tolerating well. Vascular testing scheduled for friday. Size improved with the use of nickel-thickness Santyl and lightly moistened gauze with light spandagrip. Plan to increase compression once vascular testing done. 08/12--Arterial testing done, normal. Venous test reveals multiple incompetent veins in the RLE. Pt states he cannot tolerate any tighter compression than the current spandagrip stocking. He will be referred to Dr. Patton today for evaluation. There is still fibrous tissue, but there are also skin islands forming within the ulceration. 08/19--Pt applying santyl nickel-thick and lightly moistened gauze dressing daily. There is still fibrous tissue, but there are also skin islands forming within the ulceration. Measurements improved today. Pt's is with him today, and she states that he often falls asleep in his recliner, and his legs end up falling off the foot rest and his feet end up on the ground. Pt has an appointment with Dr. Patton at [facility] at the beginning of August. 08/21- initial visit with Doroteo Nash NP who patient will be transferring care to. Has been applying nickel thick santyl daily, however, site is still painful and there is now a foul smell.Cultures will be redone today.Moderate amount of slough and fibrous tissue present. Pt denies any systemic signs of infection including no fever, chills, n/v/d/c. 08/28 -patient has 2 new wounds and states that there is an increase in foul smell coming from his chronic wound. He has unaware how the 2 new wounds occurred and denies any obvious trauma, though does state that they looked like they are going to be opening prior to this visit. He does state that the wound below the right knee may be from a tape burn from his dressing changes. Progress of Wound: Eddie's wounds have not changed much since his last visit. He has been tolerating Santyl dressings. He has had increased drainage and has erythema surrounding his right lateral LE ulcer. Apligraf has been applied for but we are awaiting approval. He tolerated 3 M compression but his legs were very moist and the drainage was copious from both legs that was present on the 3M dressings when removed so he has been using tubigrips. Denies odor, fever or chills. He is unable to tolerate having his legs elevated due to his neuropathy and frequently has them hanging down. Sleeps in his recliner. - Physical Exam Vital Signs Temp Pulse Resp BP 96.9 F L 65 18 166/67 H 10/17/17 16:34 10/17/17 16:34 10/17/17 16:34 10/17/17 16:34 General: Alert, Oriented x3, Cooperative, No apparent distress HEENT: Atraumatic, Normocephalic Extremities: Edema Skin: Ulcer/ Wound Wound Measurements and Assessment WC - Nurse 1 - General Ulcer Measurement Start: 09/26/17 14:39 Freq: Status: Active Protocol: Activity Type Activity Date Activity User E-Sign Co-Sign Detail Recorded Client Recorded Date Recorded By Document 10/17/17 16:34 [email or web address] 10/17/17 16:56 10/17/17 16:34 Wound Center Nurse 1 [Ulcer Assessment] #5 RIGHT POSTERO LATERAL -Combined with other wound No -Current Size (cm) - Length 0.7 -Current Size (cm) - Width 1.4 -Current Size (cm) - Depth 0 -Total Square Cm 0.98 -Date of Last Picture (Recall this 10/17/17 field) -Photo Taken Yes -Epithelialization None Present -Tunneling No -Undermining/Tunneling No -Circular Undermining No -Exudate Amt None Present (0 %) -Wound Margin Distinct, Outline Attached -Granulation Amt None Present (0 %) -Granulation Quality N/A -Slough/Fibrin Yes -Necrosis Amt None Present (0 %) -Necrotic Tissue Type Adherent Slough -Structure Exposed None/Limited to Skin Breakdown -Texture (Kinza-wound Skin Appearance) No Abnormality Assessed -Moisture (Kinza-wound Skin Appearance No Abnormality ) Assessed -Color (Kinza-wound Skin Appearance) Assessed Hemosiderin Staining -Temperature (Kinza-wound Skin No Abnormality Appearance) (Pt Warm) -Ulcer Cleansing Rinsed/ Irrigated with Saline -Foul Odor after Cleansing No -Anesthetic Used 4% Lidocaine Solution #4 R POSTERIOR CALF -Combined with other wound No -Current Size (cm) - Length 1.3 -Current Size (cm) - Width 2.5 -Current Size (cm) - Depth 0.2 -Total Square Cm 3.25 -Date of Last Picture (Recall this 10/17/17 field) -Photo Taken Yes -Epithelialization None Present -Tunneling No -Undermining/Tunneling No -Circular Undermining No -Exudate Amt Large (67-100%) -Exudate Type Yellow/Green -Wound Margin Distinct, Outline Attached -Granulation Amt None Present (0 %) -Granulation Quality N/A -Slough/Fibrin Yes -Necrosis Amt None Present (0 %) -Necrotic Tissue Type Adherent Slough -Structure Exposed None/Limited to Skin Breakdown -Texture (Kinza-wound Skin Appearance) No Abnormality Assessed -Moisture (Kinza-wound Skin Appearance No Abnormality ) Assessed -Color (Kinza-wound Skin Appearance) No Abnormality Assessed Erythema -Temperature (Kinza-wound Skin No Abnormality Appearance) (Pt Warm) -Tenderness on Palpation (Kinza-wound Yes Skin Appearance) -Ulcer Cleansing Rinsed/ Irrigated with Saline -Foul Odor after Cleansing No -Anesthetic Used 4% Lidocaine Solution #3 R-MEDIAL LE -Combined with other wound No -Current Size (cm) - Length 5.3 -Current Size (cm) - Width 5.0 -Current Size (cm) - Depth 0.2 -Total Square Cm 26.50 -Epithelialization None Present -Tunneling No -Undermining/Tunneling No -Circular Undermining No -Exudate Amt Large (67-100%) -Exudate Type Serous -Wound Margin Distinct, Outline Attached -Granulation Amt None Present (0 %) -Granulation Quality N/A -Slough/Fibrin Yes -Necrosis Amt Medium (34-66%) -Necrotic Tissue Type Adherent Slough -Structure Exposed None/Limited to Skin Breakdown -Moisture (Kinza-wound Skin Appearance No Abnormality ) Assessed -Color (Kinza-wound Skin Appearance) Hemosiderin Staining -Temperature (Kinza-wound Skin No Abnormality Appearance) (Pt Warm) -Tenderness on Palpation (Kinza-wound Yes Skin Appearance) -Ulcer Cleansing Rinsed/ Irrigated with Saline -Foul Odor after Cleansing No -Anesthetic Used 4% Lidocaine Solution #2 R OROZCO -Combined with other wound No -Current Size (cm) - Length 0.6 -Current Size (cm) - Width 0.3 -Current Size (cm) - Depth 0 -Total Square Cm 0.18 -Date of Last Picture (Recall this 10/17/17 field) -Photo Taken Yes -Epithelialization None Present -Tunneling No -Undermining/Tunneling No -Circular Undermining No -Exudate Amt None Present (0 %) -Wound Margin Distinct, Outline Attached -Granulation Amt None Present (0 %) -Slough/Fibrin Yes -Necrosis Amt None Present (0 %) -Necrotic Tissue Type Adherent Slough -Structure Exposed None/Limited to Skin Breakdown -Texture (Kinza-wound Skin Appearance) Assessed Callus -Moisture (Kinza-wound Skin Appearance No Abnormality ) Assessed -Color (Kinza-wound Skin Appearance) Assessed Hemosiderin Staining -Temperature (Kinza-wound Skin No Abnormality Appearance) (Pt Warm) -Tenderness on Palpation (Kinza-wound Yes Skin Appearance) -Ulcer Cleansing Rinsed/ Irrigated with Saline -Foul Odor after Cleansing No -Anesthetic Used 4% Lidocaine Solution #1 RIGHT LATERAL LOWER LEG -Current Size (cm) - Length 12.5 -Current Size (cm) - Width 5.0 -Current Size (cm) - Depth 0.2 -Total Square Cm 62.50 -Exudate Amt Large (67-100%) -Exudate Type Serous -Wound Margin Distinct, Outline Attached -Granulation Amt None Present (0 %) -Necrosis Amt Medium (34-66%) -Necrotic Tissue Type Adherent Slough -Structure Exposed None/Limited to Skin Breakdown -Texture (Kinza-wound Skin Appearance) No Abnormality Assessed -Moisture (Kinza-wound Skin Appearance No Abnormality ) Assessed -Color (Kinza-wound Skin Appearance) Assessed Hemosiderin Staining -Temperature (Kinza-wound Skin No Abnormality Appearance) (Pt Warm) -Tenderness on Palpation (Kinza-wound Yes Skin Appearance) -Ulcer Cleansing Rinsed/ Irrigated with Saline -Foul Odor after Cleansing No -Anesthetic Used 4% Lidocaine Solution [Edema Assessment] -Lower Limb Edema Present Yes -Right Calf (cm) 46.5 -Right Ankle (cm) 24.5 -Left Calf (cm) 39.5 -Left Ankle (cm) 25.5 WC - Nurse 2 - General Ulcer CM Notes Start: 09/26/17 14:39 Freq: Status: Active Protocol: Activity Type Activity Date Activity User E-Sign Co-Sign Detail Recorded Client Recorded Date Recorded By Document 10/17/17 17:01 [id number] 10/17/17 17:24 [email or web address] 10/17/17 17:01 Wound Center Nurse 2 [Procedure/Treatment] #5 RIGHT POSTERO LATERAL -Time 17:13 -Correct Patient Yes -Correct Side, Site, Position Yes -Correct Procedure Yes -Procedure Performed No -Wound/Ulcer Outcome Not Healed -Topical Lidocaine (%) 4 -Lidocaine (ml) 5 -Bleeding Controlled with NA -Treatment Response Procedure Tolerated Well #4 R POSTERIOR CALF -Time 17:20 -Correct Patient Yes -Correct Side, Site, Position Yes -Correct Procedure Yes -Procedure Performed Yes -Type of Procedure Debridement -Clinical Debridement Subcutaneous -Post Debridement Size (cm) - Length 1.3 -Post Debridement Size (cm) - Width 2.5 -Post Debridement Size (cm) - Depth 0.2 -Total Square Cm 3.25 -Wound/Ulcer Outcome Not Healed -Ulcer Cleansing Rinsed/ Irrigated with Saline -Foul Odor after Cleansing No -Bioengineered Tissue No -Topical Lidocaine (%) 4 -Lidocaine (ml) 15 -Bleeding Controlled with NA -Treatment Response Procedure Tolerated Well #3 R-MEDIAL LE -Time 17:10 -Correct Patient Yes -Correct Side, Site, Position Yes -Correct Procedure Yes -Procedure Performed Yes -Type of Procedure Debridement -Clinical Debridement Subcutaneous -Post Debridement Size (cm) - Length 4.8 -Post Debridement Size (cm) - Width 5.0 -Post Debridement Size (cm) - Depth 0.2 -Total Square Cm 24.00 -Wound/Ulcer Outcome Not Healed -Ulcer Cleansing Rinsed/ Irrigated with Saline -Foul Odor after Cleansing No -Bioengineered Tissue No -Injectable Lidocaine (%) 4 -Injectable Lidocaine w/ Epi (%) 15 -Bleeding Controlled with NA -Treatment Response Procedure Tolerated Well #2 R OROZCO -Time 17:21 -Correct Patient Yes -Correct Side, Site, Position Yes -Correct Procedure Yes -Procedure Performed No -Wound/Ulcer Outcome Not Healed -Ulcer Cleansing Rinsed/ Irrigated with Saline -Foul Odor after Cleansing No -Bioengineered Tissue No -Bleeding Controlled with NA #1 RIGHT LATERAL LOWER LEG -Time 17:09 -Correct Patient Yes -Correct Side, Site, Position Yes -Correct Procedure Yes -Procedure Performed Yes -Type of Procedure Debridement -Clinical Debridement Subcutaneous -Post Debridement Size (cm) - Length 12.8 -Post Debridement Size (cm) - Width 5.3 -Post Debridement Size (cm) - Depth 0.3 -Total Square Cm 67.84 -Wound/Ulcer Outcome Not Healed -Ulcer Cleansing Rinsed/ Irrigated with Saline -Foul Odor after Cleansing No -Bioengineered Tissue No -Topical Lidocaine (%) 4 -Lidocaine (ml) 15 -Bleeding Controlled with NA -Treatment Response Procedure Tolerated Well [See Physician Procedure note for Specifics] Pain Scale: 0-10 Numeric [Pain] -Is Patient Pain Free? Yes Psych/Mental Status: Normal Affect, Appropriate Debridement Note Post-Debridement Measurements/Treatment WC - Nurse 2 - General Ulcer CM Notes Start: 09/26/17 14:39 Freq: Status: Active Protocol: Activity Type Activity Date Activity User E-Sign Co-Sign Detail Recorded Client Recorded Date Recorded By Document 09/26/17 16:07 [id number] 09/26/17 16:39 JS Document 10/10/17 17:53 [id number] 10/10/17 18:10 CS Document 10/17/17 17:01 JS [id number] 10/17/17 17:24 JS 09/26/17 10/10/17 10/17/17 16:07 17:53 17:01 Wound Center Nurse 2 #5 RIGHT POSTERO LATERAL -Time 17:13 -Correct Patient Yes -Correct Side, Site, Position Yes -Correct Procedure Yes -Procedure Performed No -Wound/Ulcer Outcome Not Healed -Topical Lidocaine (%) 4 -Lidocaine (ml) 5 -Bleeding Controlled with NA -Treatment Response Procedure Tolerated Well #4 R POSTERIOR CALF -Time 16:07 17:53 17:20 -Correct Patient Yes Yes Yes -Correct Side, Site, Position Yes Yes Yes -Correct Procedure Yes Yes Yes -Procedure Performed Yes Yes Yes -Type of Procedure Debridement Debridement Debridement -Clinical Debridement Subcutaneous Subcutaneous Subcutaneous -Post Debridement Size (cm) - Length 1.9 1.8 1.3 -Post Debridement Size (cm) - Width 2.2 2.3 2.5 -Post Debridement Size (cm) - Depth 0.2 0.3 0.2 -Total Square Cm 4.18 4.14 3.25 -Wound/Ulcer Outcome Amputation Not Healed Not Healed -Ulcer Cleansing Rinsed/ Rinsed/ Rinsed/ Irrigated with Irrigated with Irrigated with Saline Saline Saline -Foul Odor after Cleansing No No No -Bioengineered Tissue No No No -Topical Lidocaine (%) 4 4 -Lidocaine (ml) 5 15 -Bleeding Controlled with NA Pressure NA -Treatment Response Procedure Procedure Procedure Tolerated Well Tolerated Well Tolerated Well #3 R-MEDIAL LE -Time 16:08 17:57 17:10 -Correct Patient Yes Yes Yes -Correct Side, Site, Position Yes Yes Yes -Correct Procedure Yes Yes Yes -Procedure Performed Yes Yes Yes -Type of Procedure Debridement Debridement Debridement -Clinical Debridement Subcutaneous Subcutaneous Subcutaneous -Post Debridement Size (cm) - Length 3.8 3.7 4.8 -Post Debridement Size (cm) - Width 3.9 4.2 5.0 -Post Debridement Size (cm) - Depth 0.2 0.2 0.2 -Total Square Cm 14.82 15.54 24.00 -Wound/Ulcer Outcome Not Healed Not Healed Not Healed -Ulcer Cleansing Rinsed/ Rinsed/ Rinsed/ Irrigated with Irrigated with Irrigated with Saline Saline Saline -Foul Odor after Cleansing No No No -Bioengineered Tissue No No No -Topical Lidocaine (%) 4 -Injectable Lidocaine (%) 4 -Lidocaine (ml) 5 -Injectable Lidocaine w/ Epi (%) 15 -Bleeding Controlled with NA Pressure NA -Treatment Response Procedure Procedure Procedure Tolerated Well Tolerated Well Tolerated Well #2 R OROZCO -Time 16:08 17:58 17:21 -Correct Patient Yes Yes Yes -Correct Side, Site, Position Yes Yes Yes -Correct Procedure Yes Yes Yes -Procedure Performed Yes Yes No -Type of Procedure Debridement Debridement -Clinical Debridement Subcutaneous Subcutaneous -Post Debridement Size (cm) - Length 0.7 0.1 -Post Debridement Size (cm) - Width 0.9 0.1 -Post Debridement Size (cm) - Depth 0.1 0.1 -Total Square Cm 0.63 0.01 -Wound/Ulcer Outcome Not Healed Not Healed Not Healed -Ulcer Cleansing Rinsed/ Rinsed/ Rinsed/ Irrigated with Irrigated with Irrigated with Saline Saline Saline -Foul Odor after Cleansing No No No -Bioengineered Tissue No No No -Topical Lidocaine (%) 4 -Lidocaine (ml) 5 -Bleeding Controlled with NA Pressure NA -Treatment Response Procedure Procedure Tolerated Well Tolerated Well #1 RIGHT LATERAL LOWER LEG -Time 16:08 17:59 17:09 -Correct Patient Yes Yes Yes -Correct Side, Site, Position Yes Yes Yes -Correct Procedure Yes Yes Yes -Procedure Performed Yes Yes Yes -Type of Procedure Debridement Debridement Debridement -Clinical Debridement Subcutaneous Subcutaneous Subcutaneous -Post Debridement Size (cm) - Length 13.2 12.6 12.8 -Post Debridement Size (cm) - Width 4.9 5.0 5.3 -Post Debridement Size (cm) - Depth 0.2 0.3 0.3 -Total Square Cm 64.68 63.00 67.84 -Wound/Ulcer Outcome Not Healed Not Healed Not Healed -Ulcer Cleansing Rinsed/ Rinsed/ Rinsed/ Irrigated with Irrigated with Irrigated with Saline Saline Saline -Foul Odor after Cleansing No No No -Bioengineered Tissue No No No -Topical Lidocaine (%) 4 4 -Lidocaine (ml) 5 15 -Bleeding Controlled with NA Pressure NA Silver Nitrate -Treatment Response Procedure Procedure Procedure Tolerated Well Tolerated Well Tolerated Well Pain Scale: 0-10 Numeric Is Patient Pain Free? Yes Yes Wound debrided: right orozco Laterality: Right No debridement was completed today - The wound is healed - Additional Wound Wound debrided: right postero lateral Laterality: Right Wound Grade/Stage: stage I Operative Diagnosis: No debridement was done as this is a soft tissue injury at this point. - Additional Wound Wound debrided: right posterior calf Laterality: Right Type of Debridement: Excisional debridement Anesthesia Used: 4% Lidocaine Solution Depth: Down to and including healthy tissue, in the subcutaneous layer Percentage of wound debrided: 100 Instrument Used: 5mm curette Tissue Removed: yellow slough, devitalized tissue Severity: Fat Layer Exposed Amount of bleeding with debridement: Mild Bleeding Controlled with: Compression and gauze Patient tolerated procedure: Patient tolerated procedure well - Additional Wound Wound debrided: right medial LE Laterality: Right Type of Debridement: Excisional debridement Anesthesia Used: 4% Lidocaine Solution Depth: Down to and including healthy tissue, in the subcutaneous layer Percentage of wound debrided: 100 Instrument Used: 5mm curette Tissue Removed: yellow slough, devitalized tissue Severity: Fat Layer Exposed Amount of bleeding with debridement: Mild Bleeding Controlled with: Compression and gauze Patient tolerated procedure: Patient tolerated procedure well - Additional Wound Wound debrided: right lateral lower leg Laterality: Right Type of Debridement: Excisional debridement Anesthesia Used: 4% Lidocaine Solution Depth: Down to and including healthy tissue, in the subcutaneous layer Percentage of wound debrided: 100 Instrument Used: 5mm curette Tissue Removed: yellow slough, devitalized tissue Severity: Fat Layer Exposed Amount of bleeding with debridement: Mild Bleeding Controlled with: Compression and gauze Patient tolerated procedure: Patient tolerated procedure well Assessment/Plan Active Problems Anemia (Chronic) COPD (chronic obstructive pulmonary disease) (Chronic) PAD (peripheral artery disease) (Chronic) Type 2 diabetes mellitus treated with insulin (Chronic) Neuropathy (Chronic) 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 likely secondary to venous insufficiency Plan: Mr. Martin is here for follow up. He has been tolerating dressings with Santyl. He has noted increase in drainage of wounds. Debridement done as documented above, procedure was well tolerated. Wound culture completed due to increase drainage. Will treat based on results. He still has significant fibrous exudate and devitalized tissue present that is not able to be debrided well but there is some areas of granulation. Will continue using Santyl and Surepress for compression. Due to the lack of improvement with conservative treatment and the size of his wounds, I feel that he would benefit from use of Apligraf to assist in healing his wounds of the right posterior, medial and lateral ulcers. Previous vascular studies reviewed. Elevate lower extremity when sitting and when in bed. Optimize blood sugar control. Increase protein intake/supplements. F/U in 1 week.
[2017-10-24 16:25] VITALS: BP 123/53; PULSE 65; RESP 18; TEMP 36.7
--- NOTE | 2017-10-24 20:15 | PCM.WC.PN ---
(1) Anemia Status: Chronic Current Visit: Yes Qualifiers: Anemia type: unspecified type Code(s): D64.9 - Anemia, unspecified (2) COPD (chronic obstructive pulmonary disease) Status: Chronic Current Visit: Yes Qualifiers: COPD type: unspecified COPD Code(s): J44.9 - Chronic obstructive pulmonary disease, unspecified (3) Type 2 diabetes mellitus treated with insulin Status: Chronic Current Visit: Yes Code(s): E11.9 - Type 2 diabetes mellitus without complications; Z79.4 - long-term (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 of insulin (4) Neuropathy Status: Chronic Current Visit: Yes Code(s): G62.9 - Polyneuropathy, unspecified (5) Chronic anticoagulation Status: Chronic Current Visit: Yes Code(s): 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 - 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 anticoagulants (6) Type 2 diabetes mellitus with diabetic polyneuropathy Status: Chronic Current Visit: Yes Qualifiers: Diabetes mellitus terminal make up 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 insulin use: with terminal make up operator use Qualified Code(s): E11.42 - Type 2 diabetes mellitus with diabetic polyneuropathy; Z79.4 - long-term (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 of insulin Code(s): E11.42 - Type 2 diabetes mellitus with diabetic polyneuropathy (7) Type 2 diabetes mellitus with other skin ulcer Status: Chronic Current Visit: Yes Qualifiers: Diabetes mellitus [facility] insulin use: with terminal make up operator use Qualified Code(s): E11.622 - Type 2 diabetes mellitus with other skin ulcer; Z79.4 - long-term (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 of insulin Code(s): E11.622 - Type 2 diabetes mellitus with other skin ulcer; L98.499 - Non-pressure chronic ulcer of skin of other sites with unspecified severity (8) 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 Current Visit: Yes Code(s): L97.212 - Non-pressure chronic ulcer of right calf with fat layer exposed (9) Bilateral lower extremity edema Status: Chronic Current Visit: Yes Code(s): R60.0 - Localized edema (10) 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 Status: Chronic Current Visit: Yes Code(s): L97.912 - Non-pressure chronic ulcer of unspecified part of right lower leg with fat layer exposed Comment: x 2 wounds one located above medial malleolus and one just below right knee (11) Chronic venous hypertension w/ulcer and inflammation involv right side Status: Chronic Current Visit: Yes Code(s): I87.331 - Chronic venous hypertension (idiopathic) with ulcer and inflammation of right lower extremity; L97.919 - Non-pressure chronic ulcer of unspecified part of right lower leg with unspecified severity Type of Wound Date of Service: 10/24/17 Chief Complaint: nonhealing wound/ulcer of right lateral calf History of Wound: Eddie is a pleasant 76 yo man who presents for evaluation of a wound/ulcer of his right lateral calf that has been present since mid-April and has continued to get larger. He has seen his PCP and has seen another physician in their practice for the wound/ulcer and has been treated once with an UNNA boot and otherwise has been given antibiotics off and on without improvement, most recent antibiotic was Augmentin. No cultures have ever been taken of the wound. No imaging has been done. He has been using Aquaphor to the wound as instructed by his PCP. He has significant pain and edema in this leg and has been started on Lyrica which has helped with the pain. He has been unable to sleep in bed due to the pain and has been sleeping in a recliner. He denies any significant drainage but does note some on his socks from time to time. He denies any odor. Occasionally there is some bleeding. he was referred to the wound center for further evaluation and treatment. 07/29--Has been applying santyl and dry dressing since visit last friday. No drainage for the last few days. Vascular testing scheduled for 08/08. Awaiting lab work from PCP. Admits to sleeping in a recliner since March. Denies N/V/F/C. Some redness to R leg, but no pus, no malodor, no warmth, minimal pain. There is edema. Culture positive for e.coli from Friday. Will Rx Keflex today. 08/05--Pt taking Keflex, tolerating well. Vascular testing scheduled for friday. Size improved with the use of nickel-thickness Santyl and lightly moistened gauze with light spandagrip. Plan to increase compression once vascular testing done. 08/12--Arterial testing done, normal. Venous test reveals multiple incompetent veins in the RLE. Pt states he cannot tolerate any tighter compression than the current spandagrip stocking. He will be referred to Dr. Patton today for evaluation. There is still fibrous tissue, but there are also skin islands forming within the ulceration. 08/19--Pt applying santyl nickel-thick and lightly moistened gauze dressing daily. There is still fibrous tissue, but there are also skin islands forming within the ulceration. Measurements improved today. Pt's is with him today, and she states that he often falls asleep in his recliner, and his legs end up falling off the foot rest and his feet end up on the ground. Pt has an appointment with Dr. Patton at [facility] at the beginning of August. 08/21- initial visit with Doroteo Nash NP who patient will be transferring care to. Has been applying nickel thick santyl daily, however, site is still painful and there is now a foul smell.Cultures will be redone today.Moderate amount of slough and fibrous tissue present. Pt denies any systemic signs of infection including no fever, chills, n/v/d/c. 08/28-patient has 2 new wounds and states that there is an increase in foul smell coming from his chronic wound. He has unaware how the 2 new wounds occurred and denies any obvious trauma, though does state that they looked like they are going to be opening prior to this visit. He does state that the wound below the right knee may be from a tape burn from his dressing changes. Progress of Wound: Eddie's wounds have not changed much since his last visit. He has been tolerating Santyl dressings. He has had decreased drainage and is tolerating antibiotics for positive wound culture with Enterobacter Cloacae. Apligraf has been applied for and approved. He is doing well with tubigrip compression. He tolerated 3 M compression but his legs were very moist and the drainage was copious from both legs that was present on the 3M dressings when removed so he has been using tubigrips. Denies odor, fever or chills. He is unable to tolerate having his legs elevated due to his neuropathy and frequently has them hanging down. Sleeps in his recliner. - Physical Exam Vital Signs Temp Pulse Resp BP 98.0 F 65 18 123/53 H 10/24/17 16:25 10/24/17 16:25 10/24/17 16:25 10/24/17 16:25 General: Alert, Oriented x3, Cooperative, No apparent distress HEENT: Atraumatic, Normocephalic Oral: Moist Mucosa Abdomen: Obese Extremities: Edema Skin: Ulcer/ Wound Wound Measurements and Assessment WC - Nurse 1 - General Ulcer Measurement Start: 09/26/17 14:39 Freq: Status: Active Protocol: Activity Type Activity Date Activity User E-Sign Co-Sign Detail Recorded Client Recorded Date Recorded By Document 10/24/17 16:25 DL [id number] 10/24/17 16:42 DL 10/24/17 16:25 Wound Center Nurse 1 [Ulcer Assessment] #5 RIGHT POSTERO LATERAL -Photo Taken No -Exudate Amt Large (67-100%) -Exudate Type Serosanguineous -Wound Margin Distinct, Outline Attached -Granulation Amt Large (67-100%) -Granulation Quality Red -Necrosis Amt Medium (34-66%) -Necrotic Tissue Type Adherent Slough -Structure Exposed N/A -Texture (Kinza-wound Skin Appearance) Scarring -Moisture (Kinza-wound Skin Appearance No Abnormality ) -Color (Kinza-wound Skin Appearance) Hemosiderin Staining -Temperature (Kinza-wound Skin No Abnormality Appearance) (Pt Warm) -Ulcer Cleansing Wound Cleanser -Foul Odor after Cleansing No -Anesthetic Used 4% Lidocaine Solution #4 R POSTERIOR CALF -Current Size (cm) - Length 1.3 -Current Size (cm) - Width 5 -Current Size (cm) - Depth 0.2 -Total Square Cm 6.5 -Photo Taken No -Exudate Amt Medium (34-66%) -Exudate Type Serosanguineous -Wound Margin Distinct, Outline Attached -Granulation Amt None Present (0 %) -Slough/Fibrin Yes -Necrosis Amt Large (67-100%) -Necrotic Tissue Type Adherent Slough -Structure Exposed N/A -Texture (Kinza-wound Skin Appearance) Scarring -Moisture (Kinza-wound Skin Appearance No Abnormality ) -Color (Kinza-wound Skin Appearance) Hemosiderin Staining -Temperature (Kinza-wound Skin No Abnormality Appearance) (Pt Warm) -Tenderness on Palpation (Kinza-wound No Skin Appearance) -Ulcer Cleansing Wound Cleanser -Foul Odor after Cleansing No -Anesthetic Used 4% Lidocaine Solution #3 R-MEDIAL LE -Current Size (cm) - Length 5 -Current Size (cm) - Width 5 -Current Size (cm) - Depth 0.3 -Total Square Cm 25 -Photo Taken No -Exudate Amt Medium (34-66%) -Exudate Type Serosanguineous -Wound Margin Distinct, Outline Attached -Granulation Amt Small (1-33%) -Granulation Quality [place] -Necrosis Amt Large (67-100%) -Necrotic Tissue Type Adherent Slough -Structure Exposed N/A -Texture (Kinza-wound Skin Appearance) Scarring -Moisture (Kinza-wound Skin Appearance No Abnormality ) -Color (Kinza-wound Skin Appearance) Hemosiderin Staining -Temperature (Kinza-wound Skin No Abnormality Appearance) (Pt Warm) -Tenderness on Palpation (Kinza-wound No Skin Appearance) -Ulcer Cleansing Wound Cleanser -Foul Odor after Cleansing No -Anesthetic Used 4% Lidocaine Solution #2 R CHRISTIAN -Current Size (cm) - Length 0 -Current Size (cm) - Width 0 -Current Size (cm) - Depth 0 -Total Square Cm 0 -Photo Taken Yes -Exudate Amt None Present (0 %) -Wound Margin Flat & Intact -Granulation Amt Large (67-100%) -Granulation Quality [place] -Necrosis Amt None Present (0 %) -Structure Exposed N/A -Texture (Kinza-wound Skin Appearance) Scarring -Moisture (Kinza-wound Skin Appearance No Abnormality ) -Color (Kinza-wound Skin Appearance) Hemosiderin Staining -Temperature (Kinza-wound Skin No Abnormality Appearance) (Pt Warm) -Ulcer Cleansing Wound Cleanser -Foul Odor after Cleansing No -Anesthetic Used 4% Lidocaine Solution #1 RIGHT LATERAL LOWER LEG -Current Size (cm) - Length 11.7 -Current Size (cm) - Width 5 -Current Size (cm) - Depth 0.2 -Total Square Cm 58.5 -Photo Taken No -Exudate Amt Large (67-100%) -Exudate Type Serosanguineous -Wound Margin Distinct, Outline Attached -Granulation Amt Large (67-100%) -Granulation Quality Red -Necrosis Amt Medium (34-66%) -Necrotic Tissue Type Adherent Slough -Structure Exposed N/A -Texture (Kinza-wound Skin Appearance) Scarring -Moisture (Kinza-wound Skin Appearance No Abnormality ) -Color (Kinza-wound Skin Appearance) Hemosiderin Staining -Temperature (Kinza-wound Skin No Abnormality Appearance) (Pt Warm) -Ulcer Cleansing Wound Cleanser -Foul Odor after Cleansing No -Anesthetic Used 4% Lidocaine Solution [Edema Assessment] -Right Calf (cm) 37 -Right Ankle (cm) 22.6 WC - Nurse 2 - General Ulcer CM Notes Start: 09/26/17 14:39 Freq: Status: Active Protocol: Activity Type Activity Date Activity User E-Sign Co-Sign Detail Recorded Client Recorded Date Recorded By Document 10/24/17 17:01 [id number] 10/24/17 17:28 10/24/17 17:01 Wound Center Nurse 2 [Procedure/Treatment] #4 R POSTERIOR CALF -Time 17:13 -Correct Patient Yes -Correct Side, Site, Position Yes -Correct Procedure Yes -Procedure Performed Yes -Type of Procedure Debridement -Clinical Debridement Subcutaneous -Post Debridement Size (cm) - Length 1.7 -Post Debridement Size (cm) - Width 3.2 -Post Debridement Size (cm) - Depth 0.3 -Total Square Cm 5.44 -Wound/Ulcer Outcome Not Healed -Ulcer Cleansing Rinsed/ Irrigated with Saline -Foul Odor after Cleansing No -Bioengineered Tissue No -Topical Lidocaine (%) 4 -Bleeding Controlled with Pressure -Treatment Response Procedure Tolerated Well #3 R-MEDIAL LE -Time 17:13 -Correct Patient Yes -Correct Side, Site, Position Yes -Correct Procedure Yes -Procedure Performed Yes -Type of Procedure Debridement -Clinical Debridement Subcutaneous -Post Debridement Size (cm) - Length 5.2 -Post Debridement Size (cm) - Width 0.8 -Post Debridement Size (cm) - Depth 0.3 -Total Square Cm 4.16 -Wound/Ulcer Outcome Not Healed -Ulcer Cleansing Rinsed/ Irrigated with Saline -Foul Odor after Cleansing No -Bioengineered Tissue No -Topical Lidocaine (%) 4 -Bleeding Controlled with Pressure -Treatment Response Procedure Tolerated Well #1 RIGHT LATERAL LOWER LEG -Time 17:11 -Correct Patient Yes -Correct Side, Site, Position Yes -Correct Procedure Yes -Procedure Performed Yes -Type of Procedure Debridement -Clinical Debridement Subcutaneous -Post Debridement Size (cm) - Length 12.5 -Post Debridement Size (cm) - Width 5.2 -Post Debridement Size (cm) - Depth 0.3 -Total Square Cm 65.00 -Wound/Ulcer Outcome Not Healed -Ulcer Cleansing Rinsed/ Irrigated with Saline -Foul Odor after Cleansing No -Bioengineered Tissue No -Topical Lidocaine (%) 4 -Bleeding Controlled with Pressure -Treatment Response Procedure Tolerated Well [See Physician Procedure note for Specifics] Pain Scale: 0-10 Numeric [Pain] -Is Patient Pain Free? Yes Psych/Mental Status: Normal Affect, Appropriate Debridement Note Post-Debridement Measurements/Treatment WC - Nurse 2 - General Ulcer CM Notes Start: 09/26/17 14:39 Freq: Status: Active Protocol: Activity Type Activity Date Activity User E-Sign Co-Sign Detail Recorded Client Recorded Date Recorded By Document 09/26/17 16:07 JS [id number] 09/26/17 16:39 JS Document 10/10/17 17:53 CS [id number] 10/10/17 18:10 CS Document 10/17/17 17:01 JS [id number] 10/17/17 17:24 JS Document 10/24/17 17:01 TM [id number] 10/24/17 17:28 TM 09/26/17 10/10/17 10/17/17 16:07 17:53 17:01 Wound Center Nurse 2 #5 RIGHT POSTERO LATERAL -Time 17:13 -Correct Patient Yes -Correct Side, Site, Position Yes -Correct Procedure Yes -Procedure Performed No -Wound/Ulcer Outcome Not Healed -Topical Lidocaine (%) 4 -Lidocaine (ml) 5 -Bleeding Controlled with NA -Treatment Response Procedure Tolerated Well #4 R POSTERIOR CALF -Time 16:07 17:53 17:20 -Correct Patient Yes Yes Yes -Correct Side, Site, Position Yes Yes Yes -Correct Procedure Yes Yes Yes -Procedure Performed Yes Yes Yes -Type of Procedure Debridement Debridement Debridement -Clinical Debridement Subcutaneous Subcutaneous Subcutaneous -Post Debridement Size (cm) - Length 1.9 1.8 1.3 -Post Debridement Size (cm) - Width 2.2 2.3 2.5 -Post Debridement Size (cm) - Depth 0.2 0.3 0.2 -Total Square Cm 4.18 4.14 3.25 -Wound/Ulcer Outcome Amputation Not Healed Not Healed -Ulcer Cleansing Rinsed/ Rinsed/ Rinsed/ Irrigated with Irrigated with Irrigated with Saline Saline Saline -Foul Odor after Cleansing No No No -Bioengineered Tissue No No No -Topical Lidocaine (%) 4 4 -Lidocaine (ml) 5 15 -Bleeding Controlled with NA Pressure NA -Treatment Response Procedure Procedure Procedure Tolerated Well Tolerated Well Tolerated Well #3 R-MEDIAL LE -Time 16:08 17:57 17:10 -Correct Patient Yes Yes Yes -Correct Side, Site, Position Yes Yes Yes -Correct Procedure Yes Yes Yes -Procedure Performed Yes Yes Yes -Type of Procedure Debridement Debridement Debridement -Clinical Debridement Subcutaneous Subcutaneous Subcutaneous -Post Debridement Size (cm) - Length 3.8 3.7 4.8 -Post Debridement Size (cm) - Width 3.9 4.2 5.0 -Post Debridement Size (cm) - Depth 0.2 0.2 0.2 -Total Square Cm 14.82 15.54 24.00 -Wound/Ulcer Outcome Not Healed Not Healed Not Healed -Ulcer Cleansing Rinsed/ Rinsed/ Rinsed/ Irrigated with Irrigated with Irrigated with Saline Saline Saline -Foul Odor after Cleansing No No No -Bioengineered Tissue No No No -Topical Lidocaine (%) 4 -Injectable Lidocaine (%) 4 -Lidocaine (ml) 5 -Injectable Lidocaine w/ Epi (%) 15 -Bleeding Controlled with NA Pressure NA -Treatment Response Procedure Procedure Procedure Tolerated Well Tolerated Well Tolerated Well #2 R CHRISTIAN -Time 16:08 17:58 17:21 -Correct Patient Yes Yes Yes -Correct Side, Site, Position Yes Yes Yes -Correct Procedure Yes Yes Yes -Procedure Performed Yes Yes No -Type of Procedure Debridement Debridement -Clinical Debridement Subcutaneous Subcutaneous -Post Debridement Size (cm) - Length 0.7 0.1 -Post Debridement Size (cm) - Width 0.9 0.1 -Post Debridement Size (cm) - Depth 0.1 0.1 -Total Square Cm 0.63 0.01 -Wound/Ulcer Outcome Not Healed Not Healed Not Healed -Ulcer Cleansing Rinsed/ Rinsed/ Rinsed/ Irrigated with Irrigated with Irrigated with Saline Saline Saline -Foul Odor after Cleansing No No No -Bioengineered Tissue No No No -Topical Lidocaine (%) 4 -Lidocaine (ml) 5 -Bleeding Controlled with NA Pressure NA -Treatment Response Procedure Procedure Tolerated Well Tolerated Well #1 RIGHT LATERAL LOWER LEG -Time 16:08 17:59 17:09 -Correct Patient Yes Yes Yes -Correct Side, Site, Position Yes Yes Yes -Correct Procedure Yes Yes Yes -Procedure Performed Yes Yes Yes -Type of Procedure Debridement Debridement Debridement -Clinical Debridement Subcutaneous Subcutaneous Subcutaneous -Post Debridement Size (cm) - Length 13.2 12.6 12.8 -Post Debridement Size (cm) - Width 4.9 5.0 5.3 -Post Debridement Size (cm) - Depth 0.2 0.3 0.3 -Total Square Cm 64.68 63.00 67.84 -Wound/Ulcer Outcome Not Healed Not Healed Not Healed -Ulcer Cleansing Rinsed/ Rinsed/ Rinsed/ Irrigated with Irrigated with Irrigated with Saline Saline Saline -Foul Odor after Cleansing No No No -Bioengineered Tissue No No No -Topical Lidocaine (%) 4 4 -Lidocaine (ml) 5 15 -Bleeding Controlled with NA Pressure NA Silver Nitrate -Treatment Response Procedure Procedure Procedure Tolerated Well Tolerated Well Tolerated Well Pain Scale: 0-10 Numeric Is Patient Pain Free? Yes Yes 10/24/17 17:01 Wound Center Nurse 2 #5 RIGHT POSTERO LATERAL -Time -Correct Patient -Correct Side, Site, Position -Correct Procedure -Procedure Performed -Wound/Ulcer Outcome -Topical Lidocaine (%) -Lidocaine (ml) -Bleeding Controlled with -Treatment Response #4 R POSTERIOR CALF -Time 17:13 -Correct Patient Yes -Correct Side, Site, Position Yes -Correct Procedure Yes -Procedure Performed Yes -Type of Procedure Debridement -Clinical Debridement Subcutaneous -Post Debridement Size (cm) - Length 1.7 -Post Debridement Size (cm) - Width 3.2 -Post Debridement Size (cm) - Depth 0.3 -Total Square Cm 5.44 -Wound/Ulcer Outcome Not Healed -Ulcer Cleansing Rinsed/ Irrigated with Saline -Foul Odor after Cleansing No -Bioengineered Tissue No -Topical Lidocaine (%) 4 -Lidocaine (ml) -Bleeding Controlled with Pressure -Treatment Response Procedure Tolerated Well #3 R-MEDIAL LE -Time 17:13 -Correct Patient Yes -Correct Side, Site, Position Yes -Correct Procedure Yes -Procedure Performed Yes -Type of Procedure Debridement -Clinical Debridement Subcutaneous -Post Debridement Size (cm) - Length 5.2 -Post Debridement Size (cm) - Width 0.8 -Post Debridement Size (cm) - Depth 0.3 -Total Square Cm 4.16 -Wound/Ulcer Outcome Not Healed -Ulcer Cleansing Rinsed/ Irrigated with Saline -Foul Odor after Cleansing No -Bioengineered Tissue No -Topical Lidocaine (%) 4 -Injectable Lidocaine (%) -Lidocaine (ml) -Injectable Lidocaine w/ Epi (%) -Bleeding Controlled with Pressure -Treatment Response Procedure Tolerated Well #2 R CHRISTIAN -Time -Correct Patient -Correct Side, Site, Position -Correct Procedure -Procedure Performed -Type of Procedure -Clinical Debridement -Post Debridement Size (cm) - Length -Post Debridement Size (cm) - Width -Post Debridement Size (cm) - Depth -Total Square Cm -Wound/Ulcer Outcome -Ulcer Cleansing -Foul Odor after Cleansing -Bioengineered Tissue -Topical Lidocaine (%) -Lidocaine (ml) -Bleeding Controlled with -Treatment Response #1 RIGHT LATERAL LOWER LEG -Time 17:11 -Correct Patient Yes -Correct Side, Site, Position Yes -Correct Procedure Yes -Procedure Performed Yes -Type of Procedure Debridement -Clinical Debridement Subcutaneous -Post Debridement Size (cm) - Length 12.5 -Post Debridement Size (cm) - Width 5.2 -Post Debridement Size (cm) - Depth 0.3 -Total Square Cm 65.00 -Wound/Ulcer Outcome Not Healed -Ulcer Cleansing Rinsed/ Irrigated with Saline -Foul Odor after Cleansing No -Bioengineered Tissue No -Topical Lidocaine (%) 4 -Lidocaine (ml) -Bleeding Controlled with Pressure -Treatment Response Procedure Tolerated Well Pain Scale: 0-10 Numeric Is Patient Pain Free? Yes Wound debrided: right posterolateral Laterality: Right No debridement was completed today - wound has healed - Additional Wound Wound debrided: right posterior calf Laterality: Right Type of Debridement: Excisional debridement Anesthesia Used: 4% Lidocaine Solution Depth: Down to and including healthy tissue, in the subcutaneous layer Percentage of wound debrided: 100 Instrument Used: 5mm curette, #15 blade, Forceps Tissue Removed: yellow slough, devitalized tissue Severity: Fat Layer Exposed Amount of bleeding with debridement: Mild Bleeding Controlled with: Compression and gauze Patient tolerated procedure: Patient tolerated procedure well - Additional Wound Wound debrided: right medial LE Laterality: Right Type of Debridement: Excisional debridement Anesthesia Used: 4% Lidocaine Solution Depth: Down to and including healthy tissue, in the subcutaneous layer Percentage of wound debrided: 100 Instrument Used: 5mm curette Tissue Removed: yellow slough, devitalized tissue Severity: Fat Layer Exposed Amount of bleeding with debridement: Mild Bleeding Controlled with: Pressure Patient tolerated procedure: Patient tolerated procedure well - Additional Wound Wound debrided: right lateral LE Laterality: Right Type of Debridement: Excisional debridement Anesthesia Used: 4% Lidocaine Solution Depth: Down to and including healthy tissue, in the subcutaneous layer Percentage of wound debrided: 100 Instrument Used: 5mm curette Tissue Removed: yellow slough, devitalized tissue Severity: Fat Layer Exposed Amount of bleeding with debridement: Mild Bleeding Controlled with: Compression and gauze Patient tolerated procedure: Patient tolerated procedure well Assessment/Plan Active Problems Anemia (Chronic) COPD (chronic obstructive pulmonary disease) (Chronic) PAD (peripheral artery disease) (Chronic) Type 2 diabetes mellitus treated with insulin (Chronic) Neuropathy (Chronic) 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) Chronic anticoagulation (Chronic) Type 2 diabetes mellitus with diabetic polyneuropathy (Chronic) Type 2 diabetes mellitus with other skin ulcer (Chronic) 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) Bilateral lower extremity edema (Chronic) 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 (Chronic) x 2 wounds one located above medial malleolus and one just below right knee Chronic venous hypertension w/ulcer and inflammation involv right side (Chronic) Assessment: Multiple nonhealing ulcer/wound of right lower extremity likely secondary to venous insufficiency Plan: Mr. Martin is here for follow up. He has been tolerating dressings with Santyl. He is tolerating Levofloxacin for treatment of his positive wound culture. Debridement done as documented above, procedure was well tolerated. His fibrous exudate is improved and better debridement was completed today. Will have him continue Santyl and Surepress for compression. Due to the lack of improvement with conservative treatment and the size of his wounds, I feel that he would benefit from use of Apligraf to assist in healing his wounds of the right posterior, medial and lateral ulcers. Previous vascular studies reviewed - he would benefit from venous ablation but Dr. Patton would like improvement in his wounds prior to doing procedure. Elevate lower extremity when sitting and when in bed. Optimize blood sugar control. Increase protein intake/supplements. F/U in 1 week and will apply Apligraf if available.
--- NOTE | 2017-10-24 20:24 | PN.PCM_ITS ---
(1) Anemia Status: Chronic Current Visit: Yes Qualifiers: Anemia type: unspecified type Code(s): D64.9 - Anemia, unspecified (2) COPD (chronic obstructive pulmonary disease) Status: Chronic Current Visit: Yes Qualifiers: COPD type: unspecified COPD Code(s): J44.9 - Chronic obstructive pulmonary disease, unspecified (3) Type 2 diabetes mellitus treated with insulin Status: Chronic Current Visit: Yes Code(s): E11.9 - Type 2 diabetes mellitus without complications; Z79.4 - FPC (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 of insulin (4) Neuropathy Status: Chronic Current Visit: Yes Code(s): G62.9 - Polyneuropathy, unspecified (5) Chronic anticoagulation Status: Chronic Current Visit: Yes Code(s): Z79.01 - 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 control 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 representative (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 of anticoagulants (6) Type 2 diabetes mellitus with diabetic polyneuropathy Status: Chronic Current Visit: Yes Qualifiers: Diabetes mellitus lobsterman insulin use: with lobsterman use Qualified Code( s): E11.42 - Type 2 diabetes mellitus with diabetic polyneuropathy; Z79.4 - FPC (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 of insulin Code(s): E11.42 - Type 2 diabetes mellitus with diabetic polyneuropathy (7) Type 2 diabetes mellitus with other skin ulcer Status: Chronic Current Visit: Yes Qualifiers: Diabetes mellitus senior living insulin use: with senior living use Qualified Code( s): E11.622 - Type 2 diabetes mellitus with other skin ulcer; Z79.4 - FPC (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 of insulin Code(s): E11.622 - Type 2 diabetes mellitus with other skin ulcer; L98.499 - Non -pressure chronic ulcer of skin of other sites with unspecified severity (8) 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 Current Visit: Yes Code(s): L97.212 - Non-pressure chronic ulcer of right calf with fat layer exposed (9) Bilateral lower extremity edema Status: Chronic Current Visit: Yes Code(s): R60.0 - Localized edema (10) 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 Status: Chronic Current Visit: Yes Code(s): L97.912 - Non-pressure chronic ulcer of unspecified part of right lower leg with fat layer exposed Comment: x 2 wounds one located above medial malleolus and one just below right knee (11) Chronic venous hypertension w/ulcer and inflammation involv right side Status: Chronic Current Visit: Yes Code(s): I87.331 - Chronic venous hypertension (idiopathic) with ulcer and inflammation of right lower extremity; L97.919 - Non-pressure chronic ulcer of unspecified part of right lower leg with unspecified severity Type of Wound Date of Service: 10/24/17 Chief Complaint: nonhealing wound/ulcer of right lateral calf History of Wound: Eddie is a pleasant 76 yo man who presents for evaluation of a wound/ulcer of his right lateral calf that has been present since mid-April and has continued to get larger. He has seen his PCP and has seen another physician in their practice for the wound/ulcer and has been treated once with an UNNA boot and otherwise has been given antibiotics off and on without improvement, most recent antibiotic was Augmentin. No cultures have ever been taken of the wound. No imaging has been done. He has been using Aquaphor to the wound as instructed by his PCP. He has significant pain and edema in this leg and has been started on Lyrica which has helped with the pain. He has been unable to sleep in bed due to the pain and has been sleeping in a recliner. He denies any significant drainage but does note some on his socks from time to time. He denies any odor. Occasionally there is some bleeding. he was referred to the wound center for further evaluation and treatment. 07/29--Has been applying santyl and dry dressing since visit last friday. No drainage for the last few days. Vascular testing scheduled for 08/08. Awaiting lab work from PCP. Admits to sleeping in a recliner since March. Denies N/V/F/C. Some redness to R leg, but no pus, no malodor, no warmth, minimal pain. There is edema. Culture positive for e.coli from Friday. Will Rx Keflex today. 08/05-- Pt taking Keflex, tolerating well. Vascular testing scheduled for friday. Size improved with the use of nickel-thickness Santyl and lightly moistened gauze with light spandagrip. Plan to increase compression once vascular testing done. 08/12--Arterial testing done, normal. Venous test reveals multiple incompetent veins in the RLE. Pt states he cannot tolerate any tighter compression than the current spandagrip stocking. He will be referred to Dr. Patton today for evaluation. There is still fibrous tissue, but there are also skin islands forming within the ulceration. 08/19--Pt applying santyl nickel-thick and lightly moistened gauze dressing daily. There is still fibrous tissue, but there are also skin islands forming within the ulceration. Measurements improved today. Pt's is with him today, and she states that he often falls asleep in his recliner, and his legs end up falling off the foot rest and his feet end up on the ground. Pt has an appointment with Dr. Patton at [facility] at the beginning of August. 08/21- initial visit with Doroteo Nash NP who patient will be transferring care to. Has been applying nickel thick santyl daily, however, site is still painful and there is now a foul smell.Cultures will be redone today.Moderate amount of slough and fibrous tissue present. Pt denies any systemic signs of infection including no fever, chills, n/v/d/c. 08/28 -patient has 2 new wounds and states that there is an increase in foul smell coming from his chronic wound. He has unaware how the 2 new wounds occurred and denies any obvious trauma, though does state that they looked like they are going to be opening prior to this visit. He does state that the wound below the right knee may be from a tape burn from his dressing changes. Progress of Wound: Eddie's wounds have not changed much since his last visit. He has been tolerating Santyl dressings. He has had decreased drainage and is tolerating antibiotics for positive wound culture with Enterobacter Cloacae. Apligraf has been applied for and approved. He is doing well with tubigrip compression. He tolerated 3 M compression but his legs were very moist and the drainage was copious from both legs that was present on the 3M dressings when removed so he has been using tubigrips. Denies odor, fever or chills. He is unable to tolerate having his legs elevated due to his neuropathy and frequently has them hanging down. Sleeps in his recliner. - Physical Exam Vital Signs Temp Pulse Resp BP 98.0 F 65 18 123/53 H 10/24/17 16:25 10/24/17 16:25 10/24/17 16:25 10/24/17 16:25 General: Alert, Oriented x3, Cooperative, No apparent distress HEENT: Atraumatic, Normocephalic Oral: Moist Mucosa Abdomen: Obese Extremities: Edema Skin: Ulcer/ Wound Wound Measurements and Assessment WC - Nurse 1 - General Ulcer Measurement Start: 09/26/17 14:39 Freq: Status: Active Protocol: Activity Type Activity Date Activity User E-Sign Co-Sign Detail Recorded Client Recorded Date Recorded By Document 10/24/17 16:25 DL [id number] 10/24/17 16:42 DL 10/24/17 16:25 Wound Center Nurse 1 [Ulcer Assessment] #5 RIGHT POSTERO LATERAL -Photo Taken No -Exudate Amt Large (67-100%) -Exudate Type Serosanguineous -Wound Margin Distinct, Outline Attached -Granulation Amt Large (67-100%) -Granulation Quality Red -Necrosis Amt Medium (34-66%) -Necrotic Tissue Type Adherent Slough -Structure Exposed N/A -Texture (Kinza-wound Skin Appearance) Scarring -Moisture (Kinza-wound Skin Appearance No Abnormality ) -Color (Kinza-wound Skin Appearance) Hemosiderin Staining -Temperature (Kinza-wound Skin No Abnormality Appearance) (Pt Warm) -Ulcer Cleansing Wound Cleanser -Foul Odor after Cleansing No -Anesthetic Used 4% Lidocaine Solution #4 R POSTERIOR CALF -Current Size (cm) - Length 1.3 -Current Size (cm) - Width 5 -Current Size (cm) - Depth 0.2 -Total Square Cm 6.5 -Photo Taken No -Exudate Amt Medium (34-66%) -Exudate Type Serosanguineous -Wound Margin Distinct, Outline Attached -Granulation Amt None Present (0 %) -Slough/Fibrin Yes -Necrosis Amt Large (67-100%) -Necrotic Tissue Type Adherent Slough -Structure Exposed N/A -Texture (Kinza-wound Skin Appearance) Scarring -Moisture (Kinza-wound Skin Appearance No Abnormality ) -Color (Kinza-wound Skin Appearance) Hemosiderin Staining -Temperature (Kinza-wound Skin No Abnormality Appearance) (Pt Warm) -Tenderness on Palpation (Kinza-wound No Skin Appearance) -Ulcer Cleansing Wound Cleanser -Foul Odor after Cleansing No -Anesthetic Used 4% Lidocaine Solution #3 R-MEDIAL LE -Current Size (cm) - Length 5 -Current Size (cm) - Width 5 -Current Size (cm) - Depth 0.3 -Total Square Cm 25 -Photo Taken No -Exudate Amt Medium (34-66%) -Exudate Type Serosanguineous -Wound Margin Distinct, Outline Attached -Granulation Amt Small (1-33%) -Granulation Quality [place] -Necrosis Amt Large (67-100%) -Necrotic Tissue Type Adherent Slough -Structure Exposed N/A -Texture (Kinza-wound Skin Appearance) Scarring -Moisture (Kinza-wound Skin Appearance No Abnormality ) -Color (Kinza-wound Skin Appearance) Hemosiderin Staining -Temperature (Kinza-wound Skin No Abnormality Appearance) (Pt Warm) -Tenderness on Palpation (Kinza-wound No Skin Appearance) -Ulcer Cleansing Wound Cleanser -Foul Odor after Cleansing No -Anesthetic Used 4% Lidocaine Solution #2 R CHRISTIAN -Current Size (cm) - Length 0 -Current Size (cm) - Width 0 -Current Size (cm) - Depth 0 -Total Square Cm 0 -Photo Taken Yes -Exudate Amt None Present (0 %) -Wound Margin Flat & Intact -Granulation Amt Large (67-100%) -Granulation Quality [place] -Necrosis Amt None Present (0 %) -Structure Exposed N/A -Texture (Kinza-wound Skin Appearance) Scarring -Moisture (Kinza-wound Skin Appearance No Abnormality ) -Color (Kinza-wound Skin Appearance) Hemosiderin Staining -Temperature (Kinza-wound Skin No Abnormality Appearance) (Pt Warm) -Ulcer Cleansing Wound Cleanser -Foul Odor after Cleansing No -Anesthetic Used 4% Lidocaine Solution #1 RIGHT LATERAL LOWER LEG -Current Size (cm) - Length 11.7 -Current Size (cm) - Width 5 -Current Size (cm) - Depth 0.2 -Total Square Cm 58.5 -Photo Taken No -Exudate Amt Large (67-100%) -Exudate Type Serosanguineous -Wound Margin Distinct, Outline Attached -Granulation Amt Large (67-100%) -Granulation Quality Red -Necrosis Amt Medium (34-66%) -Necrotic Tissue Type Adherent Slough -Structure Exposed N/A -Texture (Kinza-wound Skin Appearance) Scarring -Moisture (Kinza-wound Skin Appearance No Abnormality ) -Color (Kinza-wound Skin Appearance) Hemosiderin Staining -Temperature (Kinza-wound Skin No Abnormality Appearance) (Pt Warm) -Ulcer Cleansing Wound Cleanser -Foul Odor after Cleansing No -Anesthetic Used 4% Lidocaine Solution [Edema Assessment] -Right Calf (cm) 37 -Right Ankle (cm) 22.6 WC - Nurse 2 - General Ulcer CM Notes Start: 09/26/17 14:39 Freq: Status: Active Protocol: Activity Type Activity Date Activity User E-Sign Co-Sign Detail Recorded Client Recorded Date Recorded By Document 10/24/17 17:01 [id number] 10/24/17 17:28 10/24/17 17:01 Wound Center Nurse 2 [Procedure/Treatment] #4 R POSTERIOR CALF -Time 17:13 -Correct Patient Yes -Correct Side, Site, Position Yes -Correct Procedure Yes -Procedure Performed Yes -Type of Procedure Debridement -Clinical Debridement Subcutaneous -Post Debridement Size (cm) - Length 1.7 -Post Debridement Size (cm) - Width 3.2 -Post Debridement Size (cm) - Depth 0.3 -Total Square Cm 5.44 -Wound/Ulcer Outcome Not Healed -Ulcer Cleansing Rinsed/ Irrigated with Saline -Foul Odor after Cleansing No -Bioengineered Tissue No -Topical Lidocaine (%) 4 -Bleeding Controlled with Pressure -Treatment Response Procedure Tolerated Well #3 R-MEDIAL LE -Time 17:13 -Correct Patient Yes -Correct Side, Site, Position Yes -Correct Procedure Yes -Procedure Performed Yes -Type of Procedure Debridement -Clinical Debridement Subcutaneous -Post Debridement Size (cm) - Length 5.2 -Post Debridement Size (cm) - Width 0.8 -Post Debridement Size (cm) - Depth 0.3 -Total Square Cm 4.16 -Wound/Ulcer Outcome Not Healed -Ulcer Cleansing Rinsed/ Irrigated with Saline -Foul Odor after Cleansing No -Bioengineered Tissue No -Topical Lidocaine (%) 4 -Bleeding Controlled with Pressure -Treatment Response Procedure Tolerated Well #1 RIGHT LATERAL LOWER LEG -Time 17:11 -Correct Patient Yes -Correct Side, Site, Position Yes -Correct Procedure Yes -Procedure Performed Yes -Type of Procedure Debridement -Clinical Debridement Subcutaneous -Post Debridement Size (cm) - Length 12.5 -Post Debridement Size (cm) - Width 5.2 -Post Debridement Size (cm) - Depth 0.3 -Total Square Cm 65.00 -Wound/Ulcer Outcome Not Healed -Ulcer Cleansing Rinsed/ Irrigated with Saline -Foul Odor after Cleansing No -Bioengineered Tissue No -Topical Lidocaine (%) 4 -Bleeding Controlled with Pressure -Treatment Response Procedure Tolerated Well [See Physician Procedure note for Specifics] Pain Scale: 0-10 Numeric [Pain] -Is Patient Pain Free? Yes Psych/Mental Status: Normal Affect, Appropriate Debridement Note Post-Debridement Measurements/Treatment WC - Nurse 2 - General Ulcer CM Notes Start: 09/26/17 14:39 Freq: Status: Active Protocol: Activity Type Activity Date Activity User E-Sign Co-Sign Detail Recorded Client Recorded Date Recorded By Document 09/26/17 16:07 JS [id number] 09/26/17 16:39 JS Document 10/10/17 17:53 CS [id number] 10/10/17 18:10 CS Document 10/17/17 17:01 JS [id number] 10/17/17 17:24 JS Document 10/24/17 17:01 TM [id number] 10/24/17 17:28 TM 09/26/17 10/10/17 10/17/17 16:07 17:53 17:01 Wound Center Nurse 2 #5 RIGHT POSTERO LATERAL -Time 17:13 -Correct Patient Yes -Correct Side, Site, Position Yes -Correct Procedure Yes -Procedure Performed No -Wound/Ulcer Outcome Not Healed -Topical Lidocaine (%) 4 -Lidocaine (ml) 5 -Bleeding Controlled with NA -Treatment Response Procedure Tolerated Well #4 R POSTERIOR CALF -Time 16:07 17:53 17:20 -Correct Patient Yes Yes Yes -Correct Side, Site, Position Yes Yes Yes -Correct Procedure Yes Yes Yes -Procedure Performed Yes Yes Yes -Type of Procedure Debridement Debridement Debridement -Clinical Debridement Subcutaneous Subcutaneous Subcutaneous -Post Debridement Size (cm) - Length 1.9 1.8 1.3 -Post Debridement Size (cm) - Width 2.2 2.3 2.5 -Post Debridement Size (cm) - Depth 0.2 0.3 0.2 -Total Square Cm 4.18 4.14 3.25 -Wound/Ulcer Outcome Amputation Not Healed Not Healed -Ulcer Cleansing Rinsed/ Rinsed/ Rinsed/ Irrigated with Irrigated with Irrigated with Saline Saline Saline -Foul Odor after Cleansing No No No -Bioengineered Tissue No No No -Topical Lidocaine (%) 4 4 -Lidocaine (ml) 5 15 -Bleeding Controlled with NA Pressure NA -Treatment Response Procedure Procedure Procedure Tolerated Well Tolerated Well Tolerated Well #3 R-MEDIAL LE -Time 16:08 17:57 17:10 -Correct Patient Yes Yes Yes -Correct Side, Site, Position Yes Yes Yes -Correct Procedure Yes Yes Yes -Procedure Performed Yes Yes Yes -Type of Procedure Debridement Debridement Debridement -Clinical Debridement Subcutaneous Subcutaneous Subcutaneous -Post Debridement Size (cm) - Length 3.8 3.7 4.8 -Post Debridement Size (cm) - Width 3.9 4.2 5.0 -Post Debridement Size (cm) - Depth 0.2 0.2 0.2 -Total Square Cm 14.82 15.54 24.00 -Wound/Ulcer Outcome Not Healed Not Healed Not Healed -Ulcer Cleansing Rinsed/ Rinsed/ Rinsed/ Irrigated with Irrigated with Irrigated with Saline Saline Saline -Foul Odor after Cleansing No No No -Bioengineered Tissue No No No -Topical Lidocaine (%) 4 -Injectable Lidocaine (%) 4 -Lidocaine (ml) 5 -Injectable Lidocaine w/ Epi (%) 15 -Bleeding Controlled with NA Pressure NA -Treatment Response Procedure Procedure Procedure Tolerated Well Tolerated Well Tolerated Well #2 R CHRISTIAN -Time 16:08 17:58 17:21 -Correct Patient Yes Yes Yes -Correct Side, Site, Position Yes Yes Yes -Correct Procedure Yes Yes Yes -Procedure Performed Yes Yes No -Type of Procedure Debridement Debridement -Clinical Debridement Subcutaneous Subcutaneous -Post Debridement Size (cm) - Length 0.7 0.1 -Post Debridement Size (cm) - Width 0.9 0.1 -Post Debridement Size (cm) - Depth 0.1 0.1 -Total Square Cm 0.63 0.01 -Wound/Ulcer Outcome Not Healed Not Healed Not Healed -Ulcer Cleansing Rinsed/ Rinsed/ Rinsed/ Irrigated with Irrigated with Irrigated with Saline Saline Saline -Foul Odor after Cleansing No No No -Bioengineered Tissue No No No -Topical Lidocaine (%) 4 -Lidocaine (ml) 5 -Bleeding Controlled with NA Pressure NA -Treatment Response Procedure Procedure Tolerated Well Tolerated Well #1 RIGHT LATERAL LOWER LEG -Time 16:08 17:59 17:09 -Correct Patient Yes Yes Yes -Correct Side, Site, Position Yes Yes Yes -Correct Procedure Yes Yes Yes -Procedure Performed Yes Yes Yes -Type of Procedure Debridement Debridement Debridement -Clinical Debridement Subcutaneous Subcutaneous Subcutaneous -Post Debridement Size (cm) - Length 13.2 12.6 12.8 -Post Debridement Size (cm) - Width 4.9 5.0 5.3 -Post Debridement Size (cm) - Depth 0.2 0.3 0.3 -Total Square Cm 64.68 63.00 67.84 -Wound/Ulcer Outcome Not Healed Not Healed Not Healed -Ulcer Cleansing Rinsed/ Rinsed/ Rinsed/ Irrigated with Irrigated with Irrigated with Saline Saline Saline -Foul Odor after Cleansing No No No -Bioengineered Tissue No No No -Topical Lidocaine (%) 4 4 -Lidocaine (ml) 5 15 -Bleeding Controlled with NA Pressure NA Silver Nitrate -Treatment Response Procedure Procedure Procedure Tolerated Well Tolerated Well Tolerated Well Pain Scale: 0-10 Numeric Is Patient Pain Free? Yes Yes 10/24/17 17:01 Wound Center Nurse 2 #5 RIGHT POSTERO LATERAL -Time -Correct Patient -Correct Side, Site, Position -Correct Procedure -Procedure Performed -Wound/Ulcer Outcome -Topical Lidocaine (%) -Lidocaine (ml) -Bleeding Controlled with -Treatment Response #4 R POSTERIOR CALF -Time 17:13 -Correct Patient Yes -Correct Side, Site, Position Yes -Correct Procedure Yes -Procedure Performed Yes -Type of Procedure Debridement -Clinical Debridement Subcutaneous -Post Debridement Size (cm) - Length 1.7 -Post Debridement Size (cm) - Width 3.2 -Post Debridement Size (cm) - Depth 0.3 -Total Square Cm 5.44 -Wound/Ulcer Outcome Not Healed -Ulcer Cleansing Rinsed/ Irrigated with Saline -Foul Odor after Cleansing No -Bioengineered Tissue No -Topical Lidocaine (%) 4 -Lidocaine (ml) -Bleeding Controlled with Pressure -Treatment Response Procedure Tolerated Well #3 R-MEDIAL LE -Time 17:13 -Correct Patient Yes -Correct Side, Site, Position Yes -Correct Procedure Yes -Procedure Performed Yes -Type of Procedure Debridement -Clinical Debridement Subcutaneous -Post Debridement Size (cm) - Length 5.2 -Post Debridement Size (cm) - Width 0.8 -Post Debridement Size (cm) - Depth 0.3 -Total Square Cm 4.16 -Wound/Ulcer Outcome Not Healed -Ulcer Cleansing Rinsed/ Irrigated with Saline -Foul Odor after Cleansing No -Bioengineered Tissue No -Topical Lidocaine (%) 4 -Injectable Lidocaine (%) -Lidocaine (ml) -Injectable Lidocaine w/ Epi (%) -Bleeding Controlled with Pressure -Treatment Response Procedure Tolerated Well #2 R CHRISTIAN -Time -Correct Patient -Correct Side, Site, Position -Correct Procedure -Procedure Performed -Type of Procedure -Clinical Debridement -Post Debridement Size (cm) - Length -Post Debridement Size (cm) - Width -Post Debridement Size (cm) - Depth -Total Square Cm -Wound/Ulcer Outcome -Ulcer Cleansing -Foul Odor after Cleansing -Bioengineered Tissue -Topical Lidocaine (%) -Lidocaine (ml) -Bleeding Controlled with -Treatment Response #1 RIGHT LATERAL LOWER LEG -Time 17:11 -Correct Patient Yes -Correct Side, Site, Position Yes -Correct Procedure Yes -Procedure Performed Yes -Type of Procedure Debridement -Clinical Debridement Subcutaneous -Post Debridement Size (cm) - Length 12.5 -Post Debridement Size (cm) - Width 5.2 -Post Debridement Size (cm) - Depth 0.3 -Total Square Cm 65.00 -Wound/Ulcer Outcome Not Healed -Ulcer Cleansing Rinsed/ Irrigated with Saline -Foul Odor after Cleansing No -Bioengineered Tissue No -Topical Lidocaine (%) 4 -Lidocaine (ml) -Bleeding Controlled with Pressure -Treatment Response Procedure Tolerated Well Pain Scale: 0-10 Numeric Is Patient Pain Free? Yes Wound debrided: right posterolateral Laterality: Right No debridement was completed today - wound has healed - Additional Wound Wound debrided: right posterior calf Laterality: Right Type of Debridement: Excisional debridement Anesthesia Used: 4% Lidocaine Solution Depth: Down to and including healthy tissue, in the subcutaneous layer Percentage of wound debrided: 100 Instrument Used: 5mm curette, #15 blade, Forceps Tissue Removed: yellow slough, devitalized tissue Severity: Fat Layer Exposed Amount of bleeding with debridement: Mild Bleeding Controlled with: Compression and gauze Patient tolerated procedure: Patient tolerated procedure well - Additional Wound Wound debrided: right medial LE Laterality: Right Type of Debridement: Excisional debridement Anesthesia Used: 4% Lidocaine Solution Depth: Down to and including healthy tissue, in the subcutaneous layer Percentage of wound debrided: 100 Instrument Used: 5mm curette Tissue Removed: yellow slough, devitalized tissue Severity: Fat Layer Exposed Amount of bleeding with debridement: Mild Bleeding Controlled with: Pressure Patient tolerated procedure: Patient tolerated procedure well - Additional Wound Wound debrided: right lateral LE Laterality: Right Type of Debridement: Excisional debridement Anesthesia Used: 4% Lidocaine Solution Depth: Down to and including healthy tissue, in the subcutaneous layer Percentage of wound debrided: 100 Instrument Used: 5mm curette Tissue Removed: yellow slough, devitalized tissue Severity: Fat Layer Exposed Amount of bleeding with debridement: Mild Bleeding Controlled with: Compression and gauze Patient tolerated procedure: Patient tolerated procedure well Assessment/Plan Active Problems Anemia (Chronic) COPD (chronic obstructive pulmonary disease) (Chronic) PAD (peripheral artery disease) (Chronic) Type 2 diabetes mellitus treated with insulin (Chronic) Neuropathy (Chronic) 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 likely secondary to venous insufficiency Plan: Mr. Martin is here for follow up. He has been tolerating dressings with Santyl. He is tolerating Levofloxacin for treatment of his positive wound culture. Debridement done as documented above, procedure was well tolerated. His fibrous exudate is improved and better debridement was completed today. Will have him continue Santyl and Surepress for compression. Due to the lack of improvement with conservative treatment and the size of his wounds, I feel that he would benefit from use of Apligraf to assist in healing his wounds of the right posterior, medial and lateral ulcers. Previous vascular studies reviewed - he would benefit from venous ablation but Dr. Patton would like improvement in his wounds prior to doing procedure. Elevate lower extremity when sitting and when in bed. Optimize blood sugar control. Increase protein intake/ supplements. F/U in 1 week and will apply Apligraf if available.
== END 2017-10-25 23:59 ==
LOC: WC 16:30
PROVIDERS: Family Provider Family Medicine; PCP Family Medicine; Visit Provider Family Medicine
DX: E11.622 Type 2 diabetes mellitus with other skin ulcer (principal); R60.0 Localized edema; L97.212 Non-pressure chronic ulcer of right calf with fat layer exposed; E11.42 Type 2 diabetes mellitus with diabetic polyneuropathy; I70.232 Atherosclerosis of native arteries of right leg with ulceration of calf; E11.51 Type 2 diabetes mellitus with diabetic peripheral angiopathy without gangrene; J44.9 Chronic obstructive pulmonary disease, unspecified; L97.812 Non-pressure chronic ulcer of other part of right lower leg with fat layer exposed
CPT/HCPCS: 11042; 11045; 17250; 87070; 87075; 87077; 87186; 87205; 97597; 97598; 97602

== ENCOUNTER 2017-11-14 12:30 | Outpatient (RCR) | payer MEDICARE, SELFPAY ==
[2017-10-26 00:45] VITALS: BP 123/53; PULSE 65; RESP 18; TEMP 36.7
[2017-10-31 16:08] VITALS: BP 136/68; PULSE 56; RESP 20; TEMP 35.7
--- NOTE | 2017-10-31 20:34 | PCM.WC.PN ---
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 Current Visit: Yes Code(s): L97.212 - Non-pressure chronic ulcer of right calf with fat layer exposed (4) 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 Status: Chronic Current Visit: Yes Code(s): L97.912 - Non-pressure chronic ulcer of unspecified part of right lower leg with fat layer exposed Comment: x 2 wounds one located above medial malleolus and one just below right knee (5) Chronic venous hypertension w/ulcer and inflammation involv right side Status: Chronic Current Visit: Yes Code(s): I87.331 - Chronic venous hypertension (idiopathic) with ulcer and inflammation of right lower extremity; L97.919 - Non-pressure chronic ulcer of unspecified part of right lower leg with unspecified severity Type of Wound Date of Service: 10/31/17 Chief Complaint: nonhealing wound/ulcer of right lateral calf History of Wound: Eddie is a pleasant 76 yo man who presents for evaluation of a wound/ulcer of his right lateral calf that has been present since mid-April and has continued to get larger. He has seen his PCP and has seen another physician in their practice for the wound/ulcer and has been treated once with an UNNA boot and otherwise has been given antibiotics off and on without improvement, most recent antibiotic was Augmentin. No cultures have ever been taken of the wound. No imaging has been done. He has been using Aquaphor to the wound as instructed by his PCP. He has significant pain and edema in this leg and has been started on Lyrica which has helped with the pain. He has been unable to sleep in bed due to the pain and has been sleeping in a recliner. He denies any significant drainage but does note some on his socks from time to time. He denies any odor. Occasionally there is some bleeding. he was referred to the wound center for further evaluation and treatment. 07/29--Has been applying santyl and dry dressing since visit last friday. No drainage for the last few days. Vascular testing scheduled for 08/08. Awaiting lab work from PCP. Admits to sleeping in a recliner since March. Denies N/V/F/C. Some redness to R leg, but no pus, no malodor, no warmth, minimal pain. There is edema. Culture positive for e.coli from Friday. Will Rx Keflex today. 08/05--Pt taking Keflex, tolerating well. Vascular testing scheduled for friday. Size improved with the use of nickel-thickness Santyl and lightly moistened gauze with light spandagrip. Plan to increase compression once vascular testing done. 08/12--Arterial testing done, normal. Venous test reveals multiple incompetent veins in the RLE. Pt states he cannot tolerate any tighter compression than the current spandagrip stocking. He will be referred to Dr. Patton today for evaluation. There is still fibrous tissue, but there are also skin islands forming within the ulceration. 08/19--Pt applying santyl nickel-thick and lightly moistened gauze dressing daily. There is still fibrous tissue, but there are also skin islands forming within the ulceration. Measurements improved today. Pt's is with him today, and she states that he often falls asleep in his recliner, and his legs end up falling off the foot rest and his feet end up on the ground. Pt has an appointment with Dr. Patton at [facility] at the beginning of August. 08/21- initial visit with Doroteo Nash NP who patient will be transferring care to. Has been applying nickel thick santyl daily, however, site is still painful and there is now a foul smell.Cultures will be redone today.Moderate amount of slough and fibrous tissue present. Pt denies any systemic signs of infection including no fever, chills, n/v/d/c. 08/28-patient has 2 new wounds and states that there is an increase in foul smell coming from his chronic wound. He has unaware how the 2 new wounds occurred and denies any obvious trauma, though does state that they looked like they are going to be opening prior to this visit. He does state that the wound below the right knee may be from a tape burn from his dressing changes. Progress of Wound: Eddie's wounds have not changed much since his last visit. He has been tolerating Santyl dressings. He tolerated antibiotics. Apligraf has been applied for and approved and will be applied today to his right lateral leg wound. He is doing well with tubigrip compression. He tolerated 3 M compression but his legs were very moist and the drainage was copious from both legs that was present on the 3M dressings when removed so he has been using tubigrips. Denies odor, fever or chills. He is unable to tolerate having his legs elevated due to his neuropathy and frequently has them hanging down. Sleeps in his recliner. - Physical Exam Vital Signs Temp Pulse Resp BP 96.2 F L 56 L 20 H 136/68 H 10/31/17 16:08 10/31/17 16:08 10/31/17 16:08 10/31/17 16:08 General: Alert, Oriented x3, Cooperative, No apparent distress HEENT: Atraumatic, Normocephalic Oral: Moist Mucosa Abdomen: Obese Extremities: Edema Skin: Ulcer/ Wound Wound Measurements and Assessment WC - Nurse 1 - General Ulcer Measurement Start: 10/31/17 16:06 Freq: Status: Active Protocol: Activity Type Activity Date Activity User E-Sign Co-Sign Detail Recorded Client Recorded Date Recorded By Document 10/31/17 16:08 TORREY [id number] 10/31/17 16:27 TORREY 10/31/17 16:08 Wound Center Nurse 1 [Ulcer Assessment] #4 R POSTERIOR CALF -Combined with other wound No -Current Size (cm) - Length 1.5 -Current Size (cm) - Width 4.0 -Current Size (cm) - Depth 0.3 -Total Square Cm 6.00 -Date of Last Picture (Recall this 10/17/17 field) -Photo Taken No -Epithelialization None Present -Tunneling No -Undermining/Tunneling No -Circular Undermining No -Classification - Thickness Full Thickness without Exposed Support Structure -Exudate Amt Medium (34-66%) -Exudate Type Serous -Wound Margin Distinct, Outline Attached -Granulation Amt Medium (34-66%) -Granulation Quality Pale [place] -Slough/Fibrin Yes -Necrosis Amt None Present (0 %) -Necrotic Tissue Type Adherent Slough -Structure Exposed None/Limited to Skin Breakdown -Texture (Kinza-wound Skin Appearance) No Abnormality -Moisture (Kinza-wound Skin Appearance No Abnormality ) -Color (Kinza-wound Skin Appearance) No Abnormality -Temperature (Kinza-wound Skin No Abnormality Appearance) (Pt Warm) -Tenderness on Palpation (Kinza-wound Yes Skin Appearance) -Ulcer Cleansing Rinsed/ Irrigated with Saline -Foul Odor after Cleansing No -Anesthetic Used 4% Lidocaine Solution 5% Lidocaine Gel #3 R-MEDIAL LE -Combined with other wound No -Current Size (cm) - Length 5.0 -Current Size (cm) - Width 5.5 -Current Size (cm) - Depth 0.3 -Total Square Cm 27.50 -Date of Last Picture (Recall this 10/17/17 field) -Photo Taken No -Epithelialization None Present -Tunneling No -Undermining/Tunneling No -Circular Undermining No -Classification - Thickness Full Thickness without Exposed Support Structure -Change in Wound Grade/Stage No Query Text:If change please identify the Stage/Grade in the comment (ie. S2 G3) -Exudate Amt Large (67-100%) -Exudate Type Serous -Wound Margin Distinct, Outline Attached -Granulation Amt Small (1-33%) -Granulation Quality Pale [place] -Slough/Fibrin Yes -Necrosis Amt None Present (0 %) -Necrotic Tissue Type Adherent Slough -Structure Exposed None/Limited to Skin Breakdown -Texture (Kinza-wound Skin Appearance) No Abnormality -Moisture (Kinza-wound Skin Appearance No Abnormality ) -Color (Kinza-wound Skin Appearance) No Abnormality -Temperature (Kinza-wound Skin No Abnormality Appearance) (Pt Warm) -Tenderness on Palpation (Kinza-wound Yes Skin Appearance) -Ulcer Cleansing Rinsed/ Irrigated with Saline -Foul Odor after Cleansing No -Anesthetic Used 4% Lidocaine Solution 5% Lidocaine Gel #1 RIGHT LATERAL LOWER LEG -Combined with other wound No -Current Size (cm) - Length 12 -Current Size (cm) - Width 6.0 -Current Size (cm) - Depth 0.3 -Total Square Cm 72.0 -Date of Last Picture (Recall this 10/17/17 field) -Photo Taken No -Epithelialization None Present -Tunneling No -Undermining/Tunneling No -Circular Undermining No -Classification - Thickness Full Thickness without Exposed Support Structure -Exudate Amt Large (67-100%) -Exudate Type Serous -Wound Margin Distinct, Outline Attached -Granulation Amt Small (1-33%) -Granulation Quality Pale [place] -Slough/Fibrin Yes -Necrosis Amt Small (1-33%) -Necrotic Tissue Type Adherent Slough -Structure Exposed None/Limited to Skin Breakdown -Texture (Kinza-wound Skin Appearance) No Abnormality -Moisture (Kinza-wound Skin Appearance No Abnormality ) -Color (Kinza-wound Skin Appearance) No Abnormality -Temperature (Kinza-wound Skin No Abnormality Appearance) (Pt Warm) -Tenderness on Palpation (Kinza-wound Yes Skin Appearance) -Ulcer Cleansing Rinsed/ Irrigated with Saline -Foul Odor after Cleansing No -Anesthetic Used 4% Lidocaine Solution 5% Lidocaine Gel [Edema Assessment] -Lower Limb Edema Present Yes -Right Calf (cm) 41.5 -Right Ankle (cm) 23.0 -Left Calf (cm) 39.0 -Left Ankle (cm) 25.7 WC - Nurse 2 - General Ulcer CM Notes Start: 10/31/17 16:06 Freq: Status: Active Protocol: Activity Type Activity Date Activity User E-Sign Co-Sign Detail Recorded Client Recorded Date Recorded By Document 10/31/17 17:12 [id number] 10/31/17 17:36 10/31/17 17:12 Wound Center Nurse 2 [Procedure/Treatment] #4 R POSTERIOR CALF -Time 17:13 -Correct Patient Yes -Correct Side, Site, Position Yes -Correct Procedure Yes -Procedure Performed Yes -Type of Procedure Debridement -Clinical Debridement Subcutaneous -Post Debridement Size (cm) - Length 1.7 -Post Debridement Size (cm) - Width 2.6 -Post Debridement Size (cm) - Depth 0.2 -Total Square Cm 4.42 -Wound/Ulcer Outcome Not Healed -Ulcer Cleansing Rinsed/ Irrigated with Saline -Foul Odor after Cleansing No -Bioengineered Tissue No -Topical Lidocaine (%) 5 -Bleeding Controlled with Pressure -Treatment Response Procedure Tolerated Well #3 R-MEDIAL LE -Time 17:17 -Correct Patient Yes -Correct Side, Site, Position Yes -Correct Procedure Yes -Procedure Performed Yes -Type of Procedure Debridement -Clinical Debridement Subcutaneous -Post Debridement Size (cm) - Length 5.0 -Post Debridement Size (cm) - Width 6.5 -Post Debridement Size (cm) - Depth 0.3 -Total Square Cm 32.50 -Wound/Ulcer Outcome Not Healed -Ulcer Cleansing Rinsed/ Irrigated with Saline -Foul Odor after Cleansing No -Bioengineered Tissue No -Topical Lidocaine (%) 5 -Bleeding Controlled with Pressure -Treatment Response Procedure Tolerated Well #1 RIGHT LATERAL LOWER LEG -Time 17:18 -Correct Patient Yes -Correct Side, Site, Position Yes -Correct Procedure Yes -Procedure Performed Yes -Type of Procedure Debridement -Clinical Debridement Subcutaneous -Post Debridement Size (cm) - Length 12.0 -Post Debridement Size (cm) - Width 5.0 -Post Debridement Size (cm) - Depth 0.3 -Total Square Cm 60.00 -Wound/Ulcer Outcome Not Healed -Ulcer Cleansing Rinsed/ Irrigated with Saline -Foul Odor after Cleansing No -Bioengineered Tissue Yes -Type of bioengineered Tissue Apligraf -Expiration Date 11/06/17 -Product Lot Number [id number] -Percent Used 100 -Saline Lot Number [id number] -Topical Lidocaine (%) 5 -Bleeding Controlled with Pressure -Treatment Response Procedure Tolerated Well [See Physician Procedure note for Specifics] Pain Scale: 0-10 Numeric [Pain] -Is Patient Pain Free? Yes Psych/Mental Status: Normal Affect, Appropriate Debridement Note Post-Debridement Measurements/Treatment WC - Nurse 2 - General Ulcer CM Notes Start: 10/31/17 16:06 Freq: Status: Active Protocol: Activity Type Activity Date Activity User E-Sign Co-Sign Detail Recorded Client Recorded Date Recorded By Document 10/31/17 17:12 [id number] 10/31/17 17:36 10/31/17 17:12 Wound Center Nurse 2 #4 R POSTERIOR CALF -Time 17:13 -Correct Patient Yes -Correct Side, Site, Position Yes -Correct Procedure Yes -Procedure Performed Yes -Type of Procedure Debridement -Clinical Debridement Subcutaneous -Post Debridement Size (cm) - Length 1.7 -Post Debridement Size (cm) - Width 2.6 -Post Debridement Size (cm) - Depth 0.2 -Total Square Cm 4.42 -Wound/Ulcer Outcome Not Healed -Ulcer Cleansing Rinsed/ Irrigated with Saline -Foul Odor after Cleansing No -Bioengineered Tissue No -Topical Lidocaine (%) 5 -Bleeding Controlled with Pressure -Treatment Response Procedure Tolerated Well #3 R-MEDIAL LE -Time 17:17 -Correct Patient Yes -Correct Side, Site, Position Yes -Correct Procedure Yes -Procedure Performed Yes -Type of Procedure Debridement -Clinical Debridement Subcutaneous -Post Debridement Size (cm) - Length 5.0 -Post Debridement Size (cm) - Width 6.5 -Post Debridement Size (cm) - Depth 0.3 -Total Square Cm 32.50 -Wound/Ulcer Outcome Not Healed -Ulcer Cleansing Rinsed/ Irrigated with Saline -Foul Odor after Cleansing No -Bioengineered Tissue No -Topical Lidocaine (%) 5 -Bleeding Controlled with Pressure -Treatment Response Procedure Tolerated Well #1 RIGHT LATERAL LOWER LEG -Time 17:18 -Correct Patient Yes -Correct Side, Site, Position Yes -Correct Procedure Yes -Procedure Performed Yes -Type of Procedure Debridement -Clinical Debridement Subcutaneous -Post Debridement Size (cm) - Length 12.0 -Post Debridement Size (cm) - Width 5.0 -Post Debridement Size (cm) - Depth 0.3 -Total Square Cm 60.00 -Wound/Ulcer Outcome Not Healed -Ulcer Cleansing Rinsed/ Irrigated with Saline -Foul Odor after Cleansing No -Bioengineered Tissue Yes -Type of bioengineered Tissue Apligraf -Expiration Date 11/06/17 -Product Lot Number [id number] -Percent Used 100 -Saline Lot Number [id number] -Topical Lidocaine (%) 5 -Bleeding Controlled with Pressure -Treatment Response Procedure Tolerated Well Pain Scale: 0-10 Numeric Is Patient Pain Free? Yes Wound debrided: right posterior calf Laterality: Right Type of Debridement: Excisional debridement Anesthesia Used: 4% Lidocaine Solution, 5% Lidocaine Gel Depth: Down to and including healthy tissue, in the subcutaneous layer Percentage of wound debrided: 100 Instrument Used: 5mm curette Tissue Removed: yellow slough, devitalized tissue Severity: Fat Layer Exposed Amount of bleeding with debridement: Mild Bleeding Controlled with: Compression and gauze Patient tolerated procedure well - Additional Wound Wound debrided: right medial LE Laterality: Right Type of Debridement: Excisional debridement Anesthesia Used: 4% Lidocaine Solution Depth: Down to and including healthy tissue, in the subcutaneous layer Percentage of wound debrided: 100 Instrument Used: 5mm curette Tissue Removed: yellow slough, devitalized tissue Severity: Fat Layer Exposed Amount of bleeding with debridement: Mild Bleeding Controlled with: Compression and gauze Patient tolerated procedure: Patient tolerated procedure well - Additional Wound Wound debrided: right lateral lower leg Laterality: Right Type of Debridement: Excisional debridement Anesthesia Used: 4% Lidocaine Solution, 5% Lidocaine Gel Depth: Down to and including healthy tissue, in the subcutaneous layer Percentage of wound debrided: 100 Instrument Used: 5mm curette Tissue Removed: yellow slough, devitalized tissue Severity: Fat Layer Exposed Amount of bleeding with debridement: Mild Bleeding Controlled with: Compression and gauze Patient tolerated procedure: Patient tolerated procedure well Assessment/Plan Active Problems Type 2 diabetes mellitus treated with insulin (Chronic) Type 2 diabetes mellitus with diabetic polyneuropathy (Chronic) 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) 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 His fibrous exudate is improved. Apligraf was applied to his right lateral LE wound today and was only able to cover approx. 80% of the wound with 1 Apligraf. His other wounds were not treated with Apligraf as there was not enough to apply to those wounds with 1 application. He would benefit from having 2 Apligrafs to cover the surface area of his wounds. He was isntructed on the care of his Apligraf. He will keep the dressing clean, dry and intact and only replace the secondary dressing as needed. Will use Hydrofera Blue as a secondary dressing to the rigt lateral wound and try this on his posterior and medical wounds as well. Will continue tibigrip compression. Previous vascular studies reviewed - he would benefit from venous ablation but Dr. Patton would like improvement in his wounds prior to doing procedure. Elevate lower extremity when sitting and when in bed. Optimize blood sugar control. Increase protein intake/supplements. F/U in 2 weeks and will apply Apligraf if available and tolerated initial application.
--- NOTE | 2017-10-31 20:43 | PN.PCM_ITS ---
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 Current Visit: Yes Code(s): L97.212 - Non-pressure chronic ulcer of right calf with fat layer exposed (4) 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 Status: Chronic Current Visit: Yes Code(s): L97.912 - Non-pressure chronic ulcer of unspecified part of right lower leg with fat layer exposed Comment: x 2 wounds one located above medial malleolus and one just below right knee (5) Chronic venous hypertension w/ulcer and inflammation involv right side Status: Chronic Current Visit: Yes Code(s): I87.331 - Chronic venous hypertension (idiopathic) with ulcer and inflammation of right lower extremity; L97.919 - Non-pressure chronic ulcer of unspecified part of right lower leg with unspecified severity Type of Wound Date of Service: 10/31/17 Chief Complaint: nonhealing wound/ulcer of right lateral calf History of Wound: Eddie is a pleasant 76 yo man who presents for evaluation of a wound/ulcer of his right lateral calf that has been present since mid-April and has continued to get larger. He has seen his PCP and has seen another physician in their practice for the wound/ulcer and has been treated once with an UNNA boot and otherwise has been given antibiotics off and on without improvement, most recent antibiotic was Augmentin. No cultures have ever been taken of the wound. No imaging has been done. He has been using Aquaphor to the wound as instructed by his PCP. He has significant pain and edema in this leg and has been started on Lyrica which has helped with the pain. He has been unable to sleep in bed due to the pain and has been sleeping in a recliner. He denies any significant drainage but does note some on his socks from time to time. He denies any odor. Occasionally there is some bleeding. he was referred to the wound center for further evaluation and treatment. 07/29--Has been applying santyl and dry dressing since visit last friday. No drainage for the last few days. Vascular testing scheduled for 08/08. Awaiting lab work from PCP. Admits to sleeping in a recliner since March. Denies N/V/F/C. Some redness to R leg, but no pus, no malodor, no warmth, minimal pain. There is edema. Culture positive for e.coli from Friday. Will Rx Keflex today. 08/05-- Pt taking Keflex, tolerating well. Vascular testing scheduled for friday. Size improved with the use of nickel-thickness Santyl and lightly moistened gauze with light spandagrip. Plan to increase compression once vascular testing done. 08/12--Arterial testing done, normal. Venous test reveals multiple incompetent veins in the RLE. Pt states he cannot tolerate any tighter compression than the current spandagrip stocking. He will be referred to Dr. Patton today for evaluation. There is still fibrous tissue, but there are also skin islands forming within the ulceration. 08/19--Pt applying santyl nickel-thick and lightly moistened gauze dressing daily. There is still fibrous tissue, but there are also skin islands forming within the ulceration. Measurements improved today. Pt's is with him today, and she states that he often falls asleep in his recliner, and his legs end up falling off the foot rest and his feet end up on the ground. Pt has an appointment with Dr. Patton at [facility] at the beginning of August. 08/21- initial visit with Doroteo Nash NP who patient will be transferring care to. Has been applying nickel thick santyl daily, however, site is still painful and there is now a foul smell.Cultures will be redone today.Moderate amount of slough and fibrous tissue present. Pt denies any systemic signs of infection including no fever, chills, n/v/d/c. 08/28 -patient has 2 new wounds and states that there is an increase in foul smell coming from his chronic wound. He has unaware how the 2 new wounds occurred and denies any obvious trauma, though does state that they looked like they are going to be opening prior to this visit. He does state that the wound below the right knee may be from a tape burn from his dressing changes. Progress of Wound: Eddie's wounds have not changed much since his last visit. He has been tolerating Santyl dressings. He tolerated antibiotics. Apligraf has been applied for and approved and will be applied today to his right lateral leg wound. He is doing well with tubigrip compression. He tolerated 3 M compression but his legs were very moist and the drainage was copious from both legs that was present on the 3M dressings when removed so he has been using tubigrips. Denies odor, fever or chills. He is unable to tolerate having his legs elevated due to his neuropathy and frequently has them hanging down. Sleeps in his recliner. - Physical Exam Vital Signs Temp Pulse Resp BP 96.2 F L 56 L 20 H 136/68 H 10/31/17 16:08 10/31/17 16:08 10/31/17 16:08 10/31/17 16:08 General: Alert, Oriented x3, Cooperative, No apparent distress HEENT: Atraumatic, Normocephalic Oral: Moist Mucosa Abdomen: Obese Extremities: Edema Skin: Ulcer/ Wound Wound Measurements and Assessment WC - Nurse 1 - General Ulcer Measurement Start: 10/31/17 16:06 Freq: Status: Active Protocol: Activity Type Activity Date Activity User E-Sign Co-Sign Detail Recorded Client Recorded Date Recorded By Document 10/31/17 16:08 TORREY [id number] 10/31/17 16:27 TORREY 10/31/17 16:08 Wound Center Nurse 1 [Ulcer Assessment] #4 R POSTERIOR CALF -Combined with other wound No -Current Size (cm) - Length 1.5 -Current Size (cm) - Width 4.0 -Current Size (cm) - Depth 0.3 -Total Square Cm 6.00 -Date of Last Picture (Recall this 10/17/17 field) -Photo Taken No -Epithelialization None Present -Tunneling No -Undermining/Tunneling No -Circular Undermining No -Classification - Thickness Full Thickness without Exposed Support Structure -Exudate Amt Medium (34-66%) -Exudate Type Serous -Wound Margin Distinct, Outline Attached -Granulation Amt Medium (34-66%) -Granulation Quality Pale [place] -Slough/Fibrin Yes -Necrosis Amt None Present (0 %) -Necrotic Tissue Type Adherent Slough -Structure Exposed None/Limited to Skin Breakdown -Texture (Kinza-wound Skin Appearance) No Abnormality -Moisture (Kinza-wound Skin Appearance No Abnormality ) -Color (Kinza-wound Skin Appearance) No Abnormality -Temperature (Kinza-wound Skin No Abnormality Appearance) (Pt Warm) -Tenderness on Palpation (Kinza-wound Yes Skin Appearance) -Ulcer Cleansing Rinsed/ Irrigated with Saline -Foul Odor after Cleansing No -Anesthetic Used 4% Lidocaine Solution 5% Lidocaine Gel #3 R-MEDIAL LE -Combined with other wound No -Current Size (cm) - Length 5.0 -Current Size (cm) - Width 5.5 -Current Size (cm) - Depth 0.3 -Total Square Cm 27.50 -Date of Last Picture (Recall this 10/17/17 field) -Photo Taken No -Epithelialization None Present -Tunneling No -Undermining/Tunneling No -Circular Undermining No -Classification - Thickness Full Thickness without Exposed Support Structure -Change in Wound Grade/Stage No Query Text:If change please identify the Stage/Grade in the comment (ie. S2 G3) -Exudate Amt Large (67-100%) -Exudate Type Serous -Wound Margin Distinct, Outline Attached -Granulation Amt Small (1-33%) -Granulation Quality Pale [place] -Slough/Fibrin Yes -Necrosis Amt None Present (0 %) -Necrotic Tissue Type Adherent Slough -Structure Exposed None/Limited to Skin Breakdown -Texture (Kinza-wound Skin Appearance) No Abnormality -Moisture (Kinza-wound Skin Appearance No Abnormality ) -Color (Kinza-wound Skin Appearance) No Abnormality -Temperature (Kinza-wound Skin No Abnormality Appearance) (Pt Warm) -Tenderness on Palpation (Kinza-wound Yes Skin Appearance) -Ulcer Cleansing Rinsed/ Irrigated with Saline -Foul Odor after Cleansing No -Anesthetic Used 4% Lidocaine Solution 5% Lidocaine Gel #1 RIGHT LATERAL LOWER LEG -Combined with other wound No -Current Size (cm) - Length 12 -Current Size (cm) - Width 6.0 -Current Size (cm) - Depth 0.3 -Total Square Cm 72.0 -Date of Last Picture (Recall this 10/17/17 field) -Photo Taken No -Epithelialization None Present -Tunneling No -Undermining/Tunneling No -Circular Undermining No -Classification - Thickness Full Thickness without Exposed Support Structure -Exudate Amt Large (67-100%) -Exudate Type Serous -Wound Margin Distinct, Outline Attached -Granulation Amt Small (1-33%) -Granulation Quality Pale [place] -Slough/Fibrin Yes -Necrosis Amt Small (1-33%) -Necrotic Tissue Type Adherent Slough -Structure Exposed None/Limited to Skin Breakdown -Texture (Kinza-wound Skin Appearance) No Abnormality -Moisture (Kinza-wound Skin Appearance No Abnormality ) -Color (Kinza-wound Skin Appearance) No Abnormality -Temperature (Kinza-wound Skin No Abnormality Appearance) (Pt Warm) -Tenderness on Palpation (Kinza-wound Yes Skin Appearance) -Ulcer Cleansing Rinsed/ Irrigated with Saline -Foul Odor after Cleansing No -Anesthetic Used 4% Lidocaine Solution 5% Lidocaine Gel [Edema Assessment] -Lower Limb Edema Present Yes -Right Calf (cm) 41.5 -Right Ankle (cm) 23.0 -Left Calf (cm) 39.0 -Left Ankle (cm) 25.7 WC - Nurse 2 - General Ulcer CM Notes Start: 10/31/17 16:06 Freq: Status: Active Protocol: Activity Type Activity Date Activity User E-Sign Co-Sign Detail Recorded Client Recorded Date Recorded By Document 10/31/17 17:12 [id number] 10/31/17 17:36 10/31/17 17:12 Wound Center Nurse 2 [Procedure/Treatment] #4 R POSTERIOR CALF -Time 17:13 -Correct Patient Yes -Correct Side, Site, Position Yes -Correct Procedure Yes -Procedure Performed Yes -Type of Procedure Debridement -Clinical Debridement Subcutaneous -Post Debridement Size (cm) - Length 1.7 -Post Debridement Size (cm) - Width 2.6 -Post Debridement Size (cm) - Depth 0.2 -Total Square Cm 4.42 -Wound/Ulcer Outcome Not Healed -Ulcer Cleansing Rinsed/ Irrigated with Saline -Foul Odor after Cleansing No -Bioengineered Tissue No -Topical Lidocaine (%) 5 -Bleeding Controlled with Pressure -Treatment Response Procedure Tolerated Well #3 R-MEDIAL LE -Time 17:17 -Correct Patient Yes -Correct Side, Site, Position Yes -Correct Procedure Yes -Procedure Performed Yes -Type of Procedure Debridement -Clinical Debridement Subcutaneous -Post Debridement Size (cm) - Length 5.0 -Post Debridement Size (cm) - Width 6.5 -Post Debridement Size (cm) - Depth 0.3 -Total Square Cm 32.50 -Wound/Ulcer Outcome Not Healed -Ulcer Cleansing Rinsed/ Irrigated with Saline -Foul Odor after Cleansing No -Bioengineered Tissue No -Topical Lidocaine (%) 5 -Bleeding Controlled with Pressure -Treatment Response Procedure Tolerated Well #1 RIGHT LATERAL LOWER LEG -Time 17:18 -Correct Patient Yes -Correct Side, Site, Position Yes -Correct Procedure Yes -Procedure Performed Yes -Type of Procedure Debridement -Clinical Debridement Subcutaneous -Post Debridement Size (cm) - Length 12.0 -Post Debridement Size (cm) - Width 5.0 -Post Debridement Size (cm) - Depth 0.3 -Total Square Cm 60.00 -Wound/Ulcer Outcome Not Healed -Ulcer Cleansing Rinsed/ Irrigated with Saline -Foul Odor after Cleansing No -Bioengineered Tissue Yes -Type of bioengineered Tissue Apligraf -Expiration Date 11/06/17 -Product Lot Number [id number] -Percent Used 100 -Saline Lot Number [id number] -Topical Lidocaine (%) 5 -Bleeding Controlled with Pressure -Treatment Response Procedure Tolerated Well [See Physician Procedure note for Specifics] Pain Scale: 0-10 Numeric [Pain] -Is Patient Pain Free? Yes Psych/Mental Status: Normal Affect, Appropriate Debridement Note Post-Debridement Measurements/Treatment WC - Nurse 2 - General Ulcer CM Notes Start: 10/31/17 16:06 Freq: Status: Active Protocol: Activity Type Activity Date Activity User E-Sign Co-Sign Detail Recorded Client Recorded Date Recorded By Document 10/31/17 17:12 [id number] 10/31/17 17:36 10/31/17 17:12 Wound Center Nurse 2 #4 R POSTERIOR CALF -Time 17:13 -Correct Patient Yes -Correct Side, Site, Position Yes -Correct Procedure Yes -Procedure Performed Yes -Type of Procedure Debridement -Clinical Debridement Subcutaneous -Post Debridement Size (cm) - Length 1.7 -Post Debridement Size (cm) - Width 2.6 -Post Debridement Size (cm) - Depth 0.2 -Total Square Cm 4.42 -Wound/Ulcer Outcome Not Healed -Ulcer Cleansing Rinsed/ Irrigated with Saline -Foul Odor after Cleansing No -Bioengineered Tissue No -Topical Lidocaine (%) 5 -Bleeding Controlled with Pressure -Treatment Response Procedure Tolerated Well #3 R-MEDIAL LE -Time 17:17 -Correct Patient Yes -Correct Side, Site, Position Yes -Correct Procedure Yes -Procedure Performed Yes -Type of Procedure Debridement -Clinical Debridement Subcutaneous -Post Debridement Size (cm) - Length 5.0 -Post Debridement Size (cm) - Width 6.5 -Post Debridement Size (cm) - Depth 0.3 -Total Square Cm 32.50 -Wound/Ulcer Outcome Not Healed -Ulcer Cleansing Rinsed/ Irrigated with Saline -Foul Odor after Cleansing No -Bioengineered Tissue No -Topical Lidocaine (%) 5 -Bleeding Controlled with Pressure -Treatment Response Procedure Tolerated Well #1 RIGHT LATERAL LOWER LEG -Time 17:18 -Correct Patient Yes -Correct Side, Site, Position Yes -Correct Procedure Yes -Procedure Performed Yes -Type of Procedure Debridement -Clinical Debridement Subcutaneous -Post Debridement Size (cm) - Length 12.0 -Post Debridement Size (cm) - Width 5.0 -Post Debridement Size (cm) - Depth 0.3 -Total Square Cm 60.00 -Wound/Ulcer Outcome Not Healed -Ulcer Cleansing Rinsed/ Irrigated with Saline -Foul Odor after Cleansing No -Bioengineered Tissue Yes -Type of bioengineered Tissue Apligraf -Expiration Date 11/06/17 -Product Lot Number [id number] -Percent Used 100 -Saline Lot Number [id number] -Topical Lidocaine (%) 5 -Bleeding Controlled with Pressure -Treatment Response Procedure Tolerated Well Pain Scale: 0-10 Numeric Is Patient Pain Free? Yes Wound debrided: right posterior calf Laterality: Right Type of Debridement: Excisional debridement Anesthesia Used: 4% Lidocaine Solution, 5% Lidocaine Gel Depth: Down to and including healthy tissue, in the subcutaneous layer Percentage of wound debrided: 100 Instrument Used: 5mm curette Tissue Removed: yellow slough, devitalized tissue Severity: Fat Layer Exposed Amount of bleeding with debridement: Mild Bleeding Controlled with: Compression and gauze Patient tolerated procedure well - Additional Wound Wound debrided: right medial LE Laterality: Right Type of Debridement: Excisional debridement Anesthesia Used: 4% Lidocaine Solution Depth: Down to and including healthy tissue, in the subcutaneous layer Percentage of wound debrided: 100 Instrument Used: 5mm curette Tissue Removed: yellow slough, devitalized tissue Severity: Fat Layer Exposed Amount of bleeding with debridement: Mild Bleeding Controlled with: Compression and gauze Patient tolerated procedure: Patient tolerated procedure well - Additional Wound Wound debrided: right lateral lower leg Laterality: Right Type of Debridement: Excisional debridement Anesthesia Used: 4% Lidocaine Solution, 5% Lidocaine Gel Depth: Down to and including healthy tissue, in the subcutaneous layer Percentage of wound debrided: 100 Instrument Used: 5mm curette Tissue Removed: yellow slough, devitalized tissue Severity: Fat Layer Exposed Amount of bleeding with debridement: Mild Bleeding Controlled with: Compression and gauze Patient tolerated procedure: Patient tolerated procedure well Assessment/Plan Active Problems Type 2 diabetes mellitus treated with insulin (Chronic) Type 2 diabetes mellitus with diabetic polyneuropathy (Chronic) 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) 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 likely secondary to venous insufficiency Plan: Debridement done as documented above, procedure was tolerated. His fibrous exudate is improved. Apligraf was applied to his right lateral LE wound today and was only able to cover approx. 80% of the wound with 1 Apligraf. His other wounds were not treated with Apligraf as there was not enough to apply to those wounds with 1 application. He would benefit from having 2 Apligrafs to cover the surface area of his wounds. He was isntructed on the care of his Apligraf. He will keep the dressing clean, dry and intact and only replace the secondary dressing as needed. Will use Hydrofera Blue as a secondary dressing to the rigt lateral wound and try this on his posterior and medical wounds as well. Will continue tibigrip compression. Previous vascular studies reviewed - he would benefit from venous ablation but Dr. Patton would like improvement in his wounds prior to doing procedure. Elevate lower extremity when sitting and when in bed. Optimize blood sugar control. Increase protein intake/ supplements. F/U in 2 weeks and will apply Apligraf if available and tolerated initial application.
[2017-11-14 12:51] VITALS: BP 176/57; PULSE 55; RESP 18; TEMP 35.9
--- NOTE | 2017-11-14 15:57 | PCM.WC.PN ---
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 Current Visit: Yes Code(s): L97.212 - Non-pressure chronic ulcer of right calf with fat layer exposed (4) 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 Status: Chronic Current Visit: Yes Code(s): L97.912 - Non-pressure chronic ulcer of unspecified part of right lower leg with fat layer exposed Comment: x 2 wounds one located above medial malleolus and one just below right knee (5) Chronic venous hypertension w/ulcer and inflammation involv right side Status: Chronic Current Visit: Yes Code(s): I87.331 - Chronic venous hypertension (idiopathic) with ulcer and inflammation of right lower extremity; L97.919 - Non-pressure chronic ulcer of unspecified part of right lower leg with unspecified severity (6) Pressure ulcer of coccygeal region, stage 2 Status: Chronic Current Visit: Yes Code(s): L89.152 - Pressure ulcer of sacral region, stage 2 Type of Wound Date of Service: 11/14/17 Chief Complaint: nonhealing wound/ulcer of right lower leg. stage 2 pressure ulcer of coccyx History of Wound: Eddie is a pleasant 76 yo man who presents for evaluation of a wound/ulcer of his right lateral calf that has been present since mid-April and has continued to get larger. He has seen his PCP and has seen another physician in their practice for the wound/ulcer and has been treated once with an UNNA boot and otherwise has been given antibiotics off and on without improvement, most recent antibiotic was Augmentin. No cultures have ever been taken of the wound. No imaging has been done. He has been using Aquaphor to the wound as instructed by his PCP. He has significant pain and edema in this leg and has been started on Lyrica which has helped with the pain. He has been unable to sleep in bed due to the pain and has been sleeping in a recliner. He denies any significant drainage but does note some on his socks from time to time. He denies any odor. Occasionally there is some bleeding. he was referred to the wound center for further evaluation and treatment. 07/29--Has been applying santyl and dry dressing since visit last friday. No drainage for the last few days. Vascular testing scheduled for 08/08. Awaiting lab work from PCP. Admits to sleeping in a recliner since March. Denies N/V/F/C. Some redness to R leg, but no pus, no malodor, no warmth, minimal pain. There is edema. Culture positive for e.coli from Friday. Will Rx Keflex today. 08/05--Pt taking Keflex, tolerating well. Vascular testing scheduled for friday. Size improved with the use of nickel-thickness Santyl and lightly moistened gauze with light spandagrip. Plan to increase compression once vascular testing done. 08/12--Arterial testing done, normal. Venous test reveals multiple incompetent veins in the RLE. Pt states he cannot tolerate any tighter compression than the current spandagrip stocking. He will be referred to Dr. Patton today for evaluation. There is still fibrous tissue, but there are also skin islands forming within the ulceration. 08/19--Pt applying santyl nickel-thick and lightly moistened gauze dressing daily. There is still fibrous tissue, but there are also skin islands forming within the ulceration. Measurements improved today. Pt's is with him today, and she states that he often falls asleep in his recliner, and his legs end up falling off the foot rest and his feet end up on the ground. Pt has an appointment with Dr. Patton at [facility] at the beginning of August. 08/21- initial visit with Doroteo Nash NP who patient will be transferring care to. Has been applying nickel thick santyl daily, however, site is still painful and there is now a foul smell.Cultures will be redone today.Moderate amount of slough and fibrous tissue present. Pt denies any systemic signs of infection including no fever, chills, n/v/d/c. 5/3-patient has 2 new wounds and states that there is an increase in foul smell coming from his chronic wound. He has unaware how the 2 new wounds occurred and denies any obvious trauma, though does state that they looked like they are going to be opening prior to this visit. He does state that the wound below the right knee may be from a tape burn from his dressing changes. Progress of Wound: Eddie's wounds have improved since his last visit. Apligraf tolerated to his right lateral leg wound. His medial wound/ulcer has joined his posterior calf ulcer and will now be called right medial cluster. He is doing well with tubigrip compression. He has brought to our attention an area on his coccyx that has been bothering him for awhile but has gotten worse over the last month. He has been using aquaphor and antibiotic ointment to the area and has been sitting on a doughnut cushion. Denies odor, fever or chills. He is unable to tolerate having his legs elevated due to his neuropathy and frequently has them hanging down. Sleeps in his recliner. - Physical Exam Vital Signs Temp Pulse Resp BP 96.6 F L 55 L 18 176/57 H 11/14/17 12:51 11/14/17 12:51 11/14/17 12:51 11/14/17 12:51 General: Alert HEENT: Atraumatic, Normocephalic Oral: Moist Mucosa Extremities: Edema Skin: Ulcer/ Wound Wound Measurements and Assessment WC - Nurse 1 - General Ulcer Measurement Start: 10/31/17 16:06 Freq: Status: Active Protocol: Activity Type Activity Date Activity User E-Sign Co-Sign Detail Recorded Client Recorded Date Recorded By Document 11/14/17 12:51 [facility] [id number] 11/14/17 13:10 [facility] 11/14/17 12:51 Wound Center Nurse 1 [Ulcer Assessment] #3 R-MEDIAL LE CLUSTER -Combined with other wound No -Current Size (cm) - Length 4 -Current Size (cm) - Width 9 -Current Size (cm) - Depth 0.3 -Total Square Cm 36 -Date of Last Picture (Recall this 11/14/17 field) -Photo Taken Yes -Epithelialization None Present -Tunneling No -Undermining/Tunneling No -Circular Undermining No -Exudate Amt Medium (34-66%) -Exudate Type Serosanguineous -Wound Margin Distinct, Outline Attached -Granulation Amt Small (1-33%) -Granulation Quality Red -Slough/Fibrin Yes -Necrosis Amt Large (67-100%) -Necrotic Tissue Type Adherent Slough -Texture (Kinza-wound Skin Appearance) Scarring -Moisture (Kinza-wound Skin Appearance Assessed ) -Color (Kinza-wound Skin Appearance) Erythema -Ulcer Cleansing Wound Cleanser -Foul Odor after Cleansing No -Anesthetic Used 4% Lidocaine Solution #1 RIGHT LATERAL LE -Combined with other wound No -Current Size (cm) - Length 11.9 -Current Size (cm) - Width 5.2 -Current Size (cm) - Depth 0.2 -Total Square Cm 61.88 -Date of Last Picture (Recall this 11/14/17 field) -Photo Taken No -Epithelialization None Present -Tunneling No -Undermining/Tunneling No -Circular Undermining No -Exudate Amt Medium (34-66%) -Exudate Type Serosanguineous -Wound Margin Distinct, Outline Attached -Granulation Amt Medium (34-66%) -Granulation Quality Red -Slough/Fibrin Yes -Necrosis Amt Medium (34-66%) -Necrotic Tissue Type Adherent Slough -Texture (Kinza-wound Skin Appearance) Scarring -Moisture (Kinza-wound Skin Appearance Maceration ) -Color (Kinza-wound Skin Appearance) Erythema Hemosiderin Staining -Temperature (Kinza-wound Skin No Abnormality Appearance) (Pt Warm) -Tenderness on Palpation (Kinza-wound Yes Skin Appearance) -Ulcer Cleansing Wound Cleanser -Foul Odor after Cleansing No -Anesthetic Used 4% Lidocaine Solution [Edema Assessment] -Lower Limb Edema Present Yes -Right Calf (cm) 38 -Right Ankle (cm) 23.5 WC - Nurse 2 - General Ulcer CM Notes Start: 10/31/17 16:06 Freq: Status: Active Protocol: Activity Type Activity Date Activity User E-Sign Co-Sign Detail Recorded Client Recorded Date Recorded By Document 11/14/17 14:38 [id number] 11/14/17 15:25 11/14/17 14:38 Wound Center Nurse 2 [Procedure/Treatment] #6 STAGE II PRESSURE COCCYX ULCER -Time 15:12 -Correct Patient Yes -Correct Side, Site, Position Yes -Correct Procedure Yes -Procedure Performed Yes -Post Debridement Size (cm) - Length 3.5 -Post Debridement Size (cm) - Width 0.3 -Post Debridement Size (cm) - Depth 0.1 -Total Square Cm 1.05 -Wound/Ulcer Outcome Not Healed -Ulcer Cleansing Rinsed/ Irrigated with Saline -Foul Odor after Cleansing No -Bioengineered Tissue No -Bleeding Controlled with NA -Treatment Response Procedure Tolerated Well #4 R POSTERIOR CALF -Time 14:40 -Correct Patient Yes -Correct Side, Site, Position Yes -Correct Procedure Yes -Procedure Performed Yes -Other CONVERGED WITH #3 MADE INTO MEDIAL LE CLUSTER #3 R-MEDIAL LE CLUSTER -Time 14:54 -Correct Patient Yes -Correct Side, Site, Position Yes -Correct Procedure Yes -Procedure Performed Yes -Type of Procedure Debridement -Clinical Debridement Subcutaneous -Post Debridement Size (cm) - Length 5.3 -Post Debridement Size (cm) - Width 11.0 -Post Debridement Size (cm) - Depth 0.3 -Total Square Cm 58.30 -Wound/Ulcer Outcome Not Healed -Ulcer Cleansing Rinsed/ Irrigated with Saline -Foul Odor after Cleansing No -Bioengineered Tissue No -Topical Lidocaine (%) 5 -Bleeding Controlled with Pressure Silver Nitrate -Treatment Response Procedure Tolerated Well #1 RIGHT LATERAL LE -Time 14:55 -Correct Patient Yes -Correct Side, Site, Position Yes -Correct Procedure Yes -Procedure Performed Yes -Type of Procedure Debridement -Clinical Debridement Subcutaneous -Post Debridement Size (cm) - Length 11.3 -Post Debridement Size (cm) - Width 5.8 -Post Debridement Size (cm) - Depth 0.2 -Total Square Cm 65.54 -Wound/Ulcer Outcome Not Healed -Ulcer Cleansing Rinsed/ Irrigated with Saline -Foul Odor after Cleansing No -Bioengineered Tissue Yes -Type of bioengineered Tissue Apligraf -Expiration Date 11/20/17 -Product Lot Number [id number] -Percent Used 100 -Saline Lot Number [id number] -Topical Lidocaine (%) 5 -Bleeding Controlled with Pressure -Treatment Response Procedure Tolerated Well [See Physician Procedure note for Specifics] Pain Scale: 0-10 Numeric [Pain] -Is Patient Pain Free? Yes Psych/Mental Status: Normal Affect, Appropriate Debridement Note Post-Debridement Measurements/Treatment WC - Nurse 2 - General Ulcer CM Notes Start: 10/31/17 16:06 Freq: Status: Active Protocol: Activity Type Activity Date Activity User E-Sign Co-Sign Detail Recorded Client Recorded Date Recorded By Document 10/31/17 17:12 TM [id number] 10/31/17 17:36 TM Document 11/14/17 14:38 TM [id number] 11/14/17 15:25 TM 10/31/17 11/14/17 17:12 14:38 Wound Center Nurse 2 #6 STAGE II PRESSURE COCCYX ULCER -Time 15:12 -Correct Patient Yes -Correct Side, Site, Position Yes -Correct Procedure Yes -Procedure Performed Yes -Post Debridement Size (cm) - Length 3.5 -Post Debridement Size (cm) - Width 0.3 -Post Debridement Size (cm) - Depth 0.1 -Total Square Cm 1.05 -Wound/Ulcer Outcome Not Healed -Ulcer Cleansing Rinsed/ Irrigated with Saline -Foul Odor after Cleansing No -Bioengineered Tissue No -Bleeding Controlled with NA -Treatment Response Procedure Tolerated Well #4 R POSTERIOR CALF -Time 17:13 14:40 -Correct Patient Yes Yes -Correct Side, Site, Position Yes Yes -Correct Procedure Yes Yes -Procedure Performed Yes Yes -Type of Procedure Debridement -Clinical Debridement Subcutaneous -Post Debridement Size (cm) - Length 1.7 -Post Debridement Size (cm) - Width 2.6 -Post Debridement Size (cm) - Depth 0.2 -Total Square Cm 4.42 -Wound/Ulcer Outcome Not Healed -Ulcer Cleansing Rinsed/ Irrigated with Saline -Foul Odor after Cleansing No -Bioengineered Tissue No -Topical Lidocaine (%) 5 -Bleeding Controlled with Pressure -Other CONVERGED WITH #3 MADE INTO MEDIAL LE CLUSTER -Treatment Response Procedure Tolerated Well #3 R-MEDIAL LE CLUSTER -Time 17:17 14:54 -Correct Patient Yes Yes -Correct Side, Site, Position Yes Yes -Correct Procedure Yes Yes -Procedure Performed Yes Yes -Type of Procedure Debridement Debridement -Clinical Debridement Subcutaneous Subcutaneous -Post Debridement Size (cm) - Length 5.0 5.3 -Post Debridement Size (cm) - Width 6.5 11.0 -Post Debridement Size (cm) - Depth 0.3 0.3 -Total Square Cm 32.50 58.30 -Wound/Ulcer Outcome Not Healed Not Healed -Ulcer Cleansing Rinsed/ Rinsed/ Irrigated with Irrigated with Saline Saline -Foul Odor after Cleansing No No -Bioengineered Tissue No No -Topical Lidocaine (%) 5 5 -Bleeding Controlled with Pressure Pressure Silver Nitrate -Treatment Response Procedure Procedure Tolerated Well Tolerated Well #1 RIGHT LATERAL LE -Time 17:18 14:55 -Correct Patient Yes Yes -Correct Side, Site, Position Yes Yes -Correct Procedure Yes Yes -Procedure Performed Yes Yes -Type of Procedure Debridement Debridement -Clinical Debridement Subcutaneous Subcutaneous -Post Debridement Size (cm) - Length 12.0 11.3 -Post Debridement Size (cm) - Width 5.0 5.8 -Post Debridement Size (cm) - Depth 0.3 0.2 -Total Square Cm 60.00 65.54 -Wound/Ulcer Outcome Not Healed Not Healed -Ulcer Cleansing Rinsed/ Rinsed/ Irrigated with Irrigated with Saline Saline -Foul Odor after Cleansing No No -Bioengineered Tissue Yes Yes -Type of bioengineered Tissue Apligraf Apligraf -Expiration Date 11/06/17 11/20/17 -Product Lot Number [id number] -Percent Used 100 100 -Saline Lot Number [id number] -Topical Lidocaine (%) 5 5 -Bleeding Controlled with Pressure Pressure -Treatment Response Procedure Procedure Tolerated Well Tolerated Well Pain Scale: 0-10 Numeric Is Patient Pain Free? Yes Yes Wound debrided: stage 2 pressure ulcer coccyx Laterality: Not Applicable Wound Grade/Stage: stage 2 No debridement was completed today - due to pain - Additional Wound Wound debrided: right medial LE cluster Laterality: Right Type of Debridement: Excisional debridement Anesthesia Used: 5% Lidocaine Gel Depth: Down to and including healthy tissue, in the subcutaneous layer Percentage of wound debrided: 100 Instrument Used: 5mm curette Tissue Removed: yellow slough, devitalized tissue Severity: Fat Layer Exposed Amount of bleeding with debridement: Mild Bleeding Controlled with: Compression and gauze Patient tolerated procedure: Patient tolerated procedure well - Additional Wound Wound debrided: right lateral LE Laterality: Right Type of Debridement: Excisional debridement Anesthesia Used: 5% Lidocaine Gel Depth: Down to and including healthy tissue, in the subcutaneous layer Percentage of wound debrided: 100 Instrument Used: 5mm curette Tissue Removed: yellow slough, devitalized tissue Severity: Fat Layer Exposed Amount of bleeding with debridement: Mild Bleeding Controlled with: Compression and gauze Patient tolerated procedure: Patient tolerated procedure well Assessment/Plan Active Problems Type 2 diabetes mellitus treated with insulin (Chronic) Type 2 diabetes mellitus with diabetic polyneuropathy (Chronic) 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) 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 (Chronic) x 2 wounds one located above medial malleolus and one just below right knee Chronic venous hypertension w/ulcer and inflammation involv right side (Chronic) Pressure ulcer of coccygeal region, stage 2 (Chronic) Assessment: Multiple nonhealing ulcer/wound of right lower extremity likely secondary to venous insufficiency. stage 2 pressure ulcer coccyx Plan: Debridement done as documented above, procedure was tolerated. His coccyx wound will be treated with Santyl with changes daily and as needed. His fibrous exudate of his posterior and medial LE is improved. Apligraf was applied to his right lateral LE wound today which took 2 Apligrafs to cover this area. His other wounds were not treated with Apligraf as there was not enough to apply to those wounds. He requires 2 Apligrafs to cover the surface area of his right lateral LE wound. He would benefit from Apligraf application to his right medial/posterior LE wound/ulcer as well and will apply for this through his insurance company to be treated separately from the right lateral LE due to the large surface area. He was instructed on the care of his Apligraf. He will keep the dressing clean, dry and intact and only replace the secondary dressing as needed. Will use Hydrofera Blue as a secondary dressing to the right lateral wound and to his posterior and medial wounds as well. Will continue tubigrip compression. Previous vascular studies reviewed - he would benefit from venous ablation but Dr. Patton would like improvement in his wounds prior to doing procedure. Elevate lower extremity when sitting and when in bed. Optimize blood sugar control. Discussed offloading of his coccyx and gave order for Mane martinez. Increase protein intake/supplements. F/U in 2 weeks and will apply Apligraf if available and tolerated application.
--- NOTE | 2017-11-14 16:09 | PN.PCM_ITS ---
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 Current Visit: Yes Code(s): L97.212 - Non-pressure chronic ulcer of right calf with fat layer exposed (4) 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 Status: Chronic Current Visit: Yes Code(s): L97.912 - Non-pressure chronic ulcer of unspecified part of right lower leg with fat layer exposed Comment: x 2 wounds one located above medial malleolus and one just below right knee (5) Chronic venous hypertension w/ulcer and inflammation involv right side Status: Chronic Current Visit: Yes Code(s): I87.331 - Chronic venous hypertension (idiopathic) with ulcer and inflammation of right lower extremity; L97.919 - Non-pressure chronic ulcer of unspecified part of right lower leg with unspecified severity (6) Pressure ulcer of coccygeal region, stage 2 Status: Chronic Current Visit: Yes Code(s): L89.152 - Pressure ulcer of sacral region, stage 2 Type of Wound Date of Service: 11/14/17 Chief Complaint: nonhealing wound/ulcer of right lower leg. stage 2 pressure ulcer of coccyx History of Wound: Eddie is a pleasant 76 yo man who presents for evaluation of a wound/ulcer of his right lateral calf that has been present since mid-April and has continued to get larger. He has seen his PCP and has seen another physician in their practice for the wound/ulcer and has been treated once with an UNNA boot and otherwise has been given antibiotics off and on without improvement, most recent antibiotic was Augmentin. No cultures have ever been taken of the wound. No imaging has been done. He has been using Aquaphor to the wound as instructed by his PCP. He has significant pain and edema in this leg and has been started on Lyrica which has helped with the pain. He has been unable to sleep in bed due to the pain and has been sleeping in a recliner. He denies any significant drainage but does note some on his socks from time to time. He denies any odor. Occasionally there is some bleeding. he was referred to the wound center for further evaluation and treatment. 07/29--Has been applying santyl and dry dressing since visit last friday. No drainage for the last few days. Vascular testing scheduled for 08/08. Awaiting lab work from PCP. Admits to sleeping in a recliner since March. Denies N/V/F/C. Some redness to R leg, but no pus, no malodor, no warmth, minimal pain. There is edema. Culture positive for e.coli from Friday. Will Rx Keflex today. 08/05-- Pt taking Keflex, tolerating well. Vascular testing scheduled for friday. Size improved with the use of nickel-thickness Santyl and lightly moistened gauze with light spandagrip. Plan to increase compression once vascular testing done. 08/12--Arterial testing done, normal. Venous test reveals multiple incompetent veins in the RLE. Pt states he cannot tolerate any tighter compression than the current spandagrip stocking. He will be referred to Dr. Patton today for evaluation. There is still fibrous tissue, but there are also skin islands forming within the ulceration. 08/19--Pt applying santyl nickel-thick and lightly moistened gauze dressing daily. There is still fibrous tissue, but there are also skin islands forming within the ulceration. Measurements improved today. Pt's is with him today, and she states that he often falls asleep in his recliner, and his legs end up falling off the foot rest and his feet end up on the ground. Pt has an appointment with Dr. Patton at [facility] at the beginning of August. 08/21- initial visit with Doroteo Nash NP who patient will be transferring care to. Has been applying nickel thick santyl daily, however, site is still painful and there is now a foul smell.Cultures will be redone today.Moderate amount of slough and fibrous tissue present. Pt denies any systemic signs of infection including no fever, chills, n/v/d/c. 5/3 -patient has 2 new wounds and states that there is an increase in foul smell coming from his chronic wound. He has unaware how the 2 new wounds occurred and denies any obvious trauma, though does state that they looked like they are going to be opening prior to this visit. He does state that the wound below the right knee may be from a tape burn from his dressing changes. Progress of Wound: Eddie's wounds have improved since his last visit. Apligraf tolerated to his right lateral leg wound. His medial wound/ulcer has joined his posterior calf ulcer and will now be called right medial cluster. He is doing well with tubigrip compression. He has brought to our attention an area on his coccyx that has been bothering him for awhile but has gotten worse over the last month. He has been using aquaphor and antibiotic ointment to the area and has been sitting on a doughnut cushion. Denies odor, fever or chills. He is unable to tolerate having his legs elevated due to his neuropathy and frequently has them hanging down. Sleeps in his recliner. - Physical Exam Vital Signs Temp Pulse Resp BP 96.6 F L 55 L 18 176/57 H 11/14/17 12:51 11/14/17 12:51 11/14/17 12:51 11/14/17 12:51 General: Alert HEENT: Atraumatic, Normocephalic Oral: Moist Mucosa Extremities: Edema Skin: Ulcer/ Wound Wound Measurements and Assessment WC - Nurse 1 - General Ulcer Measurement Start: 10/31/17 16:06 Freq: Status: Active Protocol: Activity Type Activity Date Activity User E-Sign Co-Sign Detail Recorded Client Recorded Date Recorded By Document 11/14/17 12:51 [facility] [id number] 11/14/17 13:10 [facility] 11/14/17 12:51 Wound Center Nurse 1 [Ulcer Assessment] #3 R-MEDIAL LE CLUSTER -Combined with other wound No -Current Size (cm) - Length 4 -Current Size (cm) - Width 9 -Current Size (cm) - Depth 0.3 -Total Square Cm 36 -Date of Last Picture (Recall this 11/14/17 field) -Photo Taken Yes -Epithelialization None Present -Tunneling No -Undermining/Tunneling No -Circular Undermining No -Exudate Amt Medium (34-66%) -Exudate Type Serosanguineous -Wound Margin Distinct, Outline Attached -Granulation Amt Small (1-33%) -Granulation Quality Red -Slough/Fibrin Yes -Necrosis Amt Large (67-100%) -Necrotic Tissue Type Adherent Slough -Texture (Kinza-wound Skin Appearance) Scarring -Moisture (Kinza-wound Skin Appearance Assessed ) -Color (Kinza-wound Skin Appearance) Erythema -Ulcer Cleansing Wound Cleanser -Foul Odor after Cleansing No -Anesthetic Used 4% Lidocaine Solution #1 RIGHT LATERAL LE -Combined with other wound No -Current Size (cm) - Length 11.9 -Current Size (cm) - Width 5.2 -Current Size (cm) - Depth 0.2 -Total Square Cm 61.88 -Date of Last Picture (Recall this 11/14/17 field) -Photo Taken No -Epithelialization None Present -Tunneling No -Undermining/Tunneling No -Circular Undermining No -Exudate Amt Medium (34-66%) -Exudate Type Serosanguineous -Wound Margin Distinct, Outline Attached -Granulation Amt Medium (34-66%) -Granulation Quality Red -Slough/Fibrin Yes -Necrosis Amt Medium (34-66%) -Necrotic Tissue Type Adherent Slough -Texture (Kinza-wound Skin Appearance) Scarring -Moisture (Kinza-wound Skin Appearance Maceration ) -Color (Kinza-wound Skin Appearance) Erythema Hemosiderin Staining -Temperature (Kinza-wound Skin No Abnormality Appearance) (Pt Warm) -Tenderness on Palpation (Kinza-wound Yes Skin Appearance) -Ulcer Cleansing Wound Cleanser -Foul Odor after Cleansing No -Anesthetic Used 4% Lidocaine Solution [Edema Assessment] -Lower Limb Edema Present Yes -Right Calf (cm) 38 -Right Ankle (cm) 23.5 WC - Nurse 2 - General Ulcer CM Notes Start: 10/31/17 16:06 Freq: Status: Active Protocol: Activity Type Activity Date Activity User E-Sign Co-Sign Detail Recorded Client Recorded Date Recorded By Document 11/14/17 14:38 [id number] 11/14/17 15:25 11/14/17 14:38 Wound Center Nurse 2 [Procedure/Treatment] #6 STAGE II PRESSURE COCCYX ULCER -Time 15:12 -Correct Patient Yes -Correct Side, Site, Position Yes -Correct Procedure Yes -Procedure Performed Yes -Post Debridement Size (cm) - Length 3.5 -Post Debridement Size (cm) - Width 0.3 -Post Debridement Size (cm) - Depth 0.1 -Total Square Cm 1.05 -Wound/Ulcer Outcome Not Healed -Ulcer Cleansing Rinsed/ Irrigated with Saline -Foul Odor after Cleansing No -Bioengineered Tissue No -Bleeding Controlled with NA -Treatment Response Procedure Tolerated Well #4 R POSTERIOR CALF -Time 14:40 -Correct Patient Yes -Correct Side, Site, Position Yes -Correct Procedure Yes -Procedure Performed Yes -Other CONVERGED WITH #3 MADE INTO MEDIAL LE CLUSTER #3 R-MEDIAL LE CLUSTER -Time 14:54 -Correct Patient Yes -Correct Side, Site, Position Yes -Correct Procedure Yes -Procedure Performed Yes -Type of Procedure Debridement -Clinical Debridement Subcutaneous -Post Debridement Size (cm) - Length 5.3 -Post Debridement Size (cm) - Width 11.0 -Post Debridement Size (cm) - Depth 0.3 -Total Square Cm 58.30 -Wound/Ulcer Outcome Not Healed -Ulcer Cleansing Rinsed/ Irrigated with Saline -Foul Odor after Cleansing No -Bioengineered Tissue No -Topical Lidocaine (%) 5 -Bleeding Controlled with Pressure Silver Nitrate -Treatment Response Procedure Tolerated Well #1 RIGHT LATERAL LE -Time 14:55 -Correct Patient Yes -Correct Side, Site, Position Yes -Correct Procedure Yes -Procedure Performed Yes -Type of Procedure Debridement -Clinical Debridement Subcutaneous -Post Debridement Size (cm) - Length 11.3 -Post Debridement Size (cm) - Width 5.8 -Post Debridement Size (cm) - Depth 0.2 -Total Square Cm 65.54 -Wound/Ulcer Outcome Not Healed -Ulcer Cleansing Rinsed/ Irrigated with Saline -Foul Odor after Cleansing No -Bioengineered Tissue Yes -Type of bioengineered Tissue Apligraf -Expiration Date 11/20/17 -Product Lot Number [id number] -Percent Used 100 -Saline Lot Number [id number] -Topical Lidocaine (%) 5 -Bleeding Controlled with Pressure -Treatment Response Procedure Tolerated Well [See Physician Procedure note for Specifics] Pain Scale: 0-10 Numeric [Pain] -Is Patient Pain Free? Yes Psych/Mental Status: Normal Affect, Appropriate Debridement Note Post-Debridement Measurements/Treatment WC - Nurse 2 - General Ulcer CM Notes Start: 10/31/17 16:06 Freq: Status: Active Protocol: Activity Type Activity Date Activity User E-Sign Co-Sign Detail Recorded Client Recorded Date Recorded By Document 10/31/17 17:12 TM [id number] 10/31/17 17:36 TM Document 11/14/17 14:38 TM [id number] 11/14/17 15:25 TM 10/31/17 11/14/17 17:12 14:38 Wound Center Nurse 2 #6 STAGE II PRESSURE COCCYX ULCER -Time 15:12 -Correct Patient Yes -Correct Side, Site, Position Yes -Correct Procedure Yes -Procedure Performed Yes -Post Debridement Size (cm) - Length 3.5 -Post Debridement Size (cm) - Width 0.3 -Post Debridement Size (cm) - Depth 0.1 -Total Square Cm 1.05 -Wound/Ulcer Outcome Not Healed -Ulcer Cleansing Rinsed/ Irrigated with Saline -Foul Odor after Cleansing No -Bioengineered Tissue No -Bleeding Controlled with NA -Treatment Response Procedure Tolerated Well #4 R POSTERIOR CALF -Time 17:13 14:40 -Correct Patient Yes Yes -Correct Side, Site, Position Yes Yes -Correct Procedure Yes Yes -Procedure Performed Yes Yes -Type of Procedure Debridement -Clinical Debridement Subcutaneous -Post Debridement Size (cm) - Length 1.7 -Post Debridement Size (cm) - Width 2.6 -Post Debridement Size (cm) - Depth 0.2 -Total Square Cm 4.42 -Wound/Ulcer Outcome Not Healed -Ulcer Cleansing Rinsed/ Irrigated with Saline -Foul Odor after Cleansing No -Bioengineered Tissue No -Topical Lidocaine (%) 5 -Bleeding Controlled with Pressure -Other CONVERGED WITH #3 MADE INTO MEDIAL LE CLUSTER -Treatment Response Procedure Tolerated Well #3 R-MEDIAL LE CLUSTER -Time 17:17 14:54 -Correct Patient Yes Yes -Correct Side, Site, Position Yes Yes -Correct Procedure Yes Yes -Procedure Performed Yes Yes -Type of Procedure Debridement Debridement -Clinical Debridement Subcutaneous Subcutaneous -Post Debridement Size (cm) - Length 5.0 5.3 -Post Debridement Size (cm) - Width 6.5 11.0 -Post Debridement Size (cm) - Depth 0.3 0.3 -Total Square Cm 32.50 58.30 -Wound/Ulcer Outcome Not Healed Not Healed -Ulcer Cleansing Rinsed/ Rinsed/ Irrigated with Irrigated with Saline Saline -Foul Odor after Cleansing No No -Bioengineered Tissue No No -Topical Lidocaine (%) 5 5 -Bleeding Controlled with Pressure Pressure Silver Nitrate -Treatment Response Procedure Procedure Tolerated Well Tolerated Well #1 RIGHT LATERAL LE -Time 17:18 14:55 -Correct Patient Yes Yes -Correct Side, Site, Position Yes Yes -Correct Procedure Yes Yes -Procedure Performed Yes Yes -Type of Procedure Debridement Debridement -Clinical Debridement Subcutaneous Subcutaneous -Post Debridement Size (cm) - Length 12.0 11.3 -Post Debridement Size (cm) - Width 5.0 5.8 -Post Debridement Size (cm) - Depth 0.3 0.2 -Total Square Cm 60.00 65.54 -Wound/Ulcer Outcome Not Healed Not Healed -Ulcer Cleansing Rinsed/ Rinsed/ Irrigated with Irrigated with Saline Saline -Foul Odor after Cleansing No No -Bioengineered Tissue Yes Yes -Type of bioengineered Tissue Apligraf Apligraf -Expiration Date 11/06/17 11/20/17 -Product Lot Number [id number] -Percent Used 100 100 -Saline Lot Number [id number] -Topical Lidocaine (%) 5 5 -Bleeding Controlled with Pressure Pressure -Treatment Response Procedure Procedure Tolerated Well Tolerated Well Pain Scale: 0-10 Numeric Is Patient Pain Free? Yes Yes Wound debrided: stage 2 pressure ulcer coccyx Laterality: Not Applicable Wound Grade/Stage: stage 2 No debridement was completed today - due to pain - Additional Wound Wound debrided: right medial LE cluster Laterality: Right Type of Debridement: Excisional debridement Anesthesia Used: 5% Lidocaine Gel Depth: Down to and including healthy tissue, in the subcutaneous layer Percentage of wound debrided: 100 Instrument Used: 5mm curette Tissue Removed: yellow slough, devitalized tissue Severity: Fat Layer Exposed Amount of bleeding with debridement: Mild Bleeding Controlled with: Compression and gauze Patient tolerated procedure: Patient tolerated procedure well - Additional Wound Wound debrided: right lateral LE Laterality: Right Type of Debridement: Excisional debridement Anesthesia Used: 5% Lidocaine Gel Depth: Down to and including healthy tissue, in the subcutaneous layer Percentage of wound debrided: 100 Instrument Used: 5mm curette Tissue Removed: yellow slough, devitalized tissue Severity: Fat Layer Exposed Amount of bleeding with debridement: Mild Bleeding Controlled with: Compression and gauze Patient tolerated procedure: Patient tolerated procedure well Assessment/Plan Active Problems Type 2 diabetes mellitus treated with insulin (Chronic) Type 2 diabetes mellitus with diabetic polyneuropathy (Chronic) 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) 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 (Chronic) x 2 wounds one located above medial malleolus and one just below right knee Chronic venous hypertension w/ulcer and inflammation involv right side (Chronic) Pressure ulcer of coccygeal region, stage 2 (Chronic) Assessment: Multiple nonhealing ulcer/wound of right lower extremity? likely secondary to venous insufficiency. stage 2 pressure ulcer coccyx Plan: Debridement done as documented above, procedure was tolerated. His coccyx wound will be treated with Santyl with changes daily and as needed. His fibrous exudate of his posterior and medial LE is improved. Apligraf was applied to his right lateral LE wound today which took 2 Apligrafs to cover this area. His other wounds were not treated with Apligraf as there was not enough to apply to those wounds. He requires 2 Apligrafs to cover the surface area of his right lateral LE wound. He would benefit from Apligraf application to his right medial/posterior LE wound/ulcer as well and will apply for this through his insurance company to be treated separately from the right lateral LE due to the large surface area. He was instructed on the care of his Apligraf. He will keep the dressing clean, dry and intact and only replace the secondary dressing as needed. Will use Hydrofera Blue as a secondary dressing to the right lateral wound and to his posterior and medial wounds as well. Will continue tubigrip compression. Previous vascular studies reviewed - he would benefit from venous ablation but Dr. Patton would like improvement in his wounds prior to doing procedure. Elevate lower extremity when sitting and when in bed. Optimize blood sugar control. Discussed offloading of his coccyx and gave order for Mane martinez. Increase protein intake/supplements. F/U in 2 weeks and will apply Apligraf if available and tolerated application.
== END 2017-11-25 23:59 ==
LOC: WC 12:30
PROVIDERS: Family Provider Family Medicine; PCP Family Medicine; Visit Provider Family Medicine
DX: E11.622 Type 2 diabetes mellitus with other skin ulcer (principal); E11.42 Type 2 diabetes mellitus with diabetic polyneuropathy; L97.812 Non-pressure chronic ulcer of other part of right lower leg with fat layer exposed; I87.331 Chronic venous hypertension (idiopathic) with ulcer and inflammation of right lower extremity; L97.212 Non-pressure chronic ulcer of right calf with fat layer exposed; L89.152 Pressure ulcer of sacral region, stage 2
CPT/HCPCS: 11042; 11045; 15271; 97602; Q4101

== ENCOUNTER 2017-12-26 12:30 | Outpatient (RCR) | payer MEDICARE, SELFPAY ==
[2017-11-26 00:46] VITALS: BP 176/57; PULSE 55; RESP 18; TEMP 35.9
[2017-11-28 13:11] VITALS: BP 125/57; PULSE 54; RESP 16; TEMP 36.2
--- NOTE | 2017-11-28 18:29 | PCM.WC.PN ---
(1) PAD (peripheral artery disease) Status: Chronic Current Visit: Yes Code(s): I73.9 - Peripheral vascular disease, unspecified (2) Type 2 diabetes mellitus treated with insulin Status: Chronic Current Visit: Yes Code(s): E11.9 - Type 2 diabetes mellitus without complications; Z79.4 - ferry terminal agent (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 of insulin (3) Type 2 diabetes mellitus with other skin ulcer Status: Chronic Current Visit: Yes Qualifiers: Diabetes mellitus ferry terminal agent insulin use: with [facility] use Qualified Code(s): E11.622 - Type 2 diabetes mellitus with other skin ulcer; Z79.4 - ferry terminal agent (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 of insulin Code(s): E11.622 - Type 2 diabetes mellitus with other skin ulcer; L98.499 - Non-pressure chronic ulcer of skin of other sites with unspecified severity (4) 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 Current Visit: Yes Code(s): L97.212 - Non-pressure chronic ulcer of right calf with fat layer exposed (5) 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 Status: Chronic Current Visit: Yes Code(s): L97.912 - Non-pressure chronic ulcer of unspecified part of right lower leg with fat layer exposed Comment: x 2 wounds one located above medial malleolus and one just below right knee (6) Chronic venous hypertension w/ulcer and inflammation involv right side Status: Chronic Current Visit: Yes Code(s): I87.331 - Chronic venous hypertension (idiopathic) with ulcer and inflammation of right lower extremity; L97.919 - Non-pressure chronic ulcer of unspecified part of right lower leg with unspecified severity (7) Pressure ulcer of coccygeal region, stage 2 Status: Chronic Current Visit: Yes Code(s): L89.152 - Pressure ulcer of sacral region, stage 2 Type of Wound Date of Service: 11/28/17 Chief Complaint: nonhealing wound/ulcer of right lower leg. stage 2 pressure ulcer of coccyx History of Wound: Eddie is a pleasant 76 yo man who presents for evaluation of a wound/ulcer of his right lateral calf that has been present since mid-April and has continued to get larger. He has seen his PCP and has seen another physician in their practice for the wound/ulcer and has been treated once with an UNNA boot and otherwise has been given antibiotics off and on without improvement, most recent antibiotic was Augmentin. No cultures have ever been taken of the wound. No imaging has been done. He has been using Aquaphor to the wound as instructed by his PCP. He has significant pain and edema in this leg and has been started on Lyrica which has helped with the pain. He has been unable to sleep in bed due to the pain and has been sleeping in a recliner. He denies any significant drainage but does note some on his socks from time to time. He denies any odor. Occasionally there is some bleeding. he was referred to the wound center for further evaluation and treatment. 07/29--Has been applying santyl and dry dressing since visit last friday. No drainage for the last few days. Vascular testing scheduled for 08/08. Awaiting lab work from PCP. Admits to sleeping in a recliner since March. Denies N/V/F/C. Some redness to R leg, but no pus, no malodor, no warmth, minimal pain. There is edema. Culture positive for e.coli from Friday. Will Rx Keflex today. 08/05--Pt taking Keflex, tolerating well. Vascular testing scheduled for friday. Size improved with the use of nickel-thickness Santyl and lightly moistened gauze with light spandagrip. Plan to increase compression once vascular testing done. 08/12--Arterial testing done, normal. Venous test reveals multiple incompetent veins in the RLE. Pt states he cannot tolerate any tighter compression than the current spandagrip stocking. He will be referred to Dr. Patton today for evaluation. There is still fibrous tissue, but there are also skin islands forming within the ulceration. 08/19--Pt applying santyl nickel-thick and lightly moistened gauze dressing daily. There is still fibrous tissue, but there are also skin islands forming within the ulceration. Measurements improved today. Pt's is with him today, and she states that he often falls asleep in his recliner, and his legs end up falling off the foot rest and his feet end up on the ground. Pt has an appointment with Dr. Patton at [facility] at the beginning of August. 08/21- initial visit with Doroteo Nash NP who patient will be transferring care to. Has been applying nickel thick santyl daily, however, site is still painful and there is now a foul smell.Cultures will be redone today.Moderate amount of slough and fibrous tissue present. Pt denies any systemic signs of infection including no fever, chills, n/v/d/c. 08/28-patient has 2 new wounds and states that there is an increase in foul smell coming from his chronic wound. He has unaware how the 2 new wounds occurred and denies any obvious trauma, though does state that they looked like they are going to be opening prior to this visit. He does state that the wound below the right knee may be from a tape burn from his dressing changes. Progress of Wound: Eddie's wounds have improved since his last visit. Apligraf application tolerated to his right lateral leg wound. His medial cluster is about the same. His pressure ulcer of his coccyx is improved. His daughter got him a gel cushion to sit on and he has been using this regularly. He is doing well with tubigrip compression. APligraf was denied for use on his medial cluster ulcer but Puraply was approved. Denies odor, fever or chills. He is unable to tolerate having his legs elevated due to his neuropathy and frequently has them hanging down. Sleeps in his recliner. - Physical Exam Vital Signs Temp Pulse Resp BP 97.1 F L 54 L 16 125/57 H 11/28/17 13:11 11/28/17 13:11 11/28/17 13:11 11/28/17 13:11 General: Alert, Oriented x3, Cooperative, No apparent distress HEENT: Atraumatic, Normocephalic Oral: Moist Mucosa Abdomen: Obese Extremities: Edema Skin: Ulcer/ Wound Wound Measurements and Assessment WC - Nurse 1 - General Ulcer Measurement Start: 11/28/17 13:10 Freq: Status: Active Protocol: Activity Type Activity Date Activity User E-Sign Co-Sign Detail Recorded Client Recorded Date Recorded By Document 11/28/17 13:11 MW [id number] 11/28/17 13:41 MW 11/28/17 13:11 Wound Center Nurse 1 [Ulcer Assessment] #6 STAGE II PRESSURE COCCYX ULCER -Combined with other wound No -Current Size (cm) - Length 0.4 -Current Size (cm) - Width 0.2 -Current Size (cm) - Depth 0.1 -Total Square Cm 0.08 -Photo Taken No -Epithelialization Medium 34-66% -Tunneling No -Undermining/Tunneling No -Circular Undermining No -Exudate Amt None Present (0 %) -Wound Margin Flat & Intact -Granulation Amt Medium (34-66%) -Granulation Quality Red -Slough/Fibrin Yes -Necrosis Amt Large (67-100%) -Necrotic Tissue Type Adherent Slough -Structure Exposed None/Limited to Skin Breakdown -Texture (Kinza-wound Skin Appearance) No Abnormality Assessed -Moisture (Kinza-wound Skin Appearance No Abnormality ) Assessed -Color (Kinza-wound Skin Appearance) Assessed Rubor -Temperature (Kinza-wound Skin No Abnormality Appearance) (Pt Warm) -Tenderness on Palpation (Kinza-wound No Skin Appearance) -Ulcer Cleansing Wound Cleanser -Anesthetic Used 5% Lidocaine Gel #3 R-MEDIAL LE CLUSTER -Combined with other wound No -Current Size (cm) - Length 4.7 -Current Size (cm) - Width 9.5 -Current Size (cm) - Depth 0.3 -Total Square Cm 44.65 -Photo Taken No -Epithelialization None Present -Tunneling No -Undermining/Tunneling No -Circular Undermining No -Exudate Amt Large (67-100%) -Exudate Type Serosanguineous -Wound Margin Flat & Intact -Granulation Amt Small (1-33%) -Granulation Quality Red -Slough/Fibrin Yes -Necrosis Amt Large (67-100%) -Necrotic Tissue Type Adherent Slough -Structure Exposed None/Limited to Skin Breakdown -Texture (Kinza-wound Skin Appearance) Assessed Localized Edema Scarring -Moisture (Kinza-wound Skin Appearance Assessed ) Weeping -Color (Kinza-wound Skin Appearance) Assessed Rubor -Temperature (Kinza-wound Skin No Abnormality Appearance) (Pt Warm) -Tenderness on Palpation (Kinza-wound Yes Skin Appearance) -Ulcer Cleansing Wound Cleanser -Foul Odor after Cleansing No -Anesthetic Used 5% Lidocaine Gel #1 RIGHT LATERAL LE -Combined with other wound No -Current Size (cm) - Length 11.5 -Current Size (cm) - Width 5.5 -Current Size (cm) - Depth 0.2 -Total Square Cm 63.25 -Photo Taken No -Epithelialization None Present -Tunneling No -Undermining/Tunneling No -Circular Undermining No -Exudate Amt Large (67-100%) -Exudate Type Serosanguineous -Wound Margin Flat & Intact -Granulation Amt Small (1-33%) -Granulation Quality Red -Slough/Fibrin Yes -Necrosis Amt Large (67-100%) -Necrotic Tissue Type Adherent Slough -Structure Exposed N/A -Texture (Kinza-wound Skin Appearance) Assessed Localized Edema Scarring -Moisture (Kinza-wound Skin Appearance Assessed ) Weeping -Color (Kinza-wound Skin Appearance) Assessed Rubor -Temperature (Kinza-wound Skin No Abnormality Appearance) (Pt Warm) -Ulcer Cleansing Wound Cleanser -Foul Odor after Cleansing No -Anesthetic Used 5% Lidocaine Gel [Edema Assessment] -Lower Limb Edema Present Yes -Right Calf (cm) 36.0 -Right Ankle (cm) 22.9 WC - Nurse 2 - General Ulcer CM Notes Start: 11/28/17 13:10 Freq: Status: Active Protocol: Activity Type Activity Date Activity User E-Sign Co-Sign Detail Recorded Client Recorded Date Recorded By Document 11/28/17 14:23 [id number] 11/28/17 14:57 11/28/17 14:23 Wound Center Nurse 2 [Procedure/Treatment] #6 STAGE II PRESSURE COCCYX ULCER -Time 14:23 -Correct Patient Yes -Correct Side, Site, Position Yes -Correct Procedure Yes -Procedure Performed Yes -Type of Procedure Debridement -Clinical Debridement Subcutaneous -Post Debridement Size (cm) - Length 0.5 -Post Debridement Size (cm) - Width 0.3 -Post Debridement Size (cm) - Depth 0.1 -Total Square Cm 0.15 -Wound/Ulcer Outcome Not Healed -Ulcer Cleansing Rinsed/ Irrigated with Saline -Foul Odor after Cleansing No -Bioengineered Tissue No -Topical Lidocaine (%) 5 -Bleeding Controlled with Pressure -Treatment Response Procedure Tolerated Well #3 R-MEDIAL LE CLUSTER -Time 14:55 -Correct Patient Yes -Correct Side, Site, Position Yes -Correct Procedure Yes -Procedure Performed Yes -Type of Procedure Debridement -Clinical Debridement Subcutaneous -Post Debridement Size (cm) - Length 9.9 -Post Debridement Size (cm) - Width 5.0 -Post Debridement Size (cm) - Depth 0.3 -Total Square Cm 49.50 -Wound/Ulcer Outcome Not Healed -Ulcer Cleansing Rinsed/ Irrigated with Saline -Foul Odor after Cleansing No -Bioengineered Tissue Yes -Type of bioengineered Tissue [id number] -Expiration Date 06/18/19 -Product Lot Number [id number] -Percent Used 100 -Saline Lot Number [id number] -Topical Lidocaine (%) 5 -Bleeding Controlled with Pressure -Treatment Response Procedure Tolerated Well #1 RIGHT LATERAL LE -Time 14:56 -Correct Patient Yes -Correct Side, Site, Position Yes -Correct Procedure Yes -Procedure Performed Yes -Type of Procedure Debridement -Clinical Debridement Subcutaneous -Post Debridement Size (cm) - Length 10.8 -Post Debridement Size (cm) - Width 5.2 -Post Debridement Size (cm) - Depth 0.2 -Total Square Cm 56.16 -Wound/Ulcer Outcome Not Healed -Ulcer Cleansing Rinsed/ Irrigated with Saline -Foul Odor after Cleansing No -Bioengineered Tissue No -Topical Lidocaine (%) 5 -Bleeding Controlled with Pressure -Treatment Response Procedure Tolerated Well [See Physician Procedure note for Specifics] Pain Scale: 0-10 Numeric [Pain] -Is Patient Pain Free? Yes Psych/Mental Status: Normal Affect Debridement Note Post-Debridement Measurements/Treatment WC - Nurse 2 - General Ulcer CM Notes Start: 11/28/17 13:10 Freq: Status: Active Protocol: Activity Type Activity Date Activity User E-Sign Co-Sign Detail Recorded Client Recorded Date Recorded By Document 11/28/17 14:23 [id number] 11/28/17 14:57 11/28/17 14:23 Wound Center Nurse 2 #6 STAGE II PRESSURE COCCYX ULCER -Time 14:23 -Correct Patient Yes -Correct Side, Site, Position Yes -Correct Procedure Yes -Procedure Performed Yes -Type of Procedure Debridement -Clinical Debridement Subcutaneous -Post Debridement Size (cm) - Length 0.5 -Post Debridement Size (cm) - Width 0.3 -Post Debridement Size (cm) - Depth 0.1 -Total Square Cm 0.15 -Wound/Ulcer Outcome Not Healed -Ulcer Cleansing Rinsed/ Irrigated with Saline -Foul Odor after Cleansing No -Bioengineered Tissue No -Topical Lidocaine (%) 5 -Bleeding Controlled with Pressure -Treatment Response Procedure Tolerated Well #3 R-MEDIAL LE CLUSTER -Time 14:55 -Correct Patient Yes -Correct Side, Site, Position Yes -Correct Procedure Yes -Procedure Performed Yes -Type of Procedure Debridement -Clinical Debridement Subcutaneous -Post Debridement Size (cm) - Length 9.9 -Post Debridement Size (cm) - Width 5.0 -Post Debridement Size (cm) - Depth 0.3 -Total Square Cm 49.50 -Wound/Ulcer Outcome Not Healed -Ulcer Cleansing Rinsed/ Irrigated with Saline -Foul Odor after Cleansing No -Bioengineered Tissue Yes -Type of bioengineered Tissue [id number] -Expiration Date 06/18/19 -Product Lot Number [id number] -Percent Used 100 -Saline Lot Number [id number] -Topical Lidocaine (%) 5 -Bleeding Controlled with Pressure -Treatment Response Procedure Tolerated Well #1 RIGHT LATERAL LE -Time 14:56 -Correct Patient Yes -Correct Side, Site, Position Yes -Correct Procedure Yes -Procedure Performed Yes -Type of Procedure Debridement -Clinical Debridement Subcutaneous -Post Debridement Size (cm) - Length 10.8 -Post Debridement Size (cm) - Width 5.2 -Post Debridement Size (cm) - Depth 0.2 -Total Square Cm 56.16 -Wound/Ulcer Outcome Not Healed -Ulcer Cleansing Rinsed/ Irrigated with Saline -Foul Odor after Cleansing No -Bioengineered Tissue No -Topical Lidocaine (%) 5 -Bleeding Controlled with Pressure -Treatment Response Procedure Tolerated Well Pain Scale: 0-10 Numeric Is Patient Pain Free? Yes Wound debrided: Stage II pressure ulcer of coccyx Laterality: Not Applicable Wound Grade/Stage: stage II Type of Debridement: Excisional debridement Anesthesia Used: 4% Lidocaine Solution Depth: Down to and including healthy tissue, in the subcutaneous layer Percentage of wound debrided: 100 Instrument Used: 5mm curette Tissue Removed: yellow slough, devitalized tissue Severity: Fat Layer Exposed Amount of bleeding with debridement: Mild Bleeding Controlled with: Compression and gauze Patient tolerated procedure well - Additional Wound Wound debrided: right medial LE cluster Laterality: Right Type of Debridement: Excisional debridement Anesthesia Used: 4% Lidocaine Solution Depth: Down to and including healthy tissue, in the subcutaneous layer Percentage of wound debrided: 100 Instrument Used: 5mm curette Tissue Removed: yellow slough, devitalized tissue Severity: Fat Layer Exposed Amount of bleeding with debridement: Mild Bleeding Controlled with: Compression and gauze Patient tolerated procedure: Patient tolerated procedure well - Additional Wound Wound debrided: right lateral LE Laterality: Right Type of Debridement: Excisional debridement Anesthesia Used: 4% Lidocaine Solution Depth: Down to and including healthy tissue, in the subcutaneous layer Percentage of wound debrided: 100 Instrument Used: 5mm curette Tissue Removed: yellow slough, devitalized tissue Severity: Fat Layer Exposed Amount of bleeding with debridement: Mild Bleeding Controlled with: Compression and gauze Patient tolerated procedure: Patient tolerated procedure well Assessment/Plan Active Problems PAD (peripheral artery disease) (Chronic) Type 2 diabetes mellitus treated with insulin (Chronic) Type 2 diabetes mellitus with other skin ulcer (Chronic) 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) 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 (Chronic) x 2 wounds one located above medial malleolus and one just below right knee Chronic venous hypertension w/ulcer and inflammation involv right side (Chronic) Pressure ulcer of coccygeal region, stage 2 (Chronic) Assessment: Multiple nonhealing ulcer/wound of right lower extremity likely secondary to venous insufficiency. stage 2 pressure ulcer coccyx Plan: Debridement done as documented above, procedure was tolerated. His coccyx wound will continue to be treated with Santyl with changes daily and as needed. His fibrous exudate of his posterior and medial LE is improved. Apligraf was applied to his right lateral LE wound today. The whole wound was not able to be covered due to the volume of the wound but it was applied to the edges of this wound. Only one was applied because it is not reimbursable to apply more than one Apligraf although he would benefit from more treatment due to the size of his wound. He would benefit from Apligraf application to his right medial/posterior LE wound/ulcer as well but this was denied by insurance. Puraply was approved and this was applied to his wound today. He was instructed on the care of his Apligraf and Puraply. He will keep the dressing clean, dry and intact and only replace the secondary dressing as needed. Will use Hydrofera Blue as a secondary dressing to the right lateral wound and to his posterior and medial wounds as well. Will continue tubigrip compression. Previous vascular studies reviewed - he would benefit from venous ablation but Dr. Patton would like improvement in his wounds prior to doing procedure. Elevate lower extremity when sitting and when in bed. Optimize blood sugar control. Discussed offloading of his coccyx and continue treatment with gel cushion. Increase protein intake/supplements. F/U in 2 weeks and will apply Apligraf/puraply if available and tolerated application.
--- NOTE | 2017-11-28 18:33 | PN.PCM_ITS ---
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 (3) Type 2 diabetes mellitus with other skin ulcer Status: Chronic Current Visit: Yes Qualifiers: Diabetes mellitus oysterman insulin use: with care home use Qualified Code( s): E11.622 - Type 2 diabetes mellitus with other skin ulcer; Z79.4 - jail (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 of insulin Code(s): E11.622 - Type 2 diabetes mellitus with other skin ulcer; L98.499 - Non -pressure chronic ulcer of skin of other sites with unspecified severity (4) 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 Current Visit: Yes Code(s): L97.212 - Non-pressure chronic ulcer of right calf with fat layer exposed (5) 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 Status: Chronic Current Visit: Yes Code(s): L97.912 - Non-pressure chronic ulcer of unspecified part of right lower leg with fat layer exposed Comment: x 2 wounds one located above medial malleolus and one just below right knee (6) Chronic venous hypertension w/ulcer and inflammation involv right side Status: Chronic Current Visit: Yes Code(s): I87.331 - Chronic venous hypertension (idiopathic) with ulcer and inflammation of right lower extremity; L97.919 - Non-pressure chronic ulcer of unspecified part of right lower leg with unspecified severity (7) Pressure ulcer of coccygeal region, stage 2 Status: Chronic Current Visit: Yes Code(s): L89.152 - Pressure ulcer of sacral region, stage 2 Type of Wound Date of Service: 11/28/17 Chief Complaint: nonhealing wound/ulcer of right lower leg. stage 2 pressure ulcer of coccyx History of Wound: Eddie is a pleasant 76 yo man who presents for evaluation of a wound/ulcer of his right lateral calf that has been present since mid-April and has continued to get larger. He has seen his PCP and has seen another physician in their practice for the wound/ulcer and has been treated once with an UNNA boot and otherwise has been given antibiotics off and on without improvement, most recent antibiotic was Augmentin. No cultures have ever been taken of the wound. No imaging has been done. He has been using Aquaphor to the wound as instructed by his PCP. He has significant pain and edema in this leg and has been started on Lyrica which has helped with the pain. He has been unable to sleep in bed due to the pain and has been sleeping in a recliner. He denies any significant drainage but does note some on his socks from time to time. He denies any odor. Occasionally there is some bleeding. he was referred to the wound center for further evaluation and treatment. 07/29--Has been applying santyl and dry dressing since visit last friday. No drainage for the last few days. Vascular testing scheduled for 08/08. Awaiting lab work from PCP. Admits to sleeping in a recliner since March. Denies N/V/F/C. Some redness to R leg, but no pus, no malodor, no warmth, minimal pain. There is edema. Culture positive for e.coli from Friday. Will Rx Keflex today. 08/05-- Pt taking Keflex, tolerating well. Vascular testing scheduled for friday. Size improved with the use of nickel-thickness Santyl and lightly moistened gauze with light spandagrip. Plan to increase compression once vascular testing done. 08/12--Arterial testing done, normal. Venous test reveals multiple incompetent veins in the RLE. Pt states he cannot tolerate any tighter compression than the current spandagrip stocking. He will be referred to Dr. Patton today for evaluation. There is still fibrous tissue, but there are also skin islands forming within the ulceration. 08/19--Pt applying santyl nickel-thick and lightly moistened gauze dressing daily. There is still fibrous tissue, but there are also skin islands forming within the ulceration. Measurements improved today. Pt's is with him today, and she states that he often falls asleep in his recliner, and his legs end up falling off the foot rest and his feet end up on the ground. Pt has an appointment with Dr. Patton at [facility] at the beginning of August. 08/21- initial visit with Doroteo Nash NP who patient will be transferring care to. Has been applying nickel thick santyl daily, however, site is still painful and there is now a foul smell.Cultures will be redone today.Moderate amount of slough and fibrous tissue present. Pt denies any systemic signs of infection including no fever, chills, n/v/d/c. 08/28 -patient has 2 new wounds and states that there is an increase in foul smell coming from his chronic wound. He has unaware how the 2 new wounds occurred and denies any obvious trauma, though does state that they looked like they are going to be opening prior to this visit. He does state that the wound below the right knee may be from a tape burn from his dressing changes. Progress of Wound: Eddie's wounds have improved since his last visit. Apligraf application tolerated to his right lateral leg wound. His medial cluster is about the same. His pressure ulcer of his coccyx is improved. His daughter got him a gel cushion to sit on and he has been using this regularly. He is doing well with tubigrip compression. APligraf was denied for use on his medial cluster ulcer but Puraply was approved. Denies odor, fever or chills. He is unable to tolerate having his legs elevated due to his neuropathy and frequently has them hanging down. Sleeps in his recliner. - Physical Exam Vital Signs Temp Pulse Resp BP 97.1 F L 54 L 16 125/57 H 11/28/17 13:11 11/28/17 13:11 11/28/17 13:11 11/28/17 13:11 General: Alert, Oriented x3, Cooperative, No apparent distress HEENT: Atraumatic, Normocephalic Oral: Moist Mucosa Abdomen: Obese Extremities: Edema Skin: Ulcer/ Wound Wound Measurements and Assessment WC - Nurse 1 - General Ulcer Measurement Start: 11/28/17 13:10 Freq: Status: Active Protocol: Activity Type Activity Date Activity User E-Sign Co-Sign Detail Recorded Client Recorded Date Recorded By Document 11/28/17 13:11 MW [id number] 11/28/17 13:41 MW 11/28/17 13:11 Wound Center Nurse 1 [Ulcer Assessment] #6 STAGE II PRESSURE COCCYX ULCER -Combined with other wound No -Current Size (cm) - Length 0.4 -Current Size (cm) - Width 0.2 -Current Size (cm) - Depth 0.1 -Total Square Cm 0.08 -Photo Taken No -Epithelialization Medium 34-66% -Tunneling No -Undermining/Tunneling No -Circular Undermining No -Exudate Amt None Present (0 %) -Wound Margin Flat & Intact -Granulation Amt Medium (34-66%) -Granulation Quality Red -Slough/Fibrin Yes -Necrosis Amt Large (67-100%) -Necrotic Tissue Type Adherent Slough -Structure Exposed None/Limited to Skin Breakdown -Texture (Kinza-wound Skin Appearance) No Abnormality Assessed -Moisture (Kinza-wound Skin Appearance No Abnormality ) Assessed -Color (Kinza-wound Skin Appearance) Assessed Rubor -Temperature (Iknza-wound Skin No Abnormality Appearance) (Pt Warm) -Tenderness on Palpation (Kinza-wound No Skin Appearance) -Ulcer Cleansing Wound Cleanser -Anesthetic Used 5% Lidocaine Gel #3 R-MEDIAL LE CLUSTER -Combined with other wound No -Current Size (cm) - Length 4.7 -Current Size (cm) - Width 9.5 -Current Size (cm) - Depth 0.3 -Total Square Cm 44.65 -Photo Taken No -Epithelialization None Present -Tunneling No -Undermining/Tunneling No -Circular Undermining No -Exudate Amt Large (67-100%) -Exudate Type Serosanguineous -Wound Margin Flat & Intact -Granulation Amt Small (1-33%) -Granulation Quality Red -Slough/Fibrin Yes -Necrosis Amt Large (67-100%) -Necrotic Tissue Type Adherent Slough -Structure Exposed None/Limited to Skin Breakdown -Texture (Kinza-wound Skin Appearance) Assessed Localized Edema Scarring -Moisture (Kinza-wound Skin Appearance Assessed ) Weeping -Color (Kinza-wound Skin Appearance) Assessed Rubor -Temperature (Kinza-wound Skin No Abnormality Appearance) (Pt Warm) -Tenderness on Palpation (Kinza-wound Yes Skin Appearance) -Ulcer Cleansing Wound Cleanser -Foul Odor after Cleansing No -Anesthetic Used 5% Lidocaine Gel #1 RIGHT LATERAL LE -Combined with other wound No -Current Size (cm) - Length 11.5 -Current Size (cm) - Width 5.5 -Current Size (cm) - Depth 0.2 -Total Square Cm 63.25 -Photo Taken No -Epithelialization None Present -Tunneling No -Undermining/Tunneling No -Circular Undermining No -Exudate Amt Large (67-100%) -Exudate Type Serosanguineous -Wound Margin Flat & Intact -Granulation Amt Small (1-33%) -Granulation Quality Red -Slough/Fibrin Yes -Necrosis Amt Large (67-100%) -Necrotic Tissue Type Adherent Slough -Structure Exposed N/A -Texture (Kinza-wound Skin Appearance) Assessed Localized Edema Scarring -Moisture (Kinza-wound Skin Appearance Assessed ) Weeping -Color (Kinza-wound Skin Appearance) Assessed Rubor -Temperature (Kinza-wound Skin No Abnormality Appearance) (Pt Warm) -Ulcer Cleansing Wound Cleanser -Foul Odor after Cleansing No -Anesthetic Used 5% Lidocaine Gel [Edema Assessment] -Lower Limb Edema Present Yes -Right Calf (cm) 36.0 -Right Ankle (cm) 22.9 WC - Nurse 2 - General Ulcer CM Notes Start: 11/28/17 13:10 Freq: Status: Active Protocol: Activity Type Activity Date Activity User E-Sign Co-Sign Detail Recorded Client Recorded Date Recorded By Document 11/28/17 14:23 [id number] 11/28/17 14:57 11/28/17 14:23 Wound Center Nurse 2 [Procedure/Treatment] #6 STAGE II PRESSURE COCCYX ULCER -Time 14:23 -Correct Patient Yes -Correct Side, Site, Position Yes -Correct Procedure Yes -Procedure Performed Yes -Type of Procedure Debridement -Clinical Debridement Subcutaneous -Post Debridement Size (cm) - Length 0.5 -Post Debridement Size (cm) - Width 0.3 -Post Debridement Size (cm) - Depth 0.1 -Total Square Cm 0.15 -Wound/Ulcer Outcome Not Healed -Ulcer Cleansing Rinsed/ Irrigated with Saline -Foul Odor after Cleansing No -Bioengineered Tissue No -Topical Lidocaine (%) 5 -Bleeding Controlled with Pressure -Treatment Response Procedure Tolerated Well #3 R-MEDIAL LE CLUSTER -Time 14:55 -Correct Patient Yes -Correct Side, Site, Position Yes -Correct Procedure Yes -Procedure Performed Yes -Type of Procedure Debridement -Clinical Debridement Subcutaneous -Post Debridement Size (cm) - Length 9.9 -Post Debridement Size (cm) - Width 5.0 -Post Debridement Size (cm) - Depth 0.3 -Total Square Cm 49.50 -Wound/Ulcer Outcome Not Healed -Ulcer Cleansing Rinsed/ Irrigated with Saline -Foul Odor after Cleansing No -Bioengineered Tissue Yes -Type of bioengineered Tissue [id number] -Expiration Date 06/18/19 -Product Lot Number [id number] -Percent Used 100 -Saline Lot Number [id number] -Topical Lidocaine (%) 5 -Bleeding Controlled with Pressure -Treatment Response Procedure Tolerated Well #1 RIGHT LATERAL LE -Time 14:56 -Correct Patient Yes -Correct Side, Site, Position Yes -Correct Procedure Yes -Procedure Performed Yes -Type of Procedure Debridement -Clinical Debridement Subcutaneous -Post Debridement Size (cm) - Length 10.8 -Post Debridement Size (cm) - Width 5.2 -Post Debridement Size (cm) - Depth 0.2 -Total Square Cm 56.16 -Wound/Ulcer Outcome Not Healed -Ulcer Cleansing Rinsed/ Irrigated with Saline -Foul Odor after Cleansing No -Bioengineered Tissue No -Topical Lidocaine (%) 5 -Bleeding Controlled with Pressure -Treatment Response Procedure Tolerated Well [See Physician Procedure note for Specifics] Pain Scale: 0-10 Numeric [Pain] -Is Patient Pain Free? Yes Psych/Mental Status: Normal Affect Debridement Note Post-Debridement Measurements/Treatment WC - Nurse 2 - General Ulcer CM Notes Start: 11/28/17 13:10 Freq: Status: Active Protocol: Activity Type Activity Date Activity User E-Sign Co-Sign Detail Recorded Client Recorded Date Recorded By Document 11/28/17 14:23 [id number] 11/28/17 14:57 11/28/17 14:23 Wound Center Nurse 2 #6 STAGE II PRESSURE COCCYX ULCER -Time 14:23 -Correct Patient Yes -Correct Side, Site, Position Yes -Correct Procedure Yes -Procedure Performed Yes -Type of Procedure Debridement -Clinical Debridement Subcutaneous -Post Debridement Size (cm) - Length 0.5 -Post Debridement Size (cm) - Width 0.3 -Post Debridement Size (cm) - Depth 0.1 -Total Square Cm 0.15 -Wound/Ulcer Outcome Not Healed -Ulcer Cleansing Rinsed/ Irrigated with Saline -Foul Odor after Cleansing No -Bioengineered Tissue No -Topical Lidocaine (%) 5 -Bleeding Controlled with Pressure -Treatment Response Procedure Tolerated Well #3 R-MEDIAL LE CLUSTER -Time 14:55 -Correct Patient Yes -Correct Side, Site, Position Yes -Correct Procedure Yes -Procedure Performed Yes -Type of Procedure Debridement -Clinical Debridement Subcutaneous -Post Debridement Size (cm) - Length 9.9 -Post Debridement Size (cm) - Width 5.0 -Post Debridement Size (cm) - Depth 0.3 -Total Square Cm 49.50 -Wound/Ulcer Outcome Not Healed -Ulcer Cleansing Rinsed/ Irrigated with Saline -Foul Odor after Cleansing No -Bioengineered Tissue Yes -Type of bioengineered Tissue [id number] -Expiration Date 06/18/19 -Product Lot Number [id number] -Percent Used 100 -Saline Lot Number [id number] -Topical Lidocaine (%) 5 -Bleeding Controlled with Pressure -Treatment Response Procedure Tolerated Well #1 RIGHT LATERAL LE -Time 14:56 -Correct Patient Yes -Correct Side, Site, Position Yes -Correct Procedure Yes -Procedure Performed Yes -Type of Procedure Debridement -Clinical Debridement Subcutaneous -Post Debridement Size (cm) - Length 10.8 -Post Debridement Size (cm) - Width 5.2 -Post Debridement Size (cm) - Depth 0.2 -Total Square Cm 56.16 -Wound/Ulcer Outcome Not Healed -Ulcer Cleansing Rinsed/ Irrigated with Saline -Foul Odor after Cleansing No -Bioengineered Tissue No -Topical Lidocaine (%) 5 -Bleeding Controlled with Pressure -Treatment Response Procedure Tolerated Well Pain Scale: 0-10 Numeric Is Patient Pain Free? Yes Wound debrided: Stage II pressure ulcer of coccyx Laterality: Not Applicable Wound Grade/Stage: stage II Type of Debridement: Excisional debridement Anesthesia Used: 4% Lidocaine Solution Depth: Down to and including healthy tissue, in the subcutaneous layer Percentage of wound debrided: 100 Instrument Used: 5mm curette Tissue Removed: yellow slough, devitalized tissue Severity: Fat Layer Exposed Amount of bleeding with debridement: Mild Bleeding Controlled with: Compression and gauze Patient tolerated procedure well - Additional Wound Wound debrided: right medial LE cluster Laterality: Right Type of Debridement: Excisional debridement Anesthesia Used: 4% Lidocaine Solution Depth: Down to and including healthy tissue, in the subcutaneous layer Percentage of wound debrided: 100 Instrument Used: 5mm curette Tissue Removed: yellow slough, devitalized tissue Severity: Fat Layer Exposed Amount of bleeding with debridement: Mild Bleeding Controlled with: Compression and gauze Patient tolerated procedure: Patient tolerated procedure well - Additional Wound Wound debrided: right lateral LE Laterality: Right Type of Debridement: Excisional debridement Anesthesia Used: 4% Lidocaine Solution Depth: Down to and including healthy tissue, in the subcutaneous layer Percentage of wound debrided: 100 Instrument Used: 5mm curette Tissue Removed: yellow slough, devitalized tissue Severity: Fat Layer Exposed Amount of bleeding with debridement: Mild Bleeding Controlled with: Compression and gauze Patient tolerated procedure: Patient tolerated procedure well Assessment/Plan Active Problems PAD (peripheral artery disease) (Chronic) Type 2 diabetes mellitus treated with insulin (Chronic) Type 2 diabetes mellitus with other skin ulcer (Chronic) 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) 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 (Chronic) x 2 wounds one located above medial malleolus and one just below right knee Chronic venous hypertension w/ulcer and inflammation involv right side (Chronic) Pressure ulcer of coccygeal region, stage 2 (Chronic) Assessment: Multiple nonhealing ulcer/wound of right lower extremity? likely secondary to venous insufficiency. stage 2 pressure ulcer coccyx Plan: Debridement done as documented above, procedure was tolerated. His coccyx wound will continue to be treated with Santyl with changes daily and as needed. His fibrous exudate of his posterior and medial LE is improved. Apligraf was applied to his right lateral LE wound today. The whole wound was not able to be covered due to the volume of the wound but it was applied to the edges of this wound. Only one was applied because it is not reimbursable to apply more than one Apligraf although he would benefit from more treatment due to the size of his wound. He would benefit from Apligraf application to his right medial/ posterior LE wound/ulcer as well but this was denied by insurance. Puraply was approved and this was applied to his wound today. He was instructed on the care of his Apligraf and Puraply. He will keep the dressing clean, dry and intact and only replace the secondary dressing as needed. Will use Hydrofera Blue as a secondary dressing to the right lateral wound and to his posterior and medial wounds as well. Will continue tubigrip compression. Previous vascular studies reviewed - he would benefit from venous ablation but Dr. Patton would like improvement in his wounds prior to doing procedure. Elevate lower extremity when sitting and when in bed. Optimize blood sugar control. Discussed offloading of his coccyx and continue treatment with gel cushion. Increase protein intake/supplements. F/U in 2 weeks and will apply Apligraf/puraply if available and tolerated application.
[2017-12-12 12:49] VITALS: BP 130/63; PULSE 54; RESP 16; TEMP 36.1
--- NOTE | 2017-12-12 17:14 | PCM.WC.PN ---
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 Code(s): E11.622 - Type 2 diabetes mellitus with other skin ulcer; L98.499 - Non-pressure chronic ulcer of skin of other sites with unspecified severity (4) 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 Current Visit: Yes Code(s): L97.212 - Non-pressure chronic ulcer of right calf with fat layer exposed (5) 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 Status: Chronic Current Visit: Yes Code(s): L97.912 - Non-pressure chronic ulcer of unspecified part of right lower leg with fat layer exposed Comment: x 2 wounds one located above medial malleolus and one just below right knee (6) Chronic venous hypertension w/ulcer and inflammation involv right side Status: Chronic Current Visit: Yes Code(s): I87.331 - Chronic venous hypertension (idiopathic) with ulcer and inflammation of right lower extremity; L97.919 - Non-pressure chronic ulcer of unspecified part of right lower leg with unspecified severity (7) Pressure ulcer of coccygeal region, stage 2 Status: Chronic Current Visit: Yes Code(s): L89.152 - Pressure ulcer of sacral region, stage 2 Type of Wound Date of Service: 12/12/17 Chief Complaint: nonhealing wound/ulcer of right lower leg. stage 2 pressure ulcer of coccyx History of Wound: Eddie is a pleasant 76 yo man who presents for evaluation of a wound/ulcer of his right lateral calf that has been present since mid-April and has continued to get larger. He has seen his PCP and has seen another physician in their practice for the wound/ulcer and has been treated once with an UNNA boot and otherwise has been given antibiotics off and on without improvement, most recent antibiotic was Augmentin. No cultures have ever been taken of the wound. No imaging has been done. He has been using Aquaphor to the wound as instructed by his PCP. He has significant pain and edema in this leg and has been started on Lyrica which has helped with the pain. He has been unable to sleep in bed due to the pain and has been sleeping in a recliner. He denies any significant drainage but does note some on his socks from time to time. He denies any odor. Occasionally there is some bleeding. he was referred to the wound center for further evaluation and treatment. 07/29--Has been applying santyl and dry dressing since visit last friday. No drainage for the last few days. Vascular testing scheduled for 08/08. Awaiting lab work from PCP. Admits to sleeping in a recliner since March. Denies N/V/F/C. Some redness to R leg, but no pus, no malodor, no warmth, minimal pain. There is edema. Culture positive for e.coli from Friday. Will Rx Keflex today. 08/05--Pt taking Keflex, tolerating well. Vascular testing scheduled for friday. Size improved with the use of nickel-thickness Santyl and lightly moistened gauze with light spandagrip. Plan to increase compression once vascular testing done. 08/12--Arterial testing done, normal. Venous test reveals multiple incompetent veins in the RLE. Pt states he cannot tolerate any tighter compression than the current spandagrip stocking. He will be referred to Dr. Patton today for evaluation. There is still fibrous tissue, but there are also skin islands forming within the ulceration. 08/19--Pt applying santyl nickel-thick and lightly moistened gauze dressing daily. There is still fibrous tissue, but there are also skin islands forming within the ulceration. Measurements improved today. Pt's is with him today, and she states that he often falls asleep in his recliner, and his legs end up falling off the foot rest and his feet end up on the ground. Pt has an appointment with Dr. Patton at [facility] at the beginning of August. 08/21- initial visit with Doroteo Nash NP who patient will be transferring care to. Has been applying nickel thick santyl daily, however, site is still painful and there is now a foul smell.Cultures will be redone today.Moderate amount of slough and fibrous tissue present. Pt denies any systemic signs of infection including no fever, chills, n/v/d/c. 08/28-patient has 2 new wounds and states that there is an increase in foul smell coming from his chronic wound. He has unaware how the 2 new wounds occurred and denies any obvious trauma, though does state that they looked like they are going to be opening prior to this visit. He does state that the wound below the right knee may be from a tape burn from his dressing changes. Progress of Wound: Eddie's wounds have improved since his last visit. Apligraf application tolerated to his right lateral leg wound. His medial cluster is improved after application of puraply. His pressure ulcer of his coccyx is healed. His daughter got him a gel cushion to sit on and he has been using this regularly. He is doing well with tubigrip compression. Denies odor, fever or chills. He is unable to tolerate having his legs elevated due to his neuropathy and frequently has them hanging down. Sleeps in his recliner. - Physical Exam Vital Signs Temp Pulse Resp BP 96.9 F L 54 L 16 130/63 H 12/12/17 12:49 12/12/17 12:49 12/12/17 12:49 12/12/17 12:49 General: Alert, Oriented x3, Cooperative, No apparent distress HEENT: Atraumatic, Normocephalic Oral: Moist Mucosa Extremities: Edema Skin: Ulcer/ Wound Wound Measurements and Assessment WC - Nurse 1 - General Ulcer Measurement Start: 11/28/17 13:10 Freq: Status: Active Protocol: Activity Type Activity Date Activity User E-Sign Co-Sign Detail Recorded Client Recorded Date Recorded By Document 12/12/17 12:49 [facility] [id number] 12/12/17 13:10 [facility] 12/12/17 12:49 Wound Center Nurse 1 [Ulcer Assessment] #6 STAGE II PRESSURE COCCYX ULCER -Combined with other wound No -Current Size (cm) - Length 0 -Current Size (cm) - Width 0 -Current Size (cm) - Depth 0 -Total Square Cm 0 -Date of Last Picture (Recall this 12/12/17 field) -Epithelialization Large 67-100% #3 R-MEDIAL LE CLUSTER -Combined with other wound No -Current Size (cm) - Length 4.6 -Current Size (cm) - Width 8.4 -Current Size (cm) - Depth 0.3 -Total Square Cm 38.64 -Date of Last Picture (Recall this 12/12/17 field) -Photo Taken Yes -Epithelialization None Present -Tunneling No -Undermining/Tunneling No -Circular Undermining No -Exudate Amt Medium (34-66%) -Exudate Type Serosanguineous -Wound Margin Distinct, Outline Attached -Granulation Amt Medium (34-66%) -Granulation Quality Red -Slough/Fibrin Yes -Necrosis Amt Medium (34-66%) -Necrotic Tissue Type Adherent Slough -Texture (Kinza-wound Skin Appearance) Scarring -Moisture (Kinza-wound Skin Appearance Dry/Scaly ) -Color (Kinza-wound Skin Appearance) Erythema Hemosiderin Staining -Temperature (Kniza-wound Skin No Abnormality Appearance) (Pt Warm) -Tenderness on Palpation (Kinza-wound No Skin Appearance) -Ulcer Cleansing Wound Cleanser -Foul Odor after Cleansing No -Anesthetic Used 4% Lidocaine Solution #1 RIGHT LATERAL LE -Combined with other wound No -Current Size (cm) - Length 10.3 -Current Size (cm) - Width 4.1 -Current Size (cm) - Depth 0.1 -Total Square Cm 42.23 -Date of Last Picture (Recall this 12/12/17 field) -Photo Taken Yes -Epithelialization None Present -Tunneling No -Undermining/Tunneling No -Circular Undermining No -Exudate Amt Medium (34-66%) -Exudate Type Serosanguineous -Wound Margin Distinct, Outline Attached -Granulation Amt Large (67-100%) -Granulation Quality Pale Red -Slough/Fibrin Yes -Necrosis Amt Small (1-33%) -Necrotic Tissue Type Adherent Slough -Texture (Kinza-wound Skin Appearance) Scarring -Moisture (Kinza-wound Skin Appearance Dry/Scaly ) -Color (Kinza-wound Skin Appearance) Erythema Hemosiderin Staining -Temperature (Kinza-wound Skin No Abnormality Appearance) (Pt Warm) -Tenderness on Palpation (Kinza-wound No Skin Appearance) -Ulcer Cleansing Wound Cleanser -Foul Odor after Cleansing No -Anesthetic Used 4% Lidocaine Solution [Edema Assessment] -Lower Limb Edema Present Yes -Right Calf (cm) 32.7 -Right Ankle (cm) 22.1 WC - Nurse 2 - General Ulcer CM Notes Start: 11/28/17 13:10 Freq: Status: Active Protocol: Activity Type Activity Date Activity User E-Sign Co-Sign Detail Recorded Client Recorded Date Recorded By Document 12/12/17 13:39 [id number] 12/12/17 13:44 12/12/17 13:39 Wound Center Nurse 2 [Procedure/Treatment] #6 STAGE II PRESSURE COCCYX ULCER -Time 13:39 -Correct Patient Yes -Correct Side, Site, Position Yes -Correct Procedure Yes -Procedure Performed Yes -Post Debridement Size (cm) - Length 0 -Post Debridement Size (cm) - Width 0 -Post Debridement Size (cm) - Depth 0 -Total Square Cm 0 -Wound/Ulcer Outcome Healed- Epithelialized -Ulcer Cleansing Rinsed/ Irrigated with Saline -Foul Odor after Cleansing No -Bioengineered Tissue No -Bleeding Controlled with NA -Treatment Response Procedure Tolerated Well #3 R-MEDIAL LE CLUSTER -Time 13:40 -Correct Patient Yes -Correct Side, Site, Position Yes -Correct Procedure Yes -Procedure Performed Yes -Type of Procedure Debridement -Clinical Debridement Subcutaneous -Post Debridement Size (cm) - Length 8.5 -Post Debridement Size (cm) - Width 4.7 -Post Debridement Size (cm) - Depth 0.3 -Total Square Cm 39.95 -Wound/Ulcer Outcome Not Healed -Ulcer Cleansing Rinsed/ Irrigated with Saline -Foul Odor after Cleansing No -Bioengineered Tissue Yes -Type of bioengineered Tissue [id number] -Expiration Date 04/10/20 -Product Lot Number [id number] -Percent Used 100 -Saline Lot Number [id number] -Topical Lidocaine (%) 4 -Bleeding Controlled with Pressure -Treatment Response Procedure Tolerated Well #1 RIGHT LATERAL LE -Time 13:41 -Correct Patient Yes -Correct Side, Site, Position Yes -Correct Procedure Yes -Procedure Performed Yes -Type of Procedure Debridement -Clinical Debridement Subcutaneous -Post Debridement Size (cm) - Length 10 -Post Debridement Size (cm) - Width 4.4 -Post Debridement Size (cm) - Depth 0.1 -Total Square Cm 44.0 -Wound/Ulcer Outcome Not Healed -Ulcer Cleansing Rinsed/ Irrigated with Saline -Foul Odor after Cleansing No -Bioengineered Tissue Yes -Type of bioengineered Tissue Apligraf -Expiration Date 12/20/17 -Product Lot Number [id number] -Percent Used 100 -Saline Lot Number [id number] -Topical Lidocaine (%) 4 -Bleeding Controlled with Pressure -Treatment Response Procedure Tolerated Well [See Physician Procedure note for Specifics] Pain Scale: 0-10 Numeric [Pain] -Is Patient Pain Free? Yes Psych/Mental Status: Normal Affect, Appropriate Debridement Note Post-Debridement Measurements/Treatment WC - Nurse 2 - General Ulcer CM Notes Start: 11/28/17 13:10 Freq: Status: Active Protocol: Activity Type Activity Date Activity User E-Sign Co-Sign Detail Recorded Client Recorded Date Recorded By Document 11/28/17 14:23 TM [id number] 11/28/17 14:57 TM Document 12/12/17 13:39 TM [id number] 12/12/17 13:44 TM 11/28/17 12/12/17 14:23 13:39 Wound Center Nurse 2 #6 STAGE II PRESSURE COCCYX ULCER -Time 14:23 13:39 -Correct Patient Yes Yes -Correct Side, Site, Position Yes Yes -Correct Procedure Yes Yes -Procedure Performed Yes Yes -Type of Procedure Debridement -Clinical Debridement Subcutaneous -Post Debridement Size (cm) - Length 0.5 0 -Post Debridement Size (cm) - Width 0.3 0 -Post Debridement Size (cm) - Depth 0.1 0 -Total Square Cm 0.15 0 -Wound/Ulcer Outcome Not Healed Healed- Epithelialized -Ulcer Cleansing Rinsed/ Rinsed/ Irrigated with Irrigated with Saline Saline -Foul Odor after Cleansing No No -Bioengineered Tissue No No -Topical Lidocaine (%) 5 -Bleeding Controlled with Pressure NA -Treatment Response Procedure Procedure Tolerated Well Tolerated Well #3 R-MEDIAL LE CLUSTER -Time 14:55 13:40 -Correct Patient Yes Yes -Correct Side, Site, Position Yes Yes -Correct Procedure Yes Yes -Procedure Performed Yes Yes -Type of Procedure Debridement Debridement -Clinical Debridement Subcutaneous Subcutaneous -Post Debridement Size (cm) - Length 9.9 8.5 -Post Debridement Size (cm) - Width 5.0 4.7 -Post Debridement Size (cm) - Depth 0.3 0.3 -Total Square Cm 49.50 39.95 -Wound/Ulcer Outcome Not Healed Not Healed -Ulcer Cleansing Rinsed/ Rinsed/ Irrigated with Irrigated with Saline Saline -Foul Odor after Cleansing No No -Bioengineered Tissue Yes Yes -Type of bioengineered Tissue [id number] -Expiration Date 06/18/19 04/10/20 -Product Lot Number [id number] -Percent Used 100 100 -Saline Lot Number [id number] -Topical Lidocaine (%) 5 4 -Bleeding Controlled with Pressure Pressure -Treatment Response Procedure Procedure Tolerated Well Tolerated Well #1 RIGHT LATERAL LE -Time 14:56 13:41 -Correct Patient Yes Yes -Correct Side, Site, Position Yes Yes -Correct Procedure Yes Yes -Procedure Performed Yes Yes -Type of Procedure Debridement Debridement -Clinical Debridement Subcutaneous Subcutaneous -Post Debridement Size (cm) - Length 10.8 10 -Post Debridement Size (cm) - Width 5.2 4.4 -Post Debridement Size (cm) - Depth 0.2 0.1 -Total Square Cm 56.16 44.0 -Wound/Ulcer Outcome Not Healed Not Healed -Ulcer Cleansing Rinsed/ Rinsed/ Irrigated with Irrigated with Saline Saline -Foul Odor after Cleansing No No -Bioengineered Tissue No Yes -Type of bioengineered Tissue Apligraf -Expiration Date 12/20/17 -Product Lot Number [id number] -Percent Used 100 -Saline Lot Number [id number] -Topical Lidocaine (%) 5 4 -Bleeding Controlled with Pressure Pressure -Treatment Response Procedure Procedure Tolerated Well Tolerated Well Pain Scale: 0-10 Numeric Is Patient Pain Free? Yes Yes Wound debrided: stage II pressure ulcer coccyx Laterality: Not Applicable Wound Grade/Stage: stage II No debridement was completed today - wound is healed - Additional Wound Wound debrided: right medial LE cluster Laterality: Right Type of Debridement: Excisional debridement Anesthesia Used: 4% Lidocaine Solution Depth: Down to and including healthy tissue, in the subcutaneous layer Percentage of wound debrided: 100 Instrument Used: 5mm curette Tissue Removed: yellow slough, devitalized tissue Severity: Fat Layer Exposed Amount of bleeding with debridement: Mild Bleeding Controlled with: Compression and gauze Patient tolerated procedure: Patient tolerated procedure well - Additional Wound Wound debrided: right lateral LE Laterality: Right Type of Debridement: Excisional debridement Anesthesia Used: 4% Lidocaine Solution, 5% Lidocaine Gel Depth: Down to and including healthy tissue, in the subcutaneous layer Percentage of wound debrided: 100 Instrument Used: 5mm curette Tissue Removed: yellow slough, devitalized tissue Severity: Fat Layer Exposed Amount of bleeding with debridement: Mild Bleeding Controlled with: Compression and gauze Patient tolerated procedure: Patient tolerated procedure well Assessment/Plan Active Problems PAD (peripheral artery disease) (Chronic) Type 2 diabetes mellitus treated with insulin (Chronic) Type 2 diabetes mellitus with other skin ulcer (Chronic) 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) 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 (Chronic) x 2 wounds one located above medial malleolus and one just below right knee Chronic venous hypertension w/ulcer and inflammation involv right side (Chronic) Pressure ulcer of coccygeal region, stage 2 (Chronic) Assessment: Multiple nonhealing ulcer/wound of right lower extremity likely secondary to venous insufficiency. stage 2 pressure ulcer coccyx Plan: Debridement done as documented above, procedure was tolerated. His coccyx wound is healed. His posterior/medial LE cluster is improved after application of Puraply. Apligraf #4 was applied to his right lateral LE wound today. The whole wound was able to be covered. He would benefit from Apligraf application to his right medial/posterior LE wound/ulcer as well but this was denied by insurance. Puraply was applied to this wound again today. He was instructed on the care of his Apligraf and Puraply. He will keep the dressing clean, dry and intact and only replace the secondary dressing as needed. Will use Hydrofera Blue as a secondary dressing to the right lateral wound and to his posterior and medial wounds as well. Will continue tubigrip compression. Previous vascular studies reviewed - he would benefit from venous ablation but Dr. Patton would like improvement in his wounds prior to doing procedure. Elevate lower extremity when sitting and when in bed. Optimize blood sugar control. Discussed offloading of his coccyx and continue treatment with gel cushion. Increase protein intake/supplements. F/U in 2 weeks and will apply Apligraf/puraply if available and tolerated application.
[2017-12-26 12:34] VITALS: BP 102/56; PULSE 53; RESP 16; TEMP 36
--- NOTE | 2017-12-26 19:44 | PCM.WC.PN ---
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 Code(s): E11.622 - Type 2 diabetes mellitus with other skin ulcer; L98.499 - Non-pressure chronic ulcer of skin of other sites with unspecified severity (4) 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 Current Visit: Yes Code(s): L97.212 - Non-pressure chronic ulcer of right calf with fat layer exposed (5) 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 Status: Chronic Current Visit: Yes Code(s): L97.912 - Non-pressure chronic ulcer of unspecified part of right lower leg with fat layer exposed Comment: x 2 wounds one located above medial malleolus and one just below right knee (6) Chronic venous hypertension w/ulcer and inflammation involv right side Status: Chronic Current Visit: Yes Code(s): I87.331 - Chronic venous hypertension (idiopathic) with ulcer and inflammation of right lower extremity; L97.919 - Non-pressure chronic ulcer of unspecified part of right lower leg with unspecified severity (7) Pressure ulcer of coccygeal region, stage 2 Status: Chronic Current Visit: Yes Code(s): L89.152 - Pressure ulcer of sacral region, stage 2 Type of Wound Date of Service: 12/26/17 Chief Complaint: nonhealing wound/ulcers of right lower leg History of Wound: Eddie is a pleasant 76 yo man who presents for evaluation of a wound/ulcer of his right lateral calf that has been present since mid-April and has continued to get larger. He has seen his PCP and has seen another physician in their practice for the wound/ulcer and has been treated once with an UNNA boot and otherwise has been given antibiotics off and on without improvement, most recent antibiotic was Augmentin. No cultures have ever been taken of the wound. No imaging has been done. He has been using Aquaphor to the wound as instructed by his PCP. He has significant pain and edema in this leg and has been started on Lyrica which has helped with the pain. He has been unable to sleep in bed due to the pain and has been sleeping in a recliner. He denies any significant drainage but does note some on his socks from time to time. He denies any odor. Occasionally there is some bleeding. he was referred to the wound center for further evaluation and treatment. 07/29--Has been applying santyl and dry dressing since visit last friday. No drainage for the last few days. Vascular testing scheduled for 08/08. Awaiting lab work from PCP. Admits to sleeping in a recliner since March. Denies N/V/F/C. Some redness to R leg, but no pus, no malodor, no warmth, minimal pain. There is edema. Culture positive for e.coli from Friday. Will Rx Keflex today. 08/05--Pt taking Keflex, tolerating well. Vascular testing scheduled for friday. Size improved with the use of nickel-thickness Santyl and lightly moistened gauze with light spandagrip. Plan to increase compression once vascular testing done. 08/12--Arterial testing done, normal. Venous test reveals multiple incompetent veins in the RLE. Pt states he cannot tolerate any tighter compression than the current spandagrip stocking. He will be referred to Dr. Patton today for evaluation. There is still fibrous tissue, but there are also skin islands forming within the ulceration. 08/19--Pt applying santyl nickel-thick and lightly moistened gauze dressing daily. There is still fibrous tissue, but there are also skin islands forming within the ulceration. Measurements improved today. Pt's is with him today, and she states that he often falls asleep in his recliner, and his legs end up falling off the foot rest and his feet end up on the ground. Pt has an appointment with Dr. Patton at [facility] at the beginning of August. 08/21- initial visit with Doroteo Nash NP who patient will be transferring care to. Has been applying nickel thick santyl daily, however, site is still painful and there is now a foul smell.Cultures will be redone today.Moderate amount of slough and fibrous tissue present. Pt denies any systemic signs of infection including no fever, chills, n/v/d/c. 08/28-patient has 2 new wounds and states that there is an increase in foul smell coming from his chronic wound. He has unaware how the 2 new wounds occurred and denies any obvious trauma, though does state that they looked like they are going to be opening prior to this visit. He does state that the wound below the right knee may be from a tape burn from his dressing changes. Progress of Wound: Eddie's wounds/ulcers have improved since his last visit. Apligraf application tolerated to his right lateral leg wound/ulcer. His medial cluster is improved after application of puraply. He is doing well with tubigrip compression. Denies odor, fever or chills. He is unable to tolerate having his legs elevated due to his neuropathy and frequently has them hanging down. Sleeps in his recliner. - Physical Exam Vital Signs Temp Pulse Resp BP 96.8 F L 53 L 16 102/56 L 12/26/17 12:34 12/26/17 12:34 12/26/17 12:34 12/26/17 12:34 General: Alert, Oriented x3, Cooperative, No apparent distress HEENT: Atraumatic, Normocephalic Oral: Moist Mucosa Extremities: Edema Skin: Ulcer/ Wound Wound Measurements and Assessment WC - Nurse 1 - General Ulcer Measurement Start: 11/28/17 13:10 Freq: Status: Active Protocol: Activity Type Activity Date Activity User E-Sign Co-Sign Detail Recorded Client Recorded Date Recorded By Document 12/26/17 12:34 MW [id number] 12/26/17 12:51 MW 12/26/17 12:34 Wound Center Nurse 1 [Ulcer Assessment] #3 R-MEDIAL LE CLUSTER -Combined with other wound No -Current Size (cm) - Length 4.0 -Current Size (cm) - Width 4.2 -Current Size (cm) - Depth 0.1 -Total Square Cm 16.80 -Photo Taken No -Epithelialization Small 1-33% -Tunneling No -Undermining/Tunneling No -Circular Undermining No -Exudate Amt Medium (34-66%) -Exudate Type Serosanguineous -Wound Margin Flat & Intact -Granulation Amt Small (1-33%) -Granulation Quality Pale -Slough/Fibrin Yes -Necrosis Amt Large (67-100%) -Necrotic Tissue Type Adherent Slough -Structure Exposed N/A -Texture (Kinza-wound Skin Appearance) Assessed Localized Edema Scarring -Moisture (Kinza-wound Skin Appearance Assessed ) Dry/Scaly -Color (Kinza-wound Skin Appearance) No Abnormality Assessed -Temperature (Kinza-wound Skin No Abnormality Appearance) (Pt Warm) -Tenderness on Palpation (Kinza-wound No Skin Appearance) -Ulcer Cleansing Wound Cleanser -Foul Odor after Cleansing No -Anesthetic Used 4% Lidocaine Solution #1 RIGHT LATERAL LE -Combined with other wound No -Current Size (cm) - Length 7.3 -Current Size (cm) - Width 3.6 -Current Size (cm) - Depth 0.1 -Total Square Cm 26.28 -Photo Taken No -Epithelialization None Present -Tunneling No -Undermining/Tunneling No -Circular Undermining No -Exudate Amt Medium (34-66%) -Exudate Type Serosanguineous -Wound Margin Flat & Intact -Granulation Amt Small (1-33%) -Granulation Quality Pale -Slough/Fibrin Yes -Necrosis Amt Large (67-100%) -Necrotic Tissue Type Adherent Slough -Structure Exposed N/A -Texture (Kinza-wound Skin Appearance) Assessed Localized Edema Scarring -Moisture (Iknza-wound Skin Appearance Assessed ) Dry/Scaly -Color (Kinza-wound Skin Appearance) No Abnormality Assessed -Temperature (Kinza-wound Skin No Abnormality Appearance) (Pt Warm) -Tenderness on Palpation (Kinza-wound No Skin Appearance) -Ulcer Cleansing Wound Cleanser -Foul Odor after Cleansing No -Anesthetic Used 4% Lidocaine Solution [Edema Assessment] -Lower Limb Edema Present Yes -Right Calf (cm) 34.2 -Right Ankle (cm) 22.5 WC - Nurse 2 - General Ulcer CM Notes Start: 11/28/17 13:10 Freq: Status: Active Protocol: Activity Type Activity Date Activity User E-Sign Co-Sign Detail Recorded Client Recorded Date Recorded By Document 12/26/17 13:21 TM [id number] 12/26/17 13:26 12/26/17 13:21 Wound Center Nurse 2 [Procedure/Treatment] #3 R-MEDIAL LE CLUSTER -Time 13:22 -Correct Patient Yes -Correct Side, Site, Position Yes -Correct Procedure Yes -Procedure Performed Yes -Type of Procedure Debridement -Clinical Debridement Subcutaneous -Post Debridement Size (cm) - Length 8.5 -Post Debridement Size (cm) - Width 4.1 -Post Debridement Size (cm) - Depth 0.2 -Total Square Cm 34.85 -Wound/Ulcer Outcome Not Healed -Ulcer Cleansing Rinsed/ Irrigated with Saline -Foul Odor after Cleansing No -Bioengineered Tissue Yes -Type of bioengineered Tissue [id number] -Expiration Date 03/27/19 -Product Lot Number [id number] -Percent Used 100 -Saline Lot Number [id number] -Topical Lidocaine (%) 5 -Bleeding Controlled with Pressure -Treatment Response Procedure Tolerated Well #1 RIGHT LATERAL LE -Time 13:23 -Correct Patient Yes -Correct Side, Site, Position Yes -Correct Procedure Yes -Procedure Performed Yes -Type of Procedure Debridement -Clinical Debridement Subcutaneous -Post Debridement Size (cm) - Length 9.0 -Post Debridement Size (cm) - Width 3.2 -Post Debridement Size (cm) - Depth 0.1 -Total Square Cm 28.80 -Wound/Ulcer Outcome Not Healed -Ulcer Cleansing Rinsed/ Irrigated with Saline -Foul Odor after Cleansing No -Bioengineered Tissue Yes -Type of bioengineered Tissue Apligraf -Expiration Date 01/02/18 -Product Lot Number [id number] -Percent Used 100 -Saline Lot Number [id number] -Topical Lidocaine (%) 5 -Bleeding Controlled with Pressure -Treatment Response Procedure Tolerated Well [See Physician Procedure note for Specifics] Pain Scale: 0-10 Numeric [Pain] -Is Patient Pain Free? Yes Psych/Mental Status: Normal Affect, Appropriate Debridement Note Post-Debridement Measurements/Treatment WC - Nurse 2 - General Ulcer CM Notes Start: 11/28/17 13:10 Freq: Status: Active Protocol: Activity Type Activity Date Activity User E-Sign Co-Sign Detail Recorded Client Recorded Date Recorded By Document 11/28/17 14:23 TM [id number] 11/28/17 14:57 TM Document 12/12/17 13:39 TM [id number] 12/12/17 13:44 TM Document 12/26/17 13:21 [id number] 12/26/17 13:26 TM 11/28/17 12/12/17 12/26/17 14:23 13:39 13:21 Wound Center Nurse 2 #6 STAGE II PRESSURE COCCYX ULCER -Time 14:23 13:39 -Correct Patient Yes Yes -Correct Side, Site, Position Yes Yes -Correct Procedure Yes Yes -Procedure Performed Yes Yes -Type of Procedure Debridement -Clinical Debridement Subcutaneous -Post Debridement Size (cm) - Length 0.5 0 -Post Debridement Size (cm) - Width 0.3 0 -Post Debridement Size (cm) - Depth 0.1 0 -Total Square Cm 0.15 0 -Wound/Ulcer Outcome Not Healed Healed- Epithelialized -Ulcer Cleansing Rinsed/ Rinsed/ Irrigated with Irrigated with Saline Saline -Foul Odor after Cleansing No No -Bioengineered Tissue No No -Topical Lidocaine (%) 5 -Bleeding Controlled with Pressure NA -Treatment Response Procedure Procedure Tolerated Well Tolerated Well #3 R-MEDIAL LE CLUSTER -Time 14:55 13:40 13:22 -Correct Patient Yes Yes Yes -Correct Side, Site, Position Yes Yes Yes -Correct Procedure Yes Yes Yes -Procedure Performed Yes Yes Yes -Type of Procedure Debridement Debridement Debridement -Clinical Debridement Subcutaneous Subcutaneous Subcutaneous -Post Debridement Size (cm) - Length 9.9 8.5 8.5 -Post Debridement Size (cm) - Width 5.0 4.7 4.1 -Post Debridement Size (cm) - Depth 0.3 0.3 0.2 -Total Square Cm 49.50 39.95 34.85 -Wound/Ulcer Outcome Not Healed Not Healed Not Healed -Ulcer Cleansing Rinsed/ Rinsed/ Rinsed/ Irrigated with Irrigated with Irrigated with Saline Saline Saline -Foul Odor after Cleansing No No No -Bioengineered Tissue Yes Yes Yes -Type of bioengineered Tissue [id number] -Expiration Date 06/18/19 04/10/20 03/27/19 -Product Lot Number [id number] -Percent Used 100 100 100 -Saline Lot Number [id number] -Topical Lidocaine (%) 5 4 5 -Bleeding Controlled with Pressure Pressure Pressure -Treatment Response Procedure Procedure Procedure Tolerated Well Tolerated Well Tolerated Well #1 RIGHT LATERAL LE -Time 14:56 13:41 13:23 -Correct Patient Yes Yes Yes -Correct Side, Site, Position Yes Yes Yes -Correct Procedure Yes Yes Yes -Procedure Performed Yes Yes Yes -Type of Procedure Debridement Debridement Debridement -Clinical Debridement Subcutaneous Subcutaneous Subcutaneous -Post Debridement Size (cm) - Length 10.8 10 9.0 -Post Debridement Size (cm) - Width 5.2 4.4 3.2 -Post Debridement Size (cm) - Depth 0.2 0.1 0.1 -Total Square Cm 56.16 44.0 28.80 -Wound/Ulcer Outcome Not Healed Not Healed Not Healed -Ulcer Cleansing Rinsed/ Rinsed/ Rinsed/ Irrigated with Irrigated with Irrigated with Saline Saline Saline -Foul Odor after Cleansing No No No -Bioengineered Tissue No Yes Yes -Type of bioengineered Tissue Apligraf Apligraf -Expiration Date 12/20/17 01/02/18 -Product Lot Number [id number] -Percent Used 100 100 -Saline Lot Number [id number] -Topical Lidocaine (%) 5 4 5 -Bleeding Controlled with Pressure Pressure Pressure -Treatment Response Procedure Procedure Procedure Tolerated Well Tolerated Well Tolerated Well Pain Scale: 0-10 Numeric Is Patient Pain Free? Yes Yes Yes Wound debrided: right medial LE cluster Laterality: Right Type of Debridement: Excisional debridement Anesthesia Used: 4% Lidocaine Solution Depth: Down to and including healthy tissue, in the subcutaneous layer Percentage of wound debrided: 100 Instrument Used: 5mm curette Tissue Removed: yellow slough, devitalized tissue Severity: Fat Layer Exposed Amount of bleeding with debridement: Mild Bleeding Controlled with: Compression and gauze Patient tolerated procedure well - Additional Wound Wound debrided: right lateral LE Laterality: Right Type of Debridement: Excisional debridement Anesthesia Used: 4% Lidocaine Solution Depth: Down to and including healthy tissue, in the subcutaneous layer Percentage of wound debrided: 100 Instrument Used: 5mm curette Tissue Removed: yellow slough, devitalized tissue Severity: Fat Layer Exposed Amount of bleeding with debridement: Mild Bleeding Controlled with: Compression and gauze Patient tolerated procedure: Patient tolerated procedure well Assessment/Plan Active Problems PAD (peripheral artery disease) (Chronic) Type 2 diabetes mellitus treated with insulin (Chronic) Type 2 diabetes mellitus with other skin ulcer (Chronic) 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) 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 (Chronic) x 2 wounds one located above medial malleolus and one just below right knee Chronic venous hypertension w/ulcer and inflammation involv right side (Chronic) Pressure ulcer of coccygeal region, stage 2 (Chronic) Assessment: Multiple nonhealing ulcer/wound of right lower extremity likely secondary to venous insufficiency. stage 2 pressure ulcer coccyx - healed Plan: Debridement done as documented above, procedure was tolerated. His posterior/medial LE cluster is improved after application of Puraply. Apligraf #5 was applied to his right lateral LE wound today. The whole wound was covered and excess was applied as a second layer. He would benefit from Apligraf application to his right medial/posterior LE wound/ulcer as well but this was denied by insurance. Puraply was applied to this wound again today. He was instructed on the care of his Apligraf and Puraply. He will keep the dressing clean, dry and intact and only replace the secondary dressing as needed. Will use Hydrofera Blue as a secondary dressing to the right lateral wound and to his posterior and medial wounds as well. Will continue tubigrip compression. Previous vascular studies reviewed - he would benefit from venous ablation and Dr. Patton plans on doing this in the next month. Elevate lower extremity when sitting and when in bed. Optimize blood sugar control. Discussed offloading of his coccyx and continue treatment with gel cushion. Increase protein intake/supplements. F/U in 2 weeks and will apply puraply if needed.
== END 2017-12-26 23:59 ==
LOC: WC 12:30
PROVIDERS: Family Provider Family Medicine; PCP Family Medicine; Visit Provider Family Medicine
DX: E11.622 Type 2 diabetes mellitus with other skin ulcer (principal); E11.51 Type 2 diabetes mellitus with diabetic peripheral angiopathy without gangrene; L89.152 Pressure ulcer of sacral region, stage 2; I87.331 Chronic venous hypertension (idiopathic) with ulcer and inflammation of right lower extremity; L97.912 Non-pressure chronic ulcer of unspecified part of right lower leg with fat layer exposed
CPT/HCPCS: 11042; 11750; 15271; 15272; Q4101; Q4172

== ENCOUNTER 2018-01-23 12:30 | Outpatient (RCR) | payer MEDICARE, SELFPAY ==
[2017-12-27 00:55] VITALS: BP 102/56; PULSE 53; RESP 16; TEMP 36
[2018-01-09 12:52] VITALS: BP 117/50; PULSE 56; RESP 16; TEMP 36.2
--- NOTE | 2018-01-09 20:01 | PCM.WC.PN ---
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 insulin use: unspecified termite control servicer insulin use status Code(s): E11.42 - Type 2 diabetes mellitus with diabetic polyneuropathy (3) Type 2 diabetes mellitus with other skin ulcer Status: Chronic Current Visit: Yes Qualifiers: Code(s): E11.622 - Type 2 diabetes mellitus with other skin ulcer; L98.499 - Non-pressure chronic ulcer of skin of other sites with unspecified severity (4) 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 Status: Chronic Current Visit: Yes Code(s): L97.912 - Non-pressure chronic ulcer of unspecified part of right lower leg with fat layer exposed Comment: x 2 wounds one located above medial malleolus and one just below right knee (5) Chronic venous hypertension w/ulcer and inflammation involv right side Status: Chronic Current Visit: Yes Code(s): I87.331 - Chronic venous hypertension (idiopathic) with ulcer and inflammation of right lower extremity; L97.919 - Non-pressure chronic ulcer of unspecified part of right lower leg with unspecified severity Type of Wound Date of Service: 01/09/18 Chief Complaint: nonhealing wound/ulcers of right lower leg History of Wound: Eddie is a pleasant 76 yo man who presents for evaluation of a wound/ulcer of his right lateral calf that has been present since mid-April and has continued to get larger. He has seen his PCP and has seen another physician in their practice for the wound/ulcer and has been treated once with an UNNA boot and otherwise has been given antibiotics off and on without improvement, most recent antibiotic was Augmentin. No cultures have ever been taken of the wound. No imaging has been done. He has been using Aquaphor to the wound as instructed by his PCP. He has significant pain and edema in this leg and has been started on Lyrica which has helped with the pain. He has been unable to sleep in bed due to the pain and has been sleeping in a recliner. He denies any significant drainage but does note some on his socks from time to time. He denies any odor. Occasionally there is some bleeding. he was referred to the wound center for further evaluation and treatment. 07/29--Has been applying santyl and dry dressing since visit last friday. No drainage for the last few days. Vascular testing scheduled for 08/08. Awaiting lab work from PCP. Admits to sleeping in a recliner since March. Denies N/V/F/C. Some redness to R leg, but no pus, no malodor, no warmth, minimal pain. There is edema. Culture positive for e.coli from Friday. Will Rx Keflex today. 08/05--Pt taking Keflex, tolerating well. Vascular testing scheduled for friday. Size improved with the use of nickel-thickness Santyl and lightly moistened gauze with light spandagrip. Plan to increase compression once vascular testing done. 08/12--Arterial testing done, normal. Venous test reveals multiple incompetent veins in the RLE. Pt states he cannot tolerate any tighter compression than the current spandagrip stocking. He will be referred to Dr. Patton today for evaluation. There is still fibrous tissue, but there are also skin islands forming within the ulceration. 08/19--Pt applying santyl nickel-thick and lightly moistened gauze dressing daily. There is still fibrous tissue, but there are also skin islands forming within the ulceration. Measurements improved today. Pt's is with him today, and she states that he often falls asleep in his recliner, and his legs end up falling off the foot rest and his feet end up on the ground. Pt has an appointment with Dr. Patton at [facility] at the beginning of August. 08/21- initial visit with Doroteo Nash NP who patient will be transferring care to. Has been applying nickel thick santyl daily, however, site is still painful and there is now a foul smell.Cultures will be redone today.Moderate amount of slough and fibrous tissue present. Pt denies any systemic signs of infection including no fever, chills, n/v/d/c. 08/28-patient has 2 new wounds and states that there is an increase in foul smell coming from his chronic wound. He has unaware how the 2 new wounds occurred and denies any obvious trauma, though does state that they looked like they are going to be opening prior to this visit. He does state that the wound below the right knee may be from a tape burn from his dressing changes. Progress of Wound: Eddie's wounds/ulcers have improved since his last visit. Apligraf application tolerated to his right lateral leg wound/ulcer. His medial cluster is improved after application of puraply. He is doing well with tubigrip compression. Denies odor, fever or chills. He is unable to tolerate having his legs elevated due to his neuropathy and frequently has them hanging down. Sleeps in his recliner. He reports less drainage. - Physical Exam Vital Signs Temp Pulse Resp BP 97.1 F L 56 L 16 117/50 L 01/09/18 12:52 01/09/18 12:52 01/09/18 12:52 01/09/18 12:52 General: Alert, Oriented x3, Cooperative, No apparent distress HEENT: Atraumatic, Normocephalic Oral: Moist Mucosa Extremities: Edema Skin: Ulcer/ Wound Wound Measurements and Assessment WC - Nurse 1 - General Ulcer Measurement Start: 01/09/18 12:52 Freq: Status: Active Protocol: Activity Type Activity Date Activity User E-Sign Co-Sign Detail Recorded Client Recorded Date Recorded By Document 01/09/18 12:52 [facility] [id number] 01/09/18 13:00 [facility] 01/09/18 12:52 Wound Center Nurse 1 [Ulcer Assessment] #3 R-MEDIAL LE CLUSTER -Combined with other wound No -Current Size (cm) - Length 2.4 -Current Size (cm) - Width 3.4 -Current Size (cm) - Depth 0.1 -Total Square Cm 8.16 -Photo Taken No -Tunneling No -Undermining/Tunneling No -Circular Undermining No -Exudate Amt Medium (34-66%) -Exudate Type Serosanguineous -Wound Margin Distinct, Outline Attached -Granulation Amt Medium (34-66%) -Granulation Quality Red -Slough/Fibrin Yes -Necrosis Amt Medium (34-66%) -Necrotic Tissue Type Adherent Slough -Structure Exposed N/A -Texture (Kinza-wound Skin Appearance) Scarring -Moisture (Kinza-wound Skin Appearance Dry/Scaly ) -Color (Kinza-wound Skin Appearance) Assessed -Temperature (Kinza-wound Skin No Abnormality Appearance) (Pt Warm) -Tenderness on Palpation (Kinza-wound No Skin Appearance) -Ulcer Cleansing Wound Cleanser -Foul Odor after Cleansing No -Anesthetic Used 4% Lidocaine Solution #1 RIGHT LATERAL LE -Combined with other wound No -Current Size (cm) - Length 7.1 -Current Size (cm) - Width 2.5 -Current Size (cm) - Depth 0.1 -Total Square Cm 17.75 -Photo Taken No -Epithelialization Small 1-33% -Tunneling No -Undermining/Tunneling No -Circular Undermining No -Exudate Amt Medium (34-66%) -Exudate Type Serosanguineous -Wound Margin Distinct, Outline Attached -Granulation Amt Large (67-100%) -Granulation Quality Red -Slough/Fibrin Yes -Necrosis Amt Small (1-33%) -Necrotic Tissue Type Adherent Slough -Structure Exposed None/Limited to Skin Breakdown -Texture (Kinza-wound Skin Appearance) Scarring -Moisture (Kinza-wound Skin Appearance Dry/Scaly ) -Color (Kinza-wound Skin Appearance) Erythema -Temperature (Kinza-wound Skin No Abnormality Appearance) (Pt Warm) -Tenderness on Palpation (Kinza-wound No Skin Appearance) -Ulcer Cleansing Wound Cleanser -Foul Odor after Cleansing No -Anesthetic Used 4% Lidocaine Solution [Edema Assessment] -Lower Limb Edema Present Yes -Right Calf (cm) 34.2 -Right Ankle (cm) 24.4 WC - Nurse 2 - General Ulcer CM Notes Start: 01/09/18 12:52 Freq: Status: Active Protocol: Activity Type Activity Date Activity User E-Sign Co-Sign Detail Recorded Client Recorded Date Recorded By Document 01/09/18 13:52 [id number] 01/09/18 13:55 01/09/18 13:52 Wound Center Nurse 2 [Procedure/Treatment] #3 R-MEDIAL LE CLUSTER -Time 13:52 -Correct Patient Yes -Correct Side, Site, Position Yes -Correct Procedure Yes -Procedure Performed Yes -Type of Procedure Debridement -Clinical Debridement Subcutaneous -Post Debridement Size (cm) - Length 8.7 -Post Debridement Size (cm) - Width 3.8 -Post Debridement Size (cm) - Depth 0.1 -Total Square Cm 33.06 -Wound/Ulcer Outcome Not Healed -Ulcer Cleansing Rinsed/ Irrigated with Saline -Foul Odor after Cleansing No -Bioengineered Tissue Yes -Type of bioengineered Tissue [id number] -Expiration Date 03/27/19 -Product Lot Number [id number] -Percent Used 100 -Saline Lot Number [id number] -Topical Lidocaine (%) 5 -Bleeding Controlled with Pressure -Treatment Response Procedure Tolerated Well #1 RIGHT LATERAL LE -Time 13:54 -Correct Patient Yes -Correct Side, Site, Position Yes -Correct Procedure Yes -Procedure Performed Yes -Type of Procedure Debridement -Clinical Debridement Subcutaneous -Post Debridement Size (cm) - Length 7.0 -Post Debridement Size (cm) - Width 2.6 -Post Debridement Size (cm) - Depth 0.1 -Total Square Cm 18.20 -Wound/Ulcer Outcome Not Healed -Ulcer Cleansing Rinsed/ Irrigated with Saline -Foul Odor after Cleansing No -Bioengineered Tissue No -Injectable Lidocaine (%) 5 -Bleeding Controlled with Pressure -Treatment Response Procedure Tolerated Well [See Physician Procedure note for Specifics] Pain Scale: 0-10 Numeric [Pain] -Is Patient Pain Free? Yes Psych/Mental Status: Normal Affect, Appropriate Debridement Note Post-Debridement Measurements/Treatment WC - Nurse 2 - General Ulcer CM Notes Start: 01/09/18 12:52 Freq: Status: Active Protocol: Activity Type Activity Date Activity User E-Sign Co-Sign Detail Recorded Client Recorded Date Recorded By Document 01/09/18 13:52 [id number] 01/09/18 13:55 01/09/18 13:52 Wound Center Nurse 2 #3 R-MEDIAL LE CLUSTER -Time 13:52 -Correct Patient Yes -Correct Side, Site, Position Yes -Correct Procedure Yes -Procedure Performed Yes -Type of Procedure Debridement -Clinical Debridement Subcutaneous -Post Debridement Size (cm) - Length 8.7 -Post Debridement Size (cm) - Width 3.8 -Post Debridement Size (cm) - Depth 0.1 -Total Square Cm 33.06 -Wound/Ulcer Outcome Not Healed -Ulcer Cleansing Rinsed/ Irrigated with Saline -Foul Odor after Cleansing No -Bioengineered Tissue Yes -Type of bioengineered Tissue [id number] -Expiration Date 03/27/19 -Product Lot Number [id number] -Percent Used 100 -Saline Lot Number [id number] -Topical Lidocaine (%) 5 -Bleeding Controlled with Pressure -Treatment Response Procedure Tolerated Well #1 RIGHT LATERAL LE -Time 13:54 -Correct Patient Yes -Correct Side, Site, Position Yes -Correct Procedure Yes -Procedure Performed Yes -Type of Procedure Debridement -Clinical Debridement Subcutaneous -Post Debridement Size (cm) - Length 7.0 -Post Debridement Size (cm) - Width 2.6 -Post Debridement Size (cm) - Depth 0.1 -Total Square Cm 18.20 -Wound/Ulcer Outcome Not Healed -Ulcer Cleansing Rinsed/ Irrigated with Saline -Foul Odor after Cleansing No -Bioengineered Tissue No -Injectable Lidocaine (%) 5 -Bleeding Controlled with Pressure -Treatment Response Procedure Tolerated Well Pain Scale: 0-10 Numeric Is Patient Pain Free? Yes Wound debrided: right medial LE cluster Laterality: Right Type of Debridement: Excisional debridement Anesthesia Used: 4% Lidocaine Solution Depth: Down to and including healthy tissue, in the subcutaneous layer Percentage of wound debrided: 100 Instrument Used: 5mm curette Tissue Removed: yellow slough, devitalized tissue Severity: Fat Layer Exposed Amount of bleeding with debridement: Mild Bleeding Controlled with: Compression and gauze Patient tolerated procedure well - Additional Wound Wound debrided: right lateral LE Laterality: Right Type of Debridement: Excisional debridement Anesthesia Used: 4% Lidocaine Solution Depth: Down to and including healthy tissue, in the subcutaneous layer Percentage of wound debrided: 100 Instrument Used: 5mm curette Tissue Removed: yellow slough, devitalized tissue Severity: Fat Layer Exposed Amount of bleeding with debridement: Mild Bleeding Controlled with: Compression and gauze Patient tolerated procedure: Patient tolerated procedure well Assessment/Plan Active Problems Type 2 diabetes mellitus treated with insulin (Chronic) Type 2 diabetes mellitus with diabetic polyneuropathy (Chronic) Type 2 diabetes mellitus with other skin ulcer (Chronic) 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 stage 2 pressure ulcer coccyx - healed Plan: Debridement done as documented above, procedure was tolerated well. His posterior/medial LE cluster is improved after application of Puraply. He would benefit from Apligraf application to his right medial/posterior LE wound/ulcer as well but this was denied by insurance. Puraply was applied to this wound again today. He was instructed on the care of his Puraply. He will keep the dressing clean, dry and intact and only replace the secondary dressing as needed. Will use Hydrofera Blue as a secondary dressing to the right lateral wound and to his posterior and medial wounds as well. Will continue tubigrip compression. Previous vascular studies reviewed - he would benefit from venous ablation and Dr. Patton plans on doing this 01/12/18. Elevate lower extremity when sitting and when in bed. Optimize blood sugar control. Discussed offloading of his coccyx and continue treatment with gel cushion. Increase protein intake/supplements. F/U in 2 weeks and will apply puraply if needed.
--- NOTE | 2018-01-09 20:06 | PN.PCM_ITS ---
(1) Type 2 diabetes mellitus treated with insulin Status: Chronic Current Visit: Yes Code(s): E11.9 - Type 2 diabetes mellitus without complications; Z79.4 - detention (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 of insulin (2) Type 2 diabetes mellitus with diabetic polyneuropathy Status: Chronic Current Visit: Yes Qualifiers: Diabetes mellitus terminal make up operator insulin use: unspecified terminal make up operator insulin use status Code(s): E11.42 - Type 2 diabetes mellitus with diabetic polyneuropathy (3) Type 2 diabetes mellitus with other skin ulcer Status: Chronic Current Visit: Yes Qualifiers: Code(s): E11.622 - Type 2 diabetes mellitus with other skin ulcer; L98.499 - Non -pressure chronic ulcer of skin of other sites with unspecified severity (4) 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 Status: Chronic Current Visit: Yes Code(s): L97.912 - Non-pressure chronic ulcer of unspecified part of right lower leg with fat layer exposed Comment: x 2 wounds one located above medial malleolus and one just below right knee (5) Chronic venous hypertension w/ulcer and inflammation involv right side Status: Chronic Current Visit: Yes Code(s): I87.331 - Chronic venous hypertension (idiopathic) with ulcer and inflammation of right lower extremity; L97.919 - Non-pressure chronic ulcer of unspecified part of right lower leg with unspecified severity Type of Wound Date of Service: 01/09/18 Chief Complaint: nonhealing wound/ulcers of right lower leg History of Wound: Eddie is a pleasant 76 yo man who presents for evaluation of a wound/ulcer of his right lateral calf that has been present since mid-April and has continued to get larger. He has seen his PCP and has seen another physician in their practice for the wound/ulcer and has been treated once with an UNNA boot and otherwise has been given antibiotics off and on without improvement, most recent antibiotic was Augmentin. No cultures have ever been taken of the wound. No imaging has been done. He has been using Aquaphor to the wound as instructed by his PCP. He has significant pain and edema in this leg and has been started on Lyrica which has helped with the pain. He has been unable to sleep in bed due to the pain and has been sleeping in a recliner. He denies any significant drainage but does note some on his socks from time to time. He denies any odor. Occasionally there is some bleeding. he was referred to the wound center for further evaluation and treatment. 07/29--Has been applying santyl and dry dressing since visit last friday. No drainage for the last few days. Vascular testing scheduled for 08/08. Awaiting lab work from PCP. Admits to sleeping in a recliner since March. Denies N/V/F/C. Some redness to R leg, but no pus, no malodor, no warmth, minimal pain. There is edema. Culture positive for e.coli from Friday. Will Rx Keflex today. 08/05-- Pt taking Keflex, tolerating well. Vascular testing scheduled for friday. Size improved with the use of nickel-thickness Santyl and lightly moistened gauze with light spandagrip. Plan to increase compression once vascular testing done. 08/12--Arterial testing done, normal. Venous test reveals multiple incompetent veins in the RLE. Pt states he cannot tolerate any tighter compression than the current spandagrip stocking. He will be referred to Dr. Patton today for evaluation. There is still fibrous tissue, but there are also skin islands forming within the ulceration. 08/19--Pt applying santyl nickel-thick and lightly moistened gauze dressing daily. There is still fibrous tissue, but there are also skin islands forming within the ulceration. Measurements improved today. Pt's is with him today, and she states that he often falls asleep in his recliner, and his legs end up falling off the foot rest and his feet end up on the ground. Pt has an appointment with Dr. Patton at [facility] at the beginning of August. 08/21- initial visit with Doroteo Nash NP who patient will be transferring care to. Has been applying nickel thick santyl daily, however, site is still painful and there is now a foul smell.Cultures will be redone today.Moderate amount of slough and fibrous tissue present. Pt denies any systemic signs of infection including no fever, chills, n/v/d/c. 08/28 -patient has 2 new wounds and states that there is an increase in foul smell coming from his chronic wound. He has unaware how the 2 new wounds occurred and denies any obvious trauma, though does state that they looked like they are going to be opening prior to this visit. He does state that the wound below the right knee may be from a tape burn from his dressing changes. Progress of Wound: Eddie's wounds/ulcers have improved since his last visit. Apligraf application tolerated to his right lateral leg wound/ulcer. His medial cluster is improved after application of puraply. He is doing well with tubigrip compression. Denies odor, fever or chills. He is unable to tolerate having his legs elevated due to his neuropathy and frequently has them hanging down. Sleeps in his recliner. He reports less drainage. - Physical Exam Vital Signs Temp Pulse Resp BP 97.1 F L 56 L 16 117/50 L 01/09/18 12:52 01/09/18 12:52 01/09/18 12:52 01/09/18 12:52 General: Alert, Oriented x3, Cooperative, No apparent distress HEENT: Atraumatic, Normocephalic Oral: Moist Mucosa Extremities: Edema Skin: Ulcer/ Wound Wound Measurements and Assessment WC - Nurse 1 - General Ulcer Measurement Start: 01/09/18 12:52 Freq: Status: Active Protocol: Activity Type Activity Date Activity User E-Sign Co-Sign Detail Recorded Client Recorded Date Recorded By Document 01/09/18 12:52 [facility] [id number] 01/09/18 13:00 [facility] 01/09/18 12:52 Wound Center Nurse 1 [Ulcer Assessment] #3 R-MEDIAL LE CLUSTER -Combined with other wound No -Current Size (cm) - Length 2.4 -Current Size (cm) - Width 3.4 -Current Size (cm) - Depth 0.1 -Total Square Cm 8.16 -Photo Taken No -Tunneling No -Undermining/Tunneling No -Circular Undermining No -Exudate Amt Medium (34-66%) -Exudate Type Serosanguineous -Wound Margin Distinct, Outline Attached -Granulation Amt Medium (34-66%) -Granulation Quality Red -Slough/Fibrin Yes -Necrosis Amt Medium (34-66%) -Necrotic Tissue Type Adherent Slough -Structure Exposed N/A -Texture (Kinza-wound Skin Appearance) Scarring -Moisture (Kinza-wound Skin Appearance Dry/Scaly ) -Color (Kinza-wound Skin Appearance) Assessed -Temperature (Kinza-wound Skin No Abnormality Appearance) (Pt Warm) -Tenderness on Palpation (Kinza-wound No Skin Appearance) -Ulcer Cleansing Wound Cleanser -Foul Odor after Cleansing No -Anesthetic Used 4% Lidocaine Solution #1 RIGHT LATERAL LE -Combined with other wound No -Current Size (cm) - Length 7.1 -Current Size (cm) - Width 2.5 -Current Size (cm) - Depth 0.1 -Total Square Cm 17.75 -Photo Taken No -Epithelialization Small 1-33% -Tunneling No -Undermining/Tunneling No -Circular Undermining No -Exudate Amt Medium (34-66%) -Exudate Type Serosanguineous -Wound Margin Distinct, Outline Attached -Granulation Amt Large (67-100%) -Granulation Quality Red -Slough/Fibrin Yes -Necrosis Amt Small (1-33%) -Necrotic Tissue Type Adherent Slough -Structure Exposed None/Limited to Skin Breakdown -Texture (Kinza-wound Skin Appearance) Scarring -Moisture (Kinza-wound Skin Appearance Dry/Scaly ) -Color (Kinza-wound Skin Appearance) Erythema -Temperature (Kinza-wound Skin No Abnormality Appearance) (Pt Warm) -Tenderness on Palpation (Kinza-wound No Skin Appearance) -Ulcer Cleansing Wound Cleanser -Foul Odor after Cleansing No -Anesthetic Used 4% Lidocaine Solution [Edema Assessment] -Lower Limb Edema Present Yes -Right Calf (cm) 34.2 -Right Ankle (cm) 24.4 WC - Nurse 2 - General Ulcer CM Notes Start: 01/09/18 12:52 Freq: Status: Active Protocol: Activity Type Activity Date Activity User E-Sign Co-Sign Detail Recorded Client Recorded Date Recorded By Document 01/09/18 13:52 [id number] 01/09/18 13:55 01/09/18 13:52 Wound Center Nurse 2 [Procedure/Treatment] #3 R-MEDIAL LE CLUSTER -Time 13:52 -Correct Patient Yes -Correct Side, Site, Position Yes -Correct Procedure Yes -Procedure Performed Yes -Type of Procedure Debridement -Clinical Debridement Subcutaneous -Post Debridement Size (cm) - Length 8.7 -Post Debridement Size (cm) - Width 3.8 -Post Debridement Size (cm) - Depth 0.1 -Total Square Cm 33.06 -Wound/Ulcer Outcome Not Healed -Ulcer Cleansing Rinsed/ Irrigated with Saline -Foul Odor after Cleansing No -Bioengineered Tissue Yes -Type of bioengineered Tissue [id number] -Expiration Date 03/27/19 -Product Lot Number [id number] -Percent Used 100 -Saline Lot Number [id number] -Topical Lidocaine (%) 5 -Bleeding Controlled with Pressure -Treatment Response Procedure Tolerated Well #1 RIGHT LATERAL LE -Time 13:54 -Correct Patient Yes -Correct Side, Site, Position Yes -Correct Procedure Yes -Procedure Performed Yes -Type of Procedure Debridement -Clinical Debridement Subcutaneous -Post Debridement Size (cm) - Length 7.0 -Post Debridement Size (cm) - Width 2.6 -Post Debridement Size (cm) - Depth 0.1 -Total Square Cm 18.20 -Wound/Ulcer Outcome Not Healed -Ulcer Cleansing Rinsed/ Irrigated with Saline -Foul Odor after Cleansing No -Bioengineered Tissue No -Injectable Lidocaine (%) 5 -Bleeding Controlled with Pressure -Treatment Response Procedure Tolerated Well [See Physician Procedure note for Specifics] Pain Scale: 0-10 Numeric [Pain] -Is Patient Pain Free? Yes Psych/Mental Status: Normal Affect, Appropriate Debridement Note Post-Debridement Measurements/Treatment WC - Nurse 2 - General Ulcer CM Notes Start: 01/09/18 12:52 Freq: Status: Active Protocol: Activity Type Activity Date Activity User E-Sign Co-Sign Detail Recorded Client Recorded Date Recorded By Document 01/09/18 13:52 [id number] 01/09/18 13:55 01/09/18 13:52 Wound Center Nurse 2 #3 R-MEDIAL LE CLUSTER -Time 13:52 -Correct Patient Yes -Correct Side, Site, Position Yes -Correct Procedure Yes -Procedure Performed Yes -Type of Procedure Debridement -Clinical Debridement Subcutaneous -Post Debridement Size (cm) - Length 8.7 -Post Debridement Size (cm) - Width 3.8 -Post Debridement Size (cm) - Depth 0.1 -Total Square Cm 33.06 -Wound/Ulcer Outcome Not Healed -Ulcer Cleansing Rinsed/ Irrigated with Saline -Foul Odor after Cleansing No -Bioengineered Tissue Yes -Type of bioengineered Tissue [id number] -Expiration Date 03/27/19 -Product Lot Number [id number] -Percent Used 100 -Saline Lot Number [id number] -Topical Lidocaine (%) 5 -Bleeding Controlled with Pressure -Treatment Response Procedure Tolerated Well #1 RIGHT LATERAL LE -Time 13:54 -Correct Patient Yes -Correct Side, Site, Position Yes -Correct Procedure Yes -Procedure Performed Yes -Type of Procedure Debridement -Clinical Debridement Subcutaneous -Post Debridement Size (cm) - Length 7.0 -Post Debridement Size (cm) - Width 2.6 -Post Debridement Size (cm) - Depth 0.1 -Total Square Cm 18.20 -Wound/Ulcer Outcome Not Healed -Ulcer Cleansing Rinsed/ Irrigated with Saline -Foul Odor after Cleansing No -Bioengineered Tissue No -Injectable Lidocaine (%) 5 -Bleeding Controlled with Pressure -Treatment Response Procedure Tolerated Well Pain Scale: 0-10 Numeric Is Patient Pain Free? Yes Wound debrided: right medial LE cluster Laterality: Right Type of Debridement: Excisional debridement Anesthesia Used: 4% Lidocaine Solution Depth: Down to and including healthy tissue, in the subcutaneous layer Percentage of wound debrided: 100 Instrument Used: 5mm curette Tissue Removed: yellow slough, devitalized tissue Severity: Fat Layer Exposed Amount of bleeding with debridement: Mild Bleeding Controlled with: Compression and gauze Patient tolerated procedure well - Additional Wound Wound debrided: right lateral LE Laterality: Right Type of Debridement: Excisional debridement Anesthesia Used: 4% Lidocaine Solution Depth: Down to and including healthy tissue, in the subcutaneous layer Percentage of wound debrided: 100 Instrument Used: 5mm curette Tissue Removed: yellow slough, devitalized tissue Severity: Fat Layer Exposed Amount of bleeding with debridement: Mild Bleeding Controlled with: Compression and gauze Patient tolerated procedure: Patient tolerated procedure well Assessment/Plan Active Problems Type 2 diabetes mellitus treated with insulin (Chronic) Type 2 diabetes mellitus with diabetic polyneuropathy (Chronic) Type 2 diabetes mellitus with other skin ulcer (Chronic) 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 likely secondary to venous insufficiency. stage 2 pressure ulcer coccyx - healed Plan: Debridement done as documented above, procedure was tolerated well. His posterior/medial LE cluster is improved after application of Puraply. He would benefit from Apligraf application to his right medial/posterior LE wound/ulcer as well but this was denied by insurance. Puraply was applied to this wound again today. He was instructed on the care of his Puraply. He will keep the dressing clean, dry and intact and only replace the secondary dressing as needed. Will use Hydrofera Blue as a secondary dressing to the right lateral wound and to his posterior and medial wounds as well. Will continue tubigrip compression. Previous vascular studies reviewed - he would benefit from venous ablation and Dr. Patton plans on doing this 01/12/18. Elevate lower extremity when sitting and when in bed. Optimize blood sugar control. Discussed offloading of his coccyx and continue treatment with gel cushion. Increase protein intake/supplements. F/U in 2 weeks and will apply puraply if needed.
[2018-01-23 12:44] VITALS: BP 122/58; PULSE 39; RESP 16; TEMP 35.6
--- NOTE | 2018-01-23 18:13 | PCM.WC.PN ---
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 insulin use: unspecified termite control service representative insulin use status Qualified Code(s): E11.42 - Type 2 diabetes mellitus with diabetic polyneuropathy Code(s): E11.42 - Type 2 diabetes mellitus with diabetic polyneuropathy (3) Type 2 diabetes mellitus with other skin ulcer Status: Chronic Current Visit: Yes Qualifiers: Code(s): E11.622 - Type 2 diabetes mellitus with other skin ulcer; L98.499 - Non-pressure chronic ulcer of skin of other sites with unspecified severity (4) 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 Status: Chronic Current Visit: Yes Code(s): L97.912 - Non-pressure chronic ulcer of unspecified part of right lower leg with fat layer exposed Comment: x 2 wounds one located above medial malleolus and one just below right knee (5) Chronic venous hypertension w/ulcer and inflammation involv right side Status: Chronic Current Visit: Yes Code(s): I87.331 - Chronic venous hypertension (idiopathic) with ulcer and inflammation of right lower extremity; L97.919 - Non-pressure chronic ulcer of unspecified part of right lower leg with unspecified severity Type of Wound Chief Complaint: nonhealing wound/ulcers of right lower leg History of Wound: Eddie is a pleasant 76 yo man who presents for evaluation of a wound/ulcer of his right lateral calf that has been present since mid-April and has continued to get larger. He has seen his PCP and has seen another physician in their practice for the wound/ulcer and has been treated once with an UNNA boot and otherwise has been given antibiotics off and on without improvement, most recent antibiotic was Augmentin. No cultures have ever been taken of the wound. No imaging has been done. He had been using Aquaphor to the wound as instructed by his PCP. He has significant pain and edema in this leg and has been started on Lyrica which has helped with the pain. He has been unable to sleep in bed due to the pain and has been sleeping in a recliner. He denies any significant drainage but does note some on his socks from time to time. He denies any odor. Occasionally there is some bleeding. he was referred to the wound center for further evaluation and treatment. Awaiting lab work from PCP. Admits to sleeping in a recliner since March. Denies N/V/F/C. 08/12--Arterial testing done, normal. Venous test reveals multiple incompetent veins in the RLE. Apligraf application for a total of 5 treatments to the right lateral LE ulcer completed in December 2017 with improvement. Puraply application to right medial/posterior LE ulcer begun end of November 2017 with improvement. Venous ablation performed by Dr. Patton in December 2017 to right LE. Progress of Wound: Eddie's wounds/ulcers have greatly improved since his last visit. Lateral leg wound/ulcer is improving with hydrofera blue. His drainage is decreased significantly. His medial cluster is improved after application of puraply. He is doing well with tubigrip compression. Denies odor, fever or chills. He is having less pain in his legs. Sleeps in his recliner some and in bed now. He underwent venous ablation to right leg on 01/13/18 and tolerated this well. He has second ablation scheduled in 2 weeks for the other part of his right venous circulation. - Physical Exam Vital Signs Temp Pulse Resp BP 96.0 F L 39 L 16 122/58 H 01/23/18 12:44 01/23/18 12:44 01/23/18 12:44 01/23/18 12:44 General: Alert, Oriented x3, Cooperative, No apparent distress HEENT: Atraumatic, Normocephalic Oral: Moist Mucosa Lungs: Clear to auscultation Cardiovascular: Regular rate, Regular Rhythm Abdomen: Soft, Non Tender Extremities: Edema Skin: Ulcer/ Wound Wound Measurements and Assessment WC - Nurse 1 - General Ulcer Measurement Start: 01/09/18 12:52 Freq: Status: Active Protocol: Activity Type Activity Date Activity User E-Sign Co-Sign Detail Recorded Client Recorded Date Recorded By Document 01/23/18 12:44 [id number] 01/23/18 12:50 01/23/18 12:44 Wound Center Nurse 1 [Ulcer Assessment] #3 R-MEDIAL LE CLUSTER -Combined with other wound No -Current Size (cm) - Length 0.9 -Current Size (cm) - Width 0.9 -Current Size (cm) - Depth 0.1 -Total Square Cm 0.81 -Photo Taken No -Epithelialization Small 1-33% -Tunneling No -Undermining/Tunneling No -Circular Undermining No -Exudate Type Serosanguineous -Wound Margin Distinct, Outline Attached -Granulation Amt Large (67-100%) -Granulation Quality [place] Red -Slough/Fibrin Yes -Necrosis Amt Medium (34-66%) -Necrotic Tissue Type Adherent Slough -Structure Exposed None/Limited to Skin Breakdown -Texture (Kinza-wound Skin Appearance) Scarring -Moisture (Kinza-wound Skin Appearance No Abnormality ) Assessed -Color (Kinza-wound Skin Appearance) No Abnormality Assessed -Temperature (Kinza-wound Skin No Abnormality Appearance) (Pt Warm) -Tenderness on Palpation (Kinza-wound No Skin Appearance) -Ulcer Cleansing Wound Cleanser -Foul Odor after Cleansing No -Anesthetic Used 4% Lidocaine Solution #1 RIGHT LATERAL LE -Combined with other wound No -Current Size (cm) - Length 1.8 -Current Size (cm) - Width 0.8 -Current Size (cm) - Depth 0.1 -Total Square Cm 1.44 -Photo Taken No -Epithelialization Large 67-100% -Tunneling No -Undermining/Tunneling No -Circular Undermining No -Exudate Amt Small (1-33%) -Exudate Type Serosanguineous -Wound Margin Distinct, Outline Attached -Granulation Amt Large (67-100%) -Granulation Quality Red -Slough/Fibrin Yes -Necrosis Amt None Present (0 %) -Necrotic Tissue Type Adherent Slough -Structure Exposed None/Limited to Skin Breakdown -Texture (Kinza-wound Skin Appearance) Assessed Scarring -Moisture (Kinza-wound Skin Appearance No Abnormality ) Assessed -Color (Kinza-wound Skin Appearance) No Abnormality Assessed -Temperature (Kinza-wound Skin No Abnormality Appearance) (Pt Warm) -Tenderness on Palpation (Kinza-wound No Skin Appearance) -Ulcer Cleansing Wound Cleanser -Foul Odor after Cleansing No -Anesthetic Used 4% Lidocaine Solution [Edema Assessment] -Lower Limb Edema Present No -Right Calf (cm) 35 -Right Ankle (cm) 22 -Left Calf (cm) 36 -Left Ankle (cm) 24 WC - Nurse 2 - General Ulcer CM Notes Start: 01/09/18 12:52 Freq: Status: Active Protocol: Activity Type Activity Date Activity User E-Sign Co-Sign Detail Recorded Client Recorded Date Recorded By Document 01/23/18 12:55 [id number] 01/23/18 13:10 01/23/18 12:55 Wound Center Nurse 2 [Procedure/Treatment] #3 R-MEDIAL LE CLUSTER -Time 13:06 -Correct Patient Yes -Correct Side, Site, Position Yes -Correct Procedure Yes -Procedure Performed Yes -Type of Procedure Debridement -Clinical Debridement Subcutaneous -Post Debridement Size (cm) - Length 2.7 -Post Debridement Size (cm) - Width 3.0 -Post Debridement Size (cm) - Depth 0.1 -Total Square Cm 8.10 -Wound/Ulcer Outcome Not Healed -Ulcer Cleansing Rinsed/ Irrigated with Saline -Foul Odor after Cleansing No -Bioengineered Tissue Yes -Type of bioengineered Tissue [id number] -Expiration Date 07/27/19 -Product Lot Number [id number] -Percent Used 100 -Saline Lot Number [id number] -Topical Lidocaine (%) 5 -Bleeding Controlled with Pressure -Treatment Response Procedure Tolerated Well #1 RIGHT LATERAL LE -Time 13:07 -Correct Patient Yes -Correct Side, Site, Position Yes -Correct Procedure Yes -Procedure Performed Yes -Type of Procedure Debridement -Clinical Debridement Subcutaneous -Post Debridement Size (cm) - Length 5.4 -Post Debridement Size (cm) - Width 0.7 -Post Debridement Size (cm) - Depth 0.1 -Total Square Cm 3.78 -Wound/Ulcer Outcome Not Healed -Ulcer Cleansing Rinsed/ Irrigated with Saline -Foul Odor after Cleansing No -Bioengineered Tissue No -Topical Lidocaine (%) 5 -Bleeding Controlled with Pressure -Treatment Response Procedure Tolerated Well [See Physician Procedure note for Specifics] Pain Scale: 0-10 Numeric [Pain] -Is Patient Pain Free? Yes Psych/Mental Status: Normal Affect, Appropriate Debridement Note Post-Debridement Measurements/Treatment WC - Nurse 2 - General Ulcer CM Notes Start: 01/09/18 12:52 Freq: Status: Active Protocol: Activity Type Activity Date Activity User E-Sign Co-Sign Detail Recorded Client Recorded Date Recorded By Document 01/09/18 13:52 [id number] 01/09/18 13:55 TM Document 01/23/18 12:55 [id number] 01/23/18 13:10 01/09/18 01/23/18 13:52 12:55 Wound Center Nurse 2 #3 R-MEDIAL LE CLUSTER -Time 13:52 13:06 -Correct Patient Yes Yes -Correct Side, Site, Position Yes Yes -Correct Procedure Yes Yes -Procedure Performed Yes Yes -Type of Procedure Debridement Debridement -Clinical Debridement Subcutaneous Subcutaneous -Post Debridement Size (cm) - Length 8.7 2.7 -Post Debridement Size (cm) - Width 3.8 3.0 -Post Debridement Size (cm) - Depth 0.1 0.1 -Total Square Cm 33.06 8.10 -Wound/Ulcer Outcome Not Healed Not Healed -Ulcer Cleansing Rinsed/ Rinsed/ Irrigated with Irrigated with Saline Saline -Foul Odor after Cleansing No No -Bioengineered Tissue Yes Yes -Type of bioengineered Tissue [id number] -Expiration Date 03/27/19 07/27/19 -Product Lot Number [id number] -Percent Used 100 100 -Saline Lot Number [id number] -Topical Lidocaine (%) 5 5 -Bleeding Controlled with Pressure Pressure -Treatment Response Procedure Procedure Tolerated Well Tolerated Well #1 RIGHT LATERAL LE -Time 13:54 13:07 -Correct Patient Yes Yes -Correct Side, Site, Position Yes Yes -Correct Procedure Yes Yes -Procedure Performed Yes Yes -Type of Procedure Debridement Debridement -Clinical Debridement Subcutaneous Subcutaneous -Post Debridement Size (cm) - Length 7.0 5.4 -Post Debridement Size (cm) - Width 2.6 0.7 -Post Debridement Size (cm) - Depth 0.1 0.1 -Total Square Cm 18.20 3.78 -Wound/Ulcer Outcome Not Healed Not Healed -Ulcer Cleansing Rinsed/ Rinsed/ Irrigated with Irrigated with Saline Saline -Foul Odor after Cleansing No No -Bioengineered Tissue No No -Topical Lidocaine (%) 5 -Injectable Lidocaine (%) 5 -Bleeding Controlled with Pressure Pressure -Treatment Response Procedure Procedure Tolerated Well Tolerated Well Pain Scale: 0-10 Numeric Is Patient Pain Free? Yes Yes Wound debrided: right medial LE cluster Laterality: Right Type of Debridement: Excisional debridement Anesthesia Used: 4% Lidocaine Solution Depth: Down to and including healthy tissue, in the subcutaneous layer Percentage of wound debrided: 100 Instrument Used: 5mm curette Tissue Removed: yellow slough, devitalized tissue Severity: Fat Layer Exposed Amount of bleeding with debridement: Mild Bleeding Controlled with: Compression and gauze Patient tolerated procedure well - Additional Wound Wound debrided: right lateral LE Laterality: Right Type of Debridement: Excisional debridement Anesthesia Used: 4% Lidocaine Solution Depth: Down to and including healthy tissue, in the subcutaneous layer Percentage of wound debrided: 100 Instrument Used: 5mm curette Tissue Removed: yellow slough, devitalized tissue Severity: Fat Layer Exposed Amount of bleeding with debridement: Mild Bleeding Controlled with: Compression and gauze Patient tolerated procedure: Patient tolerated procedure well Assessment/Plan Active Problems Type 2 diabetes mellitus treated with insulin (Chronic) Type 2 diabetes mellitus with diabetic polyneuropathy (Chronic) Type 2 diabetes mellitus with other skin ulcer (Chronic) 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 likely secondary to venous insufficiency. stage 2 pressure ulcer coccyx - healed Plan: Debridement done as documented above, procedure was tolerated well. His posterior/medial LE cluster is improved after application of Puraply. He would benefit from Apligraf application to his right medial/posterior LE wound/ulcer but this was denied by insurance. Puraply was applied to this wound again today. He was instructed on the care of his Puraply. He will keep the dressing clean, dry and intact and only replace the secondary dressing as needed. Will use Hydrofera Blue as a secondary dressing to the right lateral wound and to his posterior and medial wounds as well. Will continue tubigrip compression. Previous vascular studies reviewed - he underwent venous ablation of his right leg by Dr. Patton on 01/13/18. Elevate lower extremity when sitting and when in bed. Optimize blood sugar control. Discussed offloading of his coccyx and continue treatment with gel cushion. Increase protein intake/supplements. F/U in 2 weeks and will apply puraply if needed.
== END 2018-01-25 23:59 ==
LOC: WC 12:30
PROVIDERS: Family Provider Family Medicine; PCP Family Medicine; Visit Provider Family Medicine
DX: E11.622 Type 2 diabetes mellitus with other skin ulcer (principal); I87.331 Chronic venous hypertension (idiopathic) with ulcer and inflammation of right lower extremity; L97.812 Non-pressure chronic ulcer of other part of right lower leg with fat layer exposed; E11.42 Type 2 diabetes mellitus with diabetic polyneuropathy; Z79.4 Long term (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 of insulin
CPT/HCPCS: 11042; 15271; 15272; 99212; Q4172; G0463

== ENCOUNTER 2018-02-20 14:00 | Outpatient (RCR) | payer MEDICARE, SELFPAY ==
[2018-01-26 00:46] VITALS: BP 122/58; PULSE 39; RESP 16; TEMP 35.6
[2018-02-06 12:46] VITALS: BP 138/64; PULSE 54; RESP 18; TEMP 36.2
--- NOTE | 2018-02-06 16:08 | PCM.WC.PN ---
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 (3) Type 2 diabetes mellitus with other skin ulcer Status: Chronic Current Visit: Yes Qualifiers: Diabetes mellitus plane tender insulin use: with fdc use Code(s): E11.622 - Type 2 diabetes mellitus with other skin ulcer; L98.499 - Non-pressure chronic ulcer of skin of other sites with unspecified severity (4) Bilateral lower extremity edema Status: Chronic Current Visit: Yes Code(s): R60.0 - Localized edema (5) Chronic venous hypertension w/ulcer and inflammation involv right side Status: Chronic Current Visit: Yes Code(s): I87.331 - Chronic venous hypertension (idiopathic) with ulcer and inflammation of right lower extremity; L97.919 - Non-pressure chronic ulcer of unspecified part of right lower leg with unspecified severity Type of Wound Chief Complaint: nonhealing wound/ulcers of right lower leg History of Wound: Eddie is a pleasant 76 yo man who presents for evaluation of a wound/ulcer of his right lateral calf that has been present since mid-April and has continued to get larger. He has seen his PCP and has seen another physician in their practice for the wound/ulcer and has been treated once with an UNNA boot and otherwise has been given antibiotics off and on without improvement, most recent antibiotic was Augmentin. No cultures have ever been taken of the wound. No imaging has been done. He had been using Aquaphor to the wound as instructed by his PCP. He has significant pain and edema in this leg and has been started on Lyrica which has helped with the pain. He has been unable to sleep in bed due to the pain and has been sleeping in a recliner. He denies any significant drainage but does note some on his socks from time to time. He denies any odor. Occasionally there is some bleeding. he was referred to the wound center for further evaluation and treatment. Awaiting lab work from PCP. Admits to sleeping in a recliner since March. Denies N/V/F/C. 08/12--Arterial testing done, normal. Venous test reveals multiple incompetent veins in the RLE. Apligraf application for a total of 5 treatments to the right lateral LE ulcer completed in December 2017 with improvement. Puraply application to right medial/posterior LE ulcer begun end of November 2017 with improvement. Venous ablation performed by Dr. Patton in December 2017 to right LE. Progress of Wound: Eddie's wounds/ulcers have greatly improved since his last visit. Lateral leg wound/ulcer is improving with hydrofera blue. He reports very little drainage. His medial cluster is nearly healed after application of puraply. He is doing well with tubigrip compression. Denies odor, fever or chills. He is having less pain in his legs. Sleeps in his recliner some and in bed now. He underwent venous ablation to right leg on 01/13/18 and tolerated this well. He has second ablation scheduled in 1 weeks for the other part of his right venous circulation. - Physical Exam Vital Signs Temp Pulse Resp BP 97.1 F L 54 L 18 138/64 H 02/06/18 12:46 02/06/18 12:46 02/06/18 12:46 02/06/18 12:46 General: Alert, Oriented x3, Cooperative, No apparent distress HEENT: Atraumatic, Normocephalic Oral: Moist Mucosa Extremities: Edema Skin: Ulcer/ Wound Wound Measurements and Assessment WC - Nurse 1 - General Ulcer Measurement Start: 02/06/18 12:46 Freq: Status: Active Protocol: Activity Type Activity Date Activity User E-Sign Co-Sign Detail Recorded Client Recorded Date Recorded By Document 02/06/18 12:46 [id number] 02/06/18 12:57 RB 02/06/18 12:46 Wound Center Nurse 1 [Ulcer Assessment] #3 R-MEDIAL LE CLUSTER -Combined with other wound No -Current Size (cm) - Length 1.9 -Current Size (cm) - Width 2 -Current Size (cm) - Depth 0.1 -Total Square Cm 3.8 -Photo Taken No -Tunneling No -Undermining/Tunneling No -Circular Undermining No -Exudate Amt Small (1-33%) -Exudate Type Serosanguineous -Wound Margin Distinct, Outline Attached -Granulation Amt Medium (34-66%) -Granulation Quality [place] -Slough/Fibrin Yes -Necrosis Amt Medium (34-66%) -Necrotic Tissue Type Adherent Slough -Structure Exposed N/A -Texture (Kinza-wound Skin Appearance) Assessed -Moisture (Kinza-wound Skin Appearance Assessed ) Dry/Scaly -Color (Kinza-wound Skin Appearance) Assessed -Temperature (Kinza-wound Skin No Abnormality Appearance) (Pt Warm) -Tenderness on Palpation (Kinza-wound No Skin Appearance) -Ulcer Cleansing Wound Cleanser -Foul Odor after Cleansing No -Anesthetic Used 4% Lidocaine Solution #1 RIGHT LATERAL LE -Combined with other wound No -Current Size (cm) - Length 1.6 -Current Size (cm) - Width 0.7 -Current Size (cm) - Depth 0.1 -Total Square Cm 1.12 -Epithelialization Large 67-100% -Tunneling No -Undermining/Tunneling No -Circular Undermining No -Exudate Amt Small (1-33%) -Exudate Type Serosanguineous -Wound Margin Distinct, Outline Attached -Granulation Amt Medium (34-66%) -Granulation Quality [place] -Slough/Fibrin Yes -Necrosis Amt Medium (34-66%) -Necrotic Tissue Type Adherent Slough -Structure Exposed N/A -Texture (Kinza-wound Skin Appearance) Assessed -Moisture (Kinza-wound Skin Appearance Dry/Scaly ) -Color (Kinza-wound Skin Appearance) Assessed -Temperature (Kinza-wound Skin No Abnormality Appearance) (Pt Warm) -Tenderness on Palpation (Kinza-wound No Skin Appearance) -Ulcer Cleansing Wound Cleanser -Foul Odor after Cleansing No -Anesthetic Used 4% Lidocaine Solution [Edema Assessment] -Lower Limb Edema Present Yes -Left Calf (cm) 36.2 -Left Ankle (cm) 25.8 WC - Nurse 2 - General Ulcer CM Notes Start: 02/06/18 12:46 Freq: Status: Active Protocol: Activity Type Activity Date Activity User E-Sign Co-Sign Detail Recorded Client Recorded Date Recorded By Document 02/06/18 13:29 [id number] 02/06/18 13:33 02/06/18 13:29 Wound Center Nurse 2 [Procedure/Treatment] #3 R-MEDIAL LE CLUSTER -Time 13:30 -Correct Patient Yes -Correct Side, Site, Position Yes -Correct Procedure Yes -Procedure Performed Yes -Type of Procedure Debridement -Clinical Debridement Subcutaneous -Post Debridement Size (cm) - Length 6 -Post Debridement Size (cm) - Width 0.8 -Post Debridement Size (cm) - Depth 0.1 -Total Square Cm 4.8 -Wound/Ulcer Outcome Not Healed -Ulcer Cleansing Rinsed/ Irrigated with Saline -Foul Odor after Cleansing No -Bioengineered Tissue No -Bleeding Controlled with NA -Treatment Response Procedure Tolerated Well #1 RIGHT LATERAL LE -Time 13:31 -Correct Procedure Yes -Procedure Performed Yes -Type of Procedure Debridement -Clinical Debridement Subcutaneous -Post Debridement Size (cm) - Length 0.3 -Post Debridement Size (cm) - Width 0.2 -Post Debridement Size (cm) - Depth 0.1 -Total Square Cm 0.06 -Wound/Ulcer Outcome Not Healed -Ulcer Cleansing Rinsed/ Irrigated with Saline -Foul Odor after Cleansing No -Bioengineered Tissue Yes -Type of bioengineered Tissue [id number] -Expiration Date 06/07/19 -Product Lot Number [id number] -Percent Used 100 -Saline Lot Number [id number] -Bleeding Controlled with NA -Treatment Response Procedure Tolerated Well [See Physician Procedure note for Specifics] Pain Scale: 0-10 Numeric [Pain] -Is Patient Pain Free? Yes Psych/Mental Status: Normal Affect, Appropriate Debridement Note Post-Debridement Measurements/Treatment WC - Nurse 2 - General Ulcer CM Notes Start: 02/06/18 12:46 Freq: Status: Active Protocol: Activity Type Activity Date Activity User E-Sign Co-Sign Detail Recorded Client Recorded Date Recorded By Document 02/06/18 13:29 [id number] 02/06/18 13:33 02/06/18 13:29 Wound Center Nurse 2 #3 R-MEDIAL LE CLUSTER -Time 13:30 -Correct Patient Yes -Correct Side, Site, Position Yes -Correct Procedure Yes -Procedure Performed Yes -Type of Procedure Debridement -Clinical Debridement Subcutaneous -Post Debridement Size (cm) - Length 6 -Post Debridement Size (cm) - Width 0.8 -Post Debridement Size (cm) - Depth 0.1 -Total Square Cm 4.8 -Wound/Ulcer Outcome Not Healed -Ulcer Cleansing Rinsed/ Irrigated with Saline -Foul Odor after Cleansing No -Bioengineered Tissue No -Bleeding Controlled with NA -Treatment Response Procedure Tolerated Well #1 RIGHT LATERAL LE -Time 13:31 -Correct Procedure Yes -Procedure Performed Yes -Type of Procedure Debridement -Clinical Debridement Subcutaneous -Post Debridement Size (cm) - Length 0.3 -Post Debridement Size (cm) - Width 0.2 -Post Debridement Size (cm) - Depth 0.1 -Total Square Cm 0.06 -Wound/Ulcer Outcome Not Healed -Ulcer Cleansing Rinsed/ Irrigated with Saline -Foul Odor after Cleansing No -Bioengineered Tissue Yes -Type of bioengineered Tissue [id number] -Expiration Date 06/07/19 -Product Lot Number [id number] -Percent Used 100 -Saline Lot Number [id number] -Bleeding Controlled with NA -Treatment Response Procedure Tolerated Well Pain Scale: 0-10 Numeric Is Patient Pain Free? Yes Wound debrided: right medial LE cluster Laterality: Right Type of Debridement: Excisional debridement Anesthesia Used: 4% Lidocaine Solution Depth: Down to and including healthy tissue, in the subcutaneous layer Percentage of wound debrided: 100 Instrument Used: 5mm curette Tissue Removed: yellow slough, devitalized tissue Severity: Fat Layer Exposed Amount of bleeding with debridement: Mild Bleeding Controlled with: Compression and gauze Patient tolerated procedure well - Additional Wound Wound debrided: right lateral LE Laterality: Right Type of Debridement: Excisional debridement Anesthesia Used: 4% Lidocaine Solution Depth: Down to and including healthy tissue, in the subcutaneous layer Percentage of wound debrided: 100 Instrument Used: 5mm curette Tissue Removed: yellow slough, devitalized tissue Severity: Fat Layer Exposed Amount of bleeding with debridement: Mild Bleeding Controlled with: Compression and gauze Patient tolerated procedure: Patient tolerated procedure well Assessment/Plan Active Problems PAD (peripheral artery disease) (Chronic) Type 2 diabetes mellitus treated with insulin (Chronic) Type 2 diabetes mellitus with other skin ulcer (Chronic) Bilateral lower extremity edema (Chronic) Chronic venous hypertension w/ulcer and inflammation involv right side (Chronic) Assessment: Multiple nonhealing ulcer/wound of right lower extremity? likely secondary to venous insufficiency. stage 2 pressure ulcer coccyx - healed Plan: Debridement done as documented above, procedure was tolerated well. His posterior/medial LE cluster is improved after application of Puraply. Puraply was applied to this wound again today. He was instructed on the care of his Puraply. He will keep the dressing clean, dry and intact and only replace the secondary dressing as needed. Will use Hydrofera Blue as a secondary dressing to the right lateral wound and to his posterior and medial wounds as well. Will continue tubigrip compression. Previous vascular studies reviewed - he underwent venous ablation of his right leg by Dr. Patton on 01/13/18. Elevate lower extremity when sitting and when in bed. Optimize blood sugar control. Discussed offloading of his coccyx and continue treatment with gel cushion. Increase protein intake/supplements. F/U in 1 weeks and will apply puraply #7 if needed.
--- NOTE | 2018-02-06 16:13 | PN.PCM_ITS ---
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 (3) Type 2 diabetes mellitus with other skin ulcer Status: Chronic Current Visit: Yes Qualifiers: Diabetes mellitus manager intermediate insulin use: with usp use Code(s): E11.622 - Type 2 diabetes mellitus with other skin ulcer; L98.499 - Non-pressure chronic ulcer of skin of other sites with unspecified severity (4) Bilateral lower extremity edema Status: Chronic Current Visit: Yes Code(s): R60.0 - Localized edema (5) Chronic venous hypertension w/ulcer and inflammation involv right side Status: Chronic Current Visit: Yes Code(s): I87.331 - Chronic venous hypertension (idiopathic) with ulcer and inflammation of right lower extremity; L97.919 - Non-pressure chronic ulcer of unspecified part of right lower leg with unspecified severity Type of Wound Chief Complaint: nonhealing wound/ulcers of right lower leg History of Wound: Eddie is a pleasant 76 yo man who presents for evaluation of a wound/ulcer of his right lateral calf that has been present since mid-April and has continued to get larger. He has seen his PCP and has seen another physician in their practice for the wound/ulcer and has been treated once with an UNNA boot and otherwise has been given antibiotics off and on without improvement, most recent antibiotic was Augmentin. No cultures have ever been taken of the wound. No imaging has been done. He had been using Aquaphor to the wound as instructed by his PCP. He has significant pain and edema in this leg and has been started on Lyrica which has helped with the pain. He has been unable to sleep in bed due to the pain and has been sleeping in a recliner. He denies any significant drainage but does note some on his socks from time to time. He denies any odor. Occasionally there is some bleeding. he was referred to the wound center for further evaluation and treatment. Awaiting lab work from PCP. Admits to sleeping in a recliner since March. Denies N/V/F/C. 08/12--Arterial testing done, normal. Venous test reveals multiple incompetent veins in the RLE. Apligraf application for a total of 5 treatments to the right lateral LE ulcer completed in December 2017 with improvement. Puraply application to right medial/posterior LE ulcer begun end of November 2017 with improvement. Venous ablation performed by Dr. Patton in December 2017 to right LE. Progress of Wound: Eddie's wounds/ulcers have greatly improved since his last visit. Lateral leg wound/ulcer is improving with hydrofera blue. He reports very little drainage. His medial cluster is nearly healed after application of puraply. He is doing well with tubigrip compression. Denies odor, fever or chills. He is having less pain in his legs. Sleeps in his recliner some and in bed now. He underwent venous ablation to right leg on 01/13/18 and tolerated this well. He has second ablation scheduled in 1 weeks for the other part of his right venous circulation. - Physical Exam Vital Signs Temp Pulse Resp BP 97.1 F L 54 L 18 138/64 H 02/06/18 12:46 02/06/18 12:46 02/06/18 12:46 02/06/18 12:46 General: Alert, Oriented x3, Cooperative, No apparent distress HEENT: Atraumatic, Normocephalic Oral: Moist Mucosa Extremities: Edema Skin: Ulcer/ Wound Wound Measurements and Assessment WC - Nurse 1 - General Ulcer Measurement Start: 02/06/18 12:46 Freq: Status: Active Protocol: Activity Type Activity Date Activity User E-Sign Co-Sign Detail Recorded Client Recorded Date Recorded By Document 02/06/18 12:46 [id number] 02/06/18 12:57 RB 02/06/18 12:46 Wound Center Nurse 1 [Ulcer Assessment] #3 R-MEDIAL LE CLUSTER -Combined with other wound No -Current Size (cm) - Length 1.9 -Current Size (cm) - Width 2 -Current Size (cm) - Depth 0.1 -Total Square Cm 3.8 -Photo Taken No -Tunneling No -Undermining/Tunneling No -Circular Undermining No -Exudate Amt Small (1-33%) -Exudate Type Serosanguineous -Wound Margin Distinct, Outline Attached -Granulation Amt Medium (34-66%) -Granulation Quality [place] -Slough/Fibrin Yes -Necrosis Amt Medium (34-66%) -Necrotic Tissue Type Adherent Slough -Structure Exposed N/A -Texture (Kinza-wound Skin Appearance) Assessed -Moisture (Kinza-wound Skin Appearance Assessed ) Dry/Scaly -Color (Kinza-wound Skin Appearance) Assessed -Temperature (Kinza-wound Skin No Abnormality Appearance) (Pt Warm) -Tenderness on Palpation (Kinza-wound No Skin Appearance) -Ulcer Cleansing Wound Cleanser -Foul Odor after Cleansing No -Anesthetic Used 4% Lidocaine Solution #1 RIGHT LATERAL LE -Combined with other wound No -Current Size (cm) - Length 1.6 -Current Size (cm) - Width 0.7 -Current Size (cm) - Depth 0.1 -Total Square Cm 1.12 -Epithelialization Large 67-100% -Tunneling No -Undermining/Tunneling No -Circular Undermining No -Exudate Amt Small (1-33%) -Exudate Type Serosanguineous -Wound Margin Distinct, Outline Attached -Granulation Amt Medium (34-66%) -Granulation Quality [place] -Slough/Fibrin Yes -Necrosis Amt Medium (34-66%) -Necrotic Tissue Type Adherent Slough -Structure Exposed N/A -Texture (Kinza-wound Skin Appearance) Assessed -Moisture (Kinza-wound Skin Appearance Dry/Scaly ) -Color (Kinza-wound Skin Appearance) Assessed -Temperature (Kinza-wound Skin No Abnormality Appearance) (Pt Warm) -Tenderness on Palpation (Kinza-wound No Skin Appearance) -Ulcer Cleansing Wound Cleanser -Foul Odor after Cleansing No -Anesthetic Used 4% Lidocaine Solution [Edema Assessment] -Lower Limb Edema Present Yes -Left Calf (cm) 36.2 -Left Ankle (cm) 25.8 WC - Nurse 2 - General Ulcer CM Notes Start: 02/06/18 12:46 Freq: Status: Active Protocol: Activity Type Activity Date Activity User E-Sign Co-Sign Detail Recorded Client Recorded Date Recorded By Document 02/06/18 13:29 [id number] 02/06/18 13:33 02/06/18 13:29 Wound Center Nurse 2 [Procedure/Treatment] #3 R-MEDIAL LE CLUSTER -Time 13:30 -Correct Patient Yes -Correct Side, Site, Position Yes -Correct Procedure Yes -Procedure Performed Yes -Type of Procedure Debridement -Clinical Debridement Subcutaneous -Post Debridement Size (cm) - Length 6 -Post Debridement Size (cm) - Width 0.8 -Post Debridement Size (cm) - Depth 0.1 -Total Square Cm 4.8 -Wound/Ulcer Outcome Not Healed -Ulcer Cleansing Rinsed/ Irrigated with Saline -Foul Odor after Cleansing No -Bioengineered Tissue No -Bleeding Controlled with NA -Treatment Response Procedure Tolerated Well #1 RIGHT LATERAL LE -Time 13:31 -Correct Procedure Yes -Procedure Performed Yes -Type of Procedure Debridement -Clinical Debridement Subcutaneous -Post Debridement Size (cm) - Length 0.3 -Post Debridement Size (cm) - Width 0.2 -Post Debridement Size (cm) - Depth 0.1 -Total Square Cm 0.06 -Wound/Ulcer Outcome Not Healed -Ulcer Cleansing Rinsed/ Irrigated with Saline -Foul Odor after Cleansing No -Bioengineered Tissue Yes -Type of bioengineered Tissue [id number] -Expiration Date 06/07/19 -Product Lot Number [id number] -Percent Used 100 -Saline Lot Number [id number] -Bleeding Controlled with NA -Treatment Response Procedure Tolerated Well [See Physician Procedure note for Specifics] Pain Scale: 0-10 Numeric [Pain] -Is Patient Pain Free? Yes Psych/Mental Status: Normal Affect, Appropriate Debridement Note Post-Debridement Measurements/Treatment WC - Nurse 2 - General Ulcer CM Notes Start: 02/06/18 12:46 Freq: Status: Active Protocol: Activity Type Activity Date Activity User E-Sign Co-Sign Detail Recorded Client Recorded Date Recorded By Document 02/06/18 13:29 [id number] 02/06/18 13:33 02/06/18 13:29 Wound Center Nurse 2 #3 R-MEDIAL LE CLUSTER -Time 13:30 -Correct Patient Yes -Correct Side, Site, Position Yes -Correct Procedure Yes -Procedure Performed Yes -Type of Procedure Debridement -Clinical Debridement Subcutaneous -Post Debridement Size (cm) - Length 6 -Post Debridement Size (cm) - Width 0.8 -Post Debridement Size (cm) - Depth 0.1 -Total Square Cm 4.8 -Wound/Ulcer Outcome Not Healed -Ulcer Cleansing Rinsed/ Irrigated with Saline -Foul Odor after Cleansing No -Bioengineered Tissue No -Bleeding Controlled with NA -Treatment Response Procedure Tolerated Well #1 RIGHT LATERAL LE -Time 13:31 -Correct Procedure Yes -Procedure Performed Yes -Type of Procedure Debridement -Clinical Debridement Subcutaneous -Post Debridement Size (cm) - Length 0.3 -Post Debridement Size (cm) - Width 0.2 -Post Debridement Size (cm) - Depth 0.1 -Total Square Cm 0.06 -Wound/Ulcer Outcome Not Healed -Ulcer Cleansing Rinsed/ Irrigated with Saline -Foul Odor after Cleansing No -Bioengineered Tissue Yes -Type of bioengineered Tissue [id number] -Expiration Date 06/07/19 -Product Lot Number [id number] -Percent Used 100 -Saline Lot Number [id number] -Bleeding Controlled with NA -Treatment Response Procedure Tolerated Well Pain Scale: 0-10 Numeric Is Patient Pain Free? Yes Wound debrided: right medial LE cluster Laterality: Right Type of Debridement: Excisional debridement Anesthesia Used: 4% Lidocaine Solution Depth: Down to and including healthy tissue, in the subcutaneous layer Percentage of wound debrided: 100 Instrument Used: 5mm curette Tissue Removed: yellow slough, devitalized tissue Severity: Fat Layer Exposed Amount of bleeding with debridement: Mild Bleeding Controlled with: Compression and gauze Patient tolerated procedure well - Additional Wound Wound debrided: right lateral LE Laterality: Right Type of Debridement: Excisional debridement Anesthesia Used: 4% Lidocaine Solution Depth: Down to and including healthy tissue, in the subcutaneous layer Percentage of wound debrided: 100 Instrument Used: 5mm curette Tissue Removed: yellow slough, devitalized tissue Severity: Fat Layer Exposed Amount of bleeding with debridement: Mild Bleeding Controlled with: Compression and gauze Patient tolerated procedure: Patient tolerated procedure well Assessment/Plan Active Problems PAD (peripheral artery disease) (Chronic) Type 2 diabetes mellitus treated with insulin (Chronic) Type 2 diabetes mellitus with other skin ulcer (Chronic) Bilateral lower extremity edema (Chronic) Chronic venous hypertension w/ulcer and inflammation involv right side (Chronic) Assessment: Multiple nonhealing ulcer/wound of right lower extremity? likely secondary to venous insufficiency. stage 2 pressure ulcer coccyx - healed Plan: Debridement done as documented above, procedure was tolerated well. His posterior/medial LE cluster is improved after application of Puraply. Puraply was applied to this wound again today. He was instructed on the care of his Puraply. He will keep the dressing clean, dry and intact and only replace the secondary dressing as needed. Will use Hydrofera Blue as a secondary dressing to the right lateral wound and to his posterior and medial wounds as well. Will continue tubigrip compression. Previous vascular studies reviewed - he underwent venous ablation of his right leg by Dr. Patton on 01/13/18. Elevate lower extremity when sitting and when in bed. Optimize blood sugar control. Discussed offloading of his coccyx and continue treatment with gel cushion. Increase protein intake/supplements. F/U in 1 weeks and will apply puraply #7 if needed.
[2018-02-13 13:43] VITALS: BP 130/60; PULSE 57; RESP 18; TEMP 36.6
--- NOTE | 2018-02-13 18:17 | PCM.WC.PN ---
(1) PAD (peripheral artery disease) Status: Chronic Current Visit: Yes Code(s): I73.9 - Peripheral vascular disease, unspecified (2) Type 2 diabetes mellitus treated with insulin Status: Chronic Current Visit: Yes Code(s): E11.9 - Type 2 diabetes mellitus without complications; Z79.4 - supervisor intermediates (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 of insulin (3) Type 2 diabetes mellitus with other skin ulcer Status: Chronic Current Visit: Yes Qualifiers: Diabetes mellitus long term care social worker insulin use: with halfway use Code(s): E11.622 - Type 2 diabetes mellitus with other skin ulcer; L98.499 - Non-pressure chronic ulcer of skin of other sites with unspecified severity (4) Bilateral lower extremity edema Status: Chronic Current Visit: Yes Code(s): R60.0 - Localized edema (5) Chronic venous hypertension w/ulcer and inflammation involv right side Status: Chronic Current Visit: Yes Code(s): I87.331 - Chronic venous hypertension (idiopathic) with ulcer and inflammation of right lower extremity; L97.919 - Non-pressure chronic ulcer of unspecified part of right lower leg with unspecified severity Type of Wound Date of Service: 02/13/18 Chief Complaint: nonhealing wound/ulcers of right lower leg History of Wound: Eddie is a pleasant 76 yo man who presents for evaluation of a wound/ulcer of his right lateral calf that has been present since mid-April and has continued to get larger. He has seen his PCP and has seen another physician in their practice for the wound/ulcer and has been treated once with an UNNA boot and otherwise has been given antibiotics off and on without improvement, most recent antibiotic was Augmentin. No cultures have ever been taken of the wound. No imaging has been done. He had been using Aquaphor to the wound as instructed by his PCP. He has significant pain and edema in this leg and has been started on Lyrica which has helped with the pain. He has been unable to sleep in bed due to the pain and has been sleeping in a recliner. He denies any significant drainage but does note some on his socks from time to time. He denies any odor. Occasionally there is some bleeding. he was referred to the wound center for further evaluation and treatment. Awaiting lab work from PCP. Admits to sleeping in a recliner since March. Denies N/V/F/C. 4/17--Arterial testing done, normal. Venous test reveals multiple incompetent veins in the RLE. Apligraf application for a total of 5 treatments to the right lateral LE ulcer completed in December 2017 with improvement. Puraply application to right medial/posterior LE ulcer begun end of November 2017 with improvement. Venous ablation performed by Dr. Patton in December 2017 to right LE. Progress of Wound: Eddie's wounds/ulcers are nearly healed since his last visit. He denies any drainage. He is doing well with tubigrip compression. Denies odor, fever or chills. He is having less pain in his legs. Sleeps in his recliner some and in bed now. He underwent venous ablation to right leg on 01/13/18 and tolerated this well. He has second ablation scheduled Friday for the other part of his right venous circulation. - Physical Exam Vital Signs Temp Pulse Resp BP 97.8 F 57 L 18 130/60 H 02/13/18 13:43 02/13/18 13:43 02/13/18 13:43 02/13/18 13:43 General: Alert, Oriented x3, Cooperative, No apparent distress HEENT: Atraumatic, Normocephalic Oral: Moist Mucosa Abdomen: Obese Extremities: Edema Skin: Ulcer/ Wound Wound Measurements and Assessment WC - Nurse 1 - General Ulcer Measurement Start: 02/06/18 12:46 Freq: Status: Active Protocol: Activity Type Activity Date Activity User E-Sign Co-Sign Detail Recorded Client Recorded Date Recorded By Document 02/13/18 13:43 VA [id number] 02/13/18 13:48 VA 02/13/18 13:43 Wound Center Nurse 1 [Ulcer Assessment] #3 R-MEDIAL LE CLUSTER -Combined with other wound No -Current Size (cm) - Length 3.5 -Current Size (cm) - Width 5 -Current Size (cm) - Depth 0.1 -Total Square Cm 17.5 -Photo Taken No -Epithelialization Large 67-100% -Tunneling No -Undermining/Tunneling No -Circular Undermining No -Exudate Amt None Present (0 %) -Wound Margin Indistinct, Non -Visible -Granulation Amt Large (67-100%) -Granulation Quality Pale [place] -Slough/Fibrin No -Texture (Kinza-wound Skin Appearance) Assessed -Moisture (Kinza-wound Skin Appearance Assessed ) Maceration -Color (Kinza-wound Skin Appearance) Assessed Hemosiderin Staining -Temperature (Kinza-wound Skin No Abnormality Appearance) (Pt Warm) -Tenderness on Palpation (Kinza-wound No Skin Appearance) -Ulcer Cleansing Wound Cleanser -Foul Odor after Cleansing No -Anesthetic Used 4% Lidocaine Solution #1 RIGHT LATERAL LE -Combined with other wound No -Current Size (cm) - Length 6 -Current Size (cm) - Width 0.5 -Current Size (cm) - Depth 0.1 -Total Square Cm 3.0 -Photo Taken No -Epithelialization Large 67-100% -Tunneling No -Undermining/Tunneling No -Circular Undermining No -Exudate Amt None Present (0 %) -Wound Margin Indistinct, Non -Visible -Granulation Amt Large (67-100%) -Granulation Quality Pale [place] -Slough/Fibrin No -Texture (Kinza-wound Skin Appearance) Assessed -Moisture (Kinza-wound Skin Appearance Assessed ) -Color (Kinza-wound Skin Appearance) Assessed Hemosiderin Staining Palor -Temperature (Kinza-wound Skin No Abnormality Appearance) (Pt Warm) -Tenderness on Palpation (Kinza-wound No Skin Appearance) -Ulcer Cleansing Wound Cleanser -Foul Odor after Cleansing No -Anesthetic Used 4% Lidocaine Solution [Edema Assessment] -Right Calf (cm) 37.5 -Right Ankle (cm) 22.5 WC - Nurse 2 - General Ulcer CM Notes Start: 02/06/18 12:46 Freq: Status: Active Protocol: Activity Type Activity Date Activity User E-Sign Co-Sign Detail Recorded Client Recorded Date Recorded By Document 02/13/18 14:31 [id number] 02/13/18 14:36 02/13/18 14:31 Wound Center Nurse 2 [Procedure/Treatment] #3 R-MEDIAL LE CLUSTER -Time 14:31 -Correct Patient Yes -Correct Side, Site, Position Yes -Correct Procedure Yes -Procedure Performed Yes -Type of Procedure Debridement -Clinical Debridement Selective -Post Debridement Size (cm) - Length 0.1 -Post Debridement Size (cm) - Width 0.1 -Post Debridement Size (cm) - Depth 0.1 -Total Square Cm 0.01 -Wound/Ulcer Outcome Healed- Epithelialized -Ulcer Cleansing Not Cleansed -Foul Odor after Cleansing No -Bioengineered Tissue No -Bleeding Controlled with NA -Treatment Response Procedure Tolerated Well #1 RIGHT LATERAL LE -Time 14:32 -Correct Patient No -Correct Side, Site, Position No -Correct Procedure No -Procedure Performed No -Wound/Ulcer Outcome Healed- Epithelialized [See Physician Procedure note for Specifics] Pain Scale: 0-10 Numeric [Pain] -Is Patient Pain Free? Yes Psych/Mental Status: Normal Affect, Appropriate Debridement Note Post-Debridement Measurements/Treatment WC - Nurse 2 - General Ulcer CM Notes Start: 02/06/18 12:46 Freq: Status: Active Protocol: Activity Type Activity Date Activity User E-Sign Co-Sign Detail Recorded Client Recorded Date Recorded By Document 02/06/18 13:29 [id number] 02/06/18 13:33 CS Document 02/13/18 14:31 [id number] 02/13/18 14:36 CS 02/06/18 02/13/18 13:29 14:31 Wound Center Nurse 2 #3 R-MEDIAL LE CLUSTER -Time 13:30 14:31 -Correct Patient Yes Yes -Correct Side, Site, Position Yes Yes -Correct Procedure Yes Yes -Procedure Performed Yes Yes -Type of Procedure Debridement Debridement -Clinical Debridement Subcutaneous Selective -Post Debridement Size (cm) - Length 6 0.1 -Post Debridement Size (cm) - Width 0.8 0.1 -Post Debridement Size (cm) - Depth 0.1 0.1 -Total Square Cm 4.8 0.01 -Wound/Ulcer Outcome Not Healed Healed- Epithelialized -Ulcer Cleansing Rinsed/ Not Cleansed Irrigated with Saline -Foul Odor after Cleansing No No -Bioengineered Tissue No No -Bleeding Controlled with NA NA -Treatment Response Procedure Procedure Tolerated Well Tolerated Well #1 RIGHT LATERAL LE -Time 13:31 14:32 -Correct Patient No -Correct Side, Site, Position No -Correct Procedure Yes No -Procedure Performed Yes No -Type of Procedure Debridement -Clinical Debridement Subcutaneous -Post Debridement Size (cm) - Length 0.3 -Post Debridement Size (cm) - Width 0.2 -Post Debridement Size (cm) - Depth 0.1 -Total Square Cm 0.06 -Wound/Ulcer Outcome Not Healed Healed- Epithelialized -Ulcer Cleansing Rinsed/ Irrigated with Saline -Foul Odor after Cleansing No -Bioengineered Tissue Yes -Type of bioengineered Tissue JOSE -Expiration Date 06/07/19 -Product Lot Number [id number] -Percent Used 100 -Saline Lot Number [id number] -Bleeding Controlled with NA -Treatment Response Procedure Tolerated Well Pain Scale: 0-10 Numeric Is Patient Pain Free? Yes Yes Wound debrided: right lateral LE Laterality: Right No debridement was completed today - healed - Additional Wound Wound debrided: right medial LE Laterality: Right Type of Debridement: Selective debridement Anesthesia Used: 4% Lidocaine Solution Depth: Down to and including healthy tissue Percentage of wound debrided: 100 Instrument Used: 5mm curette Tissue Removed: devitalized tissue Severity: Limited To Skin Breakdown Amount of bleeding with debridement: None Bleeding Controlled with: - - none needed - no bleeding Patient tolerated procedure: Patient tolerated procedure well Assessment/Plan Active Problems PAD (peripheral artery disease) (Chronic) Type 2 diabetes mellitus treated with insulin (Chronic) Type 2 diabetes mellitus with other skin ulcer (Chronic) Bilateral lower extremity edema (Chronic) Chronic venous hypertension w/ulcer and inflammation involv right side (Chronic) Assessment: Multiple nonhealing ulcer/wound of right lower extremity? likely secondary to venous insufficiency. stage 2 pressure ulcer coccyx - healed Plan: Debridement done as documented above, procedure was tolerated well. Will have him apply lotion to his leg and will continue tubigrip compression and have him follow up in 1 week. If all remains healed and edema controlled, then will discharge from treatment. Elevate lower extremity when sitting and when in bed. Optimize blood sugar control. Discussed offloading of his coccyx and continue treatment with gel cushion. Increase protein intake/supplements. F/U in 1 week.
--- NOTE | 2018-02-13 18:22 | PN.PCM_ITS ---
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 (3) Type 2 diabetes mellitus with other skin ulcer Status: Chronic Current Visit: Yes Qualifiers: Diabetes mellitus truck terminal manager insulin use: with jail use Code(s): E11.622 - Type 2 diabetes mellitus with other skin ulcer; L98.499 - Non-pressure chronic ulcer of skin of other sites with unspecified severity (4) Bilateral lower extremity edema Status: Chronic Current Visit: Yes Code(s): R60.0 - Localized edema (5) Chronic venous hypertension w/ulcer and inflammation involv right side Status: Chronic Current Visit: Yes Code(s): I87.331 - Chronic venous hypertension (idiopathic) with ulcer and inflammation of right lower extremity; L97.919 - Non-pressure chronic ulcer of unspecified part of right lower leg with unspecified severity Type of Wound Date of Service: 02/13/18 Chief Complaint: nonhealing wound/ulcers of right lower leg History of Wound: Eddie is a pleasant 76 yo man who presents for evaluation of a wound/ulcer of his right lateral calf that has been present since mid-April and has continued to get larger. He has seen his PCP and has seen another physician in their practice for the wound/ulcer and has been treated once with an UNNA boot and otherwise has been given antibiotics off and on without improvement, most recent antibiotic was Augmentin. No cultures have ever been taken of the wound. No imaging has been done. He had been using Aquaphor to the wound as instructed by his PCP. He has significant pain and edema in this leg an d has been started on Lyrica which has helped with the pain. He has been unable to sleep in bed due to the pain and has been sleeping in a recliner. He denies any significant drainage but does note some on his socks from time to time. He denies any odor. Occasionally there is some bleeding. he was referred to the wound center for further evaluation and treatment. Awaiting lab work from PCP. Admits to sleeping in a recliner since March. Denies N/V/F/C. 08/12--Arterial testing done, normal. Venous test reveals multiple incompetent veins in the RLE. Apligraf application for a total of 5 treatments to the right lateral LE ulcer completed in December 2017 with improvement. Puraply application to right medial/posterior LE ulcer begun end of November 2017 with improvement. Venous ablation performed by Dr. Patton in December 2017 to right LE. Progress of Wound: Eddie's wounds/ulcers are nearly healed since his last visit. He denies any drainage. He is doing well with tubigrip compression. Denies odor, fever or chills. He is having less pain in his legs. Sleeps in his recliner some and in bed now. He underwent venous ablation to right leg on 01/13/18 and tolerated this well. He has second ablation scheduled Friday for the other part of his right venous circulation. - Physical Exam Vital Signs Temp Pulse Resp BP 97.8 F 57 L 18 130/60 H 02/13/18 13:43 02/13/18 13:43 02/13/18 13:43 02/13/18 13:43 General: Alert, Oriented x3, Cooperative, No apparent distress HEENT: Atraumatic, Normocephalic Oral: Moist Mucosa Abdomen: Obese Extremities: Edema Skin: Ulcer/ Wound Wound Measurements and Assessment WC - Nurse 1 - General Ulcer Measurement Start: 02/06/18 12:46 Freq: Status: Active Protocol: Activity Type Activity Date Activity User E-Sign Co-Sign Detail Recorded Client Recorded Date Recorded By Document 02/13/18 13:43 CO [id number] 02/13/18 13:48 CO 02/13/18 13:43 Wound Center Nurse 1 [Ulcer Assessment] #3 R-MEDIAL LE CLUSTER -Combined with other wound No -Current Size (cm) - Length 3.5 -Current Size (cm) - Width 5 -Current Size (cm) - Depth 0.1 -Total Square Cm 17.5 -Photo Taken No -Epithelialization Large 67-100% -Tunneling No -Undermining/Tunneling No -Circular Undermining No -Exudate Amt None Present (0 %) -Wound Margin Indistinct, Non -Visible -Granulation Amt Large (67-100%) -Granulation Quality Pale [place] -Slough/Fibrin No -Texture (Kinza-wound Skin Appearance) Assessed -Moisture (Kinza-wound Skin Appearance Assessed ) Maceration -Color (Kinza-wound Skin Appearance) Assessed Hemosiderin Staining -Temperature (Kinza-wound Skin No Abnormality Appearance) (Pt Warm) -Tenderness on Palpation (Kinza-wound No Skin Appearance) -Ulcer Cleansing Wound Cleanser -Foul Odor after Cleansing No -Anesthetic Used 4% Lidocaine Solution #1 RIGHT LATERAL LE -Combined with other wound No -Current Size (cm) - Length 6 -Current Size (cm) - Width 0.5 -Current Size (cm) - Depth 0.1 -Total Square Cm 3.0 -Photo Taken No -Epithelialization Large 67-100% -Tunneling No -Undermining/Tunneling No -Circular Undermining No -Exudate Amt None Present (0 %) -Wound Margin Indistinct, Non -Visible -Granulation Amt Large (67-100%) -Granulation Quality Pale [place] -Slough/Fibrin No -Texture (Kinza-wound Skin Appearance) Assessed -Moisture (Kinza-wound Skin Appearance Assessed ) -Color (Kinza-wound Skin Appearance) Assessed Hemosiderin Staining Palor -Temperature (Kinza-wound Skin No Abnormality Appearance) (Pt Warm) -Tenderness on Palpation (Kinza-wound No Skin Appearance) -Ulcer Cleansing Wound Cleanser -Foul Odor after Cleansing No -Anesthetic Used 4% Lidocaine Solution [Edema Assessment] -Right Calf (cm) 37.5 -Right Ankle (cm) 22.5 WC - Nurse 2 - General Ulcer CM Notes Start: 02/06/18 12:46 Freq: Status: Active Protocol: Activity Type Activity Date Activity User E-Sign Co-Sign Detail Recorded Client Recorded Date Recorded By Document 02/13/18 14:31 [id number] 02/13/18 14:36 02/13/18 14:31 Wound Center Nurse 2 [Procedure/Treatment] #3 R-MEDIAL LE CLUSTER -Time 14:31 -Correct Patient Yes -Correct Side, Site, Position Yes -Correct Procedure Yes -Procedure Performed Yes -Type of Procedure Debridement -Clinical Debridement Selective -Post Debridement Size (cm) - Length 0.1 -Post Debridement Size (cm) - Width 0.1 -Post Debridement Size (cm) - Depth 0.1 -Total Square Cm 0.01 -Wound/Ulcer Outcome Healed- Epithelialized -Ulcer Cleansing Not Cleansed -Foul Odor after Cleansing No -Bioengineered Tissue No -Bleeding Controlled with NA -Treatment Response Procedure Tolerated Well #1 RIGHT LATERAL LE -Time 14:32 -Correct Patient No -Correct Side, Site, Position No -Correct Procedure No -Procedure Performed No -Wound/Ulcer Outcome Healed- Epithelialized [See Physician Procedure note for Specifics] Pain Scale: 0-10 Numeric [Pain] -Is Patient Pain Free? Yes Psych/Mental Status: Normal Affect, Appropriate Debridement Note Post-Debridement Measurements/Treatment WC - Nurse 2 - General Ulcer CM Notes Start: 02/06/18 12:46 Freq: Status: Active Protocol: Activity Type Activity Date Activity User E-Sign Co-Sign Detail Recorded Client Recorded Date Recorded By Document 02/06/18 13:29 [id number] 02/06/18 13:33 CS Document 02/13/18 14:31 [id number] 02/13/18 14:36 CS 02/06/18 02/13/18 13:29 14:31 Wound Center Nurse 2 #3 R-MEDIAL LE CLUSTER -Time 13:30 14:31 -Correct Patient Yes Yes -Correct Side, Site, Position Yes Yes -Correct Procedure Yes Yes -Procedure Performed Yes Yes -Type of Procedure Debridement Debridement -Clinical Debridement Subcutaneous Selective -Post Debridement Size (cm) - Length 6 0.1 -Post Debridement Size (cm) - Width 0.8 0.1 -Post Debridement Size (cm) - Depth 0.1 0.1 -Total Square Cm 4.8 0.01 -Wound/Ulcer Outcome Not Healed Healed- Epithelialized -Ulcer Cleansing Rinsed/ Not Cleansed Irrigated with Saline -Foul Odor after Cleansing No No -Bioengineered Tissue No No -Bleeding Controlled with NA NA -Treatment Response Procedure Procedure Tolerated Well Tolerated Well #1 RIGHT LATERAL LE -Time 13:31 14:32 -Correct Patient No -Correct Side, Site, Position No -Correct Procedure Yes No -Procedure Performed Yes No -Type of Procedure Debridement -Clinical Debridement Subcutaneous -Post Debridement Size (cm) - Length 0.3 -Post Debridement Size (cm) - Width 0.2 -Post Debridement Size (cm) - Depth 0.1 -Total Square Cm 0.06 -Wound/Ulcer Outcome Not Healed Healed- Epithelialized -Ulcer Cleansing Rinsed/ Irrigated with Saline -Foul Odor after Cleansing No -Bioengineered Tissue Yes -Type of bioengineered Tissue [id number] -Expiration Date 06/07/19 -Product Lot Number [id number] -Percent Used 100 -Saline Lot Number [id number] -Bleeding Controlled with NA -Treatment Response Procedure Tolerated Well Pain Scale: 0-10 Numeric Is Patient Pain Free? Yes Yes Wound debrided: right lateral LE Laterality: Right No debridement was completed today - healed - Additional Wound Wound debrided: right medial LE Laterality: Right Type of Debridement: Selective debridement Anesthesia Used: 4% Lidocaine Solution Depth: Down to and including healthy tissue Percentage of wound debrided: 100 Instrument Used: 5mm curette Tissue Removed: devitalized tissue Severity: Limited To Skin Breakdown Amount of bleeding with debridement: None Bleeding Controlled with: - - none needed - no bleeding Patient tolerated procedure: Patient tolerated procedure well Assessment/Plan Active Problems PAD (peripheral artery disease) (Chronic) Type 2 diabetes mellitus treated with insulin (Chronic) Type 2 diabetes mellitus with other skin ulcer (Chronic) Bilateral lower extremity edema (Chronic) Chronic venous hypertension w/ulcer and inflammation involv right side (Chronic) Assessment: Multiple nonhealing ulcer/wound of right lower extremity? likely secondary to venous insufficiency. stage 2 pressure ulcer coccyx - healed Plan: Debridement done as documented above, procedure was tolerated well. Will have him apply lotion to his leg and will continue tubigrip compression and have him follow up in 1 week. If all remains healed and edema controlled, then will discharge from treatment. Elevate lower extremity when sitting and when in bed. Optimize blood sugar control. Discussed offloading of his coccyx and continue treatment with gel cushion. Increase protein intake/supplements. F/U in 1 week.
[2018-02-20 14:19] VITALS: BP 123/63; PULSE 50; RESP 18; TEMP 36.7
--- NOTE | 2018-02-20 18:17 | PCM.WC.PN ---
(1) PAD (peripheral artery disease) Status: Chronic Current Visit: Yes Code(s): I73.9 - Peripheral vascular disease, unspecified (2) Type 2 diabetes mellitus treated with insulin Status: Chronic Current Visit: Yes Code(s): E11.9 - Type 2 diabetes mellitus without complications; Z79.4 - long term care administrator (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 of insulin (3) Type 2 diabetes mellitus with other skin ulcer Status: Chronic Current Visit: Yes Qualifiers: Diabetes mellitus parts counterman insulin use: with correction use Code(s): E11.622 - Type 2 diabetes mellitus with other skin ulcer; L98.499 - Non-pressure chronic ulcer of skin of other sites with unspecified severity (4) Bilateral lower extremity edema Status: Chronic Current Visit: Yes Code(s): R60.0 - Localized edema (5) Chronic venous hypertension w/ulcer and inflammation involv right side Status: Chronic Current Visit: Yes Code(s): I87.331 - Chronic venous hypertension (idiopathic) with ulcer and inflammation of right lower extremity; L97.919 - Non-pressure chronic ulcer of unspecified part of right lower leg with unspecified severity Type of Wound Date of Service: 02/20/18 Chief Complaint: nonhealing wound/ulcers of right lower leg History of Wound: Eddie is a pleasant 76 yo man who presents for evaluation of a wound/ulcer of his right lateral calf that has been present since mid-April and has continued to get larger. He has seen his PCP and has seen another physician in their practice for the wound/ulcer and has been treated once with an UNNA boot and otherwise has been given antibiotics off and on without improvement, most recent antibiotic was Augmentin. No cultures have ever been taken of the wound. No imaging has been done. He had been using Aquaphor to the wound as instructed by his PCP. He has significant pain and edema in this leg and has been started on Lyrica which has helped with the pain. He has been unable to sleep in bed due to the pain and has been sleeping in a recliner. He denies any significant drainage but does note some on his socks from time to time. He denies any odor. Occasionally there is some bleeding. he was referred to the wound center for further evaluation and treatment. Awaiting lab work from PCP. Admits to sleeping in a recliner since March. Denies N/V/F/C. 4/17--Arterial testing done, normal. Venous test reveals multiple incompetent veins in the RLE. Apligraf application for a total of 5 treatments to the right lateral LE ulcer completed in December 2017 with improvement. Puraply application to right medial/posterior LE ulcer begun end of November 2017 with improvement. Venous ablation performed by Dr. Patton in December 2017 to right LE. Progress of Wound: Eddie's wounds/ulcers are healed. He denies any drainage. He is doing well with tubigrip compression. Denies odor, fever or chills. He is having less pain in his legs. Sleeps in his recliner some and in bed now. He underwent venous ablation to right leg on 01/13/18 and tolerated this well. He had second ablation done Friday for the other part of his right venous circulation. - Physical Exam Vital Signs Temp Pulse Resp BP 98.0 F 50 L 18 123/63 H 02/20/18 14:19 02/20/18 14:19 02/20/18 14:19 02/20/18 14:19 General: Alert, Oriented x3, Cooperative, No apparent distress HEENT: Atraumatic, Normocephalic Oral: Moist Mucosa Extremities: Edema Skin: Ulcer/ Wound Wound Measurements and Assessment WC - Nurse 1 - General Ulcer Measurement Start: 02/06/18 12:46 Freq: Status: Active Protocol: Activity Type Activity Date Activity User E-Sign Co-Sign Detail Recorded Client Recorded Date Recorded By Document 02/20/18 14:19 AN [id number] 02/20/18 14:29 AN 02/20/18 14:19 Wound Center Nurse 1 [Ulcer Assessment] #3 R-MEDIAL LE CLUSTER -Current Size (cm) - Length 0.1 -Current Size (cm) - Width 0.1 -Current Size (cm) - Depth 0.1 -Total Square Cm 0.01 -Tunneling No -Undermining/Tunneling No -Circular Undermining No -Classification - Thickness Unclassifiable (Eschar Covered ) -Exudate Amt None Present (0 %) -Wound Margin Distinct, Outline Attached -Granulation Amt None Present (0 %) -Slough/Fibrin No -Necrosis Amt Large (67-100%) -Necrotic Tissue Type Eschar -Texture (Kinza-wound Skin Appearance) Scarring -Moisture (Kinza-wound Skin Appearance No Abnormality ) -Color (Kinza-wound Skin Appearance) No Abnormality -Temperature (Kinza-wound Skin Cool/Cold Appearance) -Tenderness on Palpation (Kinza-wound No Skin Appearance) -Ulcer Cleansing Rinsed/ Irrigated with Saline WC - Nurse 2 - General Ulcer CM Notes Start: 02/06/18 12:46 Freq: Status: Active Protocol: Activity Type Activity Date Activity User E-Sign Co-Sign Detail Recorded Client Recorded Date Recorded By Document 02/20/18 15:38 MW [id number] 02/20/18 15:40 MW 02/20/18 15:38 Wound Center Nurse 2 [Procedure/Treatment] -Time 15:38 -Correct Patient Yes -Correct Side, Site, Position Yes -Correct Procedure Yes -Procedure Performed No -Post Debridement Size (cm) - Length 0 -Post Debridement Size (cm) - Width 0 -Post Debridement Size (cm) - Depth 0 -Total Square Cm 0 -Wound/Ulcer Outcome Healed- Epithelialized -Ulcer Cleansing Not Cleansed -Foul Odor after Cleansing No -Bleeding Controlled with NA -Treatment Response Procedure Tolerated Well [See Physician Procedure note for Specifics] Pain Scale: 0-10 Numeric [Pain] -Is Patient Pain Free? Yes Psych/Mental Status: Normal Affect, Appropriate Debridement Note Post-Debridement Measurements/Treatment WC - Nurse 2 - General Ulcer CM Notes Start: 02/06/18 12:46 Freq: Status: Active Protocol: Activity Type Activity Date Activity User E-Sign Co-Sign Detail Recorded Client Recorded Date Recorded By Document 02/06/18 13:29 [id number] 02/06/18 13:33 CS Document 02/13/18 14:31 CS [id number] 02/13/18 14:36 CS Document 02/20/18 15:38 MW [id number] 02/20/18 15:40 MW 02/06/18 02/13/18 02/20/18 13:29 14:31 15:38 Wound Center Nurse 2 #3 R-MEDIAL LE CLUSTER -Time 13:30 14:31 15:38 -Correct Patient Yes Yes Yes -Correct Side, Site, Position Yes Yes Yes -Correct Procedure Yes Yes Yes -Procedure Performed Yes Yes No -Type of Procedure Debridement Debridement -Clinical Debridement Subcutaneous Selective -Post Debridement Size (cm) - Length 6 0.1 0 -Post Debridement Size (cm) - Width 0.8 0.1 0 -Post Debridement Size (cm) - Depth 0.1 0.1 0 -Total Square Cm 4.8 0.01 0 -Wound/Ulcer Outcome Not Healed Healed- Healed- Epithelialized Epithelialized -Ulcer Cleansing Rinsed/ Not Cleansed Not Cleansed Irrigated with Saline -Foul Odor after Cleansing No No No -Bioengineered Tissue No No -Bleeding Controlled with NA NA NA -Treatment Response Procedure Procedure Procedure Tolerated Well Tolerated Well Tolerated Well #1 RIGHT LATERAL LE -Time 13:31 14:32 -Correct Patient No -Correct Side, Site, Position No -Correct Procedure Yes No -Procedure Performed Yes No -Type of Procedure Debridement -Clinical Debridement Subcutaneous -Post Debridement Size (cm) - Length 0.3 -Post Debridement Size (cm) - Width 0.2 -Post Debridement Size (cm) - Depth 0.1 -Total Square Cm 0.06 -Wound/Ulcer Outcome Not Healed Healed- Epithelialized -Ulcer Cleansing Rinsed/ Irrigated with Saline -Foul Odor after Cleansing No -Bioengineered Tissue Yes -Type of bioengineered Tissue [id number] -Expiration Date 06/07/19 -Product Lot Number [id number] -Percent Used 100 -Saline Lot Number [id number] -Bleeding Controlled with NA -Treatment Response Procedure Tolerated Well Pain Scale: 0-10 Numeric Is Patient Pain Free? Yes Yes Yes Wound debrided: right medial LE cluster Laterality: Right No debridement was completed today - patient is healed Assessment/Plan Active Problems PAD (peripheral artery disease) (Chronic) Type 2 diabetes mellitus treated with insulin (Chronic) Type 2 diabetes mellitus with other skin ulcer (Chronic) Bilateral lower extremity edema (Chronic) Chronic venous hypertension w/ulcer and inflammation involv right side (Chronic) Assessment: Multiple nonhealing ulcer/wound of right lower extremity? likely secondary to venous insufficiency - healed. stage 2 pressure ulcer coccyx - healed Plan: Eddie's wounds are healed. Will have him apply lotion to his leg and will continue tubigrip compression and have him follow up as needed. He is discharged from treatment. Elevate lower extremity when sitting and when in bed. Optimize blood sugar control. Discussed offloading of his coccyx and continue treatment with gel cushion. Increase protein intake/supplements.
--- NOTE | 2018-02-20 18:21 | PN.PCM_ITS ---
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 (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 of insulin (3) Type 2 diabetes mellitus with other skin ulcer Status: Chronic Current Visit: Yes Qualifiers: Diabetes mellitus meterman insulin use: with penitentiary use Code(s): E11.622 - Type 2 diabetes mellitus with other skin ulcer; L98.499 - Non-pressure chronic ulcer of skin of other sites with unspecified severity (4) Bilateral lower extremity edema Status: Chronic Current Visit: Yes Code(s): R60.0 - Localized edema (5) Chronic venous hypertension w/ulcer and inflammation involv right side Status: Chronic Current Visit: Yes Code(s): I87.331 - Chronic venous hypertension (idiopathic) with ulcer and inflammation of right lower extremity; L97.919 - Non-pressure chronic ulcer of unspecified part of right lower leg with unspecified severity Type of Wound Date of Service: 02/20/18 Chief Complaint: nonhealing wound/ulcers of right lower leg History of Wound: Eddie is a pleasant 76 yo man who presents for evaluation of a wound/ulcer of his right lateral calf that has been present since mid-April and has continued to get larger. He has seen his PCP and has seen another physician in their practice for the wound/ulcer and has been treated once with an UNNA boot and otherwise has been given antibiotics off and on without improvement, most recent antibiotic was Augmentin. No cultures have ever been taken of the wound. No imaging has been done. He had been using Aquaphor to the wound as instructed by his PCP. He has significant pain and edema in this leg an d has been started on Lyrica which has helped with the pain. He has been unable to sleep in bed due to the pain and has been sleeping in a recliner. He denies any significant drainage but does note some on his socks from time to time. He denies any odor. Occasionally there is some bleeding. he was referred to the wound center for further evaluation and treatment. Awaiting lab work from PCP. Admits to sleeping in a recliner since March. Denies N/V/F/C. 08/12--Arterial testing done, normal. Venous test reveals multiple incompetent veins in the RLE. Apligraf application for a total of 5 treatments to the right lateral LE ulcer completed in December 2017 with improvement. Puraply application to right medial/posterior LE ulcer begun end of November 2017 with improvement. Venous ablation performed by Dr. Patton in December 2017 to right LE. Progress of Wound: Eddie's wounds/ulcers are healed. He denies any drainage. He is doing well with tubigrip compression. Denies odor, fever or chills. He is having less pain in his legs. Sleeps in his recliner some and in bed now. He underwent venous ablation to right leg on 01/13/18 and tolerated this well. He had second ablation done Friday for the other part of his right venous circulation. - Physical Exam Vital Signs Temp Pulse Resp BP 98.0 F 50 L 18 123/63 H 02/20/18 14:19 02/20/18 14:19 02/20/18 14:19 02/20/18 14:19 General: Alert, Oriented x3, Cooperative, No apparent distress HEENT: Atraumatic, Normocephalic Oral: Moist Mucosa Extremities: Edema Skin: Ulcer/ Wound Wound Measurements and Assessment WC - Nurse 1 - General Ulcer Measurement Start: 02/06/18 12:46 Freq: Status: Active Protocol: Activity Type Activity Date Activity User E-Sign Co-Sign Detail Recorded Client Recorded Date Recorded By Document 02/20/18 14:19 AN [id number] 02/20/18 14:29 AN 02/20/18 14:19 Wound Center Nurse 1 [Ulcer Assessment] #3 R-MEDIAL LE CLUSTER -Current Size (cm) - Length 0.1 -Current Size (cm) - Width 0.1 -Current Size (cm) - Depth 0.1 -Total Square Cm 0.01 -Tunneling No -Undermining/Tunneling No -Circular Undermining No -Classification - Thickness Unclassifiable (Eschar Covered ) -Exudate Amt None Present (0 %) -Wound Margin Distinct, Outline Attached -Granulation Amt None Present (0 %) -Slough/Fibrin No -Necrosis Amt Large (67-100%) -Necrotic Tissue Type Eschar -Texture (Kinza-wound Skin Appearance) Scarring -Moisture (Kinza-wound Skin Appearance No Abnormality ) -Color (Kinza-wound Skin Appearance) No Abnormality -Temperature (Kinza-wound Skin Cool/Cold Appearance) -Tenderness on Palpation (Kinza-wound No Skin Appearance) -Ulcer Cleansing Rinsed/ Irrigated with Saline WC - Nurse 2 - General Ulcer CM Notes Start: 02/06/18 12:46 Freq: Status: Active Protocol: Activity Type Activity Date Activity User E-Sign Co-Sign Detail Recorded Client Recorded Date Recorded By Document 02/20/18 15:38 MW [id number] 02/20/18 15:40 MW 02/20/18 15:38 Wound Center Nurse 2 [Procedure/Treatment] -Time 15:38 -Correct Patient Yes -Correct Side, Site, Position Yes -Correct Procedure Yes -Procedure Performed No -Post Debridement Size (cm) - Length 0 -Post Debridement Size (cm) - Width 0 -Post Debridement Size (cm) - Depth 0 -Total Square Cm 0 -Wound/Ulcer Outcome Healed- Epithelialized -Ulcer Cleansing Not Cleansed -Foul Odor after Cleansing No -Bleeding Controlled with NA -Treatment Response Procedure Tolerated Well [See Physician Procedure note for Specifics] Pain Scale: 0-10 Numeric [Pain] -Is Patient Pain Free? Yes Psych/Mental Status: Normal Affect, Appropriate Debridement Note Post-Debridement Measurements/Treatment WC - Nurse 2 - General Ulcer CM Notes Start: 02/06/18 12:46 Freq: Status: Active Protocol: Activity Type Activity Date Activity User E-Sign Co-Sign Detail Recorded Client Recorded Date Recorded By Document 02/06/18 13:29 [id number] 02/06/18 13:33 CS Document 02/13/18 14:31 CS [id number] 02/13/18 14:36 CS Document 02/20/18 15:38 MW [id number] 02/20/18 15:40 MW 02/06/18 02/13/18 02/20/18 13:29 14:31 15:38 Wound Center Nurse 2 #3 R-MEDIAL LE CLUSTER -Time 13:30 14:31 15:38 -Correct Patient Yes Yes Yes -Correct Side, Site, Position Yes Yes Yes -Correct Procedure Yes Yes Yes -Procedure Performed Yes Yes No -Type of Procedure Debridement Debridement -Clinical Debridement Subcutaneous Selective -Post Debridement Size (cm) - Length 6 0.1 0 -Post Debridement Size (cm) - Width 0.8 0.1 0 -Post Debridement Size (cm) - Depth 0.1 0.1 0 -Total Square Cm 4.8 0.01 0 -Wound/Ulcer Outcome Not Healed Healed- Healed- Epithelialized Epithelialized -Ulcer Cleansing Rinsed/ Not Cleansed Not Cleansed Irrigated with Saline -Foul Odor after Cleansing No No No -Bioengineered Tissue No No -Bleeding Controlled with NA NA NA -Treatment Response Procedure Procedure Procedure Tolerated Well Tolerated Well Tolerated Well #1 RIGHT LATERAL LE -Time 13:31 14:32 -Correct Patient No -Correct Side, Site, Position No -Correct Procedure Yes No -Procedure Performed Yes No -Type of Procedure Debridement -Clinical Debridement Subcutaneous -Post Debridement Size (cm) - Length 0.3 -Post Debridement Size (cm) - Width 0.2 -Post Debridement Size (cm) - Depth 0.1 -Total Square Cm 0.06 -Wound/Ulcer Outcome Not Healed Healed- Epithelialized -Ulcer Cleansing Rinsed/ Irrigated with Saline -Foul Odor after Cleansing No -Bioengineered Tissue Yes -Type of bioengineered Tissue [id number] -Expiration Date 06/07/19 -Product Lot Number [id number] -Percent Used 100 -Saline Lot Number [id number] -Bleeding Controlled with NA -Treatment Response Procedure Tolerated Well Pain Scale: 0-10 Numeric Is Patient Pain Free? Yes Yes Yes Wound debrided: right medial LE cluster Laterality: Right No debridement was completed today - patient is healed Assessment/Plan Active Problems PAD (peripheral artery disease) (Chronic) Type 2 diabetes mellitus treated with insulin (Chronic) Type 2 diabetes mellitus with other skin ulcer (Chronic) Bilateral lower extremity edema (Chronic) Chronic venous hypertension w/ulcer and inflammation involv right side (Chronic) Assessment: Multiple nonhealing ulcer/wound of right lower extremity? likely secondary to venous insufficiency - healed. stage 2 pressure ulcer coccyx - healed Plan: Eddie's wounds are healed. Will have him apply lotion to his leg and will continue tubigrip compression and have him follow up as needed. He is discharged from treatment. Elevate lower extremity when sitting and when in bed. Optimize blood sugar control. Discussed offloading of his coccyx and continue treatment with gel cushion. Increase protein intake/supplements.
== END 2018-02-25 23:59 ==
LOC: WC 14:00
PROVIDERS: Family Provider Family Medicine; PCP Family Medicine; Visit Provider Family Medicine
DX: E11.622 Type 2 diabetes mellitus with other skin ulcer (principal); E11.51 Type 2 diabetes mellitus with diabetic peripheral angiopathy without gangrene; I87.331 Chronic venous hypertension (idiopathic) with ulcer and inflammation of right lower extremity; L97.812 Non-pressure chronic ulcer of other part of right lower leg with fat layer exposed; R60.0 Localized edema
CPT/HCPCS: 15271; 99212; Q4172; G0463

== ENCOUNTER 2019-01-08 11:15 | Outpatient (RCR) | payer MEDICARE, SELFPAY ==
[2019-01-06 10:24] VITALS: BP 155/65; PULSE 69; RESP 18; TEMP 36.4; BMI 24.3
--- NOTE | 2019-01-06 10:57 | PCM.WC.HP ---
(1) Decubitus ulcer of left buttock, stage 2 Status: Acute Current Visit: Yes Code(s): L89.322 - Pressure ulcer of left buttock, stage 2 (2) Bilateral lower extremity edema Status: Chronic Current Visit: Yes Code(s): R60.0 - Localized edema (3) 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 Status: Acute Current Visit: Yes Code(s): L97.912 - Non-pressure chronic ulcer of unspecified part of right lower leg with fat layer exposed Comment: x 2 wounds one located above medial malleolus and one just below right knee History of Present Illness Date of Service: 01/06/19 Chief Complaint: Recurrent Right Leg Ulcer. New Left Buttock Ulcer. History of Wound: Mr. Martin is a 78 yr old with a history of recurrent right lower extremity ulcer secondary to venous insufficiency. Last seen here about 1 year ago. He states that he noted increased drainage from his legs on friday at which time he also noted the ulcer. He has applied antibiotic ointment to the area. He also reports pain in his left buttock area. No history of trauma.He admits to sitting and sleeping in his recliner for prolonged periods of time. He feels well otherwise and denies pain in his extremitoies, chills fever, nausea or vomitting. 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) Chronic anticoagulation (Chronic) Type 2 diabetes mellitus with diabetic polyneuropathy (Chronic) Type 2 diabetes mellitus with other skin ulcer (Chronic) 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) Bilateral lower extremity edema (Chronic) Chronic venous hypertension w/ulcer and inflammation involv right side (Chronic) Pressure ulcer of coccygeal region, stage 2 (Chronic) Surgical History: cataract, coronary bypass surgery Allergies/Adverse Reactions: Allergies morphine Allergy (Verified 07/25/17 22:02) Hives Home Medications: Ambulatory Orders Medication Instructions Recorded Aspirin 81 mg PO DAILY 07/25/17 Atorvastatin Calcium 80 mg PO QHS 07/25/17 Furosemide [Lasix] 40 mg PO BID 07/25/17 Insulin Glargine,Hum.rec.anlog 10 units SQ QHS 07/25/17 [Lantus Solostar] Lisinopril 20 mg PO DAILY 07/25/17 Metformin HCl 500 mg PO BID 07/25/17 Potassium Chloride [Klor-Con 10] 1 tab PO DAILY 07/25/17 Pregabalin [Lyrica] 150 mg PO DAILY 07/25/17 Tamsulosin HCl [Flomax] 0.4 mg PO DAILY 07/25/17 Warfarin Sodium 5 mg PO DAILY 07/25/17 - Family History Maternal Diabetes, Heart Disease, Stroke Paternal Heart Disease Sibling Diabetes, Stroke Smoking Status: Never smoker Review of Systems Constitutional: Denies: Anorexia, Chills, Fever, Night Sweats Eyes: Denies: Blurred vision HEENT: Denies: Difficulty Hearing, Difficulty Swallowing Cardiovascular: Denies: Chest Pain, Chest Pressure Respiratory: Denies: Cough, Hemoptysis Gastrointestinal: Denies: Abdominal Pain, Constipation, Hematemesis Skin: Denies: Jaundice - Physical Exam Vital Signs Temp Pulse Resp BP 97.5 F L 69 18 155/65 H 01/06/19 10:24 01/06/19 10:24 01/06/19 10:24 01/06/19 10:24 General: Alert, Oriented x3, Cooperative, No apparent distress HEENT: Atraumatic, Normocephalic Oral: Moist Mucosa Neck: Supple Lungs: Normal air movement Cardiovascular: Regular rate, Regular Rhythm, Murmur Abdomen: Soft, Non Tender Extremities: No cyanosis, Edema Skin: Ulcer/ Wound Wound Measurements and Assessment WC - Nurse 1 - General Ulcer Measurement Start: 01/06/19 10:18 Freq: Status: Active Protocol: Activity Type Activity Date Activity User E-Sign Co-Sign Detail Recorded Client Recorded Date Recorded By Document 01/06/19 10:24 RB [id number] 01/06/19 10:32 RB 01/06/19 10:24 Wound Center Nurse 1 [Ulcer Assessment] 9. RLE posterior -Combined with other wound No -Current Size (cm) - Length 0.9 -Current Size (cm) - Width 0.5 -Current Size (cm) - Depth 0.2 -Total Square Cm 0.45 -Photo Taken Yes -Tunneling No -Undermining/Tunneling No -Circular Undermining No -Exudate Amt Small -Exudate Type Serosanguineous -Wound Margin Flat & Intact -Granulation Amt Large (67-100%) -Granulation Quality [place] -Slough/Fibrin Yes -Necrosis Amt Small (1-33%) -Structure Exposed N/A -Texture (Kinza-wound Skin Appearance) Assessed -Moisture ([place]-wound Skin Appearance Assessed ) -Color ([place]-wound Skin Appearance) Assessed, Hemosiderin Staining -Temperature ([place]-wound Skin No Abnormality Appearance) (Pt Warm) -Tenderness on Palpation ([place]-wound No Skin Appearance) -Ulcer Cleansing Wound Cleanser -Foul Odor after Cleansing No -Anesthetic Used 5% Lidocaine Gel 8. RLE lateral -Combined with other wound No -Current Size (cm) - Length 1.3 -Current Size (cm) - Width 0.7 -Current Size (cm) - Depth 0.1 -Total Square Cm 0.91 -Photo Taken Yes -Tunneling No -Undermining/Tunneling No -Circular Undermining No -Exudate Amt Small -Exudate Type Serosanguineous -Wound Margin Flat & Intact -Granulation Amt Large (67-100%) -Granulation Quality [place] -Slough/Fibrin Yes -Necrosis Amt Small (1-33%) -Necrotic Tissue Type Adherent Slough -Structure Exposed N/A -Texture ([place]-wound Skin Appearance) Assessed -Moisture ([place]-wound Skin Appearance Assessed ) -Color ([place]-wound Skin Appearance) Hemosiderin Staining -Temperature ([place]-wound Skin No Abnormality Appearance) (Pt Warm) -Tenderness on Palpation ([place]-wound No Skin Appearance) -Ulcer Cleansing Wound Cleanser -Foul Odor after Cleansing No -Anesthetic Used 5% Lidocaine Gel 7. RLE medial -Combined with other wound No -Current Size (cm) - Length 1.2 -Current Size (cm) - Width 0.9 -Current Size (cm) - Depth 0.1 -Total Square Cm 1.08 -Photo Taken Yes -Tunneling No -Undermining/Tunneling No -Circular Undermining No -Exudate Amt Small -Exudate Type Serosanguineous -Wound Margin Flat & Intact -Granulation Amt Large (67-100%) -Granulation Quality [place] -Slough/Fibrin Yes -Necrosis Amt Small (1-33%) -Necrotic Tissue Type Adherent Slough -Structure Exposed N/A -Texture ([place]-wound Skin Appearance) Assessed -Moisture ([place]-wound Skin Appearance Assessed ) -Color ([place]-wound Skin Appearance) Hemosiderin Staining -Temperature ([place]-wound Skin No Abnormality Appearance) (Pt Warm) -Tenderness on Palpation ([place]-wound No Skin Appearance) -Ulcer Cleansing Wound Cleanser -Foul Odor after Cleansing No -Anesthetic Used 5% Lidocaine Gel [Edema Assessment] -Lower Limb Edema Present Yes -Right Calf (cm) 40.4 -Right Ankle (cm) 22.5 -Left Calf (cm) 39 -Left Ankle (cm) 24 WC - Nurse 2 - General Ulcer CM Notes Start: 01/06/19 10:18 Freq: Status: Active Protocol: Activity Type Activity Date Activity User E-Sign Co-Sign Detail Recorded Client Recorded Date Recorded By Document 01/06/19 10:41 MW [id number] 01/06/19 10:49 MW 01/06/19 10:41 Wound Center Nurse 2 [Procedure/Treatment] #10 left buttock -Time 10:46 -Correct Patient Yes -Correct Side, Site, Position Yes -Correct Procedure Yes -Procedure Performed Yes -Type of Procedure Debridement -Clinical Debridement Selective -Post Debridement Size (cm) - Length 0.1 -Post Debridement Size (cm) - Width 0.1 -Post Debridement Size (cm) - Depth 0.1 -Total Square Cm 0.01 -Wound/Ulcer Outcome Not Healed -Ulcer Cleansing Rinsed/ Irrigated with Saline -Foul Odor after Cleansing No -Bioengineered Tissue No -Bleeding Controlled with Pressure -Offloading No -Treatment Response Procedure Tolerated Well 9. RLE posterior -Time 10:43 -Correct Patient Yes -Correct Side, Site, Position Yes -Correct Procedure Yes -Procedure Performed Yes -Type of Procedure Debridement -Clinical Debridement Subcutaneous -Post Debridement Size (cm) - Length 1.0 -Post Debridement Size (cm) - Width 0.7 -Post Debridement Size (cm) - Depth 0.1 -Total Square Cm 0.70 -Wound/Ulcer Outcome Not Healed -Ulcer Cleansing Rinsed/ Irrigated with Saline -Foul Odor after Cleansing No -Bioengineered Tissue No -Bleeding Controlled with Pressure -Offloading No -Treatment Response Procedure Tolerated Well 8. RLE lateral -Time 10:43 -Correct Patient Yes -Correct Side, Site, Position Yes -Correct Procedure Yes -Procedure Performed Yes -Type of Procedure Debridement -Clinical Debridement Subcutaneous -Post Debridement Size (cm) - Length 1.5 -Post Debridement Size (cm) - Width 0.6 -Post Debridement Size (cm) - Depth 0.1 -Total Square Cm 0.90 -Wound/Ulcer Outcome Not Healed -Ulcer Cleansing Rinsed/ Irrigated with Saline -Foul Odor after Cleansing No -Bioengineered Tissue No -Bleeding Controlled with Pressure -Offloading No -Treatment Response Procedure Tolerated Well 7. RLE medial -Time 10:43 [See Physician Procedure note for Specifics] Musculoskeletal: No Muscle Wasting Neurological: Cranial nerves II-XII grossly intact Psych/Mental Status: Normal Affect Debridement Note Post-Debridement Measurements/Treatment WC - Nurse 2 - General Ulcer CM Notes Start: 01/06/19 10:18 Freq: Status: Active Protocol: Activity Type Activity Date Activity User E-Sign Co-Sign Detail Recorded Client Recorded Date Recorded By Document 01/06/19 10:41 MW [id number] 01/06/19 10:49 MW 01/06/19 10:41 Wound Center Nurse 2 #10 left buttock -Time 10:46 -Correct Patient Yes -Correct Side, Site, Position Yes -Correct Procedure Yes -Procedure Performed Yes -Type of Procedure Debridement -Clinical Debridement Selective -Post Debridement Size (cm) - Length 0.1 -Post Debridement Size (cm) - Width 0.1 -Post Debridement Size (cm) - Depth 0.1 -Total Square Cm 0.01 -Wound/Ulcer Outcome Not Healed -Ulcer Cleansing Rinsed/ Irrigated with Saline -Foul Odor after Cleansing No -Bioengineered Tissue No -Bleeding Controlled with Pressure -Offloading No -Treatment Response Procedure Tolerated Well 9. RLE posterior -Time 10:43 -Correct Patient Yes -Correct Side, Site, Position Yes -Correct Procedure Yes -Procedure Performed Yes -Type of Procedure Debridement -Clinical Debridement Subcutaneous -Post Debridement Size (cm) - Length 1.0 -Post Debridement Size (cm) - Width 0.7 -Post Debridement Size (cm) - Depth 0.1 -Total Square Cm 0.70 -Wound/Ulcer Outcome Not Healed -Ulcer Cleansing Rinsed/ Irrigated with Saline -Foul Odor after Cleansing No -Bioengineered Tissue No -Bleeding Controlled with Pressure -Offloading No -Treatment Response Procedure Tolerated Well 8. RLE lateral -Time 10:43 -Correct Patient Yes -Correct Side, Site, Position Yes -Correct Procedure Yes -Procedure Performed Yes -Type of Procedure Debridement -Clinical Debridement Subcutaneous -Post Debridement Size (cm) - Length 1.5 -Post Debridement Size (cm) - Width 0.6 -Post Debridement Size (cm) - Depth 0.1 -Total Square Cm 0.90 -Wound/Ulcer Outcome Not Healed -Ulcer Cleansing Rinsed/ Irrigated with Saline -Foul Odor after Cleansing No -Bioengineered Tissue No -Bleeding Controlled with Pressure -Offloading No -Treatment Response Procedure Tolerated Well 7. RLE medial -Time 10:43 Wound debrided: Right leg ( lateral ) Wound Grade/Stage: Stage II Type of Debridement: Excisional debridement Anesthesia Used: 4% Lidocaine Solution Depth: Down to and including healthy tissue, in the subcutaneous layer Percentage of wound debrided: 100 Instrument Used: 3mm curette Tissue Removed: Slough and devitalized tissue Severity: Fat Layer Exposed Amount of bleeding with debridement: Mild Bleeding Controlled with: Pressure Patient tolerated procedure well - Additional Wound Wound debrided: Right leg ( Medial ) Wound Grade/Stage: Stage II Type of Debridement: Excisional debridement Anesthesia Used: 4% Lidocaine Solution Depth: Down to and including healthy tissue, in the subcutaneous layer Percentage of wound debrided: 100 Instrument Used: 3mm curette Tissue Removed: Slough and devitalized tissue Severity: Fat Layer Exposed Amount of bleeding with debridement: Mild Bleeding Controlled with: Pressure Patient tolerated procedure: Patient tolerated procedure well - Additional Wound Wound debrided: Right Leg ( Posterior ) Wound Grade/Stage: Stage II Type of Debridement: Excisional debridement Anesthesia Used: 4% Lidocaine Solution Depth: Down to and including healthy tissue, in the subcutaneous layer Percentage of wound debrided: 100 Instrument Used: 3mm curette Tissue Removed: Slough and devitalized tissue Severity: Fat Layer Exposed Amount of bleeding with debridement: Mild Bleeding Controlled with: Pressure Patient tolerated procedure: Patient tolerated procedure well - Additional Wound Wound debrided: Left Buttock Wound Grade/Stage: Stage II Type of Debridement: Excisional debridement Anesthesia Used: 4% Lidocaine Solution Depth: Down to and including healthy tissue, in the subcutaneous layer Percentage of wound debrided: 100 Instrument Used: 3mm curette Tissue Removed: Slough and devitalized tissue Severity: Fat Layer Exposed Amount of bleeding with debridement: Mild Bleeding Controlled with: Pressure Patient tolerated procedure: Patient tolerated procedure well Assessment/Plan Active Problems Bilateral lower extremity edema (Chronic) 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 (Acute) x 2 wounds one located above medial malleolus and one just below right knee Decubitus ulcer of left buttock, stage 2 (Acute) Assessment: Same as above. Plan: Debridement done as documented above, procedure was well tolertaed. History of recurrent right lower extremity ulcer due to venous insufficieny. Aquacel extra with ABD. 3M wraps bilaterally for edema management. Zinc Oxide cream and Optifoam to Left butotck area. Offloading strongly recommended. Advised to avoid sleeping in his recliner. Increased protein intake and optimal DM control. Elevate lower extremity when seated and in bed, avoid idle standing, weight loss and exercise as tolerated. His questions were answered and he was advised to call with any questions or concerns. Follow on friday for a Nurse visit and in 1 week with me.
[2019-01-08 12:25] VITALS: BMI 24.3
== END 2019-01-25 23:59 ==
LOC: WC 11:15
PROVIDERS: Family Provider Family Medicine; PCP Family Medicine; Visit Provider Internal Medicine
DX: E11.622 Type 2 diabetes mellitus with other skin ulcer (principal); E11.42 Type 2 diabetes mellitus with diabetic polyneuropathy; I87.2 Venous insufficiency (chronic) (peripheral); L89.322 Pressure ulcer of left buttock, stage 2; L97.812 Non-pressure chronic ulcer of other part of right lower leg with fat layer exposed; J44.9 Chronic obstructive pulmonary disease, unspecified; I48.2 Chronic atrial fibrillation; G47.30 Sleep apnea, unspecified; Z95.1 Presence of aortocoronary bypass graft; I25.10 Atherosclerotic heart disease of native coronary artery without angina pectoris; E11.51 Type 2 diabetes mellitus with diabetic peripheral angiopathy without gangrene; I50.9 Heart failure, unspecified; Z79.899 Other long term (current) drug therapy; Z79.4 Long term (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 of insulin; Z79.82 Long term (current) use of aspirin; Z79.01 Long term (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 of anticoagulants
CPT/HCPCS: 11042; 97597; 99213; G0463

== ENCOUNTER 2019-01-29 04:42 | Outpatient (RCR) | payer MEDICARE, SELFPAY ==
[2019-01-26 01:13] VITALS: BP 155/65; PULSE 69; RESP 18; TEMP 36.4
[2019-01-29 11:05] VITALS: BP 131/81; PULSE 60; RESP 20; TEMP 36.6; BMI 24.3
--- NOTE | 2019-01-29 12:36 | PN.PCM_ITS ---
(1) Decubitus ulcer of left buttock, stage 2 Status: Acute Current Visit: No Code(s): L89.322 - Pressure ulcer of left buttock, stage 2 (2) 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 Status: Acute Current Visit: No Code(s): L97.912 - Non-pressure chronic ulcer of unspecified part of right lower leg with fat layer exposed Comment: x 2 wounds one located above medial malleolus and one just below right knee (3) CAD (coronary artery disease) Status: Chronic Current Visit: Yes Qualifiers: Code(s): I25.10 - Atherosclerotic heart disease of [place] coronary artery without angina pectoris (4) PAD (peripheral artery disease) Status: Chronic Current Visit: Yes Code(s): I73.9 - Peripheral vascular disease, unspecified (5) Type 2 diabetes mellitus treated with insulin Status: Chronic Current Visit: Yes Code(s): E11.9 - Type 2 diabetes mellitus without complications; 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 New Left Buttock Ulcer. History of Wound: Mr. Martin is a 78 yr old with a history of recurrent right lower extremity ulcer secondary to venous insufficiency. Last seen here about 1 year ago. He states that he noted increased drainage from his legs on friday at which time he also noted the ulcer. He has applied antibiotic ointment to the area. He also reports pain in his left buttock area. No history of trauma.He admits to sitting and sleeping in his recliner for prolonged periods of time. He feels well otherwise and denies pain in his extremitoies, chills fever, nausea or vomitting. Progress of Wound: Today his buttocks and his right lower leg are all healed. Patient was in the hospital just recently for pacemaker his heart rate went down to 29. Patient is feeling better patient will start wearing his compression stockings all the time and be discharged from the wound center - Physical Exam Vital Signs Temp Pulse Resp BP 97.8 F 60 20 H 131/81 H 01/29/19 11:05 01/29/19 11:05 01/29/19 11:05 01/29/19 11:05 General: Oriented x3, Cooperative, Well developed HEENT: Atraumatic, PERRLA Oral: Moist Mucosa Neck: Supple, No JVD Lungs: Clear to auscultation, Normal air movement Cardiovascular: Regular rate, Regular Rhythm Abdomen: Bowel Sounds Present, Soft, Non Tender, No Hepato-splenomegaly Extremities: No clubbing, No edema Wound Measurements and Assessment WC - Nurse 1 - General Ulcer Measurement Start: 01/29/19 11:05 Freq: Status: Active Protocol: Activity Type Activity Date Activity User E-Sign Co-Sign Detail Recorded Client Recorded Date Recorded By Document 01/29/19 11:05 DL [id number] 01/29/19 11:21 DL 01/29/19 11:05 Wound Center Nurse 1 [Ulcer Assessment] #10 left buttock -Current Size (cm) - Length 0 -Current Size (cm) - Width 0 -Current Size (cm) - Depth 0 -Total Square Cm 0 -Photo Taken Yes -Exudate Amt None Present -Wound Margin Flat & Intact -Granulation Amt Large (67-100%) -Granulation Quality [place] -Necrosis Amt None Present (0 %) -Structure Exposed N/A -Texture (Kinza-wound Skin Appearance) No Abnormality -Moisture ([place]-wound Skin Appearance No Abnormality ) -Color (Kinza-wound Skin Appearance) Rubor -Temperature ([place]-wound Skin No Abnormality Appearance) (Pt Warm) -Tenderness on Palpation ([place]-wound No Skin Appearance) -Ulcer Cleansing Rinsed/ Irrigated with Saline -Foul Odor after Cleansing No 9. RLE posterior -Current Size (cm) - Length 0.8 -Current Size (cm) - Width 0.7 -Current Size (cm) - Depth 0.1 -Total Square Cm 0.56 -Photo Taken No -Exudate Amt None Present -Wound Margin Thickened -Granulation Amt None Present (0 %) -Necrosis Amt Small (1-33%) -Necrotic Tissue Type Adherent Slough -Structure Exposed N/A -Texture (Kin[place]-wound Skin Appearance) Scarring -Moisture ([place]-wound Skin Appearance No Abnormality ) -Color ([place]-wound Skin Appearance) Hemosiderin Staining, Mottled -Temperature ([place]-wound Skin No Abnormality Appearance) (Pt Warm) -Tenderness on Palpation ([place]-wound No Skin Appearance) -Ulcer Cleansing Rinsed/ Irrigated with Saline -Foul Odor after Cleansing No -Anesthetic Used 5% Lidocaine Gel 8. RLE lateral -Current Size (cm) - Length 0 -Current Size (cm) - Width 0 -Current Size (cm) - Depth 0 -Total Square Cm 0 -Photo Taken Yes -Exudate Amt None Present -Wound Margin Flat & Intact -Granulation Amt Large (67-100%) -Granulation Quality [place] -Necrosis Amt None Present (0 %) -Structure Exposed N/A -Texture ([place]-wound Skin Appearance) Scarring -Moisture ([place]-wound Skin Appearance No Abnormality ) -Color ([place]-wound Skin Appearance) Mottled -Temperature ([place]-wound Skin No Abnormality Appearance) (Pt Warm) -Tenderness on Palpation ([place]-wound No Skin Appearance) -Ulcer Cleansing Rinsed/ Irrigated with Saline -Foul Odor after Cleansing No 7. RLE medial -Current Size (cm) - Length 0 -Current Size (cm) - Width 0 -Current Size (cm) - Depth 0 -Total Square Cm 0 -Photo Taken Yes -Exudate Amt None Present -Wound Margin Flat & Intact -Granulation Amt Large (67-100%) -Granulation Quality [place] -Necrosis Amt None Present (0 %) -Structure Exposed N/A -Texture ([place]-wound Skin Appearance) Scarring -Moisture ([place]-wound Skin Appearance No Abnormality ) -Color (Kinza-wound Skin Appearance) Mottled -Temperature ([place]-wound Skin No Abnormality Appearance) (Pt Warm) -Tenderness on Palpation ([place]-wound No Skin Appearance) -Ulcer Cleansing Rinsed/ Irrigated with Saline -Foul Odor after Cleansing No WC - Nurse 2 - General Ulcer CM Notes Start: 01/29/19 11:05 Freq: Status: Active Protocol: Activity Type Activity Date Activity User E-Sign Co-Sign Detail Recorded Client Recorded Date Recorded By Document 01/29/19 11:43 MW [id number] 01/29/19 11:46 MW 01/29/19 11:43 Wound Center Nurse 2 [Procedure/Treatment] #10 left buttock -Time 11:44 -Correct Patient Yes -Correct Side, Site, Position Yes -Correct Procedure Yes -Procedure Performed No -Post Debridement Size (cm) - Length 0 -Post Debridement Size (cm) - Width 0 -Post Debridement Size (cm) - Depth 0 -Total Square Cm 0 -Wound/Ulcer Outcome Healed- Epithelialized 9. RLE posterior -Time 11:44 -Correct Patient Yes -Correct Side, Site, Position Yes -Correct Procedure Yes -Procedure Performed No -Post Debridement Size (cm) - Length 0 -Post Debridement Size (cm) - Width 0 -Post Debridement Size (cm) - Depth 0 -Total Square Cm 0 -Wound/Ulcer Outcome Healed- Epithelialized 8. RLE lateral -Time 11:44 -Correct Patient Yes -Correct Side, Site, Position Yes -Correct Procedure Yes -Procedure Performed No -Post Debridement Size (cm) - Length 0 -Post Debridement Size (cm) - Width 0 -Post Debridement Size (cm) - Depth 0 -Total Square Cm 0 -Wound/Ulcer Outcome Healed- Epithelialized 7. RLE medial -Time 11:45 -Correct Patient Yes -Correct Side, Site, Position Yes -Correct Procedure Yes -Procedure Performed No -Post Debridement Size (cm) - Length 0 -Post Debridement Size (cm) - Width 0 -Post Debridement Size (cm) - Depth 0 -Total Square Cm 0 -Wound/Ulcer Outcome Healed- Epithelialized [See Physician Procedure note for Specifics] Pain Scale: 0-10 Numeric [Pain] -Is Patient Pain Free? Yes Musculoskeletal: No Tenderness to Palpation of Joints or Extremities Lymphatic: No Cervical, Supraclavicular, or Inguinal Adenopathy Neurological: Cranial nerves II-XII grossly intact, Neuro grossly intact Psych/Mental Status: Normal Affect, Appropriate Debridement Note Post-Debridement Measurements/Treatment WC - Nurse 2 - General Ulcer CM Notes Start: 01/29/19 11:05 Freq: Status: Active Protocol: Activity Type Activity Date Activity User E-Sign Co-Sign Detail Recorded Client Recorded Date Recorded By Document 01/29/19 11:43 MW [id number] 01/29/19 11:46 MW 01/29/19 11:43 Wound Center Nurse 2 #10 left buttock -Time 11:44 -Correct Patient Yes -Correct Side, Site, Position Yes -Correct Procedure Yes -Procedure Performed No -Post Debridement Size (cm) - Length 0 -Post Debridement Size (cm) - Width 0 -Post Debridement Size (cm) - Depth 0 -Total Square Cm 0 -Wound/Ulcer Outcome Healed- Epithelialized 9. RLE posterior -Time 11:44 -Correct Patient Yes -Correct Side, Site, Position Yes -Correct Procedure Yes -Procedure Performed No -Post Debridement Size (cm) - Length 0 -Post Debridement Size (cm) - Width 0 -Post Debridement Size (cm) - Depth 0 -Total Square Cm 0 -Wound/Ulcer Outcome Healed- Epithelialized 8. RLE lateral -Time 11:44 -Correct Patient Yes -Correct Side, Site, Position Yes -Correct Procedure Yes -Procedure Performed No -Post Debridement Size (cm) - Length 0 -Post Debridement Size (cm) - Width 0 -Post Debridement Size (cm) - Depth 0 -Total Square Cm 0 -Wound/Ulcer Outcome Healed- Epithelialized 7. RLE medial -Time 11:45 -Correct Patient Yes -Correct Side, Site, Position Yes -Correct Procedure Yes -Procedure Performed No -Post Debridement Size (cm) - Length 0 -Post Debridement Size (cm) - Width 0 -Post Debridement Size (cm) - Depth 0 -Total Square Cm 0 -Wound/Ulcer Outcome Healed- Epithelialized Pain Scale: 0-10 Numeric Is Patient Pain Free? Yes No debridement was completed today Assessment/Plan Active Problems CAD (coronary artery disease) (Chronic) PAD (peripheral artery disease) (Chronic) Type 2 diabetes mellitus treated with insulin (Chronic) Type 2 diabetes mellitus with other skin ulcer (Chronic) Assessment: Resolved skin issues on buttocks and right lower leg Plan: Discharge from the wound center follow-up as needed. Wearing compression stockings 20 to 30 mmHg at all times
== END 2019-02-25 23:59 ==
LOC: WC 04:42
PROVIDERS: Family Provider Family Medicine; PCP Family Medicine; Visit Provider Internal Medicine
DX: Z09 Encounter for follow-up examination after completed treatment for conditions other than malignant neoplasm (principal); E11.51 Type 2 diabetes mellitus with diabetic peripheral angiopathy without gangrene; I25.10 Atherosclerotic heart disease of native coronary artery without angina pectoris
CPT/HCPCS: 99213; G0463